=== PATIENT | female | born 1975 | race Caucasian/White ===

== ENCOUNTER 2016-05-13 03:44 | Emergency (ER) | payer OTHER ==
[~2016-05-13] VITALS: Ht 162.6 cm; Wt 148.0 kg
[~2016-05-13 03:44] MED LIST: ALBU18HF INHALATION; ATEN50TA PO; AZIT250T94 PO; CHLO473M4 MM; FLUT9.9S NASAL; HYDR-902 PO; HYDR12.58 PO; IBUP800T25 PO; PSEU120T11 PO
[2016-05-13 03:46] VITALS: Ht 162.6 cm; Wt 148.0 kg
[2016-05-13] MEDS ORDERED: KETOROLAC 30 MG INJ IV STA (04:34)
[2016-05-13] MEDS ORDERED: ONDANSETRON 4 MG INJ IV STA ×2 (04:34→06:11)
[2016-05-13 05:21] LABS: BASOPHIL # 0.1 10^3/ul (0.0-0.1); BASOPHILS % 0.5 % (0.0-2.0); EOSINOPHILS # 0.5 10^3/ul (0.0-0.5); EOSINOPHILS % 3.8 % (0.0-7.0); HEMATOCRIT 38.6 % (37.0-47.0); HEMOGLOBIN 12.1 g/dl (12.0-16.0); LYMPHOCYTES # 2.5 10^3/ul (0.8-2.9); LYMPHOCYTES % 20.7 % (15.0-51.0); MEAN CORPUSCULAR HEMOGLOBIN 24.6 pg (29.0-33.0); MEAN CORPUSCULAR HGB CONC 31.3 g/dl (32.0-37.0); MEAN CORPUSCULAR VOLUME 78.8 fl (82.0-101.0); MEAN PLATELET VOLUME 8.7 fl (7.4-10.4); MONOCYTE # 0.6 10^3/ul (0.3-0.9); MONOCYTES % 4.6 % (0.0-11.0); NEUTROPHIL # 8.4 10^3/ul (1.6-7.5); NEUTROPHILS % 70.4 % (39.0-77.0); PLATELET COUNT 377 10^3/UL (140-440); RED CELL DISTRIBUTION WIDTH 17.5 % (11.5-14.5); UNCORRECTED WBC 11.9 10^3/ul (4.8-10.8); WHITE BLOOD COUNT 11.9 10^3/ul (4.8-10.8)
[2016-05-13 05:25] LABS: ALBUMIN/GLOBULIN RATIO 0.76; CREATININE 0.74 mg/dl (0.44-1.00); TOTAL PROTEIN 9.2 g/dl (6.1-8.1)
[2016-05-13 05:26] LABS: CALCIUM 9.4 mg/dl (8.4-10.2)
[2016-05-13 05:51] LABS: CONDITION 1; LH ANALYZER COMMENTS 1
[2016-05-13] MEDS ORDERED: DICLOFENAC SODIUM 37.5 MG/ML VIAL IV STA (06:05)
[2016-05-13 06:16] LABS: ADD UMIC YES; URINE BILIRUBIN (Dip) NEGATIVE (NEGATIVE); URINE BLOOD (Dip) 1+ (NEGATIVE); URINE COLOR LT. YELLOW (YELLOW); URINE GLUCOSE (Dip) NEGATIVE (NEGATIVE); URINE KETONES (Dip) NEGATIVE (NEGATIVE); URINE LEUKOCYTE ESTERASE (Dip) NEGATIVE (NEGATIVE); URINE NITRITE (Dip) NEGATIVE (NEGATIVE); URINE TOTAL PROTEIN (Dip) TRACE (NEGATIVE); URINE UROBILINOGEN (Dip) 0.2 E.U./dL (0.1-1.0)
--- NOTE | 2016-05-13 06:18 | RADRPT ---
PROCEDURE: US pelvis complete and transvaginal CLINICAL INDICATION: Pelvic pain TECHNIQUE: Valente scale and color Doppler imaging of the pelvis was performed. Endovaginal scanning was performed for more detailed evaluation of the endometrium. The images were reviewed on a PACS workstation. COMPARISON: 01/24/2016 FINDINGS: The uterus measures 10.4 x 4.9 x 5.4 centimeters. The right ovary is again not visualized and the l eft ovary measures 5 x 4.1 x 4.3 centimeters. The endometrial stripe measures 7 millimeters in thic kness and is unremarkable in appearance. A possible 2.9 x 2.2 x 2.6 cm fibroid was seen in the anter ior uterus. The uterus was slightly lobulated in contour. The left ovary contains a 3 x 4.3 x 3.1 c m septated cystic lesion, similar in appearance to prior. No free fluid is seen. Cervical Nabothian cysts. No gross arterial flow was seen in the periphery of the left ovary. IMPRESSION: No definite interval change. Possible fibroid. Stable septated cystic lesion of the left ovary. T his has been seen on studies dating back to 04/19/2015. At that time, the abnormality measured 3.9 x 2.3 centimeters. MRI of the pelvis with without contrast may be helpful for further evaluation. Slowly enlarging cystic ovarian neoplasm cannot be excluded. RPTAT: HLBE Physician [place] Date Time Electronically viewed and signed by Yokasta Quan Physician on 05/13/2016 06:18 KAIDEN/
[2016-05-13] MEDS ORDERED: ONDA4TAB14 PO (06:25)
[2016-05-13 06:41] LABS: BACTERIA,URINE FEW; URINE RBCS 0-2 /HPF (0)
--- NOTE | 2016-05-13 06:47 | ERD ---
ER Documentation Chief Complaint Date/Time DATE: 05/13/16 TIME: 06:32 Chief Complaint BENNY PEVIC PAIN THIS AM; LMP 05/05/16. HPI 41-year-old female complaining of pelvic pain 4 hours. Patient stated that the pain is sharp and constant, feels like "contractions". Patient has history of dermoid cysts in the left ovary. States that this feels like previous pain from the cyst. Patient stated that she has [place] prescribed by her PCP, and was told that when pain gets worse and [place] does not help that she should come to the ED. she has not been able seen a RAIL EQUIPMENT OPERATOR due to her insurance. She feels nauseous, but no vomiting. Denies fever or chills. Denies vaginal bleeding. ROS All systems reviewed and are negative except as per history of present illness. Medications Home Meds Active Scripts Ondansetron (Ondansetron Odt) 4 Mg Tab.rapdis, 4 MG PO Q6H Y for NAUSEA AND/OR VOMITING, #10 TAB Prov:KIARA JAMESON NP 05/13/16 Ibuprofen* (Motrin*) 800 Mg Tab, 800 MG PO Q8 Y for PAIN AND OR ELEVATED TEMP, # 30 TAB Prov:KIARA JAMESON CANAL LOCK TENDER CHIEF OPERATOR 03/29/16 Fluticasone Propionate (Flonase Allergy Relief) 9.9 Ml [place].susp, 1 SPRAY NASAL DAILY, #1 BOTTLE TO EACH NOSTRIL Prov:KIARA JAMESON NP 03/29/16 Pseudoephedrine Hcl (Sudafe 12-Hour) 120 Mg Tablet.er, 120 MG PO BID Y for CONGESTION, #10 TAB.SA Prov:KIARA JAMESON NP 03/29/16 Chlorhexidine Gluconate (Peridex) 473 Ml Mouthwash, 15 ML MM 3-4 times a day, # 250 ML Prov:KAJAL PADRONSTSARABJITS ALyudmila DO 02/28/16 Hydrocodone/Acetaminophen ([place] 10-325 Tablet) 1 Each Tablet, 1 TAB PO Q6H Y for PAIN, #20 TAB Prov:KAJAL PADRONSTSARABJITS ALyudmila DO 02/28/16 Azithromycin* (Zithromax*) 250 Mg Tablet, 250 MG PO .KOURTNEY DIRECTED, #6 TAB TAKE 500 MG (2 TABS) THE FIRST DAY THEN 250 MG (1 TAB) DAYS 2-5 Prov:YISSEL PADRON DO 02/28/16 Reported Medications Albuterol Sulfate* (Ventolin HFA*) 18 Gm Hfa.aer.ad, 2 PUFF INHALATION Q4H Y for PRN, #1 INHALER 02/28/16 Hydrochlorothiazide* (Hydrochlorothiazide*) 12.5 Mg Tablet, 12.5 MG PO DAILY, # 30 TAB 10/29/15 Atenolol* (Atenolol*) 50 Mg Tablet, 50 MG PO DAILY, #30 04/19/15 Allergies Allergies: Coded Allergies: No Known Drug Allergy (Verified Allergy, Mild, 02/28/16) PMhx/Soc History of Surgery: Yes (C-SECX3, TUBAL LIGATION, CHEST ABCESS DRAINAGE) Anesthesia Reaction: No Hx Neurological Disorder: No Hx Respiratory Disorders: Yes (SLEEP APNEA, ASTHMA) Hx Cardiac Disorders: Yes (HTN) Hx Psychiatric Problems: Yes (ANXIETY) Hx Miscellaneous Medical Probl: Yes (SCIATICA, ovarian cysts) Hx Alcohol Use: No Hx Substance Use: No Hx Tobacco Use: Yes (1/2 PK PER DAY) Smoking Status: Current every day smoker Physical Exam Vitals Vital Signs Date Time Temp Pulse Resp B/P Pulse Ox O2 Delivery O2 Flow Rate FiO2 05/13/16 03:46 99.4 96 22 185/96 98 Physical Exam General impression: Well-developed, well-nourished, morbidly obese 41-year-old female, alert, oriented, in no acute distress Head: Normocephalic, atraumatic. Respiration: Normal respiratory effort. Lungs clear to auscultate bilaterally. No wheezes, rales or rhonchi. Cardiovascular: Regular rate and rhythm. No murmurs or extra heart sounds. Abdomen: Abdomen normal to inspection. Diffusely tender. No masses or organomegaly. Bowel sounds normal. Back: Normal to inspection. No midline spine tenderness. No CVA tenderness. Neuro: Mental status normal, speech normal. Skin: Normal turgor. No rash or lesions. Psych: Normal mood and affect. Result Diagram: 05/13/16 0450 05/13/16 0450 Results 24 hrs Laboratory Tests Test 05/13/16 04:50 05/13/16 05:30 Alanine Aminotransferase (ALT/SGPT) 14IU/L Albumin 4.0g/dl Albumin/Globulin Ratio 0.76 Alkaline Phosphatase 95IU/L Anion Gap 19 Aspartate Amino Transf (AST/SGOT) 16IU/L Basophils # 0.110^3/ul Basophils % 0.5% Blood Morphology Comment Blood Urea Nitrogen 15mg/dl Calcium Level 9.4mg/dl Carbon Dioxide Level 30mmol/L Chloride Level 102mmol/L Creatinine 0.74mg/dl Direct Bilirubin 0.00mg/dl Eosinophils # 0.510^3/ul Eosinophils % 3.8% Globulin 5.20g/dl Glucose Level 106mg/dl Hematocrit 38.6% Hemoglobin 12.1g/dl Indirect Bilirubin 0.0mg/dl Lipase 84U/L Lymphocytes # 2.510^3/ul Lymphocytes % 20.7% Mean Corpuscular Hemoglobin 24.6pg Mean Corpuscular Hemoglobin Concent 31.3g/dl Mean Corpuscular Volume 78.8fl Mean Platelet Volume 8.7fl Monocytes # 0.610^3/ul Monocytes % 4.6% Neutrophils # 8.410^3/ul Neutrophils % 70.4% Nucleated Red Blood Cells # 0.010^3/ul Nucleated Red Blood Cells % 0.0/100WBC Platelet Count 11241^3/UL Potassium Level 4.0mmol/L Red Blood Count 4.9010^6/ul Red Cell Distribution Width 17.5% Sodium Level 147mmol/L Total Bilirubin 0.0mg/dl Total Protein 9.2g/dl White Blood Count 11.910^3/ul Urine Bilirubin NEGATIVE Urine Clarity CLEAR Urine Color LT. YELLOW Urine Glucose NEGATIVE% Urine Hemoglobin 1+ Urine Ketones NEGATIVE Urine Leukocyte Esterase NEGATIVE Urine Microscopic RBC Pending Urine Microscopic WBC Pending Urine Nitrite NEGATIVE Urine Specific Prosperity 1.025 Urine Total Protein TRACE Urine Urobilinogen 0.2 E.U./dL Urine pH 6.0 Current Medications Medications (Trade) Dose Ordered Sig/Clarita Route PRN Reason Start Time Stop Time Status Last Admin Dose Admin Ketorolac Tromethamine (Toradol) 30 mg ONCE STAT IV 05/13/16 04:34 05/13/16 04:35 DC 05/13/16 04:57 Ondansetron HCl (Zofran Inj) 4 mg ONCE STAT IV 05/13/16 04:34 05/13/16 04:35 DC 05/13/16 04:57 Diclofenac Sodium (Dyloject) 37.5 mg ONCE STAT IV 05/13/16 06:05 05/13/16 06:06 DC 05/13/16 06:09 Ondansetron HCl (Zofran Inj) 4 mg ONCE STAT IV 05/13/16 06:11 05/13/16 06:12 DC 05/13/16 06:17 Procedures/MDM Morbidly obese 41-year-old female with history of dermoid cyst of the left ovary is complaining of pelvic pain times several hours. Patient requests Dilaudid for pain relief and initially refused pelvic ultrasound. I explained to the patient that it is important for me to obtain a pelvic ultrasound in order to rule out ruptured cyst with hemorrhaging. Patient agreed. Ultrasound showed no free fluids. Cyst on left ovary is noted to be larger than previous study dated about 1 year ago, concerning for neoplasm. CBC, CMP, lipase, and UA are unremarkable. Patient was given Toradol 30 mg IV and Zofran 4 mg IV initially. After medication, patient appeared to be comfortable. However, whenever patient sees a provider or nurse walking by, she was started to groan and complain of in pain. In addition, patient also requests medication for sleeping. Review of patient's medical record indicated that patient had been seen in this ED several times for similar complaints, and each time she received 1 mg of Dilaudid IV. Patient's behavior is suspicious for drug-seeking activity. Instead of Dilaudid, I gave her Dylojet IV. Patient again complained of feeling nauseous and wanting to vomit. Additional 4 mg Zofran IV given to the patient. Shortly after, patient requests food and drink, stating that she is able to eat a sandwich. Patient did not have any vomiting in the ED. I explained the ultrasound results to the patient. RAIL EQUIPMENT OPERATOR referral information provided. Patient advised to follow-up with her PCP and make appointment with RAIL EQUIPMENT OPERATOR. Smoking cessation counseling also provided for the patient. Total time of counseling 5 minutes. Patient appears well, stable for discharge and outpatient management. Medical decision making shared with patient and family. Education provided to patient and family. Patient and family expressed understanding of the plan. Medications on discharge: Zofran. Follow-up: Primary care provider in 2-3 days or return to ED if worse. Departure Diagnosis: Primary Impression: Dermoid cyst of left ovary Condition: Stable Patient Instructions: Ovarian Cyst Referrals: BHASKAR PETER (PCP) RAIL EQUIPMENT [place]PER[place] [address] [facility] [address] [place] [address] OFFICE FAX , [facility] [address] [place] [address] [address] CA[facility] [facility] [address] [place] [address] [address] DEMP[address], [facility] [address] [facility], [facility] [address] [address] [facility] [address] [place] [address] [facility] [address] [place] [address] [address] [facility] [address] [address] [facility] [address] [facility] [facility] [address] [address], [facility] [address] [facility], [facility] [address] [address] [facility] [address] [place], [place] [id number] Additional Instructions: Call your primary care doctor TOMORROW for an appointment during the next 2-3 days.See the doctor sooner or return here if your condition worsens before your appointment time. KIARA JAMESON NP May 13, 2016 06:47
== END 2016-05-13 06:38 | disposition home or self-care (01) ==
LOC: FTE 03:44
DX: D27.1 Benign neoplasm of left ovary (principal); I10 Essential (primary) hypertension; J45.909 Unspecified asthma, uncomplicated; F17.210 Nicotine dependence, cigarettes, uncomplicated; R11.0 Nausea
CPT/HCPCS: 36415; 76830; 76856; 80053; 81001; 83690; 85025; 96374; 96375; 96376; J1885; J2405; Z7502; Z7610; 81003

== ENCOUNTER 2016-07-16 01:41 | Emergency (ER) | payer OTHER ==
[~2016-07-16] VITALS: Ht 162.6 cm; Wt 145.0 kg
[~2016-07-16 01:41] MED LIST changes: +ONDA4TAB14 PO
[2016-07-16 01:46] VITALS: Ht 162.6 cm; Wt 145.0 kg
[2016-07-16] MEDS ORDERED: ASPIRIN 81 MG TAB PO STA (02:20)
--- NOTE | 2016-07-16 02:53 | RADRPT ---
PROCEDURE: XR Chest. CLINICAL INDICATION: Chest Pain. TECHNIQUE: Portable single view of the chest COMPARISON: 12/15/2015 FINDINGS: The heart size is top normal with left ventricular prominence. No acute infiltrate, pleural effusio n, or overt congestive heart failure is seen. No bony abnormality is seen. IMPRESSION: No definite acute pulmonary disease. RPTAT: HLBE Yokasta Quan Physician Date Time Electronically viewed and signed by Yokasta Quan, Physician on 07/16/2016 02:53 LE/
[2016-07-16 03:15] LABS: ADD SCAN DIFF NO
[2016-07-16 03:29] LABS: BASOPHIL # 0.1 10^3/ul (0.0-0.1); BASOPHILS % 0.5 % (0.0-2.0); EOSINOPHILS # 0.5 10^3/ul (0.0-0.5); EOSINOPHILS % 4.6 % (0.0-7.0); HEMATOCRIT 41.2 % (37.0-47.0); HEMOGLOBIN 12.1 g/dl (12.0-16.0); LYMPHOCYTES # 3.1 10^3/ul (0.8-2.9); LYMPHOCYTES % 27.4 % (15.0-51.0); MEAN CORPUSCULAR HEMOGLOBIN 24.8 pg (29.0-33.0); MEAN CORPUSCULAR HGB CONC 29.4 g/dl (32.0-37.0); MEAN CORPUSCULAR VOLUME 84.6 fl (82.0-101.0); MEAN PLATELET VOLUME 11.2 fl (7.4-10.4); MONOCYTE # 0.9 10^3/ul (0.3-0.9); MONOCYTES % 7.5 % (0.0-11.0); NEUTROPHIL # 6.8 10^3/ul (1.6-7.5); NEUTROPHILS % 59.6 % (39.0-77.0); PLATELET COUNT 383 10^3/UL (140-415); RED BLOOD COUNT 4.87 10^6/ul (4.20-5.40); RED CELL DISTRIBUTION WIDTH 16.7 % (11.5-14.5); WHITE BLOOD COUNT 11.3 10^3/ul (4.8-10.8)
[2016-07-16 03:30] LABS: INR 0.9; PARTIAL THROMBOPLASTIN TIME 27.8 Sec (25.0-35.0); PROTIME 12.1 Sec (12.2-14.2); PT RATIO 0.9
[2016-07-16] MEDS ORDERED: LORAZEPAM 2 MG INJ IV ONE (03:30)
[2016-07-16 03:37] LABS: CHLORIDE 104 mmol/L (97-110); SODIUM 145 mmol/L (135-144)
[2016-07-16 03:38] LABS: POTASSIUM 4.1 mmol/L (3.5-5.1)
[2016-07-16 03:40] LABS: ANION GAP 16 (8-16); BLOOD UREA NITROGEN 13 mg/dl (7-20); CARBON DIOXIDE 29 mmol/L (21-31); CREATINE KINASE 37 IU/L (23-200); CREATININE 0.79 mg/dl (0.44-1.00)
[2016-07-16 03:41] LABS: GLUCOSE 97 mg/dl (70-220)
[2016-07-16 03:54] LABS: TROPONIN-I < 0.012 ng/ml (0.00-0.12)
[2016-07-16] MEDS ORDERED: LIDOCAINE/MYLANTA 40 ML BTL PO STA (04:50)
[2016-07-16] MEDS ORDERED: LORA-441 PO (04:52)
--- NOTE | 2016-07-16 05:01 | ERD ---
ER Documentation Chief Complaint Date/Time DATE: 07/16/16 TIME: 04:55 Chief Complaint CP RADIATING TO LT ARM, NUMBNESS IN FINGERS, SOB X 10 MIN. CARDIAC HX HPI 41-year-old female with a history of hypertension and anxiety presenting with symptoms of chest pain, shortness of breath, tingling in her arms, and a sense of doom that started while she was watching a movie. She states that she has been very stressed lately as she has an open case with CPS regarding her autistic child and her mother is dying. She states that when she was in the ambulance she started feeling much better. She thinks that this was an anxiety attack because this is happened before in the past. Currently she feels much better other than mild anxiety. ROS All systems reviewed and are negative except as per history of present illness. Medications Home Meds Active Scripts Lorazepam* (Ativan*) 0.5 Mg Tablet, 0.5 MG PO Q8H Y for ANXIETY, #10 TAB Prov:KARRIE RAYGOZA MD 07/16/16 Ondansetron (Ondansetron Odt) 4 Mg Tab.rapdis, 4 MG PO Q6H Y for NAUSEA AND/OR VOMITING, #10 TAB Prov:KIARA JAMESON NP 05/13/16 Ibuprofen* (Motrin*) 800 Mg Tab, 800 MG PO Q8 Y for PAIN AND OR ELEVATED TEMP, # 30 TAB Prov:KIARA JAMESON. HOMERO 03/29/16 Fluticasone Propionate (Flonase Allergy Relief) 9.9 Ml [place].susp, 1 SPRAY NASAL DAILY, #1 BOTTLE TO EACH NOSTRIL Prov:KIARA JAMESON NP 03/29/16 Pseudoephedrine Hcl (Sudafe 12-Hour) 120 Mg Tablet.er, 120 MG PO BID Y for CONGESTION, #10 TAB.SA Prov:KIARA JAMESON NP 03/29/16 Chlorhexidine Gluconate (Peridex) 473 Ml Mouthwash, 15 ML MM 3-4 times a day, # 250 ML Prov:YISSEL PADRON DO 02/28/16 Hydrocodone/Acetaminophen ([place] 10-325 Tablet) 1 Each Tablet, 1 TAB PO Q6H Y for PAIN, #20 TAB Prov:YISSEL PADRON DO 02/28/16 Azithromycin* (Zithromax*) 250 Mg Tablet, 250 MG PO .ZPACK DIRECTED, #6 TAB TAKE 500 MG (2 TABS) THE FIRST DAY THEN 250 MG (1 TAB) DAYS 2-5 Prov:YISSEL PADRON DO 02/28/16 Reported Medications Albuterol Sulfate* (Ventolin HFA*) 18 Gm Hfa.aer.ad, 2 PUFF INHALATION Q4H Y for PRN, #1 INHALER 02/28/16 Hydrochlorothiazide* (Hydrochlorothiazide*) 12.5 Mg Tablet, 12.5 MG PO DAILY, # 30 TAB 10/29/15 Atenolol* (Atenolol*) 50 Mg Tablet, 50 MG PO DAILY, #30 04/19/15 Allergies Allergies: Coded Allergies: No Known Drug Allergy (Verified Allergy, Mild, 02/28/16) PMhx/Soc History of Surgery: Yes (C-SECX3, TUBAL LIGATION, CHEST ABCESS DRAINAGE) Anesthesia Reaction: No Hx Neurological Disorder: No Hx Respiratory Disorders: Yes (SLEEP APNEA, ASTHMA) Hx Cardiac Disorders: Yes (HTN) Hx Psychiatric Problems: Yes (ANXIETY) Hx Miscellaneous Medical Probl: Yes (SCIATICA, ovarian cysts) Hx Alcohol Use: No Hx Substance Use: No Hx Tobacco Use: Yes (1/2 PK PER DAY) Smoking Status: Current every day smoker FmHx Family History: No diabetes Physical Exam Vitals Vital Signs Date Time Temp Pulse Resp B/P Pulse Ox O2 Delivery O2 Flow Rate FiO2 07/16/16 02:20 98.8 90 24 199/95 99 Room Air 07/16/16 01:46 98.8 83 24 192/111 99 Physical Exam Const: Well-appearing, no distress, nontoxic Head: Atraumatic Eyes: Normal Conjunctiva ENT: Normal External Ears, Nose and Mouth. Neck: Full range of motion. No meningismus. Resp: Clear to auscultation bilaterally Cardio: Regular rate and rhythm, no murmurs. 2+ distal pulses, equal in all 4 extremities Abd: Soft, non tender, non distended. Normal bowel sounds Skin: No petechiae or rashes Back: No midline or flank tenderness Ext: No cyanosis, or edema Neur: Awake and alert Psych: Somewhat anxious, no suicidal or homicidal ideations Result Diagram: 07/16/16 0250 07/16/16 0250 Results 24 hrs Laboratory Tests Test 07/16/16 02:50 White Blood Count 11.310^3/ul Red Blood Count 4.8710^6/ul Hemoglobin 12.1g/dl Hematocrit 41.2% Mean Corpuscular Volume 84.6fl Mean Corpuscular Hemoglobin 24.8pg Mean Corpuscular Hemoglobin Concent 29.4g/dl Red Cell Distribution Width 16.7% Platelet Count 54559^3/UL Mean Platelet Volume 11.2fl Neutrophils % 59.6% Lymphocytes % 27.4% Monocytes % 7.5% Eosinophils % 4.6% Basophils % 0.5% Nucleated Red Blood Cells % 0.0/100WBC Neutrophils # 6.810^3/ul Lymphocytes # 3.110^3/ul Monocytes # 0.910^3/ul Eosinophils # 0.510^3/ul Basophils # 0.110^3/ul Nucleated Red Blood Cells # 0.010^3/ul Prothrombin Time 12.1Sec Prothrombin Time Ratio 0.9 INR International Normalized Ratio 0.90 Activated Partial Thromboplast Time 27.8Sec Sodium Level 145mmol/L Potassium Level 4.1mmol/L Chloride Level 104mmol/L Carbon Dioxide Level 29mmol/L Anion Gap 16 Blood Urea Nitrogen 13mg/dl Creatinine 0.79mg/dl Glucose Level 97mg/dl Calcium Level 9.0mg/dl Creatine Kinase 37IU/L Creatine Kinase Index 1.6 Creatinine Kinase MB (Mass) 0.60ng/ml Troponin I < 0.012ng/ml Current Medications Medications (Trade) Dose Ordered Sig/Clarita Route PRN Reason Start Time Stop Time Status Last Admin Dose Admin Aspirin (Aspirin) 162 mg ONCE STAT PO 07/16/16 02:20 07/16/16 02:21 DC 07/16/16 02:59 Lorazepam (Ativan) 1 mg ONCE ONCE IV 07/16/16 03:30 07/16/16 03:31 DC 07/16/16 03:15 Miscellaneous Medication (Gi Cocktail (2)) 40 ml ONCE STAT PO 07/16/16 04:50 07/16/16 04:51 DC Procedures/MDM EKG #1: Rate/Rhythm: Normal Sinus Rhythm with PAC QRS, ST, T-waves: Rightward axis, QTC 488, no changes consistent w/ acute ischemia Impression: No evidence of ischemia or arrhythmia EKG #2: Rate/Rhythm: Normal Sinus Rhythm with PAC QRS, ST, T-waves: Rightward axis, QTC 497, no changes consistent w/ acute ischemia Impression: No evidence of ischemia or arrhythmia Chest x-ray: No acute disease Labs were unremarkable The patient presents with chest pain. Vitals are stable. I considered pulmonary embolism, aortic dissection, pneumothorax among other diagnoses. Evaluation for acute coronary syndrome was performed. I have a low suspicion for acute coronary syndrome or pulmonary embolism. Initial troponin was negative. EKG does not show acute ischemia 2. Based on my evaluation, I have a low suspicion for serious etiology for her symptoms. Shared decision making occurred with patient and the decision has been made to discharge the patient for outpatient evaluation and functional study within 72 hours. She believes her symptoms were most likely to a panic attack, and I agree with this. However I told her I cannot completely rule out a cardiac etiology with the limited workup done here in the ED today. Patient instructed to arrange follow up with PCP in the next 2 days and return to the ED for any new or worsening symptoms. She was discharged with a prescription for Ativan and strict return precautions. Patient's blood pressure was elevated (>120/80) but appears stable without evidence of hypertension emergency or urgency. The patient was counseled about the risks of hypertension and urged to pursue outpatient monitoring and therapy within a week with their primary care physician. Smoking Cessation Therapy: Pt. was lectured for greater than 3 minutes on the health risks of continued smoking and the benefits of cessation. Departure Diagnosis: Primary Impression: Anxiety attack Additional Impressions: Chest pain Chest pain type: unspecified Qualified Code: R07.9 - Chest pain, unspecified type Tobacco abuse counseling Tobacco abuse Condition: Stable Patient Instructions: Chest Pain, Uncertain Cause, Panic Attack Additional Instructions: See your doctor in 1-2 days. Return for any worsening symptoms. KARRIE RAYGOZA MD Jul 16, 2016 05:01
[2016-07-16 05:05] VITALS: BP 164/93; PULSE 101; RESP 24; TEMP 98.8
== END 2016-07-16 05:00 | disposition home or self-care (01) ==
LOC: E/R 01:41
DX: F41.9 Anxiety disorder, unspecified (principal); I10 Essential (primary) hypertension; F17.210 Nicotine dependence, cigarettes, uncomplicated; J45.909 Unspecified asthma, uncomplicated; Z71.6 Tobacco abuse counseling
CPT/HCPCS: 36415; 71010; 80048; 82550; 82553; 84484; 85025; 85610; 85730; 93005; 96374; J2060; Z7502; Z7610

== ENCOUNTER 2016-08-24 02:43 | Emergency (ER) | payer OTHER ==
[~2016-08-24] VITALS: Ht 162.6 cm; Wt 152.0 kg
[~2016-08-24 02:43] MED LIST changes: +LORA-441 PO
[2016-08-24 02:46] VITALS: Ht 162.6 cm; Wt 152.0 kg
[2016-08-24] MEDS ORDERED: HYDROmorphONE 1 MG/ML SYG IV STA ×3 (03:04→05:15)
[2016-08-24] MEDS ORDERED: ONDANSETRON 4 MG INJ IV STA ×3 (03:04→05:15)
--- NOTE | 2016-08-24 03:22 | ERD ---
ER Documentation Chief Complaint Date/Time DATE: 08/24/16 TIME: 03:20 Chief Complaint Upper abd pain at 2230, hx of gallstones HPI This is a 41-year-old female who has a history of gallstones and is scheduled to have her gallbladder removed tomorrow. The patient states that she knew she ate the wrong food which she could not resist her mother's cooking tonight. She said about 30 minutes after eating she developed the typical right upper quadrant crampy pain without radiation. She is nauseated and no vomiting no back pain. She says this feels exactly like her gallstone attacks that she has had in the past. Her gallbladder will be removed in a hospital in [place]. No chest pain or shortness of breath ROS All systems reviewed and are negative except as per history of present illness. Medications Home Meds Active Scripts Ciprofloxacin Hcl* (Ciprofloxacin Hcl*) 500 Mg Tablet, 500 MG PO BID for 3 Days , TAB Prov:YISSEL PADRON DO 08/24/16 Dicyclomine Hcl* (Bentyl*) 10 Mg Capsule, 20 MG PO QID, #30 CAP Prov:KAJAL PADRONSTSARABJITS ALyudmila DO 08/24/16 Hydrocodone/Acetaminophen ([place] 10-325 Tablet) 1 Each Tablet, 1 TAB PO Q6H Y for PAIN, #20 TAB Prov:YISSEL PADRON DO 08/24/16 Lorazepam* (Ativan*) 0.5 Mg Tablet, 0.5 MG PO Q8H Y for ANXIETY, #10 TAB Prov:KARRIE RAYGOZA MD 07/16/16 Ondansetron (Ondansetron Odt) 4 Mg Tab.rapdis, 4 MG PO Q6H Y for NAUSEA AND/OR VOMITING, #10 TAB Prov:KIARA JAMESON NP 05/13/16 Ibuprofen* (Motrin*) 800 Mg Tab, 800 MG PO Q8 Y for PAIN AND OR ELEVATED TEMP, # 30 TAB Prov:KIARA JAMESON NP 03/29/16 Fluticasone Propionate (Flonase Allergy Relief) 9.9 Ml [place].susp, 1 SPRAY NASAL DAILY, #1 BOTTLE TO EACH NOSTRIL Prov:KIARA JAMESON NP 03/29/16 Pseudoephedrine Hcl (Sudafe 12-Hour) 120 Mg Tablet.er, 120 MG PO BID Y for CONGESTION, #10 TAB.SA Prov:KIARA JAMESON BRAZER INDUCTION 03/29/16 Chlorhexidine Gluconate (Peridex) 473 Ml Mouthwash, 15 ML MM 3-4 times a day, # 250 ML Prov:YISSEL PADRON DO 02/28/16 Hydrocodone/Acetaminophen ([place] 10-325 Tablet) 1 Each Tablet, 1 TAB PO Q6H Y for PAIN, #20 TAB Prov:YISSEL PADRON DO 02/28/16 Azithromycin* (Zithromax*) 250 Mg Tablet, 250 MG PO .ZPACK DIRECTED, #6 TAB TAKE 500 MG (2 TABS) THE FIRST DAY THEN 250 MG (1 TAB) DAYS 2-5 Prov:YISSEL PADRON DO 02/28/16 Reported Medications Albuterol Sulfate* (Ventolin HFA*) 18 Gm Hfa.aer.ad, 2 PUFF INHALATION Q4H Y for PRN, #1 INHALER 02/28/16 Hydrochlorothiazide* (Hydrochlorothiazide*) 12.5 Mg Tablet, 12.5 MG PO DAILY, # 30 TAB 10/29/15 Atenolol* (Atenolol*) 50 Mg Tablet, 50 MG PO DAILY, #30 04/19/15 Allergies Allergies: Coded Allergies: No Known Drug Allergy (Verified Allergy, Mild, 02/28/16) PMhx/Soc History of Surgery: Yes (C-SECX3, TUBAL LIGATION, CHEST ABCESS DRAINAGE) Anesthesia Reaction: No Hx Neurological Disorder: No Hx Respiratory Disorders: Yes (SLEEP APNEA, ASTHMA) Hx Cardiac Disorders: Yes (HTN) Hx Psychiatric Problems: Yes (ANXIETY) Hx Miscellaneous Medical Probl: Yes (SCIATICA, ovarian cysts) Hx Alcohol Use: No Hx Substance Use: No Hx Tobacco Use: Yes (1/2 PK PER DAY) Smoking Status: Current every day smoker FmHx Family History: No coronary disease Physical Exam Vitals Vital Signs Date Time Temp Pulse Resp B/P Pulse Ox O2 Delivery O2 Flow Rate FiO2 08/24/16 04:15 88 16 114/69 100 Room Air 08/24/16 02:46 98.3 88 24 189/111 97 Physical Exam Const: Well-developed, well-nourished, obese Head: Atraumatic, normocephalic Eyes: Normal Conjunctiva, PERRLA, EOMI, normal sclera, no nystagmus ENT: Normal External Ears, Nose and Mouth, moist mucus membranes. Neck: Full range of motion. No meningismus, no lymphadenopathy. Resp: Clear to auscultation bilaterally, no wheezing, rhonchi, rales Cardio: Regular rate and rhythm, no murmurs, S1 S2 present Abd: Soft, mild to moderate epigastric and right upper quadrant tenderness, non distended. Normal bowel sounds, no guarding or rebound, no pulsitile abdominal masses or bruits Skin: No petechiae or rashes, no ecchymosis , no maculopapular rash Back: No midline or flank tenderness Ext: No cyanosis, or edema, FROM x 4, normal inspection, neurovascularly intact x 4 Neur: Awake and alert, STR 5/5 x 4, sensation intact x 4, no focal findings, cerebellum intact Psych: Normal Mood and Affect Result Diagram: 08/24/165 08/24/16 0315 Results 24 hrs Laboratory Tests Test 08/24/16 03:15 White Blood Count 11.410^3/ul Red Blood Count 4.2110^6/ul Hemoglobin 10.7g/dl Hematocrit 35.9% Mean Corpuscular Volume 85.3fl Mean Corpuscular Hemoglobin 25.4pg Mean Corpuscular Hemoglobin Concent 29.8g/dl Red Cell Distribution Width 16.9% Platelet Count 03970^3/UL Mean Platelet Volume 10.4fl Neutrophils % 65.9% Lymphocytes % 24.0% Monocytes % 4.5% Eosinophils % 4.9% Basophils % 0.4% Nucleated Red Blood Cells % 0.0/100WBC Neutrophils # 7.510^3/ul Lymphocytes # 2.810^3/ul Monocytes # 0.510^3/ul Eosinophils # 0.610^3/ul Basophils # 0.110^3/ul Nucleated Red Blood Cells # 0.010^3/ul Sodium Level 141mmol/L Potassium Level 3.7mmol/L Chloride Level 101mmol/L Carbon Dioxide Level 28mmol/L Anion Gap 16 Blood Urea Nitrogen 19mg/dl Creatinine 0.77mg/dl Glucose Level 125mg/dl Calcium Level 8.3mg/dl Total Bilirubin 0.1mg/dl Direct Bilirubin 0.00mg/dl Indirect Bilirubin 0.1mg/dl Aspartate Amino Transf (AST/SGOT) 14IU/L Alanine Aminotransferase (ALT/SGPT) 16IU/L Alkaline Phosphatase 71IU/L Total Protein 7.8g/dl Albumin 3.3g/dl Globulin 4.50g/dl Albumin/Globulin Ratio 0.73 Lipase 68U/L Current Medications Medications (Trade) Dose Ordered Sig/Clarita Route PRN Reason Start Time Stop Time Status Last Admin Dose Admin Hydromorphone HCl (Dilaudid) 1 mg ONCE STAT IV 08/24/16 03:04 08/24/16 03:06 DC 08/24/16 03:12 Ondansetron HCl (Zofran Inj) 4 mg ONCE STAT IV 08/24/16 03:04 08/24/16 03:06 DC 08/24/16 03:12 Hydromorphone HCl (Dilaudid) 1 mg ONCE STAT IV 08/24/16 03:54 08/24/16 03:55 DC 08/24/16 03:59 Ondansetron HCl (Zofran Inj) 4 mg ONCE STAT IV 08/24/16 03:54 08/24/16 03:55 DC 08/24/16 03:59 Lorazepam (Ativan) 1 mg ONCE ONCE IV 08/24/16 04:00 08/24/16 04:01 DC 08/24/16 04:00 Hydromorphone HCl (Dilaudid) 1 mg ONCE STAT IV 08/24/16 05:15 08/24/16 05:16 DC Ondansetron HCl (Zofran Inj) 4 mg ONCE STAT IV 08/24/16 05:15 08/24/16 05:16 DC Procedures/MDM PROCEDURE: US abdomen limited right upper quadrant. CLINICAL INDICATION: Abdominal pain TECHNIQUE: Multiple real-time images were acquired of the patient's right upper quadrant of the abdomen utilizing a high resolution transducer. COMPARISON: CT abdomen and pelvis with contrast of 02/28/2016 FINDINGS: Multiple gallstones are seen in the gallbladder. There is mild diffuse gallbladder wall thickening with thickness approximately 3.9 mm. No pericholecystic fluid is seen. The common bile duct measures 5.3 mm in maximal dimension. No free fluid is identified. Pancreas is not seen due to bowel gas. There is the appearance of hepatomegaly with the length of the liver equals 23.3 cm. The right kidney measures 13 cm in length and is unremarkable. IMPRESSION: Cholelithiasis. Mild diffuse gallbladder wall thickening. Consistent with hepatomegaly. Pancreas not seen. Please see above. RPTAT: HJES .Nhan Mcmillan MD, MD Date Time Electronically viewed and signed by .Nhan Mcmillan MD, on 08/24/2016 04:58 .S/ CC: YISSEL PADRON DO Patient's pain is 0 out of 10. There is gallstones no dilated common bile duct liver function tests are normal the wall of the gallbladder is slightly thickened. The patient because she is pain-free and is scheduled to have her gallbladder removed tomorrow morning we will discharge her home on pain control and Cipro. Departure Diagnosis: Primary Impression: Gallstones Condition: Stable YISSEL PADRON DO August 24, 2016 03:22
[2016-08-24 03:53] LABS: ADD SCAN DIFF NO
[2016-08-24 04:00] LABS: BASOPHIL # 0.1 10^3/ul (0.0-0.1); BASOPHILS % 0.4 % (0.0-2.0); EOSINOPHILS # 0.6 10^3/ul (0.0-0.5); EOSINOPHILS % 4.9 % (0.0-7.0); HEMATOCRIT 35.9 % (37.0-47.0); HEMOGLOBIN 10.7 g/dl (12.0-16.0); LYMPHOCYTES # 2.8 10^3/ul (0.8-2.9); MEAN CORPUSCULAR HEMOGLOBIN 25.4 pg (29.0-33.0); MEAN CORPUSCULAR HGB CONC 29.8 g/dl (32.0-37.0); MEAN CORPUSCULAR VOLUME 85.3 fl (82.0-101.0); MEAN PLATELET VOLUME 10.4 fl (7.4-10.4); MONOCYTE # 0.5 10^3/ul (0.3-0.9); MONOCYTES % 4.5 % (0.0-11.0); NEUTROPHIL # 7.5 10^3/ul (1.6-7.5); NEUTROPHILS % 65.9 % (39.0-77.0); PLATELET COUNT 347 10^3/UL (140-415); RED BLOOD COUNT 4.21 10^6/ul (4.20-5.40); RED CELL DISTRIBUTION WIDTH 16.9 % (11.5-14.5); WHITE BLOOD COUNT 11.4 10^3/ul (4.8-10.8)
[2016-08-24] MEDS ORDERED: LORAZEPAM 2 MG INJ IV ONE (04:00)
[2016-08-24 04:04] LABS: ALBUMIN 3.3 g/dl (3.3-4.9)
[2016-08-24 04:05] LABS: POTASSIUM 3.7 mmol/L (3.5-5.1)
[2016-08-24 04:06] LABS: CREATININE 0.77 mg/dl (0.44-1.00)
[2016-08-24 04:07] LABS: ALBUMIN/GLOBULIN RATIO 0.73; BILIRUBIN,INDIRECT 0.1 mg/dl (0-1.1); BILIRUBIN,TOTAL 0.1 mg/dl (0.2-1.3); TOTAL PROTEIN 7.8 g/dl (6.1-8.1)
[2016-08-24 04:08] LABS: CALCIUM 8.3 mg/dl (8.4-10.2)
--- NOTE | 2016-08-24 04:58 | RADRPT ---
PROCEDURE: US abdomen limited right upper quadrant. CLINICAL INDICATION: Abdominal pain TECHNIQUE: Multiple real-time images were acquired of the patient's right [facility] resolution transducer. COMPARISON: CT abdomen and pelvis with contrast of 02/28/2016 FINDINGS: Multiple gallstones are seen in the gallbladder. There is mild diffuse gallbladder wall thickening with thickness approximately 3.9 mm. No perichole cystic fluid is seen. The common bile duct measures 5.3 mm in maximal dimension. No free fluid is identified. Pancreas is not seen due to bowel gas. There is the appearance of hepa tomegaly with the length of the liver equals 23.3 cm. The right kidney measures 13 cm in length and is unremarkable. IMPRESSION: Cholelithiasis. Mild diffuse gallbladder wall thickening. Consistent with hepatomegaly. Pancreas no t seen. Please see above. RPTAT: HJES .Nhan Mcmillan MD, Date Time Electronically viewed and signed by .Nhan Mcmillan MD, on 08/24/2016 04:58 .S/
[2016-08-24] MEDS ORDERED: DICY10CA60 PO (05:14)
[2016-08-24] MEDS ORDERED: HYDR-902 PO (05:14)
[2016-08-24] MEDS ORDERED: CIPR500T4 PO (05:14)
[2016-08-24 05:29] VITALS: BP 113/85; PULSE 78; RESP 16; TEMP 98.6
== END 2016-08-24 05:30 | disposition home or self-care (01) ==
LOC: E/R 02:43
DX: K80.20 Calculus of gallbladder without cholecystitis without obstruction (principal); I10 Essential (primary) hypertension; R11.0 Nausea; J45.909 Unspecified asthma, uncomplicated; F17.210 Nicotine dependence, cigarettes, uncomplicated
CPT/HCPCS: 36415; 76705; 80053; 83690; 85025; 96374; 96375; 96376; J1170; J2060; J2405; Z7502

== ENCOUNTER 2016-08-27 02:02 | Emergency (ER) | payer OTHER ==
[~2016-08-27] VITALS: Ht 162.6 cm; Wt 150.0 kg
[~2016-08-27 02:02] MED LIST changes: +CIPR500T4 PO; +DICY10CA60 PO
[2016-08-27 02:09] VITALS: Ht 162.6 cm; Wt 150.0 kg
[2016-08-27] MEDS ORDERED: IBUP-1542 PO (02:49)
[2016-08-27] MEDS ORDERED: ONDA4TAB8 PO (02:49)
[2016-08-27] MEDS ORDERED: HYDROmorphONE 1 MG/ML SYG IM ONE (02:53)
[2016-08-27] MEDS ORDERED: ONDANSETRON 4 MG INJ IM ONE (02:53)
--- NOTE | 2016-08-27 03:00 | ERD ---
ER Documentation Chief Complaint Date/Time DATE: 08/27/16 TIME: 02:51 Chief Complaint sp cholecystctomy, c/o post op pain, did not fill up prescribed pain meds HPI 41-year-old woman here for evaluation of postoperative abdominal pain, she is requesting opioid prescription which the pharmacy near [facility] refused to fill because she has a history of opioid abuse and issues regarding previous prescriptions. She is status post cholecystectomy a few days ago and had to be escorted out of the hospital by [employer] officers at least partly due to the fact that she refused to leave after being officially discharged. She states she was given opioid prescriptions by her surgeon although the pharmacy refused to fill them because of her history. She denies postop fever or chills , no dysuria, no vomiting or diarrhea, no blood per rectum. ROS All systems reviewed and are negative except as per history of present illness. Medications Home Meds Active Scripts Ibuprofen* (Motrin*) 600 Mg Tab, 600 MG PO Q8 for PAIN AND/OR INFLAMMATION, #30 TAB Prov:ELMER ANTON MD 08/27/16 Ondansetron Hcl* (Zofran*) 4 Mg Tablet, 4 MG PO Q8H Y for NAUSEA AND/OR VOMITING , #15 TAB Prov:ELMER ANTON MD 08/27/16 Ciprofloxacin Hcl* (Ciprofloxacin Hcl*) 500 Mg Tablet, 500 MG PO BID for 3 Days , TAB Prov:YISSEL PADRON DO 08/24/16 Dicyclomine Hcl* (Bentyl*) 10 Mg Capsule, 20 MG PO QID, #30 CAP Prov:YISSEL PADRON DO 08/24/16 Hydrocodone/Acetaminophen ([place] 10-325 Tablet) 1 Each Tablet, 1 TAB PO Q6H Y for PAIN, #20 TAB Prov:YISSEL PADRON DO 08/24/16 Lorazepam* (Ativan*) 0.5 Mg Tablet, 0.5 MG PO Q8H Y for ANXIETY, #10 TAB Prov:KARRIE RAYGOZA MD 07/16/16 Ondansetron (Ondansetron Odt) 4 Mg Tab.rapdis, 4 MG PO Q6H Y for NAUSEA AND/OR VOMITING, #10 TAB Prov:KIARA JAMESON NP 05/13/16 Ibuprofen* (Motrin*) 800 Mg Tab, 800 MG PO Q8 Y for PAIN AND OR ELEVATED TEMP, # 30 TAB Prov:KIARA JAMESON NP 03/29/16 Fluticasone Propionate (Flonase Allergy Relief) 9.9 Ml [place].susp, 1 SPRAY NASAL DAILY, #1 BOTTLE TO EACH NOSTRIL Prov:KIARA JAMESON NP 03/29/16 Pseudoephedrine Hcl (Sudafe 12-Hour) 120 Mg Tablet.er, 120 MG PO BID Y for CONGESTION, #10 TAB.SA Prov:KIARA JAMESON NP 03/29/16 Chlorhexidine Gluconate (Peridex) 473 Ml Mouthwash, 15 ML MM 3-4 times a day, # 250 ML Prov:YISSEL PADRON DO 02/28/16 Hydrocodone/Acetaminophen ([place] 10-325 Tablet) 1 Each Tablet, 1 TAB PO Q6H Y for PAIN, #20 TAB Prov:YISSEL PADRON DO 02/28/16 Azithromycin* (Zithromax*) 250 Mg Tablet, 250 MG PO .ZPACK DIRECTED, #6 TAB TAKE 500 MG (2 TABS) THE FIRST DAY THEN 250 MG (1 TAB) DAYS 2-5 Prov:YISSEL PADRON DO 02/28/16 Reported Medications Albuterol Sulfate* (Ventolin HFA*) 18 Gm Hfa.aer.ad, 2 PUFF INHALATION Q4H Y for PRN, #1 INHALER 02/28/16 Hydrochlorothiazide* (Hydrochlorothiazide*) 12.5 Mg Tablet, 12.5 MG PO DAILY, # 30 TAB 10/29/15 Atenolol* (Atenolol*) 50 Mg Tablet, 50 MG PO DAILY, #30 04/19/15 Allergies Allergies: Coded Allergies: No Known Drug Allergy (Verified Allergy, Mild, 02/28/16) PMhx/Soc Morbid obesity, obstructive sleep apnea, hypertension, chronic pain syndrome, opioid and benzodiazepine dependence, status post laparoscopic cholecystectomy a few days ago, coronary artery disease, fibroid uterus. History of Surgery: Yes (C-SECX3, TUBAL LIGATION, CHEST ABCESS DRAINAGE) Anesthesia Reaction: No Hx Neurological Disorder: No Hx Respiratory Disorders: Yes (SLEEP APNEA, ASTHMA) Hx Cardiac Disorders: Yes (HTN) Hx Psychiatric Problems: Yes (ANXIETY) Hx Miscellaneous Medical Probl: Yes (SCIATICA, ovarian cysts) Hx Alcohol Use: No Hx Substance Use: No Hx Tobacco Use: Yes (1/2 PK PER DAY) Physical Exam Vitals Vital Signs Date Time Temp Pulse Resp B/P Pulse Ox O2 Delivery O2 Flow Rate FiO2 08/27/16 02:09 98.5 79 20 155/80 98 Physical Exam GENERAL: Well-developed, well-nourished, well-hydrated, mild discomfort HEENT: Moist mucous membranes, pink conjunctiva, no cervical spine tenderness or step-off deformities, no goiter, no jaundice or icterus, extraocular movements intact without pain. No submandibular induration, and no pharyngeal erythema NEURO: Alert and oriented 3, cranial nerves II through XII intact bilaterally, pupils equal round reactive to light, no focal deficits or facial asymmetry, sensation intact distally Strength 5/5 in upper and lower extremities bilaterally CARDIAC: Regular rate and rhythm, no murmurs rubs or gallops LUNGS: Clear bilaterally no wheezing crackles or stridor ABDOMEN: Soft nontender, no guarding, no rigidity, no rebound, no psoas sign no obturator sign. Normoactive bowel sounds SKIN: Warm and dry to touch, no abrasions, contusions, or hematomas, no lacerations, no ecchymosis, no target lesions, and without ulcers EXTREMITIES: No clubbing cyanosis or edema, calves are bilaterally symmetrical, no Homans sign, no popliteal cord sign. Distal pulses equal and bilateral PSYCH: Normal affect without agitation or irritability Results 24 hrs Current Medications Medications (Trade) Dose Ordered Sig/Clarita Route PRN Reason Start Time Stop Time Status Last Admin Dose Admin Hydromorphone HCl (Dilaudid) 0.5 mg ONCE STAT IM 08/27/16 02:47 08/27/16 02:48 UNV Ondansetron HCl (Zofran Inj) 4 mg ONCE STAT IM 08/27/16 02:47 08/27/16 02:48 UNV Procedures/[facility] I administered hydromorphone 0.5 mg intramuscular injection and Zofran 4 mg IM for her symptoms. EKG performed, read by me: 80 bpm, normal sinus rhythm, normal axis, no acute ST segment changes, narrow QRS complex, with good R-wave progression in precordial leads. Patient's pain was controlled here in the emergency department and I recommended she follow-up with her PMD and surgeon for any further issues regarding postoperative pain or other related symptomatology. I will defer any opioid or benzodiazepine prescription as she has a history of prescription abuse and other pharmacies have refused to fill controlled substances for her. While here the patient did request an opioid and benzodiazepine prescription prior to discharge, which I had to kindly refused. Differential diagnoses considered, included but not limited to acute coronary syndrome, pulmonary embolism, aortic dissection, abdominal aortic aneurysm, sepsis, stroke, meningitis, encephalitis, pneumonia, appendicitis, cholecystitis , bowel obstruction, pyelonephritis, nephrolithiasis, cystitis, as well as metabolic, hematologic, and electrolyte abnormalities. As well as abscess, cellulitis, fractures, and dislocations. Patient feels much better at this time, and vital signs are normal, symptoms have improved. I did give strict instructions to return to the ED if symptoms continue or worsen, patient will otherwise follow-up with primary care physician. Patient understood instructions and agreed to plan. Departure Diagnosis: Primary Impression: Postoperative pain Additional Impressions: Opioid dependence Substance use status: uncomplicated Qualified Code: F11.20 - Uncomplicated opioid dependence Benzodiazepine dependence Chronic pain syndrome Condition: Good Patient Instructions: Post Op Wound Check, Pain ELMER ANTON MD August 27, 2016 03:00
[2016-08-27 03:30] VITALS: BP 137/91; PULSE 92; RESP 18
== END 2016-08-27 03:30 | disposition home or self-care (01) ==
LOC: E/R 02:02
DX: G89.18 Other acute postprocedural pain (principal); F11.20 Opioid dependence, uncomplicated; F13.20 Sedative, hypnotic or anxiolytic dependence, uncomplicated; G89.4 Chronic pain syndrome; I10 Essential (primary) hypertension; J45.909 Unspecified asthma, uncomplicated; I25.10 Atherosclerotic heart disease of native coronary artery without angina pectoris; E66.01 Morbid (severe) obesity due to excess calories; F17.210 Nicotine dependence, cigarettes, uncomplicated; R10.9 Unspecified abdominal pain; Z68.43 Body mass index [BMI] 50.0-59.9, adult
CPT/HCPCS: 93005; 96372; J1170; J2405; Z7502

== ENCOUNTER 2016-09-01 02:48 | Emergency (ER) | payer OTHER ==
[~2016-09-01] VITALS: Ht 162.6 cm; Wt 161.0 kg
[~2016-09-01 02:48] MED LIST changes: +IBUP-1542 PO; +ONDA4TAB8 PO
[2016-09-01 02:51] VITALS: Ht 162.6 cm; Wt 161.0 kg
[2016-09-01 04:10] VITALS: BP 148/91; PULSE 86; RESP 24; TEMP 97.8
[2016-09-01] MEDS ORDERED: morphine 4 MG/ML VIAL IV STA (04:19)
[2016-09-01] MEDS ORDERED: ONDANSETRON 4 MG INJ IV STA (04:19)
[2016-09-01 04:31] LABS: ADD SCAN DIFF NO
[2016-09-01 04:58] LABS: BASOPHILS % 0.3 % (0.0-2.0); EOSINOPHILS # 0.4 10^3/ul (0.0-0.5); EOSINOPHILS % 3.7 % (0.0-7.0); HEMATOCRIT 37.9 % (37.0-47.0); HEMOGLOBIN 11.1 g/dl (12.0-16.0); LYMPHOCYTES # 2.5 10^3/ul (0.8-2.9); LYMPHOCYTES % 21.1 % (15.0-51.0); MEAN CORPUSCULAR HEMOGLOBIN 24.7 pg (29.0-33.0); MEAN CORPUSCULAR HGB CONC 29.3 g/dl (32.0-37.0); MEAN CORPUSCULAR VOLUME 84.2 fl (82.0-101.0); MEAN PLATELET VOLUME 10.7 fl (7.4-10.4); MONOCYTE # 0.7 10^3/ul (0.3-0.9); MONOCYTES % 5.8 % (0.0-11.0); NEUTROPHIL # 8.1 10^3/ul (1.6-7.5); NEUTROPHILS % 68.8 % (39.0-77.0); PLATELET COUNT 407 10^3/UL (140-415); RED CELL DISTRIBUTION WIDTH 17.2 % (11.5-14.5); WHITE BLOOD COUNT 11.8 10^3/ul (4.8-10.8)
[2016-09-01 05:01] LABS: INR 0.91; PARTIAL THROMBOPLASTIN TIME 27.6 Sec (25.0-35.0); PROTIME 12.3 Sec (12.2-14.2)
[2016-09-01] MEDS ORDERED: HYDROmorphONE 1 MG/ML SYG IV STA (05:01)
[2016-09-01 05:26] LABS: ALBUMIN 3.3 g/dl (3.3-4.9)
[2016-09-01 05:27] LABS: POTASSIUM 4.2 mmol/L (3.5-5.1)
[2016-09-01 05:29] LABS: BILIRUBIN,INDIRECT 0.1 mg/dl (0-1.1); BILIRUBIN,TOTAL 0.1 mg/dl (0.2-1.3); CREATININE 0.77 mg/dl (0.44-1.00)
[2016-09-01 05:30] LABS: ALBUMIN/GLOBULIN RATIO 0.76; CALCIUM 9.2 mg/dl (8.4-10.2); TOTAL PROTEIN 7.6 g/dl (6.1-8.1)
--- NOTE | 2016-09-01 05:49 | RADRPT ---
PROCEDURE: ULTRASOUND LIMITED ABDOMEN CLINICAL INDICATION: 41-year-old female with abdominal pain. TECHNIQUE: Multiple sonographic of the right upper quadrant of the abdomen were obtained. The imag es were reviewed on a PACS workstation. COMPARISON: Right upper quadrant ultrasound August 24, 2016. FINDINGS: The pancreas is not visualized secondary to overlying bowel gas. The liver displays diffuse increase echogenicity consistent with fatty infiltration The liver measur es 21 point a cm in length. No evidence of intrahepatic biliary ductal dilatation is seen. The port al and hepatic veins are unremarkable. The gallbladder is not visualized consistent with prior cholecystectomy. No pericholecystic fluid is seen. The common bile duct measures 5.5 mm and is not dilated. The right kidney displays normal echogenicity. The right kidney measures 12.0 cm in maximal length. No caliectasis or hydronephrosis is seen. No free fluid is seen. IMPRESSION: 1. Hepatomegaly with diffuse fatty infiltration. 2. Status post cholecystectomy. .Balbir Ramirez MD, MD Date Time Electronically viewed and signed by .Balbir Ramirez MD, on 09/01/2016 05:49 .M/
--- NOTE | 2016-09-01 05:53 | ERD ---
ER Documentation Chief Complaint Date/Time DATE: 09/01/16 TIME: 05:51 Chief Complaint S/P GB SX 08/25, C/O INCREASING ABD PAIN. +NAUSEA NO VOMITING. HPI This is a 41-year-old female status post gallbladder surgery on August 25 comes in with complaints of surgical site pain. She has had mild nausea but no vomiting. No fevers no chills. No other current complaints. Pain is mild to moderate intensity no exacerbating or alleviating factors. ROS All systems reviewed and are negative except as per history of present illness. Medications Home Meds Active Scripts Ibuprofen* (Motrin*) 600 Mg Tab, 600 MG PO Q8 for PAIN AND/OR INFLAMMATION, #30 TAB Prov:ELMER ANTON MD 08/27/16 Ondansetron Hcl* (Zofran*) 4 Mg Tablet, 4 MG PO Q8H Y for NAUSEA AND/OR VOMITING , #15 TAB Prov:ELMER ANTON MD 08/27/16 Ciprofloxacin Hcl* (Ciprofloxacin Hcl*) 500 Mg Tablet, 500 MG PO BID for 3 Days , TAB Prov:YISSEL PADRON DO 08/24/16 Dicyclomine Hcl* (Bentyl*) 10 Mg Capsule, 20 MG PO QID, #30 CAP Prov:YISSEL PDARON DO 08/24/16 Lorazepam* (Ativan*) 0.5 Mg Tablet, 0.5 MG PO Q8H Y for ANXIETY, #10 TAB Prov:KARRIE RAYGOZA MD 07/16/16 Ibuprofen* (Motrin*) 800 Mg Tab, 800 MG PO Q8 Y for PAIN AND OR ELEVATED TEMP, # 30 TAB Prov:KIARA JAMESON NP 03/29/16 Fluticasone Propionate (Flonase Allergy Relief) 9.9 Ml [place].susp, 1 SPRAY NASAL DAILY, #1 BOTTLE TO EACH NOSTRIL Prov:KIARA JAMESON NP 03/29/16 Chlorhexidine Gluconate (Peridex) 473 Ml Mouthwash, 15 ML MM 3-4 times a day, # 250 ML Prov:YISSEL PADRON DO 02/28/16 Hydrocodone/Acetaminophen ([place] 10-325 Tablet) 1 Each Tablet, 1 TAB PO Q6H Y for PAIN, #20 TAB Prov:YISSEL PADRON DO 02/28/16 Reported Medications Albuterol Sulfate* (Ventolin HFA*) 18 Gm Hfa.aer.ad, 2 PUFF INHALATION Q4H Y for PRN, #1 INHALER 02/28/16 Hydrochlorothiazide* (Hydrochlorothiazide*) 12.5 Mg Tablet, 12.5 MG PO DAILY, # 30 TAB 10/29/15 Atenolol* (Atenolol*) 50 Mg Tablet, 50 MG PO DAILY, #30 04/19/15 Discontinued Scripts Hydrocodone/Acetaminophen ([place] 10-325 Tablet) 1 Each Tablet, 1 TAB PO Q6H Y for PAIN, #20 TAB Prov:YISSEL PADRON DO 08/24/16 Ondansetron (Ondansetron Odt) 4 Mg Tab.rapdis, 4 MG PO Q6H Y for NAUSEA AND/OR VOMITING, #10 TAB Prov:KIARA JAMESON. HAND UMBRELLA TIPPER 05/13/16 Pseudoephedrine Hcl (Sudafe 12-Hour) 120 Mg Tablet.er, 120 MG PO BID Y for CONGESTION, #10 TAB.SA Prov:KIARA JAMESON. HAND UMBRELLA TIPPER 03/29/16 Azithromycin* (Zithromax*) 250 Mg Tablet, 250 MG PO .ZPACK DIRECTED, #6 TAB TAKE 500 MG (2 TABS) THE FIRST DAY THEN 250 MG (1 TAB) DAYS 2-5 Prov:YISSEL PADRON DO 02/28/16 Allergies Allergies: Coded Allergies: No Known Drug Allergy (Verified Allergy, Mild, 09/01/16) PMhx/Soc History of Surgery: Yes (c/s x 3, tubal ligation, chest abscess drained, lap marlon 08/25/16) Anesthesia Reaction: No Hx Neurological Disorder: No Hx Respiratory Disorders: Yes (SLEEP APNEA, ASTHMA) Hx Cardiac Disorders: Yes (HTN) Hx Psychiatric Problems: Yes (ANXIETY) Hx Miscellaneous Medical Probl: Yes (SCIATICA, ovarian cysts) Hx Alcohol Use: No Hx Substance Use: No Hx Tobacco Use: Yes (1/2 PK PER DAY) Smoking Status: Current every day smoker Physical Exam Vitals Vital Signs Date Time Temp Pulse Resp B/P Pulse Ox O2 Delivery O2 Flow Rate FiO2 09/01/16 04:10 97.8 86 24 148/91 95 Room Air 09/01/16 02:51 98.3 83 26 158/95 99 Physical Exam Const: [] Head: Atraumatic Eyes: Normal Conjunctiva ENT: Normal External Ears, Nose and Mouth. Neck: Full range of motion..~ No meningismus. Resp: Clear to auscultation bilaterally Cardio: Regular rate and rhythm, no murmurs Abd: Soft, non tender, non distended. Normal bowel sounds Skin: No petechiae or rashes Back: No midline or flank tenderness Ext: No cyanosis, or edema Neur: Awake and alert Psych: Normal Mood and Affect Result Diagram: 09/01/1640909/01/16409 Results 24 hrs Laboratory Tests Test 09/01/16 04:10 White Blood Count 11.810^3/ul Red Blood Count 4.5010^6/ul Hemoglobin 11.1g/dl Hematocrit 37.9% Mean Corpuscular Volume 84.2fl Mean Corpuscular Hemoglobin 24.7pg Mean Corpuscular Hemoglobin Concent 29.3g/dl Red Cell Distribution Width 17.2% Platelet Count 33867^3/UL Mean Platelet Volume 10.7fl Neutrophils % 68.8% Lymphocytes % 21.1% Monocytes % 5.8% Eosinophils % 3.7% Basophils % 0.3% Nucleated Red Blood Cells % 0.0/100WBC Neutrophils # 8.110^3/ul Lymphocytes # 2.510^3/ul Monocytes # 0.710^3/ul Eosinophils # 0.410^3/ul Basophils # 0.010^3/ul Nucleated Red Blood Cells # 0.010^3/ul Prothrombin Time 12.3Sec Prothrombin Time Ratio 1.0 INR International Normalized Ratio 0.91 Activated Partial Thromboplast Time 27.6Sec Sodium Level 141mmol/L Potassium Level 4.2mmol/L Chloride Level 101mmol/L Carbon Dioxide Level 28mmol/L Anion Gap 16 Blood Urea Nitrogen 19mg/dl Creatinine 0.77mg/dl Glucose Level 116mg/dl Calcium Level 9.2mg/dl Total Bilirubin 0.1mg/dl Direct Bilirubin 0.00mg/dl Indirect Bilirubin 0.1mg/dl Aspartate Amino Transf (AST/SGOT) 16IU/L Alanine Aminotransferase (ALT/SGPT) 23IU/L Alkaline Phosphatase 78IU/L Total Protein 7.6g/dl Albumin 3.3g/dl Globulin 4.30g/dl Albumin/Globulin Ratio 0.76 Lipase 58U/L Current Medications Medications (Trade) Dose Ordered Sig/Clarita Route PRN Reason Start Time Stop Time Status Last Admin Dose Admin Morphine Sulfate (morphine) 4 mg ONCE STAT IV 09/01/16 04:19 09/01/16 04:20 DC 09/01/16 04:23 Ondansetron HCl (Zofran Inj) 4 mg ONCE STAT IV 09/01/16 04:19 09/01/16 04:20 DC 09/01/16 04:22 Hydromorphone HCl (Dilaudid) 1 mg ONCE STAT IV 09/01/16 05:01 09/01/16 05:12 DC 09/01/16 05:26 Procedures/MDM Medical decision-makin-year-old female postop pain. No evidence of infection. No other current complaints. Departure Diagnosis: Primary Impression: Postoperative complication Surgical complication system/body Area: skin Surgical complication type: unspecified Procedure type: non-dermatologic Qualified Code: L76.82 - Postoperative surgical complication involving skin associated with non- dermatologic procedure, unspecified complication Condition: Stable MADHURI DAWKINS September 01, 2016 05:52
[2016-09-01] MEDS ORDERED: HYDR-902 PO (05:55)
[2016-09-01] MEDS ORDERED: ONDA4TAB14 PO (05:55)
[2016-09-01] MEDS ORDERED: LORAZEPAM 1 MG TAB PO ONE (06:30)
== END 2016-09-01 06:35 | disposition home or self-care (01) ==
LOC: E/R 02:48
DX: R10.9 Unspecified abdominal pain (principal); L76.82 Other postprocedural complications of skin and subcutaneous tissue; R11.0 Nausea; I10 Essential (primary) hypertension; J45.909 Unspecified asthma, uncomplicated; F17.210 Nicotine dependence, cigarettes, uncomplicated
CPT/HCPCS: 36415; 76705; 80053; 83690; 85025; 85610; 85730; 96374; 96375; J1170; J2270; J2405; Z7502; Z7610

== ENCOUNTER 2017-03-14 02:26 | Emergency (ER) | payer OTHER ==
[~2017-03-14] VITALS: Ht 162.6 cm; Wt 162.3 kg
[~2017-03-14 02:26] MED LIST changes: -AZIT250T94 PO; -PSEU120T11 PO
[2017-03-14 02:28] VITALS: Ht 162.6 cm; Wt 162.3 kg
[2017-03-14] MEDS ORDERED: KETOROLAC 30 MG INJ IV STA (02:45)
[2017-03-14] MEDS ORDERED: ALBUTEROL 0.083% (NEB) 2.5 MG/3 ML AMP HHN STA ×2 (03:28→07:52)
[2017-03-14] MEDS ORDERED: METHYLPREDNISOLONE 125 MG INJ IV ONE (03:30)
[2017-03-14] MEDS ORDERED: IPRATROPIUM (NEB) 0.5 MG/2.5 ML AMP HHN ONE (03:30)
--- NOTE | 2017-03-14 03:49 | RADRPT ---
PROCEDURE: CHEST - 1 VIEW CLINICAL INDICATION: 42-year-old female with chest/abdominal pain. TECHNIQUE: A single frontal AP semi-erect portable view of the chest was performed. The images we re reviewed on a PACS workstation. COMPARISON: CR CHEST 07/16/2016; CR CHEST 12/15/2015; CR CHEST 10/29/2015 FINDINGS: The cardiomediastinal silhouette is mildly enlarged. There is mild pulmonary vascular congestion. Th ere is a questionable right perihilar infiltrate. There is no evidence for pneumothorax. The osseous structures are intact. IMPRESSION: 1. Mild cardiomegaly. 2. Pulmonary vascular congestion. 3. Questionable right perihilar infiltrate. .Balbir Ramirez MD, MD Date Time Electronically viewed and signed by .Balbir Ramirez MD, on 03/14/2017 03:48 .M/
[2017-03-14 03:54] LABS: ADD UMIC YES; UR ASCORBIC ACID NEGATIVE (NEGATIVE); UR BACTERIA FEW /HPF (NONE SEEN); UR BILIRUBIN (Dip) NEGATIVE (NEGATIVE); UR BLOOD (Dip) 1+ mg/dL (NEGATIVE); UR CLARITY CLEAR (CLEAR); UR COLOR YELLOW (YELLOW); UR GLUCOSE (Dip) NEGATIVE (NEGATIVE); UR KETONES (Dip) NEGATIVE (NEGATIVE); UR LEUKOCYTE ESTERASE (Dip) NEGATIVE Leu/ul (NEGATIVE); UR NITRITE (Dip) NEGATIVE (NEGATIVE); UR RBC 1 /HPF (0-5); UR SPECIFIC GRAVITY (Dip) 1.023 (1.003-1.030); UR SQUAMOUS EPITHELIAL CELL FEW /HPF (FEW); UR TOTAL PROTEIN (Dip) 2+ mg/dl (NEGATIVE); UR UROBILINOGEN (Dip) 1+ mg/dL (NEGATIVE)
[2017-03-14] MEDS ORDERED: LORAZEPAM 2 MG INJ IV ONE (04:00)
[2017-03-14 04:33] LABS: BASOPHILS % 0.4 % (0.0-2.0); EOSINOPHILS # 0.3 10^3/ul (0.0-0.5); EOSINOPHILS % 2.9 % (0.0-7.0); HEMATOCRIT 37.8 % (37.0-47.0); HEMOGLOBIN 11.3 g/dl (12.0-16.0); LYMPHOCYTES # 2.7 10^3/ul (0.8-2.9); LYMPHOCYTES % 26.9 % (15.0-51.0); MEAN CORPUSCULAR HEMOGLOBIN 24.6 pg (29.0-33.0); MEAN CORPUSCULAR HGB CONC 29.9 g/dl (32.0-37.0); MEAN CORPUSCULAR VOLUME 82.4 fl (82.0-101.0); MEAN PLATELET VOLUME 10.2 fl (7.4-10.4); MONOCYTE # 0.4 10^3/ul (0.3-0.9); MONOCYTES % 4.3 % (0.0-11.0); NEUTROPHIL # 6.5 10^3/ul (1.6-7.5); NEUTROPHILS % 65.2 % (39.0-77.0); PLATELET COUNT 289 10^3/UL (140-415); RED BLOOD COUNT 4.59 10^6/ul (4.20-5.40); RED CELL DISTRIBUTION WIDTH 16.9 % (11.5-14.5)
[2017-03-14 05:01] LABS: ANION GAP 17 (8-16); BLOOD UREA NITROGEN 16 mg/dl (7-20); CALCIUM 8.4 mg/dl (8.4-10.2); CARBON DIOXIDE 26 mmol/L (21-31); CHLORIDE 104 mmol/L (97-110); CREATININE 0.77 mg/dl (0.44-1.00); GLUCOSE 113 mg/dl (70-220); POTASSIUM 3.9 mmol/L (3.5-5.1); SODIUM 143 mmol/L (135-144)
[2017-03-14] MEDS ORDERED: morphine 4 MG/ML VIAL IV STA (05:13)
[2017-03-14 05:27] LABS: TROPONIN-I < 0.012 ng/ml (0.00-0.12)
[2017-03-14] MEDS ORDERED: DIPHENHYDRAMINE 25 MG CAP PO ONE (05:30)
[2017-03-14] MEDS ORDERED: FUROSEMIDE 40 MG INJ IV ONE (06:00)
[2017-03-14] MEDS ORDERED: ASPIRIN 81 MG TAB PO ONE (06:00)
--- NOTE | 2017-03-14 06:58 | ERD ---
ER Documentation Chief Complaint Chief Complaint bib self, cc: sob, cough, congestion x 5 days, difficulty breathing, HPI Is 42-year-old female presents with shortness of breath cough and congestion for the last 5 days. No fevers or chills. States that she has this about once a year. Chest pain is mostly only with cough. Where it hurts along her lower rib areas. ROS All systems reviewed and are negative except as per history of present illness. Medications Home Meds Active Scripts Ondansetron (Ondansetron Odt) 4 Mg Tab.rapdis, 4 MG PO Q6H Y for NAUSEA AND/OR VOMITING, #10 TAB Prov:MADHUIR DAWKINS 09/01/16 Hydrocodone/Acetaminophen ([place] 10-325 Tablet) 1 Each Tablet, 1 TAB PO Q6H Y for PAIN, #20 TAB Prov:MADHURI DAWKINS 09/01/16 Ibuprofen* (Motrin*) 600 Mg Tab, 600 MG PO Q8 for PAIN AND/OR INFLAMMATION, #30 TAB Prov:ELMER ANTON MD 08/27/16 Ondansetron Hcl* (Zofran*) 4 Mg Tablet, 4 MG PO Q8H Y for NAUSEA AND/OR VOMITING , #15 TAB Prov:ELMER ANTON MD 08/27/16 Ciprofloxacin Hcl* (Ciprofloxacin Hcl*) 500 Mg Tablet, 500 MG PO BID for 3 Days , TAB Prov:YISSEL PADRON DO 08/24/16 Dicyclomine Hcl* (Bentyl*) 10 Mg Capsule, 20 MG PO QID, #30 CAP Prov:YISSEL PADRON DO 08/24/16 Lorazepam* (Ativan*) 0.5 Mg Tablet, 0.5 MG PO Q8H Y for ANXIETY, #10 TAB Prov:KARRIE RAYGOZA MD 07/16/16 Ibuprofen* (Motrin*) 800 Mg Tab, 800 MG PO Q8 Y for PAIN AND OR ELEVATED TEMP, # 30 TAB Prov:KIARA JAMESON NP 03/29/16 Fluticasone Propionate (Flonase Allergy Relief) 9.9 Ml [place].susp, 1 SPRAY NASAL DAILY, #1 BOTTLE TO EACH NOSTRIL Prov:KIARA JAMESON NP 03/29/16 Chlorhexidine Gluconate (Peridex) 473 Ml Mouthwash, 15 ML MM 3-4 times a day, # 250 ML Prov:YISSEL PADRON. DO 02/28/16 Hydrocodone/Acetaminophen ([place] 10-325 Tablet) 1 Each Tablet, 1 TAB PO Q6H Y for PAIN, #20 TAB Prov:YISSEL PADRON. DO 02/28/16 Reported Medications Albuterol Sulfate* (Ventolin HFA*) 18 Gm Hfa.aer.ad, 2 PUFF INHALATION Q4H Y for PRN, #1 INHALER 02/28/16 Hydrochlorothiazide* (Hydrochlorothiazide*) 12.5 Mg Tablet, 12.5 MG PO DAILY, # 30 TAB 10/29/15 Atenolol* (Atenolol*) 50 Mg Tablet, 50 MG PO DAILY, #30 04/19/15 Allergies Allergies: Coded Allergies: No Known Drug Allergy (Verified Allergy, Mild, 09/01/16) PMhx/Soc History of Surgery: Yes (GB 11/2016. CSection- 1997,[id number], fibroid cyst 2003, finger surgery) Anesthesia Reaction: No Hx Neurological Disorder: No Hx Respiratory Disorders: Yes (Sleep apnea, Asthma ) Hx Psychiatric Problems: Yes (Anxiety) Hx Alcohol Use: No Hx Substance Use: No Hx Tobacco Use: Yes (Smoke 1ppd since age 18) Smoking Status: Current every day smoker Physical Exam Vitals Vital Signs Date Time Temp Pulse Resp B/P Pulse Ox O2 Delivery O2 Flow Rate FiO2 03/14/17 05:30 20 155/96 95 Room Air 03/14/17 05:00 20 157/86 95 Room Air 03/14/17 04:30 98.3 18 161/95 99 Room Air 03/14/17 03:36 93 24 99 21 03/14/17 03:30 19 185/113 95 Room Air 03/14/17 03:00 21 166/103 97 Room Air 03/14/17 02:40 98.3 93 19 154/102 98 Room Air 03/14/17 02:28 98.5 89 30 180/106 96 Physical Exam Const: [] Moderate distress, increased work of breathing Head: Atraumatic Eyes: Normal Conjunctiva ENT: Normal External Ears, Nose and Mouth. Neck: Full range of motion..~ No no visual JVD however is difficult to assess secondary to habitus.. Resp: Bilateral anterior expiratory wheezes with mild decreased bibasilar breath sounds, increased work of breathing. Cardio: Regular tachycardia, no murmurs Abd: Soft, morbidly obese, non tender, non distended. Normal bowel sounds Skin: No petechiae or rashes Ext: No cyanosis, or edema Neur: Awake and alert and oriented 3, no focal deficits. Psych: Normal Mood and Affect Result Diagram: 03/14/17 0401 03/14/17 0401 Results 24 hrs Laboratory Tests Test 03/14/17 03:00 03/14/17 04:01 Urine Color YELLOW Urine Clarity CLEAR Urine pH 5.0 Urine Specific [place] 1.023 Urine Ketones NEGATIVEmg/dL Urine Nitrite NEGATIVEmg/dL Urine Bilirubin NEGATIVEmg/dL Urine Urobilinogen 1+mg/dL Urine Leukocyte Esterase NEGATIVELeu/ul Urine Microscopic RBC 1/HPF Urine Microscopic WBC 2/HPF Urine Squamous Epithelial Cells FEW/HPF Urine Bacteria FEW/HPF Urine Hemoglobin 1+mg/dL Urine Glucose NEGATIVEmg/dL Urine Total Protein 2+mg/dl White Blood Count 10.010^3/ul Red Blood Count 4.5910^6/ul Hemoglobin 11.3g/dl Hematocrit 37.8% Mean Corpuscular Volume 82.4fl Mean Corpuscular Hemoglobin 24.6pg Mean Corpuscular Hemoglobin Concent 29.9g/dl Red Cell Distribution Width 16.9% Platelet Count 46085^3/UL Mean Platelet Volume 10.2fl Neutrophils % 65.2% Lymphocytes % 26.9% Monocytes % 4.3% Eosinophils % 2.9% Basophils % 0.4% Nucleated Red Blood Cells % 0.0/100WBC Neutrophils # 6.510^3/ul Lymphocytes # 2.710^3/ul Monocytes # 0.410^3/ul Eosinophils # 0.310^3/ul Basophils # 0.010^3/ul Nucleated Red Blood Cells # 0.010^3/ul Sodium Level 143mmol/L Potassium Level 3.9mmol/L Chloride Level 104mmol/L Carbon Dioxide Level 26mmol/L Anion Gap 17 Blood Urea Nitrogen 16mg/dl Creatinine 0.77mg/dl Glucose Level 113mg/dl Calcium Level 8.4mg/dl Troponin I < 0.012ng/ml B-Type Natriuretic Peptide 1140PG/ML Current Medications Medications (Trade) Dose Ordered Sig/Clarita Route PRN Reason Start Time Stop Time Status Last Admin Dose Admin Ketorolac Tromethamine (Toradol) 30 mg ONCE STAT IV 03/14/17 02:45 03/14/17 02:47 DC 03/14/17 04:00 Albuterol (Proventil 0.083% (Neb)) 10 mg ONCE STAT N 03/14/17 03:28 03/14/17 03:29 DC 03/14/17 03:36 Ipratropium [place] (Atrovent 0.02% (Neb)) 1 mg ONCE ONCE HHN 03/14/17 03:30 03/14/17 03:31 DC 03/14/17 03:36 Methylprednisolone Sodium Succinate (Solu-Medrol) 125 mg ONCE ONCE IV 03/14/17 03:30 03/14/17 03:31 DC 03/14/17 04:00 Lorazepam (Ativan) 1 mg ONCE ONCE IV 03/14/17 04:00 03/14/17 04:01 DC 03/14/17 04:06 Morphine Sulfate (morphine) 4 mg ONCE STAT IV 03/14/17 05:13 03/14/17 05:14 DC 03/14/17 05:22 Diphenhydramine HCl (Benadryl) 25 mg ONCE ONCE PO 03/14/17 05:30 03/14/17 05:32 DC 03/14/17 05:50 Furosemide (Lasix) 40 mg ONCE ONCE IV 03/14/17 06:00 03/14/17 06:01 DC 03/14/17 06:16 Aspirin (Aspirin) 324 mg ONCE ONCE PO 03/14/17 06:00 03/14/17 06:01 DC 03/14/17 06:16 Procedures/MDM CHF with wheezing and 42-year-old female significant respiratory distress. BiPAP was considered but after the breathing treatment the patient had considerable improvement of her breathing. Does have an elevated BNP consistent with CHF. She is very young to have this. No signs of cardiac ischemia currently. Still feels short of breath. She was given Ativan at her request for anxiety. She then stated she had pain on coughing. She was given 4 mg of morphine. She had been given 40 mill grams of Lasix and had good urinary output. He was given 325 mg of aspirin as well. The radiologist mentions a possible small right lower lobe infiltrate think this is less likely pneumonia as the patient has a normal white count no fever or chills. Also likely a contribution from sleep apnea and given the patient's habitus. Spoke with Dr. Munoz will be admitting the patient to telemetry EKG interpretation: Normal sinus rhythm rate of 86, normal axis, no ST or T- wave changes concerning for acute ischemia, QT of 504, abnormal EKG environmental monitoring technician interpretation: Alternating mild sinus tachycardia normal sinus rhythm. No other arrhythmias Chest x-ray interpretation: Following vascular congestion condition with CHF. Radiologist mentions a possible right lower lobe infiltrate. Departure Diagnosis: Primary Impression: Acute exacerbation of CHF (congestive heart failure) Additional Impressions: Respiratory distress Morbid obesity with BMI of 60.0-69.9, adult Condition: Serious JARRETFRANKY Mar 14, 2017 06:58
[2017-03-14] MEDS ORDERED: HYDROCODONE/APAP (5/325) TAB PO ONE (07:00)
[2017-03-14] MEDS ORDERED: ACETAMINOPHEN 325 MG TAB PO PRN (07:00)
[2017-03-14] MEDS ORDERED: ONDANSETRON 4 MG INJ IV PRN (07:00)
[2017-03-14] MEDS ORDERED: hydrALAzine 20 MG INJ IV ONE (08:30)
[2017-03-14 10:58] VITALS: BP 155/85; PULSE 104; RESP 20; TEMP 98.3
== END 2017-03-14 11:08 | disposition short-term general hospital (02) ==
LOC: E/R 02:26
DX: I50.9 Heart failure, unspecified (principal); R06.03 Acute respiratory distress; E66.01 Morbid (severe) obesity due to excess calories; J45.909 Unspecified asthma, uncomplicated; F17.210 Nicotine dependence, cigarettes, uncomplicated; R40.2142 Coma scale, eyes open, spontaneous, at arrival to emergency department; R40.2252 Coma scale, best verbal response, oriented, at arrival to emergency department; R40.2362 Coma scale, best motor response, obeys commands, at arrival to emergency department; Z68.44 Body mass index [BMI] 60.0-69.9, adult
CPT/HCPCS: 71010; 80048; 81001; 83880; 84484; 85025; 93005; 94644; 94664; 96374; 96375; J0360; J1885; J1940; J2060; J2270; J2930; Z7502; Z7610

== ENCOUNTER 2017-04-21 20:02 | Emergency (ER) | payer OTHER ==
[~2017-04-21] VITALS: Ht 167.6 cm; Wt 152.2 kg
[2017-04-21 20:45] VITALS: Ht 167.6 cm; Wt 152.2 kg
[2017-04-21] MEDS ORDERED: ALBUTEROL 0.083% (NEB) 2.5 MG/3 ML AMP NEB STA (23:27)
[2017-04-21] MEDS ORDERED: IPRATROPIUM (NEB) 0.5 MG/2.5 ML AMP NEB STA (23:27)
[2017-04-21] MEDS ORDERED: HYDROCODONE/APAP (10/325) TAB PO ONE (23:30)
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
[2017-04-22] MEDS ORDERED: LORAZEPAM 1 MG TAB PO ONE
[2017-04-22 00:10] LABS: BASOPHIL # 0.1 10^3/ul (0.0-0.1); BASOPHILS % 0.3 % (0.0-2.0); EOSINOPHILS # 0.1 10^3/ul (0.0-0.5); EOSINOPHILS % 0.9 % (0.0-7.0); HEMATOCRIT 46.1 % (37.0-47.0); HEMOGLOBIN 13.7 g/dl (12.0-16.0); LYMPHOCYTES # 2.4 10^3/ul (0.8-2.9); LYMPHOCYTES % 16.2 % (15.0-51.0); MEAN CORPUSCULAR HEMOGLOBIN 24.7 pg (29.0-33.0); MEAN CORPUSCULAR HGB CONC 29.7 g/dl (32.0-37.0); MEAN CORPUSCULAR VOLUME 83.1 fl (82.0-101.0); MEAN PLATELET VOLUME 10.3 fl (7.4-10.4); MONOCYTE # 0.8 10^3/ul (0.3-0.9); MONOCYTES % 5.1 % (0.0-11.0); NEUTROPHIL # 11.5 10^3/ul (1.6-7.5); PLATELET COUNT 303 10^3/UL (140-415); RED BLOOD COUNT 5.55 10^6/ul (4.20-5.40); RED CELL DISTRIBUTION WIDTH 18.1 % (11.5-14.5)
[2017-04-22 00:28] LABS: CALCIUM 9.1 mg/dl (8.4-10.2); CREATININE 0.83 mg/dl (0.44-1.00); POTASSIUM 4.3 mmol/L (3.5-5.1)
[2017-04-22 00:39] LABS: TROPONIN-I 0.013 ng/ml (0.00-0.12)
[2017-04-22] MEDS ORDERED: ALBU18HF INHALATION (00:55)
[2017-04-22] MEDS ORDERED: HYDROCODONE/APAP (10/325) TAB PO ONE (01:00)
[2017-04-22 01:50] VITALS: BP 120/76; PULSE 70; RESP 17; TEMP 98.1
--- NOTE | 2017-04-22 02:02 | RADRPT ---
PROCEDURE: CHEST - 1 VIEW CLINICAL INDICATION: 42-year-old female with shortness of breath. TECHNIQUE: A single frontal AP upright portable view of the chest was performed. The images were reviewed on a PACS workstation. COMPARISON: CR CHEST 07/16/2016; CR CHEST 12/15/2015; CR CHEST 10/29/2015 FINDINGS: The cardiomediastinal silhouette is prominent but within normal limits without significant interval change. There is no evidence for an infiltrate. There is no evidence for congestive heart failure. There is no evidence for pneumothorax. The osseous structures are intact. IMPRESSION: No evidence for active cardiopulmonary disease. .Balbir Ramirez MD, MD Date Time Electronically viewed and signed by .Balbir Ramirez MD, MD on 04/22/2017 02:02 .Yogesh
== END 2017-04-22 01:45 | disposition home or self-care (01) ==
LOC: E/R 20:02
DX: F43.0 Acute stress reaction (principal); M54.5 Low back pain; F17.210 Nicotine dependence, cigarettes, uncomplicated; D72.829 Elevated white blood cell count, unspecified; J45.909 Unspecified asthma, uncomplicated
CPT/HCPCS: 71010; 80048; 83880; 84484; 85025; 93005; 94664; Z7502; Z7610

== ENCOUNTER 2017-07-27 08:33 | Inpatient (IN) | END 2017-07-28 14:50 | disposition home or self-care (01) | DRG 313 ==

== ENCOUNTER 2017-07-30 22:15 | Emergency (ER) | END 2017-07-31 02:05 | disposition home or self-care (01) ==

== ENCOUNTER 2017-08-31 00:03 | Emergency (ER) | END 2017-08-31 09:20 | disposition home or self-care (01) ==

== ENCOUNTER 2017-09-26 19:42 | Emergency (ER) | END 2017-09-26 22:05 | disposition home or self-care (01) ==

== ENCOUNTER 2017-10-03 16:57 | Emergency (ER) | END 2017-10-03 21:30 | disposition home or self-care (01) ==

== ENCOUNTER 2017-11-13 23:12 | Emergency (ER) | END 2017-11-14 08:46 | disposition home or self-care (01) ==

== ENCOUNTER 2017-12-19 09:25 | Observation (INO) | END 2017-12-20 16:03 | disposition home or self-care (01) ==

== ENCOUNTER 2018-01-04 03:29 | Inpatient (IN) | END 2018-01-05 16:05 | disposition home or self-care (01) | DRG 292 ==

== ENCOUNTER 2018-01-10 09:29 | Inpatient (IN) | END 2018-01-11 14:00 | disposition home or self-care (01) | DRG 292 ==

== ENCOUNTER 2018-02-22 03:00 | Emergency (ER) | END 2018-02-22 13:22 | disposition home or self-care (01) ==

== ENCOUNTER 2018-02-28 05:51 | Observation (INO) | END 2018-02-28 13:00 | disposition left against medical advice (07) ==

== ENCOUNTER 2018-03-03 23:59 | Emergency (ER) | END 2018-03-04 15:04 | disposition left against medical advice (07) ==

== ENCOUNTER 2018-04-02 04:40 | Inpatient (IN) | END 2018-04-03 19:46 | disposition home or self-care (01) | DRG 292 ==

== ENCOUNTER 2018-07-01 17:38 | Inpatient (IN) | payer OTHER ==
[~2018-07-01] VITALS: Ht 162.6 cm; Wt 150.0 kg
[~2018-07-01 17:38] MED LIST changes: +ALBU2.5V3 NEB; +ALPR1TAB7 PO; +ASC500 PO; +ASPI-817 PO; -CHLO473M4 MM; -CIPR500T4 PO; -DICY10CA60 PO; +FER325 PO; +FLUT1AER INHALATION; -FLUT9.9S NASAL; +FURO20TA3 PO; -HYDR-902 PO; -HYDR12.58 PO; -IBUP-1542 PO; -IBUP800T25 PO; +ISOS30TA67 PO; -LORA-441 PO; +METF-849 PO; -ONDA4TAB14 PO; -ONDA4TAB8 PO; +PANT40TA4 PO
--- NOTE | 2018-07-01 19:01 | ERD ---
ER Documentation Chief Complaint Chief Complaint CHEST PAIN, NECK PAIN, SOB, COUGH, WEAKNESS X 1 DAY HPI 83-year-old woman complaining of substernal chest pain pressure-like nonradiating nonexertional. She states last time she felt like this she had a heart attack and states her EKGs are "always normal" she also has diffuse body a ches and abdominal pain is requesting opioid analgesics. She also states she has had increasing edema to the legs bilaterally. She denies fevers or chills, no headache or blurry vision, no vomiting or diarrhea. ROS All systems reviewed and are negative except as per history of present illness. Medications Home Meds Active Scripts Furosemide* (Furosemide*) 20 Mg Tablet, 20 MG PO BID, #60 TAB 1 Refill Prov:ELMER DIANE 04/03/18 Ascorbic Acid (Vitamin C) 500 Mg Tab, 500 MG PO DAILY for 30 Days, #30 TAB 2 Refills Prov:MEGHA GARCIA. 01/05/18 Ferrous Sulfate* (Ferrous Sulfate*) 325 Mg Tabec, 325 MG PO BID for 30 Days, #60 TAB 2 Refills Prov:MEGHA GARCIA. 01/05/18 Fluticasone-Vilanterol (Breo Ellipta Inhaler) 100-25 Mcg/Actuation Aer.pow.ba, 1 PUFF INHALATION DAILY, #1 INHALER Prov:LIOR MCMAHON 12/20/17 Isosorbide Mononitrate* (Isosorbide Mononitrate*) 30 Mg Tab.er.24h, 30 MG PO DAILY, #30 TAB Prov:LIOR MCMAHON 12/20/17 Atenolol* (Atenolol*) 50 Mg Tablet, 50 MG PO DAILY, #30 TAB Prov:REGLIOR MANCILLA 12/20/17 Albuterol Sulfate* (Ventolin HFA*) 18 Gm Hfa.aer.ad, 2 PUFF INHALATION Q4H, #1 INHALER Prov:VAIBHAV ADAM MD 04/22/17 Reported Medications Alprazolam* (Alprazolam*) 1 Mg Tablet, 1 MG PO Q8H PRN for ANXIETY, TAB 03/04/18 Ferrous Sulfate* (Ferrous Sulfate*) 325 Mg Tabec, 325 MG PO BID, TAB 03/04/18 Pantoprazole* (Pantoprazole*) 40 Mg Tablet.dr, 40 MG PO AC BREAKFAST, TAB 08/31/17 Aspirin* (Aspirin* EC) 81 Mg Tablet.dr, 81 MG PO DAILY, TAB 08/31/17 Metformin* (Glucophage*) 500 Mg Tab, 500 MG PO WITH BREAKFAST DINNE, #30 TAB 08/31/17 Albuterol Sulfate* (Albuterol Sulfate* Neb) 0.083%-3 Ml Neb, 1.25 MG NEB Q4H, #30 VIAL 08/31/17 Allergies Allergies: Coded Allergies: Penicillins (Unverified Allergy, Unknown, 07/01/18) blueberry (Unverified Allergy, Unknown, 07/01/18) PMhx/Soc Diastolic CHF, hypertension, diabetes mellitus, anxiety, chronic opioid use, obstructive sleep apnea, peripheral edema, lung nodules, morbid obesity History of Surgery: Yes (gallstone, 3 c-sections, chest sx removal of cyst, finger sx) Anesthesia Reaction: No Hx Neurological Disorder: Yes Hx Respiratory Disorders: Yes (asthma, breathing tx) Hx Cardiac Disorders: Yes (HTN, NSTEMI x2) Hx Psychiatric Problems: No Hx Miscellaneous Medical Probl: Yes Hx Alcohol Use: No Hx Substance Use: No Hx Tobacco Use: Yes FmHx Family History: No diabetes Physical Exam Vitals Vital Signs Date Temp Pulse Resp B/P (MAP) Pulse Ox O2 O2 Flow FiO2 Time Delivery Rate 07/01/18 97.0 79 22 185/120 96 17:42 (141) Physical Exam Const: Anxious, afebrile Head: Atraumatic Eyes: Normal Conjunctiva ENT: Normal External Ears, Nose and Mouth. Neck: Full range of motion. No meningismus. Resp: Clear to auscultation bilaterally Cardio: Regular rate and rhythm, no murmurs Abd: Soft, non tender, non distended. Normal bowel sounds Skin: No petechiae or rashes Back: No midline or flank tenderness Ext: No cyanosis, 3+ pitting edema in the lower extremities bilaterally Neur: Awake and alert x3, no focal deficits or facial asymmetry Psych: Appears anxious Result Diagram: 07/01/18191407/01/181914 Results 24 hrs Laboratory Tests Test 07/01/18 19:15 07/01/18 19:50 White Blood Count 9.3 10^3/ul Red Blood Count 4.70 10^6/ul Hemoglobin 13.2 g/dl Hematocrit 42.8 % Mean Corpuscular Volume 91.1 fl Mean Corpuscular Hemoglobin 28.1 pg Mean Corpuscular Hemoglobin Concent 30.8 g/dl Red Cell Distribution Width 16.8 % Platelet Count 252 10^3/UL Mean Platelet Volume 10.4 fl Immature Granulocytes % 0.400 % Neutrophils % 71.6 % Lymphocytes % 17.7 % Monocytes % 7.2 % Eosinophils % 2.5 % Basophils % 0.6 % Nucleated Red Blood Cells % 0.0 /100WBC Immature Granulocytes # 0.040 10^3/ul Neutrophils # 6.6 10^3/ul Lymphocytes # 1.6 10^3/ul Monocytes # 0.7 10^3/ul Eosinophils # 0.2 10^3/ul Basophils # 0.1 10^3/ul Nucleated Red Blood Cells # 0.0 10^3/ul Sodium Level 143 mmol/L Potassium Level 4.1 mmol/L Chloride Level 106 mmol/L Carbon Dioxide Level 28 mmol/L Anion Gap 9 Blood Urea Nitrogen 18 mg/dl Creatinine 0.85 mg/dl Est Glomerular Filtrat Rate mL/min > 60 mL/min Glucose Level 97 mg/dl Calcium Level 8.8 mg/dl Total Bilirubin 0.7 mg/dl Direct Bilirubin 0.00 mg/dl Indirect Bilirubin 0.7 mg/dl Aspartate Amino Transf (AST/SGOT) 32 IU/L Alanine Aminotransferase (ALT/SGPT) 30 IU/L Alkaline Phosphatase 96 IU/L Creatine Kinase 35 IU/L Creatinine Kinase MB (Mass) 1.13 ng/ml Troponin I < 0.012 ng/ml Total Protein 7.5 g/dl Albumin 3.7 g/dl Globulin 3.80 g/dl Albumin/Globulin Ratio 0.97 Lipase 52 U/L Urine Color YELLOW Urine Clarity SLIGHTLY CLOUDY Urine pH 7.0 Urine Specific [place] 1.013 Urine Ketones NEGATIVE mg/dL Urine Nitrite NEGATIVE mg/dL Urine Bilirubin NEGATIVE mg/dL Urine Urobilinogen 2+ mg/dL Urine Leukocyte Esterase NEGATIVE Eddie/ul Urine Microscopic RBC 2 /HPF Urine Microscopic WBC 4 /HPF Urine Squamous Epithelial Cells FEW /HPF Urine Hemoglobin 3+ mg/dL Urine Glucose NEGATIVE mg/dL Urine Total Protein 1+ mg/dl Current Medications Medications Dose Sig/Clarita Start Time Status Last (Trade) Ordered Route PRN Stop Time Admin Dose Reason Admin Ketorolac 15 mg ONCE STAT 07/01/18 DC 07/01/18 Tromethamine IV 19:07 07/01/18 19:22 (Toradol) 19:08 Aspirin 324 mg ONCE ONCE 07/01/18 DC 07/01/18 (Aspirin) PO 19:30 07/01/18 19:22 19:31 Furosemide 40 mg ONCE ONCE 07/01/18 DC 07/01/18 (Lasix) IV 19:30 07/01/18 19:22 19:31 Lorazepam 0.5 mg ONCE ONCE 07/01/18 DC 07/01/18 (Ativan) PO 20:00 07/01/18 19:59 20:01 IV Flush 3 ml PER 07/01/18 (NS 3 ml) PROTOCOL IV 20:30 Lorazepam 0.5 mg Q6H PRN 07/01/18 (Ativan) IV .ANXIETY 20:30 Ondansetron 4 mg Q6H PRN 07/01/18 HCl (Zofran PO 20:30 Tab) NAUSEA/VOMITI NG 1 tab Q5M PRN 07/01/18 Nitroglycerin SL .CHEST 20:30 PAIN (Nitroglyceri n (Sl Tab) 0.4 Mg) 650 mg Q6H PRN 07/01/18 Acetaminophen PO .PAIN 1-3 20:30 (Tylenol OR TEMP Tab) Docusate 100 mg Q12H PRN 07/01/18 Sodium PO 20:30 (Colace) .CONSTIPATION Bisacodyl 5 mg DAILY PRN 07/01/18 (Dulcolax) PO 20:30 .CONSTIPATION Enoxaparin 40 mg DAILY SC 07/01/18 Sodium 20:30 (Lovenox) Albuterol 1.25 mg Q4H NEB 07/01/18 DC (Proventil 20:30 07/01/18 0.083% (Neb)) 21:15 Alprazolam 1 mg Q8H PRN 07/01/18 (Xanax) PO ANXIETY 20:30 Hydralazine 10 mg Q4H PRN 07/01/18 HCl IV ELEVATED 20:30 (Apresoline) BLOOD PRESSURE Procedures/MDM IV line was established patient was placed on library monitor rhythm strip revealed a sinus rhythm at about 90 bpm with upright P and T waves. Patient was afebrile EKG performed, read by me revealed a normal sinus rhythm at 90 bpm, normal axis, narrow QRS complex, no concerning ST elevations or depressions noted 1 view chest x-ray performed, read by me revealed atelectatic changes bilaterally, no acute infiltrates, no pneumothorax, cardiomegaly. I administered lorazepam 0.5 mg p.o. x1 for complaints of anxiety, she also received aspirin 324 mg p.o. for cardioprotective measures, Toradol 15 mg IV x1 for pain, furosemide 40 mg IV x1 for edema Patient's initial hypertension did improve CBC and electrolytes were normal, liver function tests were normal, troponin was negative, urinalysis negative for infection. Patient will be admitted to telemetry setting for continued medical management and cardiology consultation. Departure Diagnosis: Primary Impression: Chest pain Chest pain type: unspecified Qualified Codes: R07.9 - Chest pain, unspecified Additional Impressions: Hypertension Hypertension type: essential hypertension Qualified Codes: I10 - Essential (primary) hypertension Peripheral edema Chronic pain Chronic pain type: chronic pain syndrome Qualified Codes: G89.4 - Chronic pain syndrome Anxiety Condition: ELMER Beltran MD Jul 01, 2018 19:01
[2018-07-01] MEDS ORDERED: KETOROLAC 15 MG INJ IV STA (19:07)
[2018-07-01] MEDS ORDERED: FUROSEMIDE 40 MG INJ IV ONE (19:30)
[2018-07-01] MEDS ORDERED: ASPIRIN 81 MG TAB PO ONE (19:30)
[2018-07-01] MEDS ORDERED: LORAZEPAM 0.5 MG TAB PO ONE (20:00)
[2018-07-01] MEDS ORDERED: BISACODYL (EC) 5 MG TAB PO PRN (20:30)
[2018-07-01] MEDS ORDERED: ONDANSETRON 4 MG TAB PO PRN (20:30)
[2018-07-01] MEDS ORDERED: NACL 0.9% 3 ML SYG IV SCH (20:30)
[2018-07-01] MEDS ORDERED: ALBUTEROL 0.083% (NEB) 2.5 MG/3 ML AMP NEB SCH (20:30)
[2018-07-01] MEDS ORDERED: ENOXAPARIN 40 MG/0.4 ML SYG SC SCH (20:30)
[2018-07-01] MEDS ORDERED: ALPRAZOLAM 1 MG TAB PO PRN (20:30)
[2018-07-01] MEDS ORDERED: DOCUSATE SODIUM 100 MG CAP PO PRN (20:30)
[2018-07-01] MEDS ORDERED: hydrALAzine 20 MG INJ IV PRN (20:30)
[2018-07-01] MEDS ORDERED: NITROGLYCERIN (SL) 0.4 MG TAB SL PRN (20:30)
[2018-07-01] MEDS: ALBUTEROL 0.083% (NEB) 2.5 MG/3 ML AMP NEB SCH (21:00)
[2018-07-01] MEDS ORDERED: FERROUS SULFATE (EC) 325 MG TAB PO SCH (21:00)
[2018-07-01] MEDS ORDERED: FUROSEMIDE 20 MG TAB PO SCH (21:00)
[2018-07-01 22:29] VITALS: PULSE 89
[2018-07-01] MEDS ORDERED: morphine 2 MG INJ IV STA (22:30)
[2018-07-01] MEDS: FERROUS SULFATE (EC) 325 MG TAB PO SCH (22:43)
[2018-07-01 22:56] VITALS: Ht 162.6 cm; Wt 150.0 kg
[2018-07-01 23:42] VITALS: BP 175/121; PULSE 95; RESP 18
[2018-07-02] VITALS (8 sets, daily range): BP systolic 114–135; BP diastolic 65–98; PULSE 80–104; RESP 20–24
[2018-07-02] MEDS: ALBUTEROL 0.083% (NEB) 2.5 MG/3 ML AMP NEB SCH ×6 (00:07→19:44)
[2018-07-02] MEDS: morphine 4 MG/ML VIAL IV PRN ×2 (00:13→08:55)
[2018-07-02] MEDS ORDERED: ALBUTEROL 0.083% (NEB) 2.5 MG/3 ML AMP NEB SCH (01:00)
[2018-07-02] MEDS: LORAZEPAM 2 MG INJ IV PRN ×3 (02:30→22:36)
--- NOTE | 2018-07-02 04:22 | HP ---
Date/Time of Note Date/Time of Note DATE: 07/02/18 TIME: 04:22 Assessment/Plan VTE Prophylaxis SCD applied (from Nsg): Yes Pharmacological prophylaxis: NA/contraindicated Pharm contraindication: low risk/ambulating Lines/Catheters IV Catheter Type (from Nrsg): Saline Lock Assessment/Plan Hospital Course Assessment and plan 1.Chest pain -Rule out ACS versus anxiety versus CHF. Patient has mild crackles on examination. Does have bilateral lower extremity edema. Will trend cardiac enzymes x3, will check an echocardiogram. We will put the patient on Lasix 40 IV twice daily. PRN Ativan. 2.CHF exacerbation -Secondary likely to medication noncompliance. -Lasix 40 mg IV twice daily -Echocardiogram 3. Chronic abdominal and lower extremity pain -Patient apparently has a history of chronic pain however she is also known to have drug-seeking behavior. She left the hospital multiple times AGAINST ME DICAL ADVICE. Her pain at the current time is likely secondary to her lower extremity edema. We will give her diuresis and provide her with morphine x4 doses. -Her abdominal pain appears to be chronic. 4.Hypertension -Continue home meds 5.Diabetes mellitus -Check a hemoglobin A1c, she is only on metformin at home per the EMR. 6.Anxiety -Resume home meds 7.Obstructive sleep apnea -BiPAP as needed 8. Immune: -Resume ferrous sulfate 9.Medical noncompliance -I did reiterate to the patient that it is in her benefit to take her medications as instructed and to have regular follow-up with her primary care doctor as an outpatient. #9 DVT GI prophylaxis: Lovenox, no GI prophylaxis indicated Further treatment strategy will be implemented as per the clinical course. Result Diagram: 07/01/18191407/01/181914 Results 24hrs Laboratory Tests Test 07/01/18 19:15 07/01/18 19:50 07/02/18 01:55 White Blood Count 9.3 Red Blood Count 4.70 Hemoglobin 13.2 Hematocrit 42.8 Mean Corpuscular Volume 91.1 Mean Corpuscular Hemoglobin 28.1 L Mean Corpuscular 30.8 L Hemoglobin Concent Red Cell Distribution Width 16.8 H Platelet Count 252 Mean Platelet Volume 10.4 Immature Granulocytes % 0.400 Neutrophils % 71.6 Lymphocytes % 17.7 Monocytes % 7.2 Eosinophils % 2.5 Basophils % 0.6 Nucleated Red Blood Cells % 0.0 Immature Granulocytes # 0.040 H Neutrophils # 6.6 Lymphocytes # 1.6 Monocytes # 0.7 Eosinophils # 0.2 Basophils # 0.1 Nucleated Red Blood Cells # 0.0 Sodium Level 143 Potassium Level 4.1 Chloride Level 106 Carbon Dioxide Level 28 Anion Gap 9 Blood Urea Nitrogen 18 Creatinine 0.85 Est Glomerular Filtrat > 60 Rate mL/min Glucose Level 97 Calcium Level 8.8 Total Bilirubin 0.7 Direct Bilirubin 0.00 Indirect Bilirubin 0.7 Aspartate Amino 32 Transf (AST/SGOT) Alanine 30 Aminotransferase (ALT/SGPT) Alkaline Phosphatase 96 Creatine Kinase 35 37 Creatinine Kinase MB (Mass) 1.13 1.04 Troponin I < 0.012 < 0.012 Total Protein 7.5 Albumin 3.7 Globulin 3.80 H Albumin/Globulin Ratio 0.97 Lipase 52 Urine Color YELLOW Urine Clarity SLIGHTLY CLOUDY A Urine pH 7.0 Urine Specific [place] 1.013 Urine Ketones NEGATIVE Urine Nitrite NEGATIVE Urine Bilirubin NEGATIVE Urine Urobilinogen 2+ H Urine Leukocyte Esterase NEGATIVE Urine Microscopic RBC 2 Urine Microscopic WBC 4 Urine Squamous Epithelial Cells FEW Urine Hemoglobin 3+ H Urine Glucose NEGATIVE Urine Total Protein 1+ H Creatine Kinase Index 2.8 HPI/ROS Admit Date/Time Admit Date/Time Jul 01, 2018 at 20:41 Hx of Present Illness Chief complaint: This is a 43-year-old female with a past medical history of diastolic CHF, hypertension, diabetes mellitus, tobacco use, anxiety, chronic opiate use, obstructive sleep apnea, obesity and medical noncompliance who presented to the ED complaining of chest pain. Patient reported that she had pressure-like sensation that was nonradiating and nonexertional. She reports the ED physician that she felt like that she had a heart attack. She was complaining of diffuse body aches abdominal pain and she was also requesting opioids. She does report that it is difficult for her to ambulate as she gets dyspneic on exertion and she has noticed increased swelling in her legs. She does report a lot of stress in her life at the current time. She states that her mom is currently on life support and she would states that "one of her daughters just came out as a lesbian and her /partner came out as agudelo". She reports that she at times take her medication and sometimes she does not. Allergies: Penicillin, be very Medications: See FLORY BRANCH Const: As per HPI Eyes : No pain discharge or redness or change in visual acuity ENT: No pain, sore throat, congestion, congestion, dysphagia or discharge Respiratory: As per HPI Cardiovascular: As per HPI GI : no change in appetite, abdominal pain, nausea, vomiting, diarrhea, constipation, or change in the color his stool Genitourinary: No dysuria, hematuria, flank pain , discharge or CVA tenderness Musculoskeletal: No joint pain, back pain, neck pain, restricted range of motion in neck or joints Skin: No rash, bruising or hives Neuro: No headache, dizziness, syncope, seizure, focal weakness Endocrine: No polyuria, polydipsia, temperature intolerance Psych: No hallucination, depression, anxiety or suicidal ideation PMH/Family/Social Past Medical History as per HPI Medications Current Medications IV Flush (NS 3 ml) 3 ml PER PROTOCOL IV ; Start 07/01/18 at 20:30 Lorazepam (Ativan) 0.5 mg Q6H PRN IV .ANXIETY Last administered on 07/02/18at 02:30; Admin Dose 0.5 MG; Start 07/01/18 at 20:30 Ondansetron HCl (Zofran Tab) 4 mg Q6H PRN PO NAUSEA/VOMITING; Start 07/01/18 at 20:30 Nitroglycerin (Nitroglycerin (Sl Tab) 0.4 Mg) 1 tab Q5M PRN SL .CHEST PAIN; Start 07/01/18 at 20:30 Acetaminophen (Tylenol Tab) 650 mg Q6H PRN PO .PAIN 1-3 OR TEMP; Start 07/01/18 at 20:30 Docusate Sodium (Colace) 100 mg Q12H PRN PO .CONSTIPATION; Start 07/01/18 at 20:30 Bisacodyl (Dulcolax) 5 mg DAILY PRN PO .CONSTIPATION; Start 07/01/18 at 20:30 Enoxaparin Sodium (Lovenox) 40 mg DAILY SC ; Start 07/01/18 at 20:30 Alprazolam (Xanax) 1 mg Q8H PRN PO ANXIETY; Start 07/01/18 at 20:30 Ascorbic Acid (Vitamin C) 500 mg DAILY PO ; Start 07/02/18 at 09:00 Aspirin (Halfprin) 81 mg DAILY PO ; Start 07/02/18 at 09:00 Atenolol (Tenormin) 50 mg DAILY PO ; Start 07/02/18 at 09:00 Ferrous Sulfate (Ferrous Sulfate (Ec)) 325 mg BID PO Last administered on 07/01/18at 22:43; Admin Dose 325 MG; Start 07/01/18 at 21:00 Fluticasone/ Vilanterol (Breo Ellipta 100-25 Mcg Inh) 100 inh DAILY INH ; Start 07/02/18 at 09:00 Furosemide (Lasix) 20 mg BID DIURETICS PO ; Start 07/01/18 at 21:00 Isosorbide Mononitrate (Imdur) 30 mg DAILY PO ; Start 07/02/18 at 09:00 Pantoprazole (Protonix Tab) 40 mg AC BREAKFAST PO ; Start 07/02/18 at 07:00 Hydralazine HCl (Apresoline) 10 mg Q4H PRN IV ELEVATED BLOOD PRESSURE Last administered on 07/02/18at 00:12; Admin Dose 10 MG; Start 07/01/18 at 20:30 Albuterol (Proventil 0.083% (Neb)) 1.25 mg Q4H RESP THERAPY NEB Last administered on 07/02/18at 04:06; Admin Dose 1.25 MG; Start 07/01/18 at 21:00 Simethicone (Mylicon) 80 mg Q6H PRN PO DISTENSION/GAS/BLOATING Last administered on 07/02/18at 00:12; Admin Dose 80 MG; Start 07/02/18 at 00:00 Morphine Sulfate (morphine) 4 mg Q4H PRN IV SEVERE PAIN LEVEL 7-10 Last admi nistered on 07/02/18at 00:13; Admin Dose 4 MG; Start 07/02/18 at 00:00; Stop 07/02/18 at 23:59 Coded Allergies: Penicillins (Unverified Allergy, Unknown, 07/01/18) blueberry (Unverified Allergy, Unknown, 07/01/18) Past Surgical History Past Surgical Hx: cholecystectomy, other Family History Significant Family History: no pertinent family hx, other Social History Alcohol Use: none Smoking Status: Current every day smoker Drug Use: none Exam/Review of Systems Vital Signs Vitals Vital Signs Date Temp Pulse Resp B/P (MAP) Pulse Ox O2 O2 Flow FiO2 Time Delivery Rate 3/9/19 106 24 93 Nasal 2.0 04:06 Cannula 07/01/18 98.0 175/121 23:42 (139) Exam Exam General: She is currently lying in bed in no acute respiratory distress, HEENT: Atraumatic, normocephalic. The pupils are equal, round and reactive. Extraocular motor are intact Neck: Supple with full range of motion. No rigidity or meningismus Chest: Nontender Lungs: Mild rales at the bases Heart: Normal S1-S2, Regular rhythm and rate. Abdomen: Morbidly obese, nontender, nondistended , bowel sounds are present. No guarding no rebound tenderness , No masses or organomegaly. No costovertebral temporal angle mass Extremities: 2+ pitting edema of the bilateral lower extremities Neurologic: Normal mental status, speech normal, cranial nerves II through XII are intact, motor and sensory are intact, Psych: Patient is anxious. Additional Comments PROCEDURE: XR Chest. CLINICAL INDICATION: Shortness of breath TECHNIQUE: Frontal view of the chest was obtained COMPARISON: CR CHEST 07/16/2016 FINDINGS: Heart is magnified. Mediastinum is unremarkable. Right basilar patchy opacity. No pleural effusion or pneumothorax. No acute osseous abnormality. IMPRESSION: Right basilar atelectasis or pneumonia. RPTAT: [facility] Physician Riki Date Time Electronically viewed and signed by Physician Riki on 07/01/2018 20:14 ME/ CC: ELMER ANTON MD [id number] EKG normal sinus rhythm at 90 bpm, normal axis, narrow QRS complex, no concerning ST elevations or depressions noted REJI ANTONIO Jul 02, 2018 04:22
[2018-07-02] MEDS: PANTOPRAZOLE (EC) 40 MG TAB PO SCH (07:00)
[2018-07-02] MEDS: ASCORBIC ACID 500 MG TAB PO SCH (08:40)
[2018-07-02] MEDS: ATENOLOL 50 MG TAB PO SCH (08:40)
[2018-07-02] MEDS: FERROUS SULFATE (EC) 325 MG TAB PO SCH ×2 (08:40→21:37)
[2018-07-02] MEDS: ISOSORBIDE MONONITRATE(SR)30 MG TAB PO SCH (08:40)
[2018-07-02] MEDS: ASPIRIN (EC) 81 MG TAB PO SCH (08:40)
[2018-07-02] MEDS: ENOXAPARIN 40 MG/0.4 ML SYG SC SCH (08:44)
[2018-07-02] MEDS: FUROSEMIDE 40 MG INJ IV SCH ×2 (08:45→17:36)
[2018-07-02] MEDS: FLUTICASONE/VILANTEROL 100-25 INH SCH ×2 (09:00→16:16)
--- NOTE | 2018-07-02 14:05 | PN ---
Date/Time of Note Date/Time of Note DATE: 07/02/18 TIME: 14:05 Assessment/Plan VTE Prophylaxis Risk score (from Nsg)>0 risk: 3 SCD applied (from Ns): No SCD contraindicated: other Pharmacological prophylaxis: LMWH Lines/Catheters IV Catheter [facility] (from [facility]): Saline Lock Assessment/Plan Hospital Course SUBJECTIVE: Continues to complain of some chest pain OBJECTIVE: Physical Exam General: Morbidly obese, 43 year-old female lying in bed in no apparent distress. HEENT: Normocephalic, atraumatic. Eyes: Anicteric sclerae, conjunctivae clear. ENT: Nasal septum midline, oral mucosa moist. Neck: Short and obese. Unable to visualize any neck veins. Respiratory: Bilaterally diminished breath sounds. No use of accessory muscles of respiration. Minimal basilar Rales. Cardiovascular: S1, S2 heard. Regular rate and rhythm. Abdomen: Soft, nontender, and obese. Bowel sounds positive in all 4 quadrants. Genitourinary: Deferred. Extremities: No cyanosis, no clubbing. Bilateral upper extremity 2-3+ pitting pedal edema. Peripheral pulses palpable. Neurologic: Cranial nerves II through XII grossly intact. The patient is awake, alert, and oriented. Skin: Normal skin turgor. No skin rashes. Labs & Vitals per chart ASSESSMENT & PLAN 43-year-old female with past medical history of diastolic heart failure (noncompliant with Lasix), obstructive sleep apnea on CPAP, hypertension, type 2 diabetes mellitus, tobacco use, morbid obesity, anxiety disorder, and opioid seeking behavior who came to the emergency room with chief complaint of chest pain. Therefore, the patient was admitted to inpatient setting for further treatment and evaluation. 1. Atypical chest pain. -Pain is atypical in nature. -Troponins negative so far. -Pending 2D echocardiogram. 2. Acute on chronic congestive heart failure exacerbation, diastolic dysfunction triggered by noncompliance with medication. -Continue diuretic therapy. 3. Chronic right lung base infiltrate/atelectasis. -No clinical evidence of any pneumonia. 4. Essential hypertension. -Continue antihypertensives. 5. Type 2 diabetes mellitus. -Continue biguanides. -Latest hemoglobin A1c 6.2. 6. Tobacco use. -Cessation advised. 7. Opioid seeking behavior. -Will avoid using any strong opioids. 8. Anxiety disorder. -Continue PRN anxiolytics. 9. Obstructive sleep apnea. -Nocturnal CPAP. 10. Morbid obesity. -BMI greater than 56 kg/m. -Patient was advised on weight reduction. 11. Fluids, electrolytes, and nutrition. -Low-cholesterol diet. 12. DVT prophylaxis. -Subcutaneous Lovenox. 13. Plan. -Continue diuresis. -Stop opioids. -Discharge the patient home once clinically stable. The patient was seen in collaboration with Dr. Lee. Result Diagram: 07/02/18 0517 07/02/18 0517 Results 24hrs Laboratory Tests Test 07/01/18 19:15 07/01/18 19:50 07/02/18 01:55 07/02/18 05:17 White Blood Count 9.3 9.5 Red Blood Count 4.70 4.67 Hemoglobin 13.2 13.1 Hematocrit 42.8 43.6 Mean Corpuscular 91.1 93.4 Volume Mean Corpuscular 28.1 L 28.1 L Hemoglobin Mean Corpuscular 30.8 L 30.0 L Hemoglobin Concent Red Cell 16.8 H 17.2 H Distribution Width Platelet Count 252 223 Mean Platelet 10.4 10.8 H Volume Immature 0.400 0.200 Granulocytes % Neutrophils % 71.6 66.8 Lymphocytes % 17.7 22.0 Monocytes % 7.2 7.2 Eosinophils % 2.5 3.1 Basophils % 0.6 0.7 Nucleated Red 0.0 0.0 Blood Cells % Immature 0.040 H 0.020 Granulocytes # Neutrophils # 6.6 6.4 Lymphocytes # 1.6 2.1 Monocytes # 0.7 0.7 Eosinophils # 0.2 0.3 Basophils # 0.1 0.1 Nucleated Red 0.0 0.0 Blood Cells # Sodium Level 143 142 Potassium Level 4.1 3.9 Chloride Level 106 105 Carbon Dioxide 28 25 Level Anion Gap 9 12 Blood Urea 18 22 H Nitrogen Creatinine 0.85 0.86 Est Glomerular > 60 > 60 Filtrat Rate mL/min Glucose Level 97 124 Calcium Level 8.8 8.8 Total Bilirubin 0.7 0.4 Direct Bilirubin 0.00 0.00 Indirect Bilirubin 0.7 0.4 Aspartate Amino 32 28 Transf (AST/SGOT) Alanine 30 30 Aminotransferase ( ALT/SGPT) Alkaline 96 91 Phosphatase Creatine Kinase 35 37 34 Creatinine Kinase 1.13 1.04 1.14 MB (Mass) Troponin I < 0.012 < 0.012 < 0.012 Total Protein 7.5 7.2 Albumin 3.7 3.4 Globulin 3.80 H 3.80 H Albumin/Globulin 0.97 0.89 Ratio Lipase 52 Urine Color YELLOW Urine Clarity SLIGHTLY CLOUDY A Urine pH 7.0 Urine Specific 1.013 [place] Urine Ketones NEGATIVE Urine Nitrite NEGATIVE Urine Bilirubin NEGATIVE Urine Urobilinogen 2+ H Urine Leukocyte NEGATIVE Esterase Urine Microscopic 2 RBC Urine Microscopic 4 WBC Urine Squamous FEW Epithelial Cells Urine Hemoglobin 3+ H Urine Glucose NEGATIVE Urine Total 1+ H Protein Creatine Kinase 2.8 3.4 Index Hemoglobin A1c 6.2 H Magnesium Level 1.9 Thyroid 1.930 Stimulating Hormone (TSH) Serum HCG, NEGATIVE Qualitative Exam/Review of Systems Exam Vitals Vital Signs Date Temp Pulse Resp B/P (MAP) Pulse Ox O2 O2 Flow FiO2 Time Delivery Rate 07/02/18 80 12:01 07/02/18 Nasal 2.0 08:00 Cannula 07/02/18 98.2 24 135/98 100 07:56 (110) Intake and Output 07/01/18 07/01/18 07/02/18 1515:00 23:00 07:00 IntakeIntake Total 550 ml BalanceBalance 550 ml Results Results 24hrs Laboratory Tests Test 07/01/18 19:15 07/01/18 19:50 07/02/18 01:55 07/02/18 05:17 White Blood Count 9.3 9.5 Red Blood Count 4.70 4.67 Hemoglobin 13.2 13.1 Hematocrit 42.8 43.6 Mean Corpuscular 91.1 93.4 Volume Mean Corpuscular 28.1 L 28.1 L Hemoglobin Mean Corpuscular 30.8 L 30.0 L Hemoglobin Concent Red Cell 16.8 H 17.2 H Distribution Width Platelet Count 252 223 Mean Platelet 10.4 10.8 H Volume Immature 0.400 0.200 Granulocytes % Neutrophils % 71.6 66.8 Lymphocytes % 17.7 22.0 Monocytes % 7.2 7.2 Eosinophils % 2.5 3.1 Basophils % 0.6 0.7 Nucleated Red 0.0 0.0 Blood Cells % Immature 0.040 H 0.020 Granulocytes # Neutrophils # 6.6 6.4 Lymphocytes # 1.6 2.1 Monocytes # 0.7 0.7 Eosinophils # 0.2 0.3 Basophils # 0.1 0.1 Nucleated Red 0.0 0.0 Blood Cells # Sodium Level 143 142 Potassium Level 4.1 3.9 Chloride Level 106 105 Carbon Dioxide 28 25 Level Anion Gap 9 12 Blood Urea 18 22 H Nitrogen Creatinine 0.85 0.86 Est Glomerular > 60 > 60 Filtrat Rate mL/min Glucose Level 97 124 Calcium Level 8.8 8.8 Total Bilirubin 0.7 0.4 Direct Bilirubin 0.00 0.00 Indirect Bilirubin 0.7 0.4 Aspartate Amino 32 28 Transf (AST/SGOT) Alanine 30 30 Aminotransferase ( ALT/SGPT) Alkaline 96 91 Phosphatase Creatine Kinase 35 37 34 Creatinine Kinase 1.13 1.04 1.14 MB (Mass) Troponin I < 0.012 < 0.012 < 0.012 Total Protein 7.5 7.2 Albumin 3.7 3.4 Globulin 3.80 H 3.80 H Albumin/Globulin 0.97 0.89 Ratio Lipase 52 Urine Color YELLOW Urine Clarity SLIGHTLY CLOUDY A Urine pH 7.0 Urine Specific 1.013 [place] Urine Ketones NEGATIVE Urine Nitrite NEGATIVE Urine Bilirubin NEGATIVE Urine Urobilinogen 2+ H Urine Leukocyte NEGATIVE Esterase Urine Microscopic 2 RBC Urine Microscopic 4 WBC Urine Squamous FEW Epithelial Cells Urine Hemoglobin 3+ H Urine Glucose NEGATIVE Urine Total 1+ H Protein Creatine Kinase 2.8 3.4 Index Hemoglobin A1c 6.2 H Magnesium Level 1.9 Thyroid 1.930 Stimulating Hormone (TSH) Serum HCG, NEGATIVE Qualitative Medications Medication Current Medications IV Flush (NS 3 ml) 3 ml PER PROTOCOL IV ; Start 07/01/18 at 20:30 Lorazepam (Ativan) 0.5 mg Q6H PRN IV .ANXIETY Last administered on 07/02/18at 02:30; Admin Dose 0.5 MG; Start 07/01/18 at 20:30 Ondansetron HCl (Zofran Tab) 4 mg Q6H PRN PO NAUSEA/VOMITING; Start 07/01/18 at 20:30 Nitroglycerin (Nitroglycerin (Sl Tab) 0.4 Mg) 1 tab Q5M PRN SL .CHEST PAIN; Start 07/01/18 at 20:30 Acetaminophen (Tylenol Tab) 650 mg Q6H PRN PO .PAIN 1-3 OR TEMP; Start 07/01/18 at 20:30 Docusate Sodium (Colace) 100 mg Q12H PRN PO .CONSTIPATION; Start 07/01/18 at 20:30 Bisacodyl (Dulcolax) 5 mg DAILY PRN PO .CONSTIPATION; Start 07/01/18 at 20:30 Alprazolam (Xanax) 1 mg Q8H PRN PO ANXIETY; Start 07/01/18 at 20:30 Ascorbic Acid (Vitamin C) 500 mg DAILY PO Last administered on 07/02/18 08:40; Admin Dose 500 MG; Start 07/02/18 at 09:00 Aspirin (Halfprin) 81 mg DAILY PO Last administered on 07/02/18 08:40; Admin Dose 81 MG; Start 07/02/18 at 09:00 Atenolol (Tenormin) 50 mg DAILY PO Last administered on 07/02/18 08:40; Admin Dose 50 MG; Start 07/02/18 at 09:00 Ferrous Sulfate (Ferrous Sulfate (Ec)) 325 mg BID PO Last administered on 07/02/18 08:40; Admin Dose 325 MG; Start 07/01/18 at 21:00 Fluticasone/ Vilanterol (Breo Ellipta 100-25 Mcg Inh) 100 inh DAILY INH ; Start 07/02/18 at 09:00 Isosorbide Mononitrate (Imdur) 30 mg DAILY PO Last administered on 07/02/18 08:40; Admin Dose 30 MG; Start 07/02/18 at 09:00 Pantoprazole (Protonix Tab) 40 mg AC BREAKFAST PO ; Start 07/02/18 at 07:00 Hydralazine HCl (Apresoline) 10 mg Q4H PRN IV ELEVATED BLOOD PRESSURE Last administered on 07/02/18 00:12; Admin Dose 10 MG; Start 07/01/18 at 20:30 Albuterol (Proventil 0.083% (Neb)) 1.25 mg Q4H RESP THERAPY NEB Last admi nistered on 07/02/18 07:47; Admin Dose 1.25 MG; Start 07/01/18 at 21:00 Simethicone (Mylicon) 80 mg Q6H PRN PO DISTENSION/GAS/BLOATING Last administered on 07/02/18 00:12; Admin Dose 80 MG; Start 07/02/18 at 00:00 Morphine Sulfate (morphine) 4 mg Q4H PRN IV SEVERE PAIN LEVEL 7-10 Last administered on 07/02/18 08:55; Admin Dose 4 MG; Start 07/02/18 at 00:00; Stop 07/02/18 at 23:59 Furosemide (Lasix) 40 mg BID DIURETICS IV Last administered on 07/02/18 08:45; Admin Dose 40 MG; Start 07/02/18 at 09:00 Enoxaparin Sodium (Lovenox) 40 mg DAILY SC Last administered on 07/02/18 08:44; Admin Dose 40 MG; Start 07/02/18 at 09:00 ZUHAIR ROGERS NP Jul 02, 2018 14:05
--- NOTE | 2018-07-02 15:38 | RADRPT ---
Echocardiogram Report Patient Name: Rhys RAMIREZ ID: [id number] : 1975 (43y 5m)Study Date: 07/02/2018 9:46:14 AM Gender: FAccession #: [id number] Tech: LE Location: Ref.Physician: REJI ANTONIO Height(Cm): BSA: Weight(Kg): Quality: GoodAccount #: Procedures: Echocardiographic Report: Transthoracic echocardiogram with complete 2D, M-Mode, and doppler examination. Indications: Chest Pain. Measurements: 2D/M Mode Doppler Measurement Value Normal Range Measurement Value Normal Range LVIDd 2D 4.5 [ 3.8 - 5.2 ] cm JEREMY Vmax 2.1 [ 2.0 - 4.0 ] cm2 LVIDs 2D 3.2 [ 2.2 - 3.5 ] cm AV Mean Christian 1.1 [ 70.0 - 90.0 ] cm/sec LVPWd 2D 1.2 [ 0.6 - 0.9 ] cm AV Mean PG 5.0 [ 2.0 - 4.0 ] mmHg IVSd 2D 1.2 [ 0.6 - 0.9 ] cm AV Peak Christian 1.4 [ 100.0 - 170.0 ] cm/sec IVS/LVPW 2D 1.0 ratio AV Peak PG 8.0 [ 2.0 - 9.0 ] mmHg LVOT Diam 2.0 [ 2.1 - 2.5 ] cm AV VTI 26.1 cm LVOT Area 3.1 cm2 LVOT Peak Christian 0.9 [ 70.0 - 110.0 ] cm/sec LVOT Peak PG 3.0 [ 2.0 - 6.0 ] mmHg MV E Peak Christian 0.6 [ 60.0 - 130.0 ] cm/sec MV A Peak Christian 1.0 [ 100.0 - 120.0 ] cm/sec MV E/A 0.6 [ 0.8 - 1.5 ] ratio MV Decel Time 204 [ 104 - 258 ] msec Lat E` Christian 0.1 [ 10.0 - 15.0 ] cm/sec Med E` Christian 0.1 cm/sec MV E/A 0.6 [ 0.8 - 1.5 ] ratio TR Peak Christian 4.1 [ 100.0 - 280.0 ] cm/sec TR Peak PG 66.0 mmHg PV Peak Christian 0.6 [ 40.0 - 80.0 ] cm/sec PV Peak PG 1.0 mmHg RA Pressure 15.0 mmHg Findings: Left Ventricle: Normal left ventricular systolic function. Normal left ventricular cavity size. Mild concentric left ventricular hypertrophy. Ejection fraction is visually estimated at 50-55 %. Tissue Doppler/Mitral Doppler indices are consistent with impaired relaxation (Stage I diastolic dysfunction). Right Ventricle: Normal right ventricular size. Mild right ventricular systolic dysfunction. Mild enlargement of right ventricle. Left Atrium: There is mild enlargement of left atrium. Right Atrium: There is mild enlargement of right atrium. Atrial Septum: Normal atrial septum. Mitral Valve: Normal appearance of the mitral valve. Trace mitral regurgitation. Aortic Valve: Normal appearance of the aortic valve. No significant aortic stenosis or insufficiency. Tricuspid Valve: Normal appearance of the tricuspid valve. Right ventricular systolic pressure is consistent with severe pulmonary hypertension. Estimated peak PA systolic pressure 81 mmHg. There is moderate tricuspid regurgitation. Pulmonic Valve: Pulmonic valve not well visualized. There is trace to mild pulmonic regurgitation. Pericardium: Normal pericardium with no significant pericardial effusion. No pleural effusion noted. Aorta: Normal aortic root. IVC: Dilated IVC without respiratory collapse consistent with elevated right atrial pressure. Conclusions: Mild concentric left ventricular hypertrophy with normal systolic function. Grade 1 diastolic dysfunction. Dilated hypokinetic right ventricle. Mild biatrial enlargement. Trace mitral regurgitation. Moderate tricuspid regurgitation with severe pulmonary hypertension. Trace-mild pulmonic regurgitation. Dilated noncollapsing IVC consistent with elevated right atrial pressures. Electronically Signed By: Lakesha Nguyen 2018-07-02 15:37:52 PST
[2018-07-02] MEDS: NICOTINE (14 MG/24 HR) PATCH TRANSDERM SCH (16:15)
[2018-07-02] MEDS: metFORMIN 500 MG TAB PO SCH (17:36)
[2018-07-02] MEDS ORDERED: morphine 4 MG/ML VIAL IV ONE (21:19)
[2018-07-02] MEDS ORDERED: traMADol 50 MG TAB PO PRN (21:30)
[2018-07-02] MEDS ORDERED: LIDOCAINE/MYLANTA 40 ML BTL PO ONE (21:30)
[2018-07-03] VITALS (7 sets, daily range): BP systolic 133–159; BP diastolic 85–104; PULSE 78–95; RESP 20–21
[2018-07-03] MEDS: ALBUTEROL 0.083% (NEB) 2.5 MG/3 ML AMP NEB SCH ×6 (00:28→21:37)
[2018-07-03] MEDS ORDERED: NICOTINE (14 MG/24 HR) PATCH TRANSDERM ONE (00:30)
[2018-07-03] MEDS ORDERED: DIPHENHYDRAMINE 50 MG CAP PO ONE (01:00)
[2018-07-03] MEDS: FUROSEMIDE 40 MG INJ IV SCH ×2 (05:45→17:47)
[2018-07-03] MEDS: LORAZEPAM 2 MG INJ IV PRN ×3 (05:46→20:28)
[2018-07-03] MEDS: PANTOPRAZOLE (EC) 40 MG TAB PO SCH (06:05)
[2018-07-03] MEDS ORDERED: HYDROmorphONE 0.5 MG/0.5 ML SYG IV ONE (06:30)
[2018-07-03] MEDS: ISOSORBIDE MONONITRATE(SR)30 MG TAB PO SCH (09:44)
[2018-07-03] MEDS: metFORMIN 500 MG TAB PO SCH ×2 (09:44→17:47)
[2018-07-03] MEDS: ASPIRIN (EC) 81 MG TAB PO SCH (09:44)
[2018-07-03] MEDS: ASCORBIC ACID 500 MG TAB PO SCH (09:44)
[2018-07-03] MEDS: FERROUS SULFATE (EC) 325 MG TAB PO SCH ×2 (09:44→20:28)
[2018-07-03] MEDS: ATENOLOL 50 MG TAB PO SCH (09:45)
[2018-07-03] MEDS: NICOTINE (14 MG/24 HR) PATCH TRANSDERM SCH (09:45)
[2018-07-03] MEDS: ENOXAPARIN 40 MG/0.4 ML SYG SC SCH (09:53)
--- NOTE | 2018-07-03 13:22 | PN ---
Date/Time of Note Date/Time of Note DATE: 07/03/18 TIME: 13:20 Assessment/Plan VTE Prophylaxis Risk score (from Ns)>0 risk: 2 SCD applied (from Ns): No SCD contraindicated: other Pharmacological prophylaxis: LMWH Lines/Catheters IV Catheter Type (from [facility]): Saline Lock Assessment/Plan Hospital Course SUBJECTIVE: Complains of lower abdominal pain. OBJECTIVE: Physical Exam General: Morbidly obese, 43 year-old female lying in bed in no apparent distress. HEENT: Normocephalic, atraumatic. Eyes: Anicteric sclerae, conjunctivae clear. ENT: Nasal septum midline, oral mucosa moist. Neck: Short and obese. Unable to visualize any neck veins. Respiratory: Bilaterally diminished breath sounds. No use of accessory muscles of respiration. Minimal basilar Rales. Cardiovascular: S1, S2 heard. Regular rate and rhythm. Abdomen: Soft, nontender, and obese. Bowel sounds positive in all 4 quadrants. Genitourinary: Deferred. Extremities: No cyanosis, no clubbing. Bilateral upper extremity 2-3+ pitting pedal edema. Peripheral pulses palpable. Neurologic: Cranial nerves II through XII grossly intact. The patient is awake, alert, and oriented. Skin: Normal skin turgor. No skin rashes. Labs & Vitals per chart ASSESSMENT & PLAN 43-year-old female with past medical history of diastolic heart failure (noncompliant with Lasix), obstructive sleep apnea on CPAP, hypertension, type 2 diabetes mellitus, tobacco use, morbid obesity, anxiety disorder, and opioid seeking behavior who came to the emergency room with chief complaint of chest pain. Therefore, the patient was admitted to inpatient setting for further treatment and evaluation. 1. Atypical chest pain. -Pain is atypical in nature. -Troponins negative so far. - 2D echocardiogram showing preserved LVEF. 2. Acute on chronic congestive heart failure exacerbation, diastolic dy sfunction triggered by noncompliance with medication. -Continue diuretic therapy. 3. Chronic right lung base infiltrate/atelectasis. -No clinical evidence of any pneumonia. 4. Essential hypertension. -Continue antihypertensives. 5. Severe pulmonary hypertension. -PA systolic pressure of 81 mm Hg per 2D echo. -Etiology could be multifactorial including chronic hypoxia secondary to obesity hypoventilation. 6. Type 2 diabetes mellitus. -Continue biguanides. -Latest hemoglobin A1c 6.2. 7. Tobacco use. -Cessation advised. -Nicotine use. 8. Opioid seeking behavior. -Will avoid using any strong opioids. 9. Anxiety disorder. -Continue PRN anxiolytics. 10. Obstructive sleep apnea. -Nocturnal CPAP. 11. Morbid obesity. -BMI greater than 56 kg/m. -Patient was advised on weight reduction. 12. Lower abdominal pain. -Etiology unclear. -Patient insisting on abdominal imaging. -No nausea vomiting. Patient able to tolerate a regular consistency diet. -CT abdomen and pelvis ordered. 12. Fluids, electrolytes, and nutrition. -Low-cholesterol diet. 13. DVT prophylaxis. -Subcutaneous Lovenox. 14. Plan. -Continue diuresis. --Discharge the patient home if CT abdomen and pelvis is negative. -Transfer to Med/Surg. The patient was seen in collaboration with Dr. Lee. Result Diagram: 07/03/1853207/03/[id number] Results 24hrs Laboratory Tests Test 07/02/18 14:45 07/03/18 05:04 07/03/18 05:33 Urine Opiates Screen Positive Urine Barbiturates Negative Urine Amphetamines Screen Negative Urine Benzodiazepines Screen Positive Urine Cocaine Screen Negative Urine Cannabinoids Positive Bedside Glucose 126 White Blood Count 10.2 Red Blood Count 4.44 Hemoglobin 12.4 Hematocrit 41.0 Mean Corpuscular Volume 92.3 Mean Corpuscular Hemoglobin 27.9 L Mean Corpuscular Hemoglobin Concent 30.2 L Red Cell Distribution Width 17.1 H Platelet Count 271 # Mean Platelet Volume 10.7 H Immature Granulocytes % 0.400 Neutrophils % 61.7 Lymphocytes % 26.1 Monocytes % 8.1 Eosinophils % 3.0 Basophils % 0.7 Nucleated Red Blood Cells % 0.0 Immature Granulocytes # 0.040 H Neutrophils # 6.3 Lymphocytes # 2.7 Monocytes # 0.8 Eosinophils # 0.3 Basophils # 0.1 Nucleated Red Blood Cells # 0.0 Sodium Level 142 Potassium Level 3.9 Chloride Level 107 Carbon Dioxide Level 25 Anion Gap 10 Blood Urea Nitrogen 23 H Creatinine 0.77 Est Glomerular Filtrat Rate mL/min > 60 Glucose Level 121 Calcium Level 8.8 Phosphorus Level 4.8 Magnesium Level 2.1 Exam/Review of Systems Exam Vitals Vital Signs Date Temp Pulse Resp B/P (MAP) Pulse Ox O2 O2 Flow FiO2 Time Delivery Rate 07/03/18 75 18 89 12:45 07/03/18 98.4 155/86 11:41 (109) 07/03/18 Nasal 2.0 08:30 Cannula Intake and Output 07/02/18 07/02/18 07/03/18 1515:00 23:00 07:00 IntakeIntake Total 400 ml 1160 ml 550 ml OutputOutput Total 400 ml 300 ml BalanceBalance 0 ml 860 ml 550 ml Results Results 24hrs Laboratory Tests Test 07/02/18 14:45 07/03/18 05:04 07/03/18 05:33 Urine Opiates Screen Positive Urine Barbiturates Negative Urine Amphetamines Screen Negative Urine Benzodiazepines Screen Positive Urine Cocaine Screen Negative Urine Cannabinoids Positive Bedside Glucose 126 White Blood Count 10.2 Red Blood Count 4.44 Hemoglobin 12.4 Hematocrit 41.0 Mean Corpuscular Volume 92.3 Mean Corpuscular Hemoglobin 27.9 L Mean Corpuscular Hemoglobin Concent 30.2 L Red Cell Distribution Width 17.1 H Platelet Count 271 # Mean Platelet Volume 10.7 H Immature Granulocytes % 0.400 Neutrophils % 61.7 Lymphocytes % 26.1 Monocytes % 8.1 Eosinophils % 3.0 Basophils % 0.7 Nucleated Red Blood Cells % 0.0 Immature Granulocytes # 0.040 H Neutrophils # 6.3 Lymphocytes # 2.7 Monocytes # 0.8 Eosinophils # 0.3 Basophils # 0.1 Nucleated Red Blood Cells # 0.0 Sodium Level 142 Potassium Level 3.9 Chloride Level 107 Carbon Dioxide Level 25 Anion Gap 10 Blood Urea Nitrogen 23 H Creatinine 0.77 Est Glomerular Filtrat Rate mL/min > 60 Glucose Level 121 Calcium Level 8.8 Phosphorus Level 4.8 Magnesium Level 2.1 Medications Medication Current Medications IV Flush (NS 3 ml) 3 ml PER PROTOCOL IV ; Start 07/01/18 at 20:30 Lorazepam (Ativan) 0.5 mg Q6H PRN IV .ANXIETY Last administered on 07/03/18at 05:46; Admin Dose 0.5 MG; Start 07/01/18 at 20:30 Ondansetron HCl (Zofran Tab) 4 mg Q6H PRN PO NAUSEA/VOMITING; Start 07/01/18 at 20:30 Nitroglycerin (Nitroglycerin (Sl Tab) 0.4 Mg) 1 tab Q5M PRN SL .CHEST PAIN; Start 07/01/18 at 20:30 Acetaminophen (Tylenol Tab) 650 mg Q6H PRN PO .PAIN 1-3 OR TEMP; Start 07/01/18 at 20:30 Docusate Sodium (Colace) 100 mg Q12H PRN PO .CONSTIPATION; Start 07/01/18 at 20:30 Bisacodyl (Dulcolax) 5 mg DAILY PRN PO .CONSTIPATION; Start 07/01/18 at 20:30 Alprazolam (Xanax) 1 mg Q8H PRN PO ANXIETY; Start 07/01/18 at 20:30 Ascorbic Acid (Vitamin C) 500 mg DAILY PO Last administered on 07/03/18 09:44; Admin Dose 500 MG; Start 07/02/18 at 09:00 Aspirin (Halfprin) 81 mg DAILY PO Last administered on 07/03/18 09:44; Admin Dose 81 MG; Start 07/02/18 at 09:00 Atenolol (Tenormin) 50 mg DAILY PO Last administered on 07/03/18 09:45; Admin Dose 50 MG; Start 07/02/18 at 09:00 Ferrous Sulfate (Ferrous Sulfate (Ec)) 325 mg BID PO Last administered on 09:44; Admin Dose 325 MG; Start 07/01/18 at 21:00 Fluticasone/ Vilanterol (Breo Ellipta 100-25 Mcg Inh) 100 inh DAILY INH Last administered on 07/02/18 16:16; Admin Dose 100 INH; Start 07/02/18 at 09:00 Isosorbide Mononitrate (Imdur) 30 mg DAILY PO Last administered on 07/03/18 09:44; Admin Dose 30 MG; Start 07/02/18 at 09:00 Pantoprazole (Protonix Tab) 40 mg AC BREAKFAST PO Last administered on 07/03/18 06:05; Admin Dose 40 MG; Start 07/02/18 at 07:00 Hydralazine HCl (Apresoline) 10 mg Q4H PRN IV ELEVATED BLOOD PRESSURE Last administered on 07/02/18 00:12; Admin Dose 10 MG; Start 07/01/18 at 20:30 Albuterol (Proventil 0.083% (Neb)) 1.25 mg Q4H RESP THERAPY NEB Last administered on 07/03/18 12:46; Admin Dose 1.25 MG; Start 07/01/18 at 21:00 Simethicone (Mylicon) 80 mg Q6H PRN PO DISTENSION/GAS/BLOATING Last administered on 07/02/18at 00:12; Admin Dose 80 MG; Start 07/02/18 at 00:00 Furosemide (Lasix) 40 mg BID DIURETICS IV Last administered on 07/03/18 05:45; Admin Dose 40 MG; Start 07/02/18 at 09:00 Enoxaparin Sodium (Lovenox) 40 mg DAILY SC Last administered on 07/03/18 09:53; Admin Dose 40 MG; Start 07/02/18 at 09:00 Metformin HCl (Glucophage) 500 mg BID WITH MEALS PO Last administered on 07/03/18 09:44; Admin Dose 500 MG; Start 07/02/18 at 18:00 Nicotine (Nicoderm 14 Mg/ 24hr) 1 patch DAILY TRANSDERM Last administered on 07/03/18 09:45; Admin Dose 1 PATCH; Start 07/02/18 at 16:00 ZUHAIR ROGERS NP Jul 03, 2018 13:22
[2018-07-03] MEDS ORDERED: SOD CHLORIDE 0.9% 100 ML ONE (15:55)
[2018-07-03] MEDS ORDERED: IOHEXOL 300MG/ML 150 ML BTL ONE (15:55)
[2018-07-03] MEDS ORDERED: DIPHENHYDRAMINE 25 MG CAP PO PRN (19:00)
[2018-07-03] MEDS: ACETAMINOPHEN 325 MG TAB PO PRN (20:34)
[2018-07-04 00:45] VITALS: BP 146/90; PULSE 80; RESP 20
[2018-07-04] MEDS: ALBUTEROL 0.083% (NEB) 2.5 MG/3 ML AMP NEB SCH ×5 (01:35→17:02)
[2018-07-04] MEDS: ACETAMINOPHEN 325 MG TAB PO PRN ×2 (05:23→16:55)
[2018-07-04] MEDS: FUROSEMIDE 40 MG INJ IV SCH ×3 (05:23→18:00)
[2018-07-04 07:40] VITALS: BP 131/78; PULSE 82; RESP 19
[2018-07-04] MEDS: ENOXAPARIN 40 MG/0.4 ML SYG SC SCH (08:44)
[2018-07-04] MEDS: metFORMIN 500 MG TAB PO SCH ×2 (08:44→17:55)
[2018-07-04] MEDS: ASCORBIC ACID 500 MG TAB PO SCH (08:44)
[2018-07-04] MEDS: ATENOLOL 50 MG TAB PO SCH (08:46)
[2018-07-04] MEDS: FERROUS SULFATE (EC) 325 MG TAB PO SCH (08:46)
[2018-07-04] MEDS: ASPIRIN (EC) 81 MG TAB PO SCH (08:46)
[2018-07-04] MEDS: PANTOPRAZOLE (EC) 40 MG TAB PO SCH (08:46)
[2018-07-04] MEDS ORDERED: FLUTICASONE/VILANTEROL 100-25 INH SCH (09:24)
[2018-07-04] MEDS: ISOSORBIDE MONONITRATE(SR)30 MG TAB PO SCH (12:19)
[2018-07-04] MEDS: NICOTINE (14 MG/24 HR) PATCH TRANSDERM SCH (12:20)
[2018-07-04 15:51] VITALS: BP 142/68; PULSE 92; RESP 20
[2018-07-04] MEDS: LORAZEPAM 2 MG INJ IV PRN (16:55)
--- NOTE | 2018-07-04 18:13 | PDOCDIS ---
Discharge Instructions CONDITION [id number] Patient Condition: [id number] Stable HOME CARE INSTRUCTIONS: [id number] Diet Instructions: [id number] y Avoid heavy lifting Do not Drive FOLLOW UP/APPOINTMENTS Follow-up Plan Appt primary 1 week Appointment regular SUPERVISOR RECORDS CHANGE if she is to follow-up on her fibroids ZIA PERRIN MD Jul 04, 2018 18:13
[2018-07-04] MEDS ORDERED: Nicotine (14 Mg/24 Hr) TRANSDERM (18:15)
[2018-07-04] MEDS ORDERED: NIFE30TA23 PO (18:15)
[2018-07-04] MEDS ORDERED: ACET325T33 PO (18:15)
--- NOTE | 2018-07-04 18:21 | DS ---
Date/Time of Note Date/Time of Note DATE: 07/04/18 TIME: 18:17 Discharge Summary Admission/Discharge Info Admit Date/Time Jul 02, 2018 at 07:37 Discharge Date/Time Patient Condition: Stable Procedures Chest x-ray: No acute process CT abdomen pelvis IMPRESSION: 1. No acute intra-abdominal abnormality identified. No significant interval change. 2. Left adnexal septated cyst measuring 3.2 x 6.1 x 4.8 cm. This appears slightly increased in size when compared to the prior examination. Consider repeat pelvic ultrasound for further evaluation. 3. Status post cholecystectomy. Hx of Present Illness Atypical chest pain Hospital Course Hospitalist coverage/hospital course 43-year-old female admitted with atypical chest pain ruled out for ACS by enzymes EKG symptoms. Chest x-ray did not show any acute intra-thoracic process. Patient is not adherent to medical management and continues to smoke. Patient additionally had a stress test within the last 2 years which was negative. Patient is stable and fit for discharge. Pain is likely due to her stressors. Acute distress disorder multifactorial, continue supportive care consider outpatient [facility]. States her mom is on life support. States her recently declared he is a homosexual. Her daughter is now apparently a lesbian. She also states that she is in a new apartment without electricity. Patient is a poor historian and not sure what I believe. She is known to have nonadherence to medical therapy and instructions. She is left AMA multiple times. She also has pain seeking behavior. Patient states she requires medications for her fibroids. Not sure why she does not follow-up with [facility] if she indeed feels that this is an issue. Most fibroids do not cause significant pain. Tobacco abuse status post counseling offer patch Marijuana substance abuse status post counseling Chronic NEIDA, mild stable continue BiPAP of which she has at home Morbid obesity, recommend she change her diet a little bit Metabolic syndrome stable continue risk factor modification Essential hypertension, stable continue beta-vicenta. We will add calcium channel vicenta for chance of better control Chronic pain seeking behavior, continue to monitor I will not prescribe any new medications. Asthma vs obesity hypoventilation syndrome. Patient may request a pulmonary eval as an outpatient. Possible pulmonary hypertension. CTA negative for any acute process. Vitals are stable. Home Meds Active Scripts Nifedipine* (Nifedipine ER*) 30 Mg Tablet.sa, 30 MG PO DAILY for 14 Days, #15 TAB.SA Prov:CHIKYARAPPA,ZIA K MD 07/04/18 Furosemide* (Furosemide*) 20 Mg Tablet, 20 MG PO BID, #60 TAB 1 Refill Prov:ELMER DIANE 04/03/18 Ascorbic Acid (Vitamin C) 500 Mg Tab, 500 MG PO DAILY for 30 Days, #30 TAB 2 Refills Prov:MEGHA GARCIA M. 01/05/18 Ferrous Sulfate* (Ferrous Sulfate*) 325 Mg Tabec, 325 MG PO BID for 30 Days, #60 TAB 2 Refills Prov:MEGHA GARCIA M. 01/05/18 Fluticasone-Vilanterol (Breo Ellipta Inhaler) 100-25 Mcg/Actuation Aer.pow.ba, 1 PUFF INHALATION DAILY, #1 INHALER Prov:REGLIOR MANCILLA 12/20/17 Isosorbide Mononitrate* (Isosorbide Mononitrate*) 30 Mg Tab.er.24h, 30 MG PO DAILY, #30 TAB Prov:REGLIOR MANCILLA 12/20/17 Atenolol* (Atenolol*) 50 Mg Tablet, 50 MG PO DAILY, #30 TAB Prov:REGIDORLIOR 12/20/17 Albuterol Sulfate* (Ventolin HFA*) 18 Gm Hfa.aer.ad, 2 PUFF INHALATION Q4H, #1 INHALER Prov:VAIBHAV ADAM MD 04/22/17 Reported Medications Alprazolam* (Alprazolam*) 1 Mg Tablet, 1 MG PO Q8H PRN for ANXIETY, TAB 03/04/18 Ferrous Sulfate* (Ferrous Sulfate*) 325 Mg Tabec, 325 MG PO BID, TAB 03/04/18 Pantoprazole* (Pantoprazole*) 40 Mg Tablet.dr, 40 MG PO AC BREAKFAST, TAB 08/31/17 Aspirin* (Aspirin* EC) 81 Mg Tablet.dr, 81 MG PO DAILY, TAB 08/31/17 Metformin* (Glucophage*) 500 Mg Tab, 500 MG PO WITH BREAKFAST DINNE, #30 TAB 08/31/17 Albuterol Sulfate* (Albuterol Sulfate* Neb) 0.083%-3 Ml Neb, 1.25 MG NEB Q4H, #30 VIAL 5/8/18 Follow-up Plan Appt primary 1 week Appointment regular [facility] if she is to follow-up on her fibroids Primary Care Provider [facility] Time spent on discharge: > 30 minutes ZIA PERRIN MD Jul 04, 2018 18:21
[2018-07-04] MEDS ORDERED: FURO40TA4 PO (19:01)
[2018-07-04 19:21] VITALS: BP 150/96; PULSE 76; RESP 16
== END 2018-07-04 20:05 | disposition home or self-care (01) | DRG 292 ==
LOC: E/R 17:38 → 6WM 20:41 → OBSVTOIN 07-02 07:37 → MS1 07-03 23:39
PROVIDERS: ADMIT Family Medicine; ATTEND Internal Medicine
DX: I11.0 Hypertensive heart disease with heart failure (principal); Z68.43 Body mass index [BMI] 50.0-59.9, adult; J98.11 Atelectasis; E66.2 Morbid (severe) obesity with alveolar hypoventilation; R07.89 Other chest pain; I50.33 Acute on chronic diastolic (congestive) heart failure; E11.9 Type 2 diabetes mellitus without complications; J45.909 Unspecified asthma, uncomplicated; G89.29 Other chronic pain; I25.2 Old myocardial infarction; F17.200 Nicotine dependence, unspecified, uncomplicated; F41.9 Anxiety disorder, unspecified; Z76.5 Malingerer [conscious simulation]; I27.20 Pulmonary hypertension, unspecified; F12.10 Cannabis abuse, uncomplicated; E88.81 Metabolic syndrome and other insulin resistance; D25.9 Leiomyoma of uterus, unspecified; Z91.19 Patient's noncompliance with other medical treatment and regimen; Z79.82 Long term (current) use of aspirin; Z88.0 Allergy status to penicillin; Z91.14 Patient's other noncompliance with medication regimen
CPT/HCPCS: 36415; 71045; 74177; 80048; 80053; 80307; 81001; 82550; 82553; 82962; 83036; 83690; 83735; 84100; 84443; 84484; 84703; 85025; 93005; 93306; 94640; 94664; 96374; 96375; G0378; J0360; J1170; J1650; J1885; J1940; J2060; J2270; Q9967

== ENCOUNTER 2018-07-11 23:49 | Inpatient (IN) | payer OTHER ==
[~2018-07-11] VITALS: Ht 162.6 cm; Wt 153.6 kg
[~2018-07-11 23:49] MED LIST changes: +ACET325T33 PO; -ALPR1TAB7 PO; +FURO40TA4 PO; +NIFE30TA23 PO; +Nicotine (14 Mg/24 Hr) TRANSDERM
[2018-07-11 23:51] VITALS: Ht 162.6 cm; Wt 153.6 kg
[2018-07-12] MEDS ORDERED: ALBUTEROL 0.083% (NEB) 2.5 MG/3 ML AMP INH STA (01:37)
[2018-07-12] MEDS ORDERED: IPRATROPIUM (NEB) 0.5 MG/2.5 ML AMP INH STA (01:37)
[2018-07-12] MEDS ORDERED: HYDROmorphONE 1 MG/ML SYG IV STA (01:53)
[2018-07-12] MEDS ORDERED: ONDANSETRON 4 MG INJ IV STA (01:53)
[2018-07-12] MEDS ORDERED: KETOROLAC 30 MG INJ IV STA (02:45)
[2018-07-12] MEDS ORDERED: FUROSEMIDE 40 MG INJ IV ONE (04:30)
[2018-07-12] MEDS ORDERED: LORAZEPAM 2 MG INJ IV ONE ×2 (04:30→20:30)
--- NOTE | 2018-07-12 05:25 | ERD ---
ER Documentation Chief Complaint Chief Complaint shortness of breath/cp while playing at a bingo place x 2 hours HPI This is a 43-year-old female comes in because of shortness of breath chest pain while playing bingo. Chest pain was mild to moderate intensity no exacerbating relieving factors. Denies any fevers or chills. Denies any other current issues. ROS All systems reviewed and are negative except as per history of present illness. Medications Home Meds Active Scripts Furosemide* (Furosemide*) 40 Mg Tablet, 40 MG PO DAILY for 5 Days, #5 TAB Prov:ZIA PERRIN MD 07/04/18 Nifedipine* (Nifedipine ER*) 30 Mg Tablet.sa, 30 MG PO DAILY for 14 Days, #15 TAB.SA Prov:ZIA PERRIN MD 07/04/18 Acetaminophen* (Tylenol*) 325 Mg Tablet, 650 MG PO Q6H PRN for .PAIN 1-3 OR TEMP for 7 Days, TAB Prov:ZIA PERRIN MD 07/04/18 [Nicotine (14 Mg/24 Hr)] 1 PATCH PATCH No Conflict Check, 1 PATCH TRANSDERM DAILY for 10 Days Prov:ZIA PERRIN MD 07/04/18 Furosemide* (Furosemide*) 20 Mg Tablet, 20 MG PO BID, #60 TAB 1 Refill Prov:ELMER DIANE 04/03/18 Ascorbic Acid (Vitamin C) 500 Mg Tab, 500 MG PO DAILY for 30 Days, #30 TAB 2 Refills Prov:MEGHA GARCIA. 01/05/18 Ferrous Sulfate* (Ferrous Sulfate*) 325 Mg Tabec, 325 MG PO BID for 30 Days, #60 TAB 2 Refills Prov:MEGHA GARCIA. 01/05/18 Fluticasone-Vilanterol (Breo Ellipta Inhaler) 100-25 Mcg/Actuation Aer.pow.ba, 1 PUFF INHALATION DAILY, #1 INHALER Prov:LIOR MCMAHON 12/20/17 Isosorbide Mononitrate* (Isosorbide Mononitrate*) 30 Mg Tab.er.24h, 30 MG PO DAILY, #30 TAB Prov:LIOR MCMAHON 12/20/17 Atenolol* (Atenolol*) 50 Mg Tablet, 50 MG PO DAILY, #30 TAB Prov:LIOR MCMAHON 12/20/17 Albuterol Sulfate* (Ventolin HFA*) 18 Gm Hfa.aer.ad, 2 PUFF INHALATION Q4H, #1 INHALER Prov:VAIBHAV ADAM MD 04/22/17 Reported Medications Ferrous Sulfate* (Ferrous Sulfate*) 325 Mg Tabec, 325 MG PO BID, TAB 03/04/18 Pantoprazole* (Pantoprazole*) 40 Mg Tablet.dr, 40 MG PO AC BREAKFAST, TAB 08/31/17 Aspirin* (Aspirin* EC) 81 Mg Tablet.dr, 81 MG PO DAILY, TAB 08/31/17 Metformin* (Glucophage*) 500 Mg Tab, 500 MG PO WITH BREAKFAST DINNE, #30 TAB 08/31/17 Albuterol Sulfate* (Albuterol Sulfate* Neb) 0.083%-3 Ml Neb, 1.25 MG NEB Q4H, #30 VIAL 08/31/17 Allergies Allergies: Coded Allergies: Penicillins (Unverified Allergy, Unknown, 07/01/18) blueberry (Unverified Allergy, Unknown, 07/01/18) PMhx/Soc History of Surgery: Yes (Gallstone, 3 c-sections, finger sx, cyst removal) Anesthesia Reaction: No Hx Neurological Disorder: No Hx Respiratory Disorders: Yes (Asthma) Hx Cardiac Disorders: Yes (HTN, CHF) Hx Psychiatric Problems: Yes Hx Miscellaneous Medical Probl: No Hx Alcohol Use: No Hx Substance Use: Yes (Marijuana) Hx Tobacco Use: Yes Smoking Status: Current every day smoker Physical Exam Vitals Vital Signs Date Temp Pulse Resp B/P (MAP) Pulse Ox O2 O2 Flow FiO2 Time Delivery Rate 07/12/18 90 24 138/112 95 Room Air 02:23 (121) 07/12/18 87 22 96 21 02:17 07/12/18 89 33 153/123 97 Room Air 01:36 (133) 07/11/18 98.7 88 22 198/130 96 23:51 (152) Physical Exam Const: No acute distress Head: Atraumatic Eyes: Normal Conjunctiva ENT: Normal External Ears, Nose and Mouth. Neck: Full range of motion. No meningismus. Resp: Clear to auscultation bilaterally Cardio: Regular rate and rhythm, no murmurs Abd: Soft, non tender, non distended. Normal bowel sounds Skin: No petechiae or rashes Back: No midline or flank tenderness Ext: No cyanosis, or edema Neur: Awake and alert Psych: Normal Mood and Affect Result Diagram: 07/12/18 0241 07/12/18 0241 Results 24 hrs Laboratory Tests Test 07/12/18 02:41 07/12/18 02:44 White Blood Count 10.4 10^3/ul Red Blood Count 4.66 10^6/ul Hemoglobin 13.1 g/dl Hematocrit 42.5 % Mean Corpuscular Volume 91.2 fl Mean Corpuscular Hemoglobin 28.1 pg Mean Corpuscular Hemoglobin Concent 30.8 g/dl Red Cell Distribution Width 16.8 % Platelet Count 237 10^3/UL Mean Platelet Volume 10.9 fl Immature Granulocytes % 0.400 % Neutrophils % 68.5 % Lymphocytes % 22.0 % Monocytes % 6.2 % Eosinophils % 2.2 % Basophils % 0.7 % Nucleated Red Blood Cells % 0.0 /100WBC Immature Granulocytes # 0.040 10^3/ul Neutrophils # 7.1 10^3/ul Lymphocytes # 2.3 10^3/ul Monocytes # 0.6 10^3/ul Eosinophils # 0.2 10^3/ul Basophils # 0.1 10^3/ul Nucleated Red Blood Cells # 0.0 10^3/ul Prothrombin Time 13.9 Sec Prothrombin Time Ratio 1.1 INR International Normalized Ratio 1.06 Activated Partial Thromboplast Time 28.5 Sec Sodium Level 142 mmol/L Potassium Level 4.2 mmol/L Chloride Level 110 mmol/L Carbon Dioxide Level 23 mmol/L Anion Gap 9 Blood Urea Nitrogen 17 mg/dl Creatinine 0.66 mg/dl Est Glomerular Filtrat Rate mL/min > 60 mL/min Glucose Level 105 mg/dl Calcium Level 8.6 mg/dl Total Bilirubin 0.4 mg/dl Direct Bilirubin 0.00 mg/dl Indirect Bilirubin 0.4 mg/dl Aspartate Amino Transf (AST/SGOT) 22 IU/L Alanine Aminotransferase (ALT/SGPT) 23 IU/L Alkaline Phosphatase 106 IU/L Troponin I < 0.012 ng/ml B-Type Natriuretic Peptide 3240 PG/ML Total Protein 7.6 g/dl Albumin 3.7 g/dl Globulin 3.90 g/dl Albumin/Globulin Ratio 0.94 POC Venous Lactate 1.6 mmol/L Current Medications Medications Dose Sig/Clarita Start Time Status Last (Trade) Ordered Route PRN Stop Time Admin Dose Reason Admin Albuterol 5 mg ONCE STAT 07/12/18 DC 07/12/18 (Proventil INH 01:37 02:17 0.083% (Neb)) 07/12/18 01:39 Ipratropium 0.5 mg ONCE STAT 07/12/18 DC 07/12/18 Keyser INH 01:37 02:17 (Atrovent 07/12/18 01:39 0.02% (Neb)) 1 mg ONCE STAT 07/12/18 DC 07/12/18 Hydromorphone IV 01:53 02:20 HCl 07/12/18 01:54 (Dilaudid) Ondansetron 4 mg ONCE STAT 07/12/18 DC 07/12/18 HCl (Zofran IV 01:53 02:20 Inj) 07/12/18 01:54 Ketorolac 30 mg ONCE STAT 07/12/18 DC 07/12/18 Tromethamine IV 02:45 02:54 (Toradol) 07/12/18 02:46 Lorazepam 1 mg ONCE ONCE 07/12/18 DC 07/12/18 (Ativan) IV 04:30 04:34 07/12/18 04:31 Furosemide 40 mg ONCE ONCE 07/12/18 DC 07/12/18 (Lasix) IV 04:30 04:34 07/12/18 04:31 Procedures/MDM EKG: Rate/Rhythm: [Normal Sinus Rhythm] QRS, ST, T-waves: [No changes consistent w/ acute ischemia] Impression: [No evidence of ischemia or arrhythmia] Chest X-ray 1V Interpreted by me: Soft Tissue: No acute a bnormalities Bones: No acute abnormalities Mediastinum/Cardiac Silhouette/Lungs: Increased interstitial fluid markings. Cardiomegaly. Impression: CHF Patient's heart failure symptoms is concerning for acute decompensation and will require inpatient workup and monitoring. Further w/u for ischemia, arrhythmia, PE or dissection will be deferred to the inpatient team. Accepting Care Team: Current data and ongoing care discussed. Time: 5 AM Primary Provider: Hospitalist Consulting: [XOXOXO] Outstanding Data: none Departure Diagnosis: Primary Impression: CHF (congestive heart failure) Heart failure type: unspecified Heart failure chronicity: unspecified Qualified Codes: I50.9 - Heart failure, unspecified Condition: Serious MADHURI DAWKINS Jul 12, 2018 05:25
[2018-07-12] MEDS ORDERED: ALBUTEROL HFA 8 GM INHALER INH PRN (06:00)
--- NOTE | 2018-07-12 07:06 | HP ---
Date/Time of Note Date/Time of Note DATE: 07/12/18 TIME: 06:54 Assessment/Plan VTE Prophylaxis Pharmacological prophylaxis: LMWH Lines/Catheters IV Catheter Type (from Nrs): Saline Lock Assessment/Plan Hospital Course This is a 41-year-old female being admitted to the telemetry floor for: 1.acute on chronic diastolic CHF exacerbation -Secondary likely to medication noncompliance. -Lasix 40 mg IV twice daily -ECHO (07/12) EF of 55% with diastolic dysfunction and severe pulm htn. Consider cardiology consultation. 2. Chronic abdominal and lower extremity pain -Patient apparently has a history of chronic pain however she is also known to have drug-seeking behavior. She left the hospital multiple times AGAINST MEDICAL ADVICE. Her pain at the current time is likely secondary to her lower extremity edema abdomen. We will give her diuresis and provide her with morphine x3 doses. -Her abdominal pain appears to be chronic, though she does have signs of increased abdominal girth from volume overload. 3.Hypertension -Continue home meds 4.Diabetes mellitus -A1c 6.2 on last admit, she is only on metformin at home per the EMR. 5.Anxiety -Resume home meds 6.Obstructive sleep apnea -BiPAP as needed 7. Normocytic Anemia -Resume ferrous sulfate 8.Medical noncompliance -I did reiterate to the patient that it is in her benefit to take her medications as instructed and to have regular follow-up with her primary care doctor as an outpatient. #9 DVT GI prophylaxis: Lovenox, no GI prophylaxis indicated Further treatment strategy will be implemented as per the clinical course. Result Diagram: 07/12/18 0241 07/12/18 0241 Results 24hrs Laboratory Tests Test 07/12/18 02:41 07/12/18 02:44 07/12/18 05:13 White Blood Count 10.4 Red Blood Count 4.66 Hemoglobin 13.1 Hematocrit 42.5 Mean Corpuscular Volume 91.2 Mean Corpuscular Hemoglobin 28.1 L Mean Corpuscular Hemoglobin Concent 30.8 L Red Cell Distribution Width 16.8 H Platelet Count 237 Mean Platelet Volume 10.9 H Immature Granulocytes % 0.400 Neutrophils % 68.5 Lymphocytes % 22.0 Monocytes % 6.2 Eosinophils % 2.2 Basophils % 0.7 Nucleated Red Blood Cells % 0.0 Immature Granulocytes # 0.040 H Neutrophils # 7.1 Lymphocytes # 2.3 Monocytes # 0.6 Eosinophils # 0.2 Basophils # 0.1 Nucleated Red Blood Cells # 0.0 Prothrombin Time 13.9 Prothrombin Time Ratio 1.1 INR International Normalized Ratio 1.06 Activated Partial Thromboplast Time 28.5 Sodium Level 142 Potassium Level 4.2 Chloride Level 110 Carbon Dioxide Level 23 Anion Gap 9 Blood Urea Nitrogen 17 Creatinine 0.66 Est Glomerular Filtrat Rate mL/min > 60 Glucose Level 105 Calcium Level 8.6 Total Bilirubin 0.4 Direct Bilirubin 0.00 Indirect Bilirubin 0.4 Aspartate Amino Transf (AST/SGOT) 22 Alanine Aminotransferase (ALT/SGPT) 23 Alkaline Phosphatase 106 Troponin I < 0.012 B-Type Natriuretic Peptide 3240 H Total Protein 7.6 Albumin 3.7 Globulin 3.90 H Albumin/Globulin Ratio 0.94 POC Venous Lactate 1.6 Lactic Acid Level 1.0 HPI/ROS Admit Date/Time Admit Date/Time Hx of Present Illness Chief complaint: Shortness of breath, dizziness This is a 43-year-old female with a past medical history of diastolic CHF, hypertension, diabetes mellitus, tobacco use, anxiety, chronic opiate use, obstructive sleep apnea, obesity and medical noncompliance who presents to the ED with shortness of breath. Patient reports that she went to go [employer] after seeing her mother who is on hospice. She felt short of breath and slightly dizzy and then came to the ER. She does report that she did not take her Lasix yesterday. She denies any chest pain. She does report that around her abdomen she has not noticed increased girth and she does report some tenderness there as well. She is requesting morphine. Allergies: Penicillin, blueberry Medications: See JUN JOSE CARLOS Const: As per HPI Eyes : No pain discharge or redness or change in visual acuity ENT: No pain, sore throat, congestion, congestion, dysphagia or discharge Respiratory: As per HPI Cardiovascular: As per HPI GI : As per HPI Genitourinary: No dysuria, hematuria, flank pain , discharge or CVA tenderness Musculoskeletal: No joint pain, back pain, neck pain, restricted range of motion in neck or joints Skin: No rash, bruising or hives Neuro: No headache, dizziness, syncope, seizure, focal weakness Endocrine: No polyuria, polydipsia, temperature intolerance Psych: No hallucination, depression, anxiety or suicidal ideation PMH/Family/Social Past Medical History medical history of diastolic CHF, hypertension, diabetes mellitus, tobacco use, anxiety, chronic opiate use, obstructive sleep apnea, obesity and medical noncompliance Medications Current Medications Albuterol (Ventolin Hfa) 2 puff Q4H PRN INH SHORTNESS OF BREATH; Start 07/12/18 at 06:00 Ascorbic Acid (Vitamin C) 500 mg DAILY PO ; Start 07/12/18 at 09:00 Aspirin (Halfprin) 81 mg DAILY PO ; Start 07/12/18 at 09:00 Atenolol (Tenormin) 50 mg DAILY PO ; Start 07/12/18 at 09:00 Ferrous Sulfate (Ferrous Sulfate (Ec)) 325 mg BID PO ; Start 07/12/18 at 09:00 Fluticasone/ Vilanterol (Breo Ellipta 100-25 Mcg Inh) 100 inh DAILY INH ; Start 07/12/18 at 09:00 Isosorbide Mononitrate (Imdur) 30 mg DAILY PO ; Start 07/12/18 at 09:00 Nifedipine (Procardia Xl) 30 mg DAILY PO ; Start 07/12/18 at 09:00 Pantoprazole (Protonix Tab) 40 mg AC BREAKFAST PO ; Start 07/12/18 at 07:00 Nicotine (Nicoderm 14 Mg/ 24hr) 1 patch DAILY TRANSDERM ; Start 07/12/18 at 09:00 Furosemide (Lasix) 40 mg BID DIURETICS IV ; Start 07/12/18 at 12:00 Coded Allergies: Penicillins (Unverified Allergy, Unknown, 07/01/18) blueberry (Unverified Allergy, Unknown, 07/01/18) Past Surgical History Past Surgical Hx: cholecystectomy, other Family History Significant Family History: no pertinent family hx, other Social History Alcohol Use: none Smoking Status: Current every day smoker Drug Use: cocaine Exam/Review of Systems Vital Signs Vitals Vital Signs Date Temp Pulse Resp B/P (MAP) Pulse Ox O2 O2 Flow FiO2 Time Delivery Rate 07/12/18 97.9 105 21 132/99 95 Room Air 06:20 (110) 07/12/18 2.0 06:20 07/12/18 21 02:17 Exam Exam General: Patient is currently lying in bed in no acute distress, when I woke an RN and spoke to her she did request pain medication. HEENT: Atraumatic, normocephalic. The pupils are equal, round and reactive. Extraocular motor are intact Neck: Supple with full range of motion. No rigidity or meningismus Chest: Nontender Lungs: Crackles/rales at the bases bilaterally, nonlabored breathing Heart: Normal S1-S2, Regular rhythm and rate. No murmur, S3, or S4 Abdomen: Soft, morbidly obese, increased abdominal girth with signs of abdominal edema, mildly tender to palpation along the areas of edema. Extremities: Bilateral 1+ pitting edema Neurologic: Normal mental status, speech normal, cranial nerves II through XII are intact, motor and sensory are intact, no focal weakness Additional Comments EKG: Rate/Rhythm: [Normal Sinus Rhythm] QRS, ST, T-waves: [No changes consistent w/ acute ischemia] Impression: [No evidence of ischemia or arrhythmia] PROCEDURE: CHEST - 1 VIEW CLINICAL INDICATION: 43-year-old female with shortness of breath. TECHNIQUE: A single frontal AP upright portable view of the chest was performed. The images were reviewed on a PACS workstation. COMPARISON: Chest x-ray July 01, 2018. FINDINGS: The cardiomediastinal silhouette is enlarged. There is mild pulmonary vascular congestion. There is no evidence for focal consolidation. There is no evidence for pneumothorax. The osseous structures are intact. IMPRESSION: 1. Cardiomegaly. 2. Mild pulmonary vascular congestion. .Balbir Ramirez MD, Date Time Electronically viewed and signed by .Balbir Ramirez MD, on 07/12/2018 03:53 .M/ CC: MADHURI DAWKINS [id number] REJI ANTONIO Jul 12, 2018 07:05
[2018-07-12] MEDS ORDERED: ONDANSETRON 4 MG INJ IV PRN (07:30)
[2018-07-12] MEDS ORDERED: NACL 0.9% 3 ML SYG IV SCH (07:30)
[2018-07-12] MEDS ORDERED: ACETAMINOPHEN 325 MG TAB PO PRN (07:30)
[2018-07-12] MEDS ORDERED: BISACODYL (EC) 5 MG TAB PO PRN (07:30)
[2018-07-12] MEDS ORDERED: DOCUSATE SODIUM 100 MG CAP PO PRN (07:30)
[2018-07-12] MEDS: PANTOPRAZOLE (EC) 40 MG TAB PO SCH (08:27)
[2018-07-12] MEDS: FERROUS SULFATE (EC) 325 MG TAB PO SCH ×2 (08:56→20:26)
[2018-07-12] MEDS: ASCORBIC ACID 500 MG TAB PO SCH (08:56)
[2018-07-12] MEDS: NIFEdipine (XL) 30 MG TAB PO SCH (08:56)
[2018-07-12] MEDS: FLUTICASONE/VILANTEROL 100-25 INH SCH (08:56)
[2018-07-12] MEDS: ISOSORBIDE MONONITRATE(SR)30 MG TAB PO SCH (08:56)
[2018-07-12] MEDS: NICOTINE (14 MG/24 HR) PATCH TRANSDERM SCH (08:57)
[2018-07-12] MEDS: ENOXAPARIN 40 MG/0.4 ML SYG SC SCH (08:57)
[2018-07-12] MEDS: ASPIRIN (EC) 81 MG TAB PO SCH (08:57)
[2018-07-12] MEDS: ATENOLOL 50 MG TAB PO SCH (08:57)
[2018-07-12] MEDS ORDERED: FERROUS SULFATE (EC) 325 MG TAB PO SCH (09:00)
[2018-07-12] MEDS: FUROSEMIDE 40 MG INJ IV SCH ×2 (11:36→17:36)
[2018-07-12] MEDS: morphine 2 MG INJ IV PRN ×3 (11:36→20:26)
--- NOTE | 2018-07-12 11:49 | PN ---
Date/Time of Note Date/Time of Note DATE: 07/12/18 TIME: 11:44 Assessment/Plan VTE Prophylaxis Pharmacological prophylaxis: LMWH Lines/Catheters IV Catheter Type (from Nrsg): Saline Lock Assessment/Plan Hospital Course s: was sleeping, and was put on CPAP because she was still desaturating during sleep o: Constitutional: obese, sleeping comfortably with CPAP mask on Head: atraumatic, normocephalic Neck: non-tender, supple Respiratory: Diminished bilaterally, did not really appreciate any bibasilar crackles anymore Cardiovascular: regular rate and rhythm Gastrointestinal: S/ obses / NT / ND / +BS Extremities: Bilateral ankle fullness versus edema?, Nonpitting assessment and plan 41-year-old female admitted earlier today for after she had presented to the emergency room with complaints of shortness of breath currently managed as follows #1 1. Acute on chronic CHF exacerbation 2. Chronic abdominal pain 3. Hypertension with fair control 4. Prediabetes with last A1c of 6.2 5. Chronic anxiety 6. History of sleep apnea on CPAP currently 7. Chronic normocytic anemia secondary to iron deficiency 8. Concern for medication noncompliance as well as medication seeking behavior Plan continue CPAP for now as patient sleeps, continue gentle diuresis, continue all other medications and home meds, repeat imaging in the a.m., wean oxygen as tolerated, further interventions per clinical course. Result Diagram: 07/12/18 0241 07/12/18 0241 Results 24hrs Laboratory Tests Test 07/12/18 02:41 07/12/18 02:44 07/12/18 05:13 07/12/18 09:38 White Blood Count 10.4 Red Blood Count 4.66 Hemoglobin 13.1 Hematocrit 42.5 Mean Corpuscular 91.2 Volume Mean Corpuscular 28.1 L Hemoglobin Mean Corpuscular 30.8 L Hemoglobin Concent Red Cell 16.8 H Distribution Width Platelet Count 237 Mean Platelet Volume 10.9 H Immature 0.400 Granulocytes % Neutrophils % 68.5 Lymphocytes % 22.0 Monocytes % 6.2 Eosinophils % 2.2 Basophils % 0.7 Nucleated Red Blood 0.0 Cells % Immature 0.040 H Granulocytes # Neutrophils # 7.1 Lymphocytes # 2.3 Monocytes # 0.6 Eosinophils # 0.2 Basophils # 0.1 Nucleated Red Blood 0.0 Cells # Prothrombin Time 13.9 Prothrombin Time 1.1 Ratio INR International 1.06 Normalized Ratio Activated 28.5 Partial Thromboplast Time Sodium Level 142 Potassium Level 4.2 Chloride Level 110 Carbon Dioxide Level 23 Anion Gap 9 Blood Urea Nitrogen 17 Creatinine 0.66 Est Glomerular > 60 Filtrat Rate mL/min Glucose Level 105 Calcium Level 8.6 Total Bilirubin 0.4 Direct Bilirubin 0.00 Indirect Bilirubin 0.4 Aspartate Amino 22 Transf (AST/SGOT) Alanine 23 Aminotransferase (AL T/SGPT) Alkaline Phosphatase 106 Troponin I < 0.012 B-Type Natriuretic 3240 H Peptide Total Protein 7.6 Albumin 3.7 Globulin 3.90 H Albumin/Globulin 0.94 Ratio POC Venous Lactate 1.6 Lactic Acid Level 1.0 Lab Scanned Report LAB Exam/Review of Systems Exam Vitals Vital Signs Date Temp Pulse Resp B/P (MAP) Pulse Ox O2 O2 Flow FiO2 Time Delivery Rate 07/12/18 100 27 131/100 97 CPAP 10:00 (110) 07/12/18 30 09:24 07/12/18 97.9 06:20 07/12/18 2.0 06:20 Results Results 24hrs Laboratory Tests Test 07/12/18 02:41 07/12/18 02:44 07/12/18 05:13 07/12/18 09:38 White Blood Count 10.4 Red Blood Count 4.66 Hemoglobin 13.1 Hematocrit 42.5 Mean Corpuscular 91.2 Volume Mean Corpuscular 28.1 L Hemoglobin Mean Corpuscular 30.8 L Hemoglobin Concent Red Cell 16.8 H Distribution Width Platelet Count 237 Mean Platelet Volume 10.9 H Immature 0.400 Granulocytes % Neutrophils % 68.5 Lymphocytes % 22.0 Monocytes % 6.2 Eosinophils % 2.2 Basophils % 0.7 Nucleated Red Blood 0.0 Cells % Immature 0.040 H Granulocytes # Neutrophils # 7.1 Lymphocytes # 2.3 Monocytes # 0.6 Eosinophils # 0.2 Basophils # 0.1 Nucleated Red Blood 0.0 Cells # Prothrombin Time 13.9 Prothrombin Time 1.1 Ratio INR International 1.06 Normalized Ratio Activated 28.5 Partial Thromboplast Time Sodium Level 142 Potassium Level 4.2 Chloride Level 110 Carbon Dioxide Level 23 Anion Gap 9 Blood Urea Nitrogen 17 Creatinine 0.66 Est Glomerular > 60 Filtrat Rate mL/min Glucose Level 105 Calcium Level 8.6 Total Bilirubin 0.4 Direct Bilirubin 0.00 Indirect Bilirubin 0.4 Aspartate Amino 22 Transf (AST/SGOT) Alanine 23 Aminotransferase (AL T/SGPT) Alkaline Phosphatase 106 Troponin I < 0.012 B-Type Natriuretic 3240 H Peptide Total Protein 7.6 Albumin 3.7 Globulin 3.90 H Albumin/Globulin 0.94 Ratio POC Venous Lactate 1.6 Lactic Acid Level 1.0 Lab Scanned Report LAB Medications Medication Current Medications Albuterol (Ventolin Hfa) 2 puff Q4H PRN INH SHORTNESS OF BREATH; Start 07/12/18 at 06:00 Ascorbic Acid (Vitamin C) 500 mg DAILY PO Last administered on 07/12/18 08:56; Admin Dose 500 MG; Start 07/12/18 at 09:00 Aspirin (Halfprin) 81 mg DAILY PO Last administered on 07/12/18 08:57; Admin Dose 81 MG; Start 07/12/18 at 09:00 Atenolol (Tenormin) 50 mg DAILY PO Last administered on 07/12/18 08:57; Admin Dose 50 MG; Start 07/12/18 at 09:00 Ferrous Sulfate (Ferrous Sulfate (Ec)) 325 mg BID PO Last administered on 07/12/18 08:56; Admin Dose 325 MG; Start 07/12/18 at 09:00 Fluticasone/ Vilanterol (Breo Ellipta 100-25 Mcg Inh) 100 inh DAILY INH Last administered on 07/12/18 08:56; Admin Dose 100 INH; Start 07/12/18 at 09:00 Isosorbide Mononitrate (Imdur) 30 mg DAILY PO Last administered on 07/12/18 08:56; Admin Dose 30 MG; Start 07/12/18 at 09:00 Nifedipine (Procardia Xl) 30 mg DAILY PO Last administered on 07/12/18 08:56; Admin Dose 30 MG; Start 07/12/18 at 09:00 Pantoprazole (Protonix Tab) 40 mg AC BREAKFAST PO Last administered on 07/12/18 08:27; Admin Dose 40 MG; Start 07/12/18 at 07:00 Nicotine (Nicoderm 14 Mg/ 24hr) 1 patch DAILY TRANSDERM Last administered on 07/12/18 08:57; Admin Dose 1 PATCH; Start 07/12/18 at 09:00 Furosemide (Lasix) 40 mg BID DIURETICS IV Last administered on 07/12/18 11:36; Admin Dose 40 MG; Start 07/12/18 at 12:00 Morphine Sulfate (morphine) 1 mg Q4H PRN IV SEVERE PAIN LEVEL 7-10 Last administered on 07/12/18 11:36; Admin Dose 1 MG; Start 07/12/18 at 07:00 Enoxaparin Sodium (Lovenox) 40 mg DAILY SC Last administered on 07/12/18 08:57; Admin Dose 40 MG; Start 07/12/18 at 09:00 IV Flush (NS 3 ml) 3 ml PER PROTOCOL IV ; Start 07/12/18 at 07:30 Ondansetron HCl (Zofran Inj) 4 mg Q6H PRN IV NAUSEA/VOMITING; Start 07/12/18 at 07:30 Acetaminophen (Tylenol Tab) 650 mg Q6H PRN PO .PAIN 1-3 OR TEMP; Start 07/12/18 at 07:30 Acetaminophen/ Hydrocodone Bitart ([place] (5/325)) 1 tab Q6H PRN PO .PAIN 4-6; Start 07/12/18 at 07:30 Docusate Sodium (Colace) 100 mg Q12H PRN PO .CONSTIPATION; Start 07/12/18 at 07:30 Bisacodyl (Dulcolax) 5 mg DAILY PRN PO .CONSTIPATION; Start 07/12/18 at 07:30 MEGHA GARCIA Jul 12, 2018 11:49
[2018-07-12] MEDS ORDERED: hydrALAzine 20 MG INJ IV PRN (12:00)
[2018-07-12 16:36] VITALS: PULSE 78
[2018-07-12 16:38] VITALS: BP 131/78; PULSE 77; RESP 20
[2018-07-12] MEDS: HYDROCODONE/APAP (5/325) TAB PO PRN ×2 (16:52→22:40)
[2018-07-12 20:00] VITALS: BP 130/85; PULSE 81; RESP 20
[2018-07-12] MEDS: LEVALBUTEROL (NEB) 1.25 MG/0.5 ML AMP HHN PRN (21:40)
[2018-07-12] MEDS: AL HYDROX/MG HYDROX/SIMETH 30 ML CUP PO PRN (21:58)
[2018-07-13] VITALS (12 sets, daily range): BP systolic 112–138; BP diastolic 70–100; PULSE 68–92; RESP 18–22
[2018-07-13] MEDS ORDERED: morphine 2 MG INJ IV STA (01:08)
[2018-07-13] MEDS: LEVALBUTEROL (NEB) 1.25 MG/0.5 ML AMP HHN PRN ×2 (01:54→19:57)
[2018-07-13] MEDS: ASCORBIC ACID 500 MG TAB PO SCH (11:22)
[2018-07-13] MEDS: NICOTINE (14 MG/24 HR) PATCH TRANSDERM SCH (11:22)
[2018-07-13] MEDS: FERROUS SULFATE (EC) 325 MG TAB PO SCH ×2 (11:22→20:30)
[2018-07-13] MEDS: ASPIRIN (EC) 81 MG TAB PO SCH (11:22)
[2018-07-13] MEDS: ISOSORBIDE MONONITRATE(SR)30 MG TAB PO SCH (11:23)
[2018-07-13] MEDS: ATENOLOL 50 MG TAB PO SCH (11:23)
[2018-07-13] MEDS: NIFEdipine (XL) 30 MG TAB PO SCH (11:23)
[2018-07-13] MEDS: FLUTICASONE/VILANTEROL 100-25 INH SCH (11:25)
[2018-07-13] MEDS: ENOXAPARIN 40 MG/0.4 ML SYG SC SCH (11:32)
--- NOTE | 2018-07-13 12:58 | PN ---
Date/Time of Note Date/Time of Note DATE: 07/13/18 TIME: 12:57 Assessment/Plan VTE Prophylaxis Risk score (from Nsg)>0 risk: 2 Pharmacological prophylaxis: LMWH Lines/Catheters IV Catheter Type (from Nrsg): Saline Lock Assessment/Plan Hospital Course s: alert and improved o: Constitutional: obese, no distress, fast and tangential speech Head: atraumatic, normocephalic Neck: non-tender, supple Respiratory: Diminished bilaterally, did not really appreciate any bibasilar crackles anymore Cardiovascular: regular rate and rhythm Gastrointestinal: S/ obses / NT / ND / +BS Extremities: Bilateral LE edema better appreciated with feet on the floor, pitting assessment and plan 41-year-old female admitted earlier today for after she had presented to the emergency room with complaints of shortness of breath currently managed as follows #1 1. Acute on chronic CHF exacerbation 2. Chronic abdominal pain 3. Hypertension with fair control 4. Prediabetes with last A1c of 6.2 5. Chronic anxiety 6. History of sleep apnea on CPAP at bedtime 7. Chronic normocytic anemia secondary to iron deficiency 8. Concern for medication noncompliance as well as medication seeking behavior 9. Chronic resp failure on home O2 10. Morbid obesity 11. Monico LE arthritis causing chronic pain 12. Known Multiple pulm nodules: needs f/u CT to eval Plan: continue IV lasix for one more day and plan to transition to PO in am and possible d/c after that Psych consult , continue all other medications and home meds, Result Diagram: 07/13/1828 07/13/1828 Results 24hrs Laboratory Tests Test 07/13/18 05:28 White Blood Count 9.9 Red Blood Count 4.42 Hemoglobin 12.5 Hematocrit 42.1 Mean Corpuscular Volume 95.2 Mean Corpuscular Hemoglobin 28.3 L Mean Corpuscular Hemoglobin Concent 29.7 L Red Cell Distribution Width 16.8 H Platelet Count 259 Mean Platelet Volume 11.7 H Immature Granulocytes % 0.600 H Neutrophils % 64.6 Lymphocytes % 22.8 Monocytes % 8.0 Eosinophils % 3.4 Basophils % 0.6 Nucleated Red Blood Cells % 0.0 Immature Granulocytes # 0.060 H Neutrophils # 6.4 Lymphocytes # 2.3 Monocytes # 0.8 Eosinophils # 0.3 Basophils # 0.1 Nucleated Red Blood Cells # 0.0 Sodium Level 140 Potassium Level 4.4 Chloride Level 105 Carbon Dioxide Level 27 Anion Gap 8 Blood Urea Nitrogen 22 H Creatinine 0.78 Est Glomerular Filtrat Rate mL/min > 60 Glucose Level 112 Calcium Level 8.7 Magnesium Level 2.3 Total Bilirubin 0.4 Direct Bilirubin 0.00 Indirect Bilirubin 0.4 Aspartate Amino Transf (AST/SGOT) 20 Alanine Aminotransferase (ALT/SGPT) 23 Alkaline Phosphatase 88 Total Protein 7.1 Albumin 3.5 Globulin 3.60 H Albumin/Globulin Ratio 0.97 Exam/Review of Systems Exam Vitals Vital Signs Date Temp Pulse Resp B/P (MAP) Pulse Ox O2 O2 Flow FiO2 Time Delivery Rate 07/13/18 98.2 83 20 127/88 99 Room Air 11:40 (101) 07/13/18 3.0 03:06 07/13/18 21 01:54 Intake and Output 07/12/18 07/12/18 07/13/18 1515:00 23:00 07:00 IntakeIntake Total 250 ml OutputOutput Total 600 ml 700 ml BalanceBalance -600 ml -450 ml Results Results 24hrs Laboratory Tests Test 07/13/18 05:28 White Blood Count 9.9 Red Blood Count 4.42 Hemoglobin 12.5 Hematocrit 42.1 Mean Corpuscular Volume 95.2 Mean Corpuscular Hemoglobin 28.3 L Mean Corpuscular Hemoglobin Concent 29.7 L Red Cell Distribution Width 16.8 H Platelet Count 259 Mean Platelet Volume 11.7 H Immature Granulocytes % 0.600 H Neutrophils % 64.6 Lymphocytes % 22.8 Monocytes % 8.0 Eosinophils % 3.4 Basophils % 0.6 Nucleated Red Blood Cells % 0.0 Immature Granulocytes # 0.060 H Neutrophils # 6.4 Lymphocytes # 2.3 Monocytes # 0.8 Eosinophils # 0.3 Basophils # 0.1 Nucleated Red Blood Cells # 0.0 Sodium Level 140 Potassium Level 4.4 Chloride Level 105 Carbon Dioxide Level 27 Anion Gap 8 Blood Urea Nitrogen 22 H Creatinine 0.78 Est Glomerular Filtrat Rate mL/min > 60 Glucose Level 112 Calcium Level 8.7 Magnesium Level 2.3 Total Bilirubin 0.4 Direct Bilirubin 0.00 Indirect Bilirubin 0.4 Aspartate Amino Transf (AST/SGOT) 20 Alanine Aminotransferase (ALT/SGPT) 23 Alkaline Phosphatase 88 Total Protein 7.1 Albumin 3.5 Globulin 3.60 H Albumin/Globulin Ratio 0.97 Medications Medication Current Medications Albuterol (Ventolin Hfa) 2 puff Q4H PRN INH SHORTNESS OF BREATH; Start 07/12/18 at 06:00 Ascorbic Acid (Vitamin C) 500 mg DAILY PO Last administered on 07/13/18 11:22; Admin Dose 500 MG; Start 07/12/18 at 09:00 Aspirin (Halfprin) 81 mg DAILY PO Last administered on 07/13/18 11:22; Admin Dose 81 MG; Start 07/12/18 at 09:00 Atenolol (Tenormin) 50 mg DAILY PO Last administered on 07/13/18 11:23; Admin Dose 50 MG; Start 07/12/18 at 09:00 Ferrous Sulfate (Ferrous Sulfate (Ec)) 325 mg BID PO Last administered on 07/13/18 11:22; Admin Dose 325 MG; Start 07/12/18 at 09:00 Fluticasone/ Vilanterol (Breo Ellipta 100-25 Mcg Inh) 100 inh DAILY INH Last administered on 07/13/18 11:25; Admin Dose 1 INH; Start 07/12/18 at 09:00 Isosorbide Mononitrate (Imdur) 30 mg DAILY PO Last administered on 07/13/18 11:23; Admin Dose 30 MG; Start 07/12/18 at 09:00 Nifedipine (Procardia Xl) 30 mg DAILY PO Last administered on 07/13/18 11:23; Admin Dose 30 MG; Start 07/12/18 at 09:00 Pantoprazole (Protonix Tab) 40 mg AC BREAKFAST PO Last administered on 07/12/18 08:27; Admin Dose 40 MG; Start 07/12/18 at 07:00 Nicotine (Nicoderm 14 Mg/ 24hr) 1 patch DAILY TRANSDERM Last administered on 07/13/18 11:22; Admin Dose 1 PATCH; Start 07/12/18 at 09:00 Furosemide (Lasix) 40 mg BID DIURETICS IV Last administered on 07/12/18 17 :36; Admin Dose 40 MG; Start 07/12/18 at 12:00 Enoxaparin Sodium (Lovenox) 40 mg DAILY SC Last administered on 07/13/18 11:32; Admin Dose 40 MG; Start 07/12/18 at 09:00 IV Flush (NS 3 ml) 3 ml PER PROTOCOL IV ; Start 07/12/18 at 07:30 Ondansetron HCl (Zofran Inj) 4 mg Q6H PRN IV NAUSEA/VOMITING; Start 07/12/18 at 07:30 Acetaminophen (Tylenol Tab) 650 mg Q6H PRN PO .PAIN 1-3 OR TEMP; Start 07/12/18 at 07:30 Acetaminophen/ Hydrocodone Bitart ([place] (5/325)) 1 tab Q6H PRN PO .PAIN 4-6 Last administered on 07/12/18at 22:40; Admin Dose 1 TAB; Start 07/12/18 at 07:30 Docusate Sodium (Colace) 100 mg Q12H PRN PO .CONSTIPATION; Start 07/12/18 at 07:30 Bisacodyl (Dulcolax) 5 mg DAILY PRN PO .CONSTIPATION; Start 07/12/18 at 07:30 Hydralazine HCl (Apresoline) 10 mg Q6H PRN IV sbp>160mmhg; Start 07/12/18 at 12:00 Levalbuterol (Xopenex Neb) 1.25 mg Q4H RESP THERAPY PRN HHN SHORTNESS OF BREATH Last administered on 07/13/18at 01:54; Admin Dose 1.25 MG; Start 07/12/18 at 20:30 Al Hydrox/Mg Hydrox/Simethicone (Mag-Al Plus) 30 ml Q4H PRN PO GASTROINTESTINAL UPSET Last administered on 07/12/18at 21:58; Admin Dose 30 ML; Start 07/12/18 at 22:00 MEGHA GRACIA Jul 13, 2018 12:58
[2018-07-13] MEDS ORDERED: morphine 2 MG INJ IV PRN (13:00)
[2018-07-13] MEDS: HYDROCODONE/APAP (10/325) TAB PO PRN (13:35)
[2018-07-13] MEDS: FUROSEMIDE 40 MG INJ IV SCH ×2 (16:50→17:48)
[2018-07-13] MEDS: PANTOPRAZOLE (EC) 40 MG TAB PO SCH (17:19)
--- NOTE | 2018-07-13 17:39 | PSY ---
Date/Time of Note Date/Time of Note DATE: 07/13/18 TIME: 17:30 Psychiatric Subjective Eval Consent Pt consented to telemedicine: No Subjective Evaluation Patient location: inpatient Chief Complaint: shortness of breath/cp while playing at a [employer] x 2 hours Hospitalization: other Family History Patient's is a 43-year-old female with a medical history of CHF, hypertension, diabetes mellitus, obstructive sleep apnea, and obesity . Currently on the telemetry units for shortness of breath. On a [id number] evaluation, patient is very anxious, hyperverbal, goes off on tangents cannot process information. Patient states she is depressed because her ran off with the male lover, and that her daughter also ran off with her [id number] to become had a lesbian lover. 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 Patient denies suicidal ideation contracted for safety discussed risk and benefits of antidepressant but patient declined and was only preoccupied with anxiety meds. Medical history Problems Medical Problems: (1) Abdominal pain Status: Acute (2) Acute asthma exacerbation Status: Acute (3) Acute exacerbation of CHF (congestive heart failure) Status: Acute (4) Anxiety Status: Acute (5) Anxiety Status: Acute (6) Anxiety Status: Acute (7) Anxiety attack Status: Acute (8) Anxiety attack Status: Acute (9) Anxiety reaction Status: Acute (10) Asthma Status: Chronic (11) Benzodiazepine dependence Status: Acute (12) Bronchitis Status: Acute (13) Chest pain Status: Acute (14) Chest pain Status: Acute (15) Chest pain Status: Acute (16) CHF (congestive heart failure) Status: Acute (17) CHF (congestive heart failure) Status: Acute (18) Chronic abdominal pain Status: Acute (19) Chronic back pain Status: Acute (20) Chronic pain Status: Acute (21) Chronic pain Status: Acute (22) Chronic pain syndrome Status: Acute (23) Constipation Status: Chronic (24) Dehydration Status: Acute (25) Dermatitis Status: Acute (26) Dermoid cyst Status: Acute (27) Dyspnea Status: Acute (28) Essential hypertension Status: Acute (29) Gallstones Status: Acute (30) Glossitis Status: Acute (31) Hospital-acquired pneumonia Status: Acute (32) HTN (hypertension) Status: Chronic (33) Hyperlipidemia Status: Chronic (34) Hypertension Status: Acute (35) Left ovarian cyst Status: Acute (36) Leukocytosis Status: Acute (37) Morbid obesity Status: Chronic (38) Morbid obesity with BMI of 60.0-69.9, adult Status: Acute (39) Multiple complaints Status: Acute (40) Multiple complaints Status: Acute (41) Narcotic dependence Status: Acute (42) Narcotic dependence Status: Acute (43) Opioid dependence Status: Acute (44) Ovarian cyst, left Status: Acute (45) Peripheral edema Status: Acute (46) Postoperative complication Status: Acute (47) Postoperative pain Status: Acute (48) Pyelonephritis Status: Acute (49) Respiratory distress Status: Acute (50) Sciatica Status: Acute (51) Severe hypertension Status: Acute (52) Shortness of breath Status: Acute (53) Sinusitis Status: Acute (54) Sleep apnea Status: Acute (55) Sleep apnea Status: Chronic (56) Stress response Status: Acute (57) Tobacco abuse Status: Acute (58) Tobacco abuse counseling Status: Acute (59) Uncontrolled hypertension Status: Acute (60) UTI (urinary tract infection) Status: Acute Allergies: Coded Allergies: Penicillins (Unverified Allergy, Unknown, 07/01/18) blueberry (Unverified Allergy, Unknown, 07/01/18) Substance Abuse Substance abuse history: Yes Prior substance abuse treatmen: No Social History Marital status: DPA/Conservatorship: No Psychiatric Objective Eval Review of Systems: Review of Systems: Not Applicable Physical Examination: Physical Examination: Not Applicable Mental Status Examination: Appearance: Disheveled Eye Contact: Poor Psychomotor Activity: Slow Behavior: Cooperative, Other Speech: Loud AFFECT: Anxious Mood: Anxious Though Process: Linear, Tangential Thought Content: Normal Orientation: x4 Insight: Impared Judgement: Impared Attention Span: Distractible Laboratory Results Laboratory Tests Test 07/12/18 02:41 07/12/18 02:44 07/12/18 05:13 07/12/18 09:38 White Blood Count 10.4 10^3/ul Red Blood Count 4.66 10^6/ul Hemoglobin 13.1 g/dl Hematocrit 42.5 % Mean Corpuscular 91.2 fl Volume Mean Corpuscular 28.1 pg Hemoglobin Mean Corpuscular 30.8 g/dl Hemoglobin Concent Red Cell 16.8 % Distribution Width Platelet Count 237 10^3/UL Mean Platelet 10.9 fl Volume Immature 0.400 % Granulocytes % Neutrophils % 68.5 % Lymphocytes % 22.0 % Monocytes % 6.2 % Eosinophils % 2.2 % Basophils % 0.7 % Nucleated Red Blood 0.0 /100WBC Cells % Immature 0.040 10^3/ul Granulocytes # Neutrophils # 7.1 10^3/ul Lymphocytes # 2.3 10^3/ul Monocytes # 0.6 10^3/ul Eosinophils # 0.2 10^3/ul Basophils # 0.1 10^3/ul Nucleated Red Blood 0.0 10^3/ul Cells # Prothrombin Time 13.9 Sec Prothrombin Time 1.1 Ratio INR International 1.06 Normalized Ratio Activated 28.5 Sec Partial Thromboplas t Time Sodium Level 142 mmol/L Potassium Level 4.2 mmol/L Chloride Level 110 mmol/L Carbon Dioxide 23 mmol/L Level Anion Gap 9 Blood Urea Nitrogen 17 mg/dl Creatinine 0.66 mg/dl Est Glomerular > 60 mL/min Filtrat Rate mL/min Glucose Level 105 mg/dl Calcium Level 8.6 mg/dl Total Bilirubin 0.4 mg/dl Direct Bilirubin 0.00 mg/dl Indirect Bilirubin 0.4 mg/dl Aspartate Amino 22 IU/L Transf (AST/SGOT) Alanine 23 IU/L Aminotransferase (A LT/SGPT) Alkaline 106 IU/L Phosphatase Troponin I < 0.012 ng/ml B-Type Natriuretic 3240 PG/ML Peptide Total Protein 7.6 g/dl Albumin 3.7 g/dl Globulin 3.90 g/dl Albumin/Globulin 0.94 Ratio POC Venous Lactate 1.6 mmol/L Lactic Acid Level 1.0 mmol/L Lab Scanned Report LAB [id number] Test 07/13/18 05:28 White Blood Count 9.9 10^3/ul Red Blood Count 4.42 10^6/ul Hemoglobin 12.5 g/dl Hematocrit 42.1 % Mean Corpuscular 95.2 fl Volume Mean Corpuscular 28.3 pg Hemoglobin Mean Corpuscular 29.7 g/dl Hemoglobin Concent Red Cell 16.8 % Distribution Width Platelet Count 259 10^3/UL Mean Platelet 11.7 fl Volume Immature 0.600 % Granulocytes % Neutrophils % 64.6 % Lymphocytes % 22.8 % Monocytes % 8.0 % Eosinophils % 3.4 % Basophils % 0.6 % Nucleated Red Blood 0.0 /100WBC Cells % Immature 0.060 10^3/ul Granulocytes # Neutrophils # 6.4 10^3/ul Lymphocytes # 2.3 10^3/ul Monocytes # 0.8 10^3/ul Eosinophils # 0.3 10^3/ul Basophils # 0.1 10^3/ul Nucleated Red Blood 0.0 10^3/ul Cells # Sodium Level 140 mmol/L Potassium Level 4.4 mmol/L Chloride Level 105 mmol/L Carbon Dioxide 27 mmol/L Level Anion Gap 8 Blood Urea Nitrogen 22 mg/dl Creatinine 0.78 mg/dl Est Glomerular > 60 mL/min Filtrat Rate mL/min Glucose Level 112 mg/dl Calcium Level 8.7 mg/dl Magnesium Level 2.3 mg/dl Total Bilirubin 0.4 mg/dl Direct Bilirubin 0.00 mg/dl Indirect Bilirubin 0.4 mg/dl Aspartate Amino 20 IU/L Transf (AST/SGOT) Alanine 23 IU/L Aminotransferase (A LT/SGPT) Alkaline 88 IU/L Phosphatase Total Protein 7.1 g/dl Albumin 3.5 g/dl Globulin 3.60 g/dl Albumin/Globulin 0.97 Ratio Assessment and Plan Assessment/Diagnosis Diagnosis 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 Recommendation/Plan Medication Management Ativan 1 mg every 6 hours as needed for anxiety not to exceed 4 mg in 24 hours Discharge Disposition: Other Legal Status: Voluntary AARON CHU NP Jul 13, 2018 17:39
[2018-07-13] MEDS ORDERED: LORAZEPAM 1 MG TAB PO PRN (18:00)
[2018-07-13] MEDS ORDERED: clonAZEPAM 0.5 MG TAB PO PRN (18:30)
[2018-07-13] MEDS: morphine 2 MG INJ IV PRN (21:15)
[2018-07-13] MEDS: AL HYDROX/MG HYDROX/SIMETH 30 ML CUP PO PRN (21:15)
[2018-07-13] MEDS: LORAZEPAM 2 MG INJ IV PRN (22:58)
[2018-07-14] VITALS (11 sets, daily range): BP systolic 109–129; BP diastolic 78–93; PULSE 68–102; RESP 18–20
[2018-07-14] MEDS: morphine 2 MG INJ IV PRN ×2 (01:17→05:05)
[2018-07-14] MEDS: LORAZEPAM 2 MG INJ IV PRN ×2 (05:05→21:11)
[2018-07-14] MEDS: PANTOPRAZOLE (EC) 40 MG TAB PO SCH (06:02)
[2018-07-14] MEDS: FUROSEMIDE 40 MG INJ IV SCH ×2 (09:10→21:00)
[2018-07-14] MEDS: ASPIRIN (EC) 81 MG TAB PO SCH (09:11)
[2018-07-14] MEDS: ISOSORBIDE MONONITRATE(SR)30 MG TAB PO SCH (09:11)
[2018-07-14] MEDS: ATENOLOL 50 MG TAB PO SCH (09:11)
[2018-07-14] MEDS: NIFEdipine (XL) 30 MG TAB PO SCH (09:11)
[2018-07-14] MEDS: FERROUS SULFATE (EC) 325 MG TAB PO SCH ×2 (09:11→21:11)
[2018-07-14] MEDS: ASCORBIC ACID 500 MG TAB PO SCH (09:11)
[2018-07-14] MEDS: NICOTINE (14 MG/24 HR) PATCH TRANSDERM SCH (09:11)
[2018-07-14] MEDS: ESCITALOPRAM 10 MG TAB PO SCH (09:12)
[2018-07-14] MEDS ORDERED: FLUTICASONE/VILANTEROL 100-25 INH SCH (09:15)
[2018-07-14] MEDS: ENOXAPARIN 40 MG/0.4 ML SYG SC SCH (09:26)
[2018-07-14] MEDS: HYDROCODONE/APAP (10/325) TAB PO PRN ×2 (10:21→23:06)
[2018-07-14] MEDS ORDERED: NIFE30TA23 PO (12:59)
[2018-07-14] MEDS ORDERED: ESCI10TA48 PO (12:59)
[2018-07-14] MEDS ORDERED: ISOS30TA67 PO (12:59)
[2018-07-14] MEDS ORDERED: FLUT1AER INHALATION (12:59)
[2018-07-14] MEDS ORDERED: ATEN50TA PO (12:59)
--- NOTE | 2018-07-14 13:05 | PDOCDIS ---
Discharge Instructions CONDITION [id number] Patient Condition: [id number] Stable HOME CARE INSTRUCTIONS: [id number] Diet Instructions: [id number] Low Fat /Cholesterol ACTIVITY: [id number] Activity Restrictions: [id number] Slowly Increase Activity Rest between Activity FOLLOW UP/APPOINTMENTS Follow-up Plan You need to followup with the analysis tester. Please use the information below Name, Degree : Sam Doherty MD Specialty : Critical Care Medicine Office Address : [address] [place] [address] Office Office . MEGHA GARCIA Jul 14, 2018 13:05
--- NOTE | 2018-07-14 13:28 | DS ---
DATE OF ADMISSION: 07/14/2018 DATE OF DISCHARGE: 07/14/2018 PRESENTING COMPLAINTS: Shortness of breath and dizziness., FINAL DIAGNOSES: 1. Acute on chronic congestive heart failure exacerbation, improved. 2. Chronic abdominal pain versus medication seeking behavior. 3. Hypertension with good control. 4. Prediabetes. Last A1c of 6.2. 5. Chronic anxiety. 6. History of sleep apnea on CPAP at bedtime, noncompliance. 7. Chronic normocytic anemia secondary to iron deficiency. 8. Chronic respiratory failure on home O2. 9. Morbid obesity. 10. Chronic bilateral lower extremity arthritis, likely related to obesity. 11. Known multiple pulmonary nodules, status post abscess, resolved for which the patient is to get a CT of the chest to assess. On previous CT, they had requested that she get serial screening CT in 3 to 6 months and so we are doing a CT at this time to follow up. She can follow up with the results with pulmonology as outpatient. The patient also is very noncompliant with therapy and. She was al so seen by psychiatry and diagnosed with a major depressive disorder with psychosis and anxiety. 12. The patient also has chronic tobacco use, status post cessation counseling. CONSULTS ON THE CASE: . INTERVENTIONS: The patient diuresis with intravenous Lasix, and did well final diagnosis. HOSPITAL COURSE: Full details are available in chart for review. In summary, the patient came to [facility] with complaints of shortness of breath and dizziness. She stated that she has been off her medications and has been unable to use a CPAP or her home oxygen because for some reason that she had misplaced her oxygen tank and access to her machine. She was seen by telephonic nurse case manager and unfor ronniately patient did not meet requirements for home oxygen on this visit. She was provided with a fr ont-wheeled walker. At this time she has been assessed in stable condition. I did go ahead and orde r follow up CT for her lung nodules just because she was here and she can follow up on this as outpat ient. At this time, she has been assessed by myself. She is in stable condition and ready for disch arge. DISCHARGE MEDICATIONS: Per chart. DIET: Recommended diet is low cholesterol, low fat. ACTIVITIES: As tolerated. FOLLOWUP: Will be with primary care doctor and manager product as outpatient. Time spent on discharge coordination has been more than 70 minutes. Dictated By: MEGHA GARCIA MD BA/NTS Conf#: [id number] DID#: [id number] CC: REJI ANTONIO MD;*EndCC*
[2018-07-14] MEDS ORDERED: SOD CHLORIDE 0.9% 100 ML ONE (13:54)
[2018-07-14] MEDS ORDERED: IOHEXOL 300MG/ML 150 ML BTL ONE (13:54)
[2018-07-14] MEDS: LEVALBUTEROL (NEB) 1.25 MG/0.5 ML AMP HHN PRN (21:09)
[2018-07-14] MEDS ORDERED: CEPASTAT LOZENGE MT PRN (22:30)
[2018-07-14] MEDS: FLUTICASONE 0.05% 16 GM NAS SPRAY NASAL SCH (22:30)
[2018-07-14] MEDS ORDERED: traMADol 50 MG TAB PO PRN (22:30)
[2018-07-14] MEDS ORDERED: POLYETHYLENE GLYCOL 17 GM PACKET PO PRN (22:30)
[2018-07-14] MEDS ORDERED: NA PHOSPHATE/BIPHOS 133 ML ENEMA PR ONE (23:00)
[2018-07-15 00:36] VITALS: PULSE 88
[2018-07-15 02:00] VITALS: BP 119/83; PULSE 66; RESP 20
[2018-07-15 02:35] VITALS: PULSE 87
[2018-07-15] MEDS: LORAZEPAM 2 MG INJ IV PRN ×2 (04:32→13:41)
[2018-07-15] MEDS: PANTOPRAZOLE (EC) 40 MG TAB PO SCH (07:37)
[2018-07-15] MEDS: HYDROCODONE/APAP (10/325) TAB PO PRN ×2 (07:37→15:09)
[2018-07-15 08:00] VITALS: BP 101/81; PULSE 82; RESP 24
[2018-07-15] MEDS: ISOSORBIDE MONONITRATE(SR)30 MG TAB PO SCH (09:00)
[2018-07-15] MEDS: FUROSEMIDE 40 MG INJ IV SCH (09:00)
[2018-07-15] MEDS: NIFEdipine (XL) 30 MG TAB PO SCH (09:00)
[2018-07-15] MEDS: ESCITALOPRAM 10 MG TAB PO SCH (09:14)
[2018-07-15] MEDS: FERROUS SULFATE (EC) 325 MG TAB PO SCH (09:14)
[2018-07-15] MEDS: ASCORBIC ACID 500 MG TAB PO SCH (09:14)
[2018-07-15] MEDS: ASPIRIN (EC) 81 MG TAB PO SCH (09:14)
[2018-07-15] MEDS: ATENOLOL 50 MG TAB PO SCH (09:14)
[2018-07-15] MEDS: FLUTICASONE 0.05% 16 GM NAS SPRAY NASAL SCH (09:15)
[2018-07-15] MEDS: ENOXAPARIN 40 MG/0.4 ML SYG SC SCH (09:16)
[2018-07-15] MEDS: NICOTINE (14 MG/24 HR) PATCH TRANSDERM SCH (09:17)
--- NOTE | 2018-07-15 12:02 | DS ---
Date/Time of Note Date/Time of Note DATE: 07/15/18 TIME: 12:00 Discharge Summary Admission/Discharge Info Admit Date/Time July 12, 2018 Discharge Date/Time July 15, 2018 Discharge Diagnosis FINAL DIAGNOSES: 1. Acute on chronic congestive heart failure exacerbation, improved. 2. Chronic abdominal pain versus medication seeking behavior. 3. Hypertension with good control. 4. Prediabetes. Last A1c of 6.2. 5. Chronic anxiety. 6. History of sleep apnea on CPAP at bedtime, noncompliance. 7. Chronic normocytic anemia secondary to iron deficiency. 8. Chronic respiratory failure on home O2. 9. Morbid obesity. 10. Chronic bilateral lower extremity arthritis, likely related to obesity. 11. Known multiple pulmonary nodules, status post abscess, resolved for which the patient is to get a CT of the chest to assess. On previous CT, they had requested that she get serial screening CT in 3 to 6 months and so we are doing a CT at this time to follow up. She can follow up with the results with pulmonology as outpatient. The patient also is very noncompliant with therapy and. 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 12. The patient also has chronic tobacco use, status post cessation counseling. Hospital Course Full details are available in chart for review. In summary, the patient came to the Emergency Room with complaints of shortness of breath and dizziness. She stated that she has been off her medications and has been unable to use a CPAP or her home oxygen because for some reason that she had misplaced her oxygen tank and access to her machine. She was seen by case packer and sealer and unfortunately patient did not meet requirements for home oxygen on this visit. She was provided with a front-wheeled walker. At this time she has been assessed in stable condition. I did go ahead and order follow up CT for her lung nodules just because she was here and she can follow up on this as outpatient. At this time, she has been assessed by myself. She is in stable condition and ready for discharge. manager user interface did arrange for DME needs to provided at [facility] where she will be returning to. Home Meds Active Scripts Nifedipine* (Nifedipine ER*) 30 Mg Tablet.sa, 30 MG PO DAILY for 14 Days, #15 TAB.SA Prov:ZIA PERRIN MD 07/04/18 Acetaminophen* (Tylenol*) 325 Mg Tablet, 650 MG PO Q6H PRN for .PAIN 1-3 OR TEMP for 7 Days, TAB Prov:ZIA PERRIN MD 07/04/18 [Nicotine (14 Mg/24 Hr)] 1 PATCH PATCH No Conflict Check, 1 PATCH TRANSDERM DAILY for 10 Days Prov:ZIA PERRIN MD 07/04/18 Furosemide* (Furosemide*) 20 Mg Tablet, 20 MG PO BID, #60 TAB 1 Refill Prov:ELMER DIANE 04/03/18 Ascorbic Acid (Vitamin C) 500 Mg Tab, 500 MG PO DAILY for 30 Days, #30 TAB 2 Refills Prov:MEGHA GARCIA 01/05/18 Ferrous Sulfate* (Ferrous Sulfate*) 325 Mg Tabec, 325 MG PO BID for 30 Days, #60 TAB 2 Refills Prov:MEGHA GARCIA 01/05/18 Fluticasone-Vilanterol (Breo Ellipta Inhaler) 100-25 Mcg/Actuation Aer.pow.ba, 1 PUFF INHALATION DAILY, #1 INHALER Prov:LIOR MCMAHON 12/20/17 Isosorbide Mononitrate* (Isosorbide Mononitrate*) 30 Mg Tab.er.24h, 30 MG PO DAILY, #30 TAB Prov:LIOR MCMAHON 12/20/17 Atenolol* (Atenolol*) 50 Mg Tablet, 50 MG PO DAILY, #30 TAB Prov:LIOR MCMAHON 12/20/17 Albuterol Sulfate* (Ventolin HFA*) 18 Gm Hfa.aer.ad, 2 PUFF INHALATION Q4H, #1 INHALER Prov:VAIBHAV ADAM MD 04/22/17 Reported Medications Ferrous Sulfate* (Ferrous Sulfate*) 325 Mg Tabec, 325 MG PO BID, TAB 03/04/18 Pantoprazole* (Pantoprazole*) 40 Mg Tablet.dr, 40 MG PO AC BREAKFAST, TAB 08/31/17 Aspirin* (Aspirin* EC) 81 Mg Tablet.dr, 81 MG PO DAILY, TAB 08/31/17 Metformin* (Glucophage*) 500 Mg Tab, 500 MG PO WITH BREAKFAST DINNE, #30 TAB 08/31/17 Albuterol Sulfate* (Albuterol Sulfate* Neb) 0.083%-3 Ml Neb, 1.25 MG NEB Q4H, #30 VIAL 08/31/17 Discontinued Scripts Furosemide* (Furosemide*) 40 Mg Tablet, 40 MG PO DAILY for 5 Days, #5 TAB Prov:ZIA PERRIN MD 07/04/18 Follow-up Plan You need to followup with the toll test desk worker. Please use the information below Name, Degree : Sam Doherty MD Specialty : Critical Care Medicine Office Address : [address] [place] [address] Office Office . Primary Care Provider [facility] Time spent on discharge: > 30 minutes SHANIQUA CLINTON Jul 15, 2018 12:02
[2018-07-15 14:00] VITALS: BP 136/92; PULSE 75; RESP 20
== END 2018-07-15 17:30 | disposition home health service (06) | DRG 292 ==
LOC: E/R 23:49 → 6WM 07-12 04:54 → OBSVTOIN 07-14 07:25 → 5EC 07-14 12:07
PROVIDERS: ADMIT Family Medicine; ATTEND Family Medicine
DX: I11.0 Hypertensive heart disease with heart failure (principal); J96.10 Chronic respiratory failure, unspecified whether with hypoxia or hypercapnia; Z68.43 Body mass index [BMI] 50.0-59.9, adult; F33.3 Major depressive disorder, recurrent, severe with psychotic symptoms; I50.33 Acute on chronic diastolic (congestive) heart failure; R10.30 Lower abdominal pain, unspecified; F41.9 Anxiety disorder, unspecified; G47.33 Obstructive sleep apnea (adult) (pediatric); Z91.14 Patient's other noncompliance with medication regimen; D50.9 Iron deficiency anemia, unspecified; Z76.5 Malingerer [conscious simulation]; E66.01 Morbid (severe) obesity due to excess calories; M17.0 Bilateral primary osteoarthritis of knee; R91.1 Solitary pulmonary nodule; R73.03 Prediabetes; Z72.0 Tobacco use
CPT/HCPCS: 71045; 71260; 80048; 80053; 83605; 83735; 83880; 84484; 85025; 85610; 85730; 87081; 87400; 93005; 94640; 94660; 94664; 96374; 96375; G0378; J1170; J1650; J1885; J1940; J2060; J2270; J2405; Q9967

== ENCOUNTER 2018-09-02 18:34 | Observation (INO) | payer OTHER ==
[~2018-09-02] VITALS: Ht 157.5 cm; Wt 159.0 kg
[~2018-09-02 18:34] MED LIST changes: +ESCI10TA48 PO; -FURO40TA4 PO
[2018-09-02] MEDS ORDERED: FUROSEMIDE 20 MG INJ IV STA (19:06)
[2018-09-02] MEDS ORDERED: NITROGLYCERIN 2% 1 GM OINT PKT TD STA (19:06)
[2018-09-02] MEDS ORDERED: ASPIRIN 81 MG TAB PO STA (19:06)
[2018-09-02] MEDS ORDERED: ONDANSETRON 4 MG INJ IV STA (19:42)
[2018-09-02] MEDS ORDERED: HYDROmorphONE 1 MG/ML SYG IV STA (19:42)
--- NOTE | 2018-09-02 19:51 | ERD ---
ER Documentation Chief Complaint Chief Complaint SOB, SWOLLEN FEET X 3 DAYS; HEADACHE, NAUSEA, CHEST PRESSURE X LAST NOC. HPI 43-year-old female who has chronic pain issues, CHF who is noncompliant with her diuretic who presents to the emergency room with 3 days of symptoms that include shortness of breath, PND, orthopnea, lower extremity swelling, chest pressure. Patient without chest pain currently. She also states that she fell onto the ground in her left knee. She notes moderate throbbing pain to the left knee but has been ambulatory. Patient denies any fevers chills nausea or vomiting. ROS All systems reviewed and are negative except as per history of present illness. Medications Home Meds Active Scripts Escitalopram Oxalate* (Escitalopram Oxalate*) 10 Mg Tablet, 5 MG PO DAILY, #30 TAB Prov:MEGHA GARCIA . 07/14/18 Nifedipine* (Nifedipine ER*) 30 Mg Tablet.sa, 30 MG PO DAILY, #30 TAB.SA 2 Refills Prov:MEGHA GARCIA . 07/14/18 Fluticasone-Vilanterol (Breo Ellipta Inhaler) 100-25 Mcg/Actuation Aer.pow.ba, 1 PUFF INHALATION DAILY, #1 INHALER 2 Refills Prov:MEGHA GARCIA . 07/14/18 Isosorbide Mononitrate* (Isosorbide Mononitrate*) 30 Mg Tab.er.24h, 30 MG PO DAILY, #30 TAB 2 Refills Prov:MEGHA GARCIA. 07/14/18 Atenolol* (Atenolol*) 50 Mg Tablet, 50 MG PO DAILY, #30 TAB 2 Refills Prov:MEGHA GARCIA. 07/14/18 Acetaminophen* (Tylenol*) 325 Mg Tablet, 650 MG PO Q6H PRN for .PAIN 1-3 OR TEMP for 7 Days, TAB Prov:ZIA PERRIN MD 07/04/18 [Nicotine (14 Mg/24 Hr)] 1 PATCH PATCH No Conflict Check, 1 PATCH TRANSDERM DAILY for 10 Days Prov:ZIA PERRIN MD 07/04/18 Furosemide* (Furosemide*) 20 Mg Tablet, 20 MG PO BID, #60 TAB 1 Refill Prov:ELMER DIANE 04/03/18 Ascorbic Acid (Vitamin C) 500 Mg Tab, 500 MG PO DAILY for 30 Days, #30 TAB 2 Refills Prov:MEGHA GARCIA. 01/05/18 Ferrous Sulfate* (Ferrous Sulfate*) 325 Mg Tabec, 325 MG PO BID for 30 Days, #60 TAB 2 Refills Prov:MEGHA GARCIA. 01/05/18 Albuterol Sulfate* (Ventolin HFA*) 18 Gm Hfa.aer.ad, 2 PUFF INHALATION Q4H, #1 INHALER Prov:VAIBHAV ADAM MD 04/22/17 Reported Medications Ferrous Sulfate* (Ferrous Sulfate*) 325 Mg Tabec, 325 MG PO BID, TAB 03/04/18 Pantoprazole* (Pantoprazole*) 40 Mg Tablet.dr, 40 MG PO AC BREAKFAST, TAB 08/31/17 Aspirin* (Aspirin* EC) 81 Mg Tablet.dr, 81 MG PO DAILY, TAB 08/31/17 Metformin* (Glucophage*) 500 Mg Tab, 500 MG PO WITH BREAKFAST DINNE, #30 TAB 08/31/17 Albuterol Sulfate* (Albuterol Sulfate* Neb) 0.083%-3 Ml Neb, 1.25 MG NEB Q4H, #30 VIAL 08/31/17 Allergies Allergies: Coded Allergies: Penicillins (Unverified Allergy, Unknown, 07/01/18) blueberry (Unverified Allergy, Unknown, 07/01/18) PMhx/Soc History of Surgery: Yes Anesthesia Reaction: No Hx Neurological Disorder: No Hx Respiratory Disorders: Yes Hx Cardiac Disorders: Yes (HTN CHF ) Hx Psychiatric Problems: No (anxiety ) Hx Miscellaneous Medical Probl: Yes (chronic opiates use ) Hx Alcohol Use: No Hx Substance Use: No Hx Tobacco Use: Yes FmHx Family History: coronary disease; No diabetes Physical Exam Vitals Vital Signs Date Temp Pulse Resp B/P (MAP) Pulse Ox O2 O2 Flow FiO2 Time Delivery Rate 09/02/18 Nasal 4 20:08 Cannula 09/02/18 Nasal 4.0 19:57 Cannula 09/02/18 98.8 95 20 175/123 98 18:39 (140) Physical Exam General: Well developed, well nourished, no acute distress Head: Normocephalic, atraumatic. Eyes: Pupils equally reactive, EOM intact ENT: Moist mucous membranes Neck: Supple, no lymphadenopathy Respiratory: Rales at the bases bilaterally Cardiovascular: RRR, no murmurs, rubs, or gallops Abdominal: Soft, non-tender, non-distended, no peritoneal signs : Deferred MSK: Pitting edema bilateral lower extremities. Left knee with mild soft tissue tenderness but full active and passive range of motion. Limited exam given body habitus. Neurovascular intact distally. Neurologic: Alert and oriented, moving all extremities, normal speech, no focal weakness, no cerebellar signs Skin: No rash Psych: Normal mood Result Diagram: 09/02/18193809/02/181938 Results 24 hrs Laboratory Tests Test 09/02/18 19:38 09/02/18 19:39 Urine Test NEGATIVE White Blood Count 8.3 10^3/ul Red Blood Count 5.10 10^6/ul Hemoglobin 14.5 g/dl Hematocrit 46.5 % Mean Corpuscular Volume 91.2 fl Mean Corpuscular Hemoglobin 28.4 pg Mean Corpuscular Hemoglobin Concent 31.2 g/dl Red Cell Distribution Width 15.7 % Platelet Count 223 10^3/UL Mean Platelet Volume 10.8 fl Immature Granulocytes % 0.200 % Neutrophils % 68.8 % Lymphocytes % 21.7 % Monocytes % 6.2 % Eosinophils % 2.4 % Basophils % 0.7 % Nucleated Red Blood Cells % 0.0 /100WBC Immature Granulocytes # 0.020 10^3/ul Neutrophils # 5.7 10^3/ul Lymphocytes # 1.8 10^3/ul Monocytes # 0.5 10^3/ul Eosinophils # 0.2 10^3/ul Basophils # 0.1 10^3/ul Nucleated Red Blood Cells # 0.0 10^3/ul Sodium Level 143 mmol/L Potassium Level 3.8 mmol/L Chloride Level 107 mmol/L Carbon Dioxide Level 26 mmol/L Anion Gap 10 Blood Urea Nitrogen 21 mg/dl Creatinine 0.64 mg/dl Est Glomerular Filtrat Rate mL/min > 60 mL/min Glucose Level 113 mg/dl Calcium Level 9.2 mg/dl Troponin I < 0.012 ng/ml B-Type Natriuretic Peptide 2970 PG/ML Current Medications Medications Dose Sig/Clarita Start Time Status Last (Trade) Ordered Route PRN Stop Time Admin Dose Reason Admin Aspirin 162 mg ONCE STAT 09/02/18 DC 09/02/18 (Aspirin) PO 19:06 19:46 09/02/18 19:08 1 inch ONCE STAT 09/02/18 DC 09/02/18 Nitroglycerin TD 19:06 19:46 09/02/18 19:08 (Nitroglyceri n 2% Oint) Furosemide 60 mg ONCE STAT 09/02/18 DC 09/02/18 (Lasix) IV 19:06 19:46 09/02/18 19:08 1 mg ONCE STAT 09/02/18 DC 09/02/18 Hydromorphone IV 19:42 19:49 HCl 09/02/18 19:44 (Dilaudid) Ondansetron 4 mg ONCE STAT 09/02/18 DC 09/02/18 HCl (Zofran IV 19:42 19:49 Inj) 09/02/18 19:44 25 mg ONCE ONCE 09/02/18 DC 09/02/18 Diphenhydrami IV 20:00 19:49 ne HCl 09/02/18 20:01 (Benadryl) Ondansetron 4 mg ER BRIDGE 09/02/18 HCl (Zofran PRN IV 21:00 Inj) NAUSEA/VOMITI 09/03/18 20:59 NG 650 mg ER BRIDGE 09/02/18 Acetaminophen PRN PO 21:00 (Tylenol .MILD PAIN 09/03/18 20:59 Tab) 1-3 OR TEMP Procedures/MDM EKG, MONITORS, & DIAGNOSTIC IMAGING: EKG: I reviewed and interpreted a 12-lead EKG. Rhythm: Normal sinus rhythm ST Changes: No contiguous ST segment elevations T waves: No contiguous T wave inversions Impression: No evidence of acute cardiac ischemia Chest x-ray: I reviewed and interpreted a 1 view of the chest Mediastinum: No enlargement Cardiac silhouette: cardiomegaly Airspace: Mild interstitial process Bones: No evidence of fracture X-ray left knee: I reviewed and interpreted multiple views of the x-ray Bones: No evidence of acute fracture dislocation or subluxation Soft tissue: No evidence of foreign body LAB INTERPRETATION: I reviewed the laboratory testing and it shows no evidence of acute process MEDICAL DECISION MAKING: Signs and symptoms consistent with volume overload likely see exact exacerbation secondary to medication noncompliance. Patient also has a contusion to her left knee. Morbid obesity is likely contributing to her symptoms as well. Patient has chronic pain issues as well. However given the patient's chest pain, high risk profile inpatient hospitalization to rule out ACS, diuretic and preload and afterload reduction would be appropriate. ER COURSE: * Aspirin, nitro, Lasix provided. Pain control medication provided. * Pain improved. The patient requested a Van catheter. Van inserted. CONSULTATION: None DISPOSITION PLAN: Telemetry admission for management of chest pain to rule out acute coronary syndrome, serial enzymes, risk stratification and consideration of provocative testing CONSULTATION: Accepting care team and consultations: I discussed the current laboratory data, diagnostic imaging and emergency care provided. Admitting team: Dr. Mcdonald Admitting team indication: Insurance directed Departure Diagnosis: Primary Impression: Shortness of breath Additional Impressions: CHF (congestive heart failure) Heart failure type: diastolic Heart failure chronicity: acute on chronic Qualified Codes: I50.33 - Acute on chronic diastolic (congestive) heart failure Morbid obesity Chest pain Chest pain type: unspecified Qualified Codes: R07.9 - Chest pain, unspecified Condition: Stable VAIBHAV ADAM MD September 02, 2018 19:51
[2018-09-02] MEDS ORDERED: DIPHENHYDRAMINE 50 MG INJ IV ONE (20:00)
[2018-09-02] MEDS ORDERED: ACETAMINOPHEN 325 MG TAB PO PRN ×3 (21:00→23:30)
[2018-09-02] MEDS ORDERED: ONDANSETRON 4 MG INJ IV PRN ×2 (21:00→23:30)
--- NOTE | 2018-09-02 23:12 | HP ---
Date/Time of Note Date/Time of Note DATE: 09/02/18 TIME: 23:12 Assessment/Plan VTE Prophylaxis Pharmacological prophylaxis: heparin Lines/Catheters IV Catheter Type (from Nrs): Saline Lock Urinary Cath still in place: No Assessment/Plan Assessment/Plan 1. Shortness of breath: Multifactorial etiology, severe pulmonary hypertension, NEIDA, diastolic dysfunction -Continue telemetry monitoring -Supplemental oxygen, bronchodilators, Lasix, as needed PPV -Cardiology and pulmonary consult 2. Chest pain: Rule out ACS -Supplemental oxygen, aspirin, nitro, BB -Serial troponin -Patient recently had a 2D echo, so cardiology to decide if there is a need to repeat at this time 3. Severe pulmonary hypertension: See #1 4. Diastolic dysfunction: Again see #1 5. Morbid obesity with a BMI of 64 -Weight reduction advised 6. NEIDA -See #1 7. Left knee pain: Status post GLF -X-ray only shows mild degenerative change. Monitor closely. Pain management 8. Hypertension: Adjust antihypertensive as needed 9. Tobacco abuse: Nicotine patch -Importance of cessation especially given her multiple comorbidities will be reinforced throughout hospitalization Result Diagram: 09/02/18193809/02/181938 Results 24hrs Laboratory Tests Test 09/02/18 19:38 09/02/18 19:39 Urine Test NEGATIVE White Blood Count 8.3 Red Blood Count 5.10 Hemoglobin 14.5 Hematocrit 46.5 Mean Corpuscular Volume 91.2 Mean Corpuscular Hemoglobin 28.4 L Mean Corpuscular Hemoglobin Concent 31.2 L Red Cell Distribution Width 15.7 H Platelet Count 223 Mean Platelet Volume 10.8 H Immature Granulocytes % 0.200 Neutrophils % 68.8 Lymphocytes % 21.7 Monocytes % 6.2 Eosinophils % 2.4 Basophils % 0.7 Nucleated Red Blood Cells % 0.0 Immature Granulocytes # 0.020 Neutrophils # 5.7 Lymphocytes # 1.8 Monocytes # 0.5 Eosinophils # 0.2 Basophils # 0.1 Nucleated Red Blood Cells # 0.0 Sodium Level 143 Potassium Level 3.8 Chloride Level 107 Carbon Dioxide Level 26 Anion Gap 10 Blood Urea Nitrogen 21 H Creatinine 0.64 Est Glomerular Filtrat Rate mL/min > 60 Glucose Level 113 Calcium Level 9.2 Troponin I < 0.012 B-Type Natriuretic Peptide 2970 H HPI/ROS Admit Date/Time Admit Date/Time Hx of Present Illness This is a 43-year-old morbidly obese female with history of hypertension, severe pulmonary hypertension, MDD with psychosis, anxiety, diastolic CHF, NEIDA, active smoker who presented to ER complaining of worsening shortness of breath, lower extremity swelling and intermittent pressure-like chest pain and left knee pain status post GLF a few hours prior to arrival to the ER. Mom presents the ER, chest x-ray shows cardiomegaly. Left knee x-ray shows some mild degenerative changes. Initial blood pressure was 175/123. BNP 3000. PMH/Family/Social Past Medical History Medical History: other (See HPI) Medications Current Medications Ondansetron HCl (Zofran Inj) 4 mg ER BRIDGE PRN IV NAUSEA/VOMITING; Start 09/02/18 at 21:00; Stop 09/03/18 at 20:59 Acetaminophen (Tylenol Tab) 650 mg ER BRIDGE PRN PO .MILD PAIN 1-3 OR TEMP; Start 09/02/18 at 21:00; Stop 09/03/18 at 20:59 Coded Allergies: Penicillins (Unverified Allergy, Unknown, 09/03/18) blueberry (Unverified Allergy, Unknown, 09/03/18) Past Surgical History Past Surgical Hx: cholecystectomy, other Family History Significant Family History: no pertinent family hx, other Social History Alcohol Use: other Smoking Status: Current every day smoker Drug Use: other Exam/Review of Systems Vital Signs Vitals Vital Signs Date Temp Pulse Resp B/P (MAP) Pulse Ox O2 O2 Flow FiO2 Time Delivery Rate 09/02/18 94 22 144/110 98 Nasal 21:44 (121) Cannula 09/02/18 4 20:08 09/02/18 98.8 18:39 Exam Constitutional: other (No acute distress) Head: normocephalic, atraumatic Eyes: PERRL Respiratory: other (Decreased breath sounds at the bases bilaterally) Cardiovascular: other (Tachycardic regular rhythm) Gastrointestinal: soft, non-tender Extremities: edema MADHURI TRUONG MD September 02, 2018 23:12
[2018-09-02] MEDS ORDERED: ALBUTEROL/IPRATROPIUM (NEB) 3 ML AMP HHN PRN (23:30)
[2018-09-02] MEDS ORDERED: NITROGLYCERIN (SL) 0.4 MG TAB SL PRN (23:30)
[2018-09-02] MEDS: HYDROCODONE/APAP (5/325) TAB PO PRN (23:30)
[2018-09-02] MEDS: ALBUTEROL HFA 8 GM INHALER INH SCH (23:30)
[2018-09-02] MEDS ORDERED: NACL 0.9% 3 ML SYG IV SCH (23:30)
[2018-09-03] VITALS (11 sets, daily range): BP systolic 93–169; BP diastolic 56–103; PULSE 70–124; RESP 18–21; Ht 157.5 cm; Wt 159.0 kg
[2018-09-03] MEDS ORDERED: AMLO-147 PO (00:12)
[2018-09-03] MEDS ORDERED: HYDR12.58 PO (00:12)
[2018-09-03] MEDS ORDERED: BENA20TA4 PO (00:12)
[2018-09-03] MEDS: ALBUTEROL HFA 8 GM INHALER INH SCH ×6 (01:00→16:12)
[2018-09-03] MEDS ORDERED: morphine 4 MG/ML VIAL IV ONE (01:19)
[2018-09-03] MEDS ORDERED: LORAZEPAM 1 MG TAB PO ONE ×2 (01:30→10:00)
[2018-09-03] MEDS ORDERED: FLUTICASONE 0.05% 16 GM NAS SPRAY NASAL PRN (02:30)
[2018-09-03] MEDS: NICOTINE (21 MG/24 HR) PATCH TRANSDERM SCH ×2 (02:33→08:43)
[2018-09-03] MEDS ORDERED: LEVALBUTEROL (NEB) 1.25 MG/0.5 ML AMP HHN PRN (05:00)
[2018-09-03] MEDS: HYDROCODONE/APAP (5/325) TAB PO PRN ×2 (05:24→12:40)
[2018-09-03] MEDS ORDERED: PANTOPRAZOLE (EC) 40 MG TAB PO SCH (07:00)
[2018-09-03] MEDS: ACCU-CHEK XX SCH ×3 (07:25→17:25)
[2018-09-03] MEDS: metFORMIN 500 MG TAB PO SCH ×2 (08:37→17:41)
[2018-09-03] MEDS ORDERED: BENAZEPRIL 20 MG TAB PO SCH (09:00)
[2018-09-03] MEDS ORDERED: ISOSORBIDE MONONITRATE(SR)30 MG TAB PO SCH (09:00)
[2018-09-03] MEDS ORDERED: ATENOLOL 50 MG TAB PO SCH (09:00)
[2018-09-03] MEDS ORDERED: NICOTINE (21 MG/24 HR) PATCH TRANSDERM SCH (09:00)
[2018-09-03] MEDS ORDERED: FLUTICASONE/VILANTEROL 100-25 INH SCH (09:00)
[2018-09-03] MEDS ORDERED: HEPARIN 5,000 UNIT/1 ML VIAL SC SCH (09:00)
[2018-09-03] MEDS ORDERED: FERROUS SULFATE (EC) 325 MG TAB PO SCH ×2 (09:00)
[2018-09-03] MEDS ORDERED: FUROSEMIDE 20 MG TAB PO SCH (09:00)
[2018-09-03] MEDS ORDERED: ASPIRIN (EC) 81 MG TAB PO SCH (09:00)
[2018-09-03] MEDS ORDERED: ESCITALOPRAM 10 MG TAB PO SCH (09:00)
[2018-09-03] MEDS ORDERED: NIFEdipine (XL) 30 MG TAB PO SCH (09:00)
[2018-09-03] MEDS ORDERED: AMLODIPINE 10 MG TAB PO SCH (09:00)
--- NOTE | 2018-09-03 16:07 | PDOCDIS ---
Discharge Instructions CONDITION [id number] Patient Condition: [id number] Good HOME CARE INSTRUCTIONS: [id number] Diet Instructions: [id number] Reduced Calorie ACTIVITY: [id number] Activity Restrictions: [id number] No Restrictions FOLLOW UP/APPOINTMENTS Follow-up Plan FOLLOW UP WITH YOUR PCP IN 1-2 WEEKS SHANIQUA CLINTON September 03, 2018 16:07
--- NOTE | 2018-09-03 18:08 | DS ---
Date/Time of Note Date/Time of Note DATE: 09/03/18 TIME: 18:00 Discharge Summary Admission/Discharge Info Admit Date/Time September 02, 2018 at 20:33 Discharge Date/Time September 03, 2018 Discharge Diagnosis 1. Chronic respiratory distress secondary to severe pulmonary hypertension, NEIDA with OHS -Patient has been provided with CPAP and oxygen machines 2. Chronic chest pain -Patient does exhibit opiate seeking behavior and has had multiple hospitalizations with similar behavior -ACS ruled out -Patient recently had a 2D echo that showed preserved EF 3. Morbid obesity with a BMI of 64 -Weight reduction advised 4. Left knee pain: Status post GLF -X-ray only shows mild degenerative change 5. Hypertension -Continue home meds 6. Tobacco abuse -Importance of cessation advised especially given her multiple comorbidities Patient Condition: Good Hospital Course Patient is a 43-year-old female with multiple hospitalizations and a history of morbid obesity, chronic chest pain, chronic respiratory distress secondary to pulmonary hypertension, NEIDA and OHS. Patient presents with with shortness of breath and stated that she did not have a functioning CPAP machine. spd manager did evaluate and did confirm that a new CPAP and oxygen had been delivered. Patient had no acute issues, chest x-ray showed no pulmonary edema, patient had no evidence of reactive airway disease or sepsis, recent echo showed a preserved EF. Patient does have a history of opiate seeking behavior. Weight reduction and smoking cessation more once again advised, patient was stable for DC and on the day of discharge patient's vitals, labs and physical exam are stable. Home Meds Active Scripts Escitalopram Oxalate* (Escitalopram Oxalate*) 10 Mg Tablet, 5 MG PO DAILY, #30 TAB Prov:JOSE,BOLATITO M. 07/14/18 Nifedipine* (Nifedipine ER*) 30 Mg Tablet.sa, 30 MG PO DAILY, #30 TAB.SA 2 Refills Prov:JOSE,BULMAROATITO M. 07/14/18 Fluticasone-Vilanterol (Breo Ellipta Inhaler) 100-25 Mcg/Actuation Aer.pow.ba, 1 PUFF INHALATION DAILY, #1 INHALER 2 Refills Prov:JOSE,BOLATITO M. 07/14/18 Isosorbide Mononitrate* (Isosorbide Mononitrate*) 30 Mg Tab.er.24h, 30 MG PO DAILY, #30 TAB 2 Refills Prov:JOSE,BOLATITO M. 07/14/18 Atenolol* (Atenolol*) 50 Mg Tablet, 50 MG PO DAILY, #30 TAB 2 Refills Prov:MEGHA GARCIALyudmila 07/14/18 Acetaminophen* (Tylenol*) 325 Mg Tablet, 650 MG PO Q6H PRN for .PAIN 1-3 OR TEMP for 7 Days, TAB Prov:ZIA PERRIN MD 07/04/18 [Nicotine (14 Mg/24 Hr)] 1 PATCH PATCH No Conflict Check, 1 PATCH TRANSDERM DAILY for 10 Days Prov:ZIA PERRIN MD 07/04/18 Furosemide* (Furosemide*) 20 Mg Tablet, 20 MG PO BID, #60 TAB 1 Refill Prov:ELMER DIANE 04/03/18 Ferrous Sulfate* (Ferrous Sulfate*) 325 Mg Tabec, 325 MG PO BID for 30 Days, #60 TAB 2 Refills Prov:CHAPO GARCIAJaison Carrillo 01/05/18 Albuterol Sulfate* (Ventolin HFA*) 18 Gm Hfa.aer.ad, 2 PUFF INHALATION Q4H, #1 INHALER Prov:VAIBHAV ADAM MD 04/22/17 Reported Medications Hydrochlorothiazide* (Hydrochlorothiazide*) 12.5 Mg Tablet, 12.5 MG PO DAILY for 30 Days, #30 09/03/18 Amlodipine Besylate* (Amlodipine Besylate*) 10 Mg Tablet, 10 MG PO DAILY for 30 Days, #30 09/03/18 Benazepril Hcl* (Benazepril Hcl*) 20 Mg Tablet, 20 MG PO DAILY for 30 Days, #30 09/03/18 Pantoprazole* (Pantoprazole*) 40 Mg Tablet.dr, 40 MG PO AC BREAKFAST, TAB 08/31/17 Aspirin* (Aspirin* EC) 81 Mg Tablet.dr, 81 MG PO DAILY, TAB 08/31/17 Metformin* (Glucophage*) 500 Mg Tab, 500 MG PO WITH BREAKFAST DINNE, #30 TAB 08/31/17 Albuterol Sulfate* (Albuterol Sulfate* Neb) 0.083%-3 Ml Neb, 1.25 MG NEB Q4H, #30 VIAL 08/31/17 Discontinued Reported Medications Ferrous Sulfate* (Ferrous Sulfate*) 325 Mg Tabec, 325 MG PO BID, TAB 03/04/18 Discontinued Scripts Ascorbic Acid (Vitamin C) 500 Mg Tab, 500 MG PO DAILY for 30 Days, #30 TAB 2 Refills Prov:JOSEMEGHA 01/05/18 Follow-up Plan FOLLOW UP WITH YOUR PCP IN 1-[address] Care Provider [facility] Time spent on discharge: > 30 minutes SHANIQUA CLINTON September 03, 2018 18:08
== END 2018-09-03 18:14 | disposition home or self-care (01) ==
LOC: E/R 18:34 → TEL 20:33
PROVIDERS: ADMIT Internal Medicine; ATTEND Internal Medicine
DX: I27.20 Pulmonary hypertension, unspecified (principal); G47.33 Obstructive sleep apnea (adult) (pediatric); E66.2 Morbid (severe) obesity with alveolar hypoventilation; Z68.44 Body mass index [BMI] 60.0-69.9, adult; R07.9 Chest pain, unspecified; I11.0 Hypertensive heart disease with heart failure; I50.9 Heart failure, unspecified; Z79.82 Long term (current) use of aspirin; Z72.0 Tobacco use; M25.562 Pain in left knee
CPT/HCPCS: 71045; 73562; 80048; 80053; 82550; 82553; 82962; 83036; 83735; 83880; 84484; 84703; 85025; 94664; J1170; J1200; J1644; J1940; J2270; J2405; Z7500; Z7610; 93005; G0378

== ENCOUNTER 2018-09-04 00:12 | Emergency (ER) | payer OTHER ==
[~2018-09-04] VITALS: Wt 145.4 kg
[~2018-09-04 00:12] MED LIST changes: +AMLO-147 PO; -ASC500 PO; +BENA20TA4 PO; +HYDR12.58 PO
--- NOTE | 2018-09-04 00:30 | ERD ---
ER Documentation Chief Complaint Chief Complaint C/O SOB, CHEST PRESSURE. STATES SHE WAS DC'D YESTERDAY FOR SAME HPI This is a 43-year-old female with a history of pulmonary hypertension, history of CHF, who presents for evaluation of shortness of breath. Patient was discharged within the last 48 hours, stating that she is still having shortness of breath, and still having chest pain, she does have a history of chronic chest pain, and has been documented as having prior drug-seeking behavior, per the patient she has been compliant with her medications. She is on home oxygen at home. She has not had a fever ROS All systems reviewed and are negative except as per history of present illness. Medications Home Meds Active Scripts Escitalopram Oxalate* (Escitalopram Oxalate*) 10 Mg Tablet, 5 MG PO DAILY, #30 TAB Prov:CHAPO GARCIAJaison . 07/14/18 Nifedipine* (Nifedipine ER*) 30 Mg Tablet.sa, 30 MG PO DAILY, #30 TAB.SA 2 Refills Prov:CHAPO GARCIAJaison . 07/14/18 Fluticasone-Vilanterol (Breo Ellipta Inhaler) 100-25 Mcg/Actuation Aer.pow.ba, 1 PUFF INHALATION DAILY, #1 INHALER 2 Refills Prov:CHAPO GARCIAJaison . 07/14/18 Isosorbide Mononitrate* (Isosorbide Mononitrate*) 30 Mg Tab.er.24h, 30 MG PO DAILY, #30 TAB 2 Refills Prov:CHAPO GARCIAJaison . 07/14/18 Atenolol* (Atenolol*) 50 Mg Tablet, 50 MG PO DAILY, #30 TAB 2 Refills Prov:CHAPO GARCIAJaison . 07/14/18 Acetaminophen* (Tylenol*) 325 Mg Tablet, 650 MG PO Q6H PRN for .PAIN 1-3 OR TEMP for 7 Days, TAB Prov:ZIA PERRIN MD 07/04/18 [Nicotine (14 Mg/24 Hr)] 1 PATCH PATCH No Conflict Check, 1 PATCH TRANSDERM DAILY for 10 Days Prov:ZIA PERRIN MD 07/04/18 Furosemide* (Furosemide*) 20 Mg Tablet, 20 MG PO BID, #60 TAB 1 Refill Prov:ELMER DIANE 04/03/18 Ferrous Sulfate* (Ferrous Sulfate*) 325 Mg Tabec, 325 MG PO BID for 30 Days, #60 TAB 2 Refills Prov:MEGHA GARCIA. 01/05/18 Albuterol Sulfate* (Ventolin HFA*) 18 Gm Hfa.aer.ad, 2 PUFF INHALATION Q4H, #1 INHALER Prov:VAIBHAV ADAM MD 04/22/17 Reported Medications Hydrochlorothiazide* (Hydrochlorothiazide*) 12.5 Mg Tablet, 12.5 MG PO DAILY for 30 Days, #30 09/03/18 Amlodipine Besylate* (Amlodipine Besylate*) 10 Mg Tablet, 10 MG PO DAILY for 30 Days, #30 09/03/18 Benazepril Hcl* (Benazepril Hcl*) 20 Mg Tablet, 20 MG PO DAILY for 30 Days, #30 09/03/18 Pantoprazole* (Pantoprazole*) 40 Mg Tablet.dr, 40 MG PO AC BREAKFAST, TAB 08/31/17 Aspirin* (Aspirin* EC) 81 Mg Tablet.dr, 81 MG PO DAILY, TAB 08/31/17 Metformin* (Glucophage*) 500 Mg Tab, 500 MG PO WITH BREAKFAST DINNE, #30 TAB 08/31/17 Albuterol Sulfate* (Albuterol Sulfate* Neb) 0.083%-3 Ml Neb, 1.25 MG NEB Q4H, #30 VIAL 08/31/17 Discontinued Reported Medications Ferrous Sulfate* (Ferrous Sulfate*) 325 Mg Tabec, 325 MG PO BID, TAB 03/04/18 Discontinued Scripts Ascorbic Acid (Vitamin C) 500 Mg Tab, 500 MG PO DAILY for 30 Days, #30 TAB 2 Refills Prov:MEGHA GARCIA. 01/05/18 Allergies Allergies: Coded Allergies: Penicillins (Unverified Allergy, Unknown, 09/03/18) blueberry (Unverified Allergy, Unknown, 09/03/18) PMhx/Soc History of Surgery: Yes (, TUBAL LIGATION) Anesthesia Reaction: No Hx Neurological Disorder: No Hx Respiratory Disorders: Yes (COPD, ASTHMA) Hx Cardiac Disorders: Yes (MA, HTN, CHF) Hx Psychiatric Problems: Yes (ANXIETY) Hx Miscellaneous Medical Probl: No Hx Alcohol Use: Yes Hx Substance Use: Yes Hx Tobacco Use: Yes Physical Exam Vitals Vital Signs Date Temp Pulse Resp B/P (MAP) Pulse Ox O2 O2 Flow FiO2 Time Delivery Rate 09/04/18 72 23 115/77 97 Room Air 02:25 (90) 09/04/18 97.9 75 20 110/77 93 00:14 (88) Physical Exam Const: No acute distress, well-developed well-nourished, on nasal cannula in no acute respiratory distress Head: Atraumatic Eyes: Normal Conjunctiva ENT: Normal External Ears, Nose and Mouth. Neck: Full range of motion. No meningismus. Resp: Clear to auscultation bilaterally, no wheezes Cardio: Regular rate and rhythm, no murmurs Abd: Soft, obese, no rebound or guarding, non distended. Normal bowel sounds Skin: No petechiae or rashes Back: No midline or flank tenderness Ext: No cyanosis, or edema Neur: Awake and alert Psych: Normal Mood and Affect Result Diagram: 09/04/1810409/04/18104 Results 24 hrs Laboratory Tests Test 09/04/18 01:05 White Blood Count 9.7 10^3/ul Red Blood Count 4.70 10^6/ul Hemoglobin 13.4 g/dl Hematocrit 43.9 % Mean Corpuscular Volume 93.4 fl Mean Corpuscular Hemoglobin 28.5 pg Mean Corpuscular Hemoglobin Concent 30.5 g/dl Red Cell Distribution Width 15.8 % Platelet Count 223 10^3/UL Mean Platelet Volume 11.1 fl Immature Granulocytes % 0.400 % Neutrophils % 66.7 % Lymphocytes % 23.9 % Monocytes % 6.8 % Eosinophils % 1.5 % Basophils % 0.7 % Nucleated Red Blood Cells % 0.0 /100WBC Immature Granulocytes # 0.040 10^3/ul Neutrophils # 6.4 10^3/ul Lymphocytes # 2.3 10^3/ul Monocytes # 0.7 10^3/ul Eosinophils # 0.1 10^3/ul Basophils # 0.1 10^3/ul Nucleated Red Blood Cells # 0.0 10^3/ul D-Dimer 968.17 ng/ml D-Dimer Comment Sodium Level 141 mmol/L Potassium Level 4.7 mmol/L Chloride Level 106 mmol/L Carbon Dioxide Level 26 mmol/L Anion Gap 9 Blood Urea Nitrogen 34 mg/dl Creatinine 1.37 mg/dl Est Glomerular Filtrat Rate mL/min 42 mL/min Glucose Level 113 mg/dl Calcium Level 9.0 mg/dl Total Bilirubin 0.3 mg/dl Direct Bilirubin 0.00 mg/dl Indirect Bilirubin 0.3 mg/dl Aspartate Amino Transf (AST/SGOT) 35 IU/L Alanine Aminotransferase (ALT/SGPT) 28 IU/L Alkaline Phosphatase 92 IU/L Troponin I < 0.012 ng/ml B-Type Natriuretic Peptide 4010 PG/ML Total Protein 7.3 g/dl Albumin 3.5 g/dl Globulin 3.80 g/dl Albumin/Globulin Ratio 0.92 Serum HCG, Qualitative NEGATIVE Current Medications Medications Dose Sig/Clarita Start Time Status Last (Trade) Ordered Route PRN Stop Time Admin Dose Reason Admin 50 mg ONCE ONCE 09/04/18 DC 09/04/18 Diphenhydrami IM 01:30 01:24 ne HCl 09/04/18 01:31 (Benadryl) Ketorolac 15 mg ONCE STAT 09/04/18 DC 09/04/18 Tromethamine IV 01:12 01:24 (Toradol) 09/04/18 01:13 IV Flush 10 ml STK-MED 09/04/18 DC 09/04/18 (NS 10 ml) ONCE .ROUTE 02:24 02:24 09/04/18 02:25 Sodium 100 ml @ ud STK-MED 09/04/18 DC 09/04/18 Chloride ONCE .ROUTE 02:24 02:24 09/04/18 02:25 Iodixanol 100 ml STK-MED 09/04/18 DC 09/04/18 (Visipaque ONCE .ROUTE 02:24 02:24 Locm) 09/04/18 02:25 Furosemide 40 mg ONCE ONCE 09/04/18 DC 09/04/18 (Lasix) IV 06:30 06:38 09/04/18 06:31 Procedures/MDM This is a 43-year-old female who presents for evaluation of continued shortness of breath, in the setting of chronic CHF, as well as pulmonary hypertension. On exam the patient does not appear to be in any acute respiratory distress, she had a negative troponin and her EKG showed no signs of acute ischemia. I considered other causes for her shortness of breath and setting up on hypertension, a d-dimer was ordered which was positive, subsequently a CT angiogram was performed which showed no evidence of pulmonary embolism, and no acute findings. Reviewing her records she had a recent echo, that showed a preserved EF, and she did not appear floridly volume overloaded, thus at this point I do not feel that the patient would benefit from a readmission, and I discussed this in detail with the patient, I encouraged her to return to the ED, she had any changes in her symptoms, or she had fever, or any other acute conc erns, at discharge she was in no distress. EKG: Rate/Rhythm: Normal Sinus Rhythm QRS, ST, T-waves: No changes consistent w/ acute ischemia Impression: No evidence of ischemia or arrhythmia Departure Diagnosis: Primary Impression: Pulmonary hypertension Additional Impressions: CHF (congestive heart failure) Heart failure type: unspecified Heart failure chronicity: acute Qualified Codes: I50.9 - Heart failure, unspecified Shortness of breath Condition: Stable ELMER BOWMAN MD September 04, 2018 00:30
[2018-09-04] MEDS ORDERED: KETOROLAC 15 MG INJ IV STA (01:12)
[2018-09-04] MEDS ORDERED: DIPHENHYDRAMINE 50 MG INJ IM ONE (01:30)
[2018-09-04] MEDS ORDERED: IODIXANOL LOCM 100 ML BTL ONE (02:24)
[2018-09-04] MEDS ORDERED: SOD CHLORIDE 0.9% 100 ML ONE (02:24)
[2018-09-04 02:25] VITALS: BP 115/77; PULSE 72; RESP 23
[2018-09-04] MEDS ORDERED: FUROSEMIDE 40 MG INJ IV ONE (06:30)
== END 2018-09-04 10:14 | disposition home or self-care (01) ==
LOC: E/R 00:12
DX: I27.20 Pulmonary hypertension, unspecified (principal); I50.9 Heart failure, unspecified; J44.9 Chronic obstructive pulmonary disease, unspecified; I25.2 Old myocardial infarction; Z79.82 Long term (current) use of aspirin; Z79.84 Long term (current) use of oral hypoglycemic drugs; Z87.891 Personal history of nicotine dependence
CPT/HCPCS: 71045; 71275; 80053; 83880; 84484; 84703; 85025; 85378; 93005; 96372; 96374; 96375; J1200; J1885; J1940; Q9967; Z7502; Z7610

== ENCOUNTER 2018-09-08 18:24 | Emergency (ER) | payer OTHER ==
[~2018-09-08] VITALS: Wt 150.0 kg
--- NOTE | 2018-09-08 20:33 | ERD ---
ER Documentation Chief Complaint Chief Complaint CP X'S 2 DAYS, L ARM PAIN HPI Patient is a 43-year-old female with coronary disease, CHF, and diabetes who presents with bilateral leg swelling. The patient says that she was admitted a few days ago. She has bilateral feet swelling. She is taking Lasix. She is speaking in full sentences. Upon review of old medical records the patient has multiple visits to the ER for various complaints. Review of the emergency department information exchange system shows visits to 5 separate emergency departments for a total of 25 visits over the past 1 year. Her cures report shows multiple prescriptions for narcotic and benzodiazepines by multiple [facility] doctors. ROS All systems reviewed and are negative except as per history of present illness. Medications Home Meds Active Scripts Escitalopram Oxalate* (Escitalopram Oxalate*) 10 Mg Tablet, 5 MG PO DAILY, #30 TAB Prov:CHAPO GARCIAJaison Bonnie. 07/14/18 Nifedipine* (Nifedipine ER*) 30 Mg Tablet.sa, 30 MG PO DAILY, #30 TAB.SA 2 Refills Prov:CHAPO GARCIAJaison . 07/14/18 Fluticasone-Vilanterol (Breo Ellipta Inhaler) 100-25 Mcg/Actuation Aer.pow.ba, 1 PUFF INHALATION DAILY, #1 INHALER 2 Refills Prov:MEGHA GARCIA. 07/14/18 Isosorbide Mononitrate* (Isosorbide Mononitrate*) 30 Mg Tab.er.24h, 30 MG PO DAILY, #30 TAB 2 Refills Prov:CHAPO GARCIAJaison Bonnie. 07/14/18 Atenolol* (Atenolol*) 50 Mg Tablet, 50 MG PO DAILY, #30 TAB 2 Refills Prov:MEGHA GARCIA. 07/14/18 Acetaminophen* (Tylenol*) 325 Mg Tablet, 650 MG PO Q6H PRN for .PAIN 1-3 OR TEMP for 7 Days, TAB Prov:ZIA PERRIN MD 07/04/18 [Nicotine (14 Mg/24 Hr)] 1 PATCH PATCH No Conflict Check, 1 PATCH TRANSDERM D AILY for 10 Days Prov:ZIA PERRIN MD 07/04/18 Furosemide* (Furosemide*) 20 Mg Tablet, 20 MG PO BID, #60 TAB 1 Refill Prov:ELMER DIANE 04/03/18 Ferrous Sulfate* (Ferrous Sulfate*) 325 Mg Tabec, 325 MG PO BID for 30 Days, #60 TAB 2 Refills Prov:MEGHA GARCIA. 01/05/18 Albuterol Sulfate* (Ventolin HFA*) 18 Gm Hfa.aer.ad, 2 PUFF INHALATION Q4H, #1 INHALER Prov:VAIBHAV ADAM MD 04/22/17 Reported Medications Hydrochlorothiazide* (Hydrochlorothiazide*) 12.5 Mg Tablet, 12.5 MG PO DAILY for 30 Days, #30 09/03/18 Amlodipine Besylate* (Amlodipine Besylate*) 10 Mg Tablet, 10 MG PO DAILY for 30 Days, #30 09/03/18 Benazepril Hcl* (Benazepril Hcl*) 20 Mg Tablet, 20 MG PO DAILY for 30 Days, #30 09/03/18 Pantoprazole* (Pantoprazole*) 40 Mg Tablet.dr, 40 MG PO AC BREAKFAST, TAB 08/31/17 Aspirin* (Aspirin* EC) 81 Mg Tablet.dr, 81 MG PO DAILY, TAB 08/31/17 Metformin* (Glucophage*) 500 Mg Tab, 500 MG PO WITH BREAKFAST DINNE, #30 TAB 08/31/17 Albuterol Sulfate* (Albuterol Sulfate* Neb) 0.083%-3 Ml Neb, 1.25 MG NEB Q4H, #30 VIAL 08/31/17 Discontinued Reported Medications Ferrous Sulfate* (Ferrous Sulfate*) 325 Mg Tabec, 325 MG PO BID, TAB 03/04/18 Discontinued Scripts Ascorbic Acid (Vitamin C) 500 Mg Tab, 500 MG PO DAILY for 30 Days, #30 TAB 2 Refills Prov:MEGHA GARCIALyudmila 01/05/18 Allergies Allergies: Coded Allergies: Penicillins (Unverified Allergy, Unknown, 09/03/18) blueberry (Unverified Allergy, Unknown, 09/03/18) PMhx/Soc History of Surgery: Yes (, TUBAL LIGATION) Anesthesia Reaction: No Hx Neurological Disorder: No Hx Respiratory Disorders: Yes (COPD, ASTHMA) Hx Cardiac Disorders: Yes (CA, HTN, CHF) Hx Psychiatric Problems: Yes (ANXIETY) Hx Miscellaneous Medical Probl: No Hx Alcohol Use: Yes Hx Substance Use: Yes Hx Tobacco Use: Yes FmHx Family History: diabetes Physical Exam Vitals Vital Signs Date Temp Pulse Resp B/P (MAP) Pulse Ox O2 O2 Flow FiO2 Time Delivery Rate 09/08/18 98.2 88 18 172/105 97 Room Air 20:52 (127) 09/08/18 98.2 97 18 189/136 97 18:45 (153) Physical Exam Const: No acute distress Head: Atraumatic Eyes: Normal Conjunctiva ENT: Normal External Ears, Nose and Mouth. Neck: Full range of motion. No meningismus. Resp: Clear to auscultation bilaterally Cardio: Regular rate and rhythm, no murmurs Abd: Soft, non tender, non distended. Normal bowel sounds Skin: No petechiae or rashes Back: No midline or flank tenderness Ext: 2+ pitting edema bilateral lower extremities Neur: Awake and alert Psych: Normal Mood and Affect Results 24 hrs Current Medications Medications Dose Sig/Clarita Start Time Status Last (Trade) Ordered Route PRN Stop Time Admin Dose Reason Admin Furosemide 40 mg ONCE ONCE 09/08/18 DC 09/08/18 (Lasix) PO 21:00 20:46 09/08/18 21:01 Procedures/MDM EKG read by me: Rate/Rhythm: First-degree AV block at a rate of 96 Intervals: MO interval prolonged at 204 Impression: First-degree AV block without ST elevations Smoking Cessation Therapy: Pt. was lectured for greater than 3 minutes on the health risks of continued smoking and the benefits of cessation. Patient is a 43-year-old female who presents with bilateral lower extremity swelling. I believe this is most likely a mild CHF exacerbation with bilateral lower extremity edema and I will give the patient another dose of Lasix 40 mg by mouth. She is speaking full sentences and I do not believe she requires admission to the hospital at this time. I doubt acute coronary syndrome or pulmonary embolism. The patient will be discharged but will need to follow-up closely with her primary doctor within 24 to 48 hours. Departure Diagnosis: Primary Impression: Edema Edema type: unspecified Qualified Codes: R60.9 - Edema, unspecified Additional Impression: Chest pain Chest pain type: unspecified Qualified Codes: R07.9 - Chest pain, unspecified Condition: Fair Patient Instructions: Chest Pain, Uncertain Cause, Peripheral Edema, Bilateral Additional Instructions: FOLLOW UP WITH YOUR PRIMARY CARE PHYSICIAN TOMORROW.Return to this facility if you are not improving as expected. FRANCIS KINSEY MD September 08, 2018 20:33
[2018-09-08 20:52] VITALS: BP 172/105; PULSE 88; RESP 18
[2018-09-08] MEDS ORDERED: FUROSEMIDE 20 MG TAB PO ONE (21:00)
--- NOTE | 2018-09-09 14:34 | RADRPT ---
Vent Rate: 96 bpm RR Interval: 0 msec PA Interval: 204 msec QRS Duration: 90 msec QT Interval: 360 msec QTC Interval: 454 msec P-R-T [place]: 30 - 138 - -7 degrees Normal sinus rhythm Possible Left atrial enlargement Possible Right ventricular hypertrophy Cannot rule out Inferior infarct , age undetermined Abnormal ECG Electronically Signed By: [facility]
== END 2018-09-08 20:51 | disposition home or self-care (01) ==
LOC: E/R 18:24
DX: R60.9 Edema, unspecified (principal); E11.9 Type 2 diabetes mellitus without complications; I50.9 Heart failure, unspecified; I25.10 Atherosclerotic heart disease of native coronary artery without angina pectoris; I11.0 Hypertensive heart disease with heart failure; J44.9 Chronic obstructive pulmonary disease, unspecified; I25.2 Old myocardial infarction; Z87.891 Personal history of nicotine dependence; Z79.82 Long term (current) use of aspirin; Z79.84 Long term (current) use of oral hypoglycemic drugs
CPT/HCPCS: 93005; Z7502; Z7610

== ENCOUNTER 2018-10-19 03:38 | Inpatient (IN) | payer OTHER ==
[~2018-10-19] VITALS: Ht 162.6 cm; Wt 170.9 kg
[2018-10-19 12:13] VITALS: BP 125/64; PULSE 73; RESP 18
[2018-10-19 12:16] VITALS: Ht 162.6 cm; Wt 170.9 kg
[2018-10-19 12:36] VITALS: PULSE 72
[2018-10-19] MEDS ORDERED: MAGNESIUM HYDROXIDE 30ML CUP PO PRN (13:30)
[2018-10-19] MEDS ORDERED: NITROGLYCERIN (SL) 0.4 MG TAB SL PRN (13:30)
[2018-10-19] MEDS ORDERED: DOCUSATE SODIUM 100 MG CAP PO PRN (13:30)
[2018-10-19] MEDS ORDERED: ACETAMINOPHEN 325 MG TAB PO PRN (13:30)
[2018-10-19] MEDS ORDERED: ONDANSETRON 4 MG INJ IV PRN (13:30)
[2018-10-19] MEDS ORDERED: NACL 0.9% 3 ML SYG IV SCH (13:30)
--- NOTE | 2018-10-19 14:54 | HP ---
Date/Time of Note Date/Time of Note DATE: 10/19/18 TIME: 14:54 Assessment/Plan VTE Prophylaxis SCD applied (from Nsg): Yes Pharmacological prophylaxis: LMWH Lines/Catheters IV Catheter Type (from Nrsg): Saline Lock Urinary Cath still in place: No Assessment/Plan Assessment/Plan 1. Acute syncopal episode - CT head from OSH showed no acute ICH. questionable low density in right frontal lobe 1.9x1.9cm. unable to follow up with MRI given patients size - will work up for questionable seizure activity - Neurology consulted for further recommendations - Ativan PRN - EEG ordered 2. Acute on chronic diastolic HF - BNP elevated - will monitor I/O and daily weights - lasix BID - if no improvement, will consult Cardiology for assistance 3. COPD exacerbation - will start Nebs, IV antibiotics and steroids - monitor for improvement 4. DM - A1c from 08/2018 noted - ISS and accuchecks - holding Metformin 5. morbid obesity - lifestyle modifications advised 6. HTN - continue home medications and will adjust as needed 7. Right knee pain - pain control - will consult pain management if current regime not effective - PT/OT 8. Diet - carb controlled 9. Disposition - Admit to telemetry for treatment of COPD and CHF exacerbations Result Diagram: 10/19/18 1353 10/19/18 1353 Results 24hrs Laboratory Tests Test 10/19/18 13:53 White Blood Count 7.4 # Red Blood Count 4.67 Hemoglobin 13.3 Hematocrit 44.0 Mean Corpuscular Volume 94.2 Mean Corpuscular Hemoglobin 28.5 L Mean Corpuscular Hemoglobin Concent 30.2 L Red Cell Distribution Width 17.2 H Platelet Count 213 Mean Platelet Volume 11.0 H Immature Granulocytes % 0.300 Neutrophils % 62.7 Lymphocytes % 22.8 Monocytes % 11.6 H Eosinophils % 1.9 Basophils % 0.7 Nucleated Red Blood Cells % 0.0 Immature Granulocytes # 0.020 Neutrophils # 4.6 Lymphocytes # 1.7 Monocytes # 0.9 Eosinophils # 0.1 Basophils # 0.1 Nucleated Red Blood Cells # 0.0 Sodium Level 139 Potassium Level 4.6 Chloride Level 106 Carbon Dioxide Level 25 Anion Gap 8 Blood Urea Nitrogen 25 H Creatinine 0.98 Glucose Level 90 Calcium Level 8.4 Phosphorus Level 4.5 Magnesium Level 2.1 B-Type Natriuretic Peptide Pending Albumin 3.5 HPI/ROS Admit Date/Time Admit Date/Time Oct 19, 2018 at 11:45 Hx of Present Illness 43 yo F with PMH Diastolic HF, COPD, morbid obesity, leiomyoma, right knee pain, and diabetes mellitus presented to OSH with syncopal episode. Patient states she was at home with her children and was transferring from bed to commode. She was feeling "off" as if something was wrong and told her daughter to call 911. She lost consciousness and believes she was out for about 2-3 minutes. She states she woke up and remembers asking where her younger son was. She admits to nausea with vomiting following episode but no head trauma. Patient does admit to numbness of her tongue and blood in mouth but no loss of bladder and bowel. She also admits she was noted to be shaking but unsure if she had a seizure. She denies any history of seizures but does state her niece has seizure history. Patient also admits to nasal congestion and productive cough with green sputum for the past week with concerns for pneumonia. Denies any chest pain, dizziness, wheezing, palpitations, or abdominal pain. She admits to urinary discomfort with ann in place. Also complaining of issues with her right knee. ROS All 12 systems reviewed and pertinent positives as per HPI. All others negative. Constitutional: No chills, No fatigue, No nausea Eyes: No discharge ENT: congestion Respiratory: cough, shortness of breath, sputum; No wheezing Cardiovascular: No chest pain, No lightheadedness, No palpitations Gastrointestinal: No pain, No constipation, No diarrhea, No nausea, No vomiting Genitourinary: other (discomfort) Musculoskeletal: bone/joint pain (right knee) Skin: no complaints Neurologic: syncope Endocrine: no complaints Lymphatic: no complaints Psychological: nl mood/affect Immunologic: no complaints PMH/Family/Social Past Medical History Medical History: congestive heart failure, diabetes, high cholesterol, hypertension, other (obesity, COPD) Medications Current Medications Amlodipine Besylate (Norvasc) 10 mg DAILY PO ; Start 10/20/18 at 09:00 Aspirin (Halfprin) 81 mg DAILY PO ; Start 10/20/18 at 09:00 Atenolol (Tenormin) 50 mg DAILY PO ; Start 10/20/18 at 09:00 Benazepril HCl (Lotensin) 20 mg DAILY PO ; Start 10/20/18 at 09:00 Escitalopram Oxalate (Lexapro) 5 mg DAILY PO ; Start 10/20/18 at 09:00 Ferrous Sulfate (Ferrous Sulfate (Ec)) 325 mg BID PO ; Start 10/19/18 at 21:00 Fluticasone/ Vilanterol (Breo Ellipta 100-25 Mcg Inh) 1 inh DAILY INH ; Start 10/20/18 at 09:00 Hydrochlorothiazide (Hydrochlorothiazide) 12.5 mg DAILY PO ; Start 10/20/18 at 09:00 Nifedipine (Procardia Xl) 30 mg DAILY PO ; Start 10/20/18 at 09:00 Pantoprazole (Protonix Tab) 40 mg AC BREAKFAST PO ; Start 10/20/18 at 07:00 Furosemide (Lasix) 40 mg BID DIURETICS IV ; Start 10/19/18 at 18:00 IV Flush (NS 3 ml) 3 ml PER PROTOCOL IV ; Start 10/19/18 at 13:30 Ondansetron HCl (Zofran Inj) 4 mg Q6H PRN IV NAUSEA/VOMITING; Start 10/19/18 at 13:30 Nitroglycerin (Nitroglycerin (Sl Tab) 0.4 Mg) 1 tab Q5M PRN SL .CHEST PAIN; Start 10/19/18 at 13:30 Acetaminophen (Tylenol Tab) 650 mg Q6H PRN PO .PAIN 1-3 OR TEMP; Start 10/19/18 at 13:30 Docusate Sodium (Colace) 100 mg Q12H PRN PO .CONSTIPATION; Start 10/19/18 at 13:30 Magnesium Hydroxide (Milk Of Mag) 30 ml DAILY PRN PO .CONSTIPATION; Start 10/19/18 at 13:30 Enoxaparin Sodium (Lovenox) 40 mg DAILY SC ; Start 10/20/18 at 09:00 Coded Allergies: Penicillins (Unverified Allergy, Unknown, 09/03/18) blueberry (Unverified Allergy, Unknown, 09/03/18) Past Surgical History Past Surgical Hx: cholecystectomy, other Family History Significant Family History: no pertinent family hx, other Social History Alcohol Use: rarely Smoking Status: Current every day smoker Drug Use: none Exam/Review of Systems Vital Signs Vitals Vital Signs Date Temp Pulse Resp B/P (MAP) Pulse Ox O2 O2 Flow FiO2 Time Delivery Rate 10/19/18 Nasal 5.0 12:54 Cannula 10/19/18 72 12:36 10/19/18 95 12:23 10/19/18 97.8 18 125/64 12:13 (84) Exam Exam General: Patient is a pleasant female, morbidly obese, no acute distress HEENT: Atraumatic, normocephalic. The pupils are equal, round and reactive. Extraocular motor are intact Neck: Supple with full range of motion. No rigidity or meningismus Chest: Nontender Lungs: Coarse bilaterally, distant breath sounds, no wheezing Heart: Normal S1-S2, Regular rhythm and rate. No murmur, S3, or S4 Abdomen: Soft , nontender, nondistended , bowel sounds are present. No guarding no rebound tenderness , No masses or organomegaly. No costovertebral temporal angle mass Extremities: no edema, cyanosis, or clubbing. moving all extremities : ann in place with blood in tubing Neurologic: Normal mental status, speech normal, cranial nerves II through XII are intact, motor and sensory are intact, Additional Comments Home medications reviewed imaging from OSH reviewed GISELA CORBIN MD Oct 19, 2018 14:54
[2018-10-19] MEDS: ALBUTEROL 0.083% (NEB) 2.5 MG/3 ML AMP HHN SCH ×2 (15:00→20:20)
[2018-10-19] MEDS ORDERED: ALBUTEROL 0.083% (NEB) 2.5 MG/3 ML AMP HHN PRN (15:00)
[2018-10-19 15:15] VITALS: BP 115/80; PULSE 74; RESP 18
[2018-10-19] MEDS ORDERED: HYDROCODONE/APAP (10/325) TAB PO PRN (15:30)
[2018-10-19] MEDS ORDERED: HYDROCODONE/APAP (5/325) TAB PO PRN (15:30)
[2018-10-19] MEDS ORDERED: morphine 2 MG INJ IV PRN (15:30)
[2018-10-19] MEDS: LEVOFLOXACIN 750MG/D5W (PMX) 150 ML IVPB SCH (15:58)
[2018-10-19] MEDS ORDERED: HYDR-3980 PO (17:03)
[2018-10-19] MEDS: FUROSEMIDE 20 MG INJ IV SCH (17:10)
[2018-10-19] MEDS: METHYLPREDNISOLONE 40 MG INJ IV SCH (17:11)
[2018-10-19] MEDS ORDERED: DEXTROSE 50% 50 ML SYRINGE IV PRN ×2 (17:30)
[2018-10-19] MEDS ORDERED: LORAZEPAM 2 MG INJ IV PRN (17:30)
[2018-10-19] MEDS ORDERED: GLUCOSE GEL 15 GRAM TUBE BUCCAL PRN (17:30)
[2018-10-19] MEDS ORDERED: GLUCAGON 1 MG INJ IM PRN (17:30)
[2018-10-19] MEDS ORDERED: GLUCOSE GEL 15 GRAM TUBE PO PRN ×2 (17:30)
[2018-10-19] MEDS: LORAZEPAM 2 MG INJ IV PRN (17:55)
[2018-10-19] MEDS: INSULIN ASPART [NOVOLOG] 3 ML PEN SC SCH ×2 (17:59→20:50)
[2018-10-19] MEDS ORDERED: BUMETANIDE 1 MG INJ IV SCH (18:00)
[2018-10-19] MEDS ORDERED: FUROSEMIDE 40 MG INJ IV SCH (18:00)
[2018-10-19 20:14] VITALS: BP 117/86; PULSE 75; RESP 20
[2018-10-19 20:20] VITALS: PULSE 96
[2018-10-19] MEDS: FERROUS SULFATE (EC) 325 MG TAB PO SCH (20:51)
[2018-10-19] MEDS: morphine 4 MG/ML VIAL IV PRN (23:25)
[2018-10-20] VITALS (8 sets, daily range): BP systolic 114–140; BP diastolic 71–86; PULSE 18–96; RESP 20–21
[2018-10-20] MEDS: ALBUTEROL 0.083% (NEB) 2.5 MG/3 ML AMP HHN SCH ×4 (01:33→19:48)
[2018-10-20] MEDS: METHYLPREDNISOLONE 40 MG INJ IV SCH ×3 (01:50→20:39)
[2018-10-20] MEDS: ACCU-CHEK XX SCH (02:10)
[2018-10-20] MEDS: LORAZEPAM 2 MG INJ IV PRN ×3 (03:14→16:41)
[2018-10-20] MEDS: FUROSEMIDE 20 MG INJ IV SCH ×2 (05:03→17:37)
[2018-10-20] MEDS: morphine 4 MG/ML VIAL IV PRN ×4 (05:03→17:37)
[2018-10-20] MEDS: PANTOPRAZOLE (EC) 40 MG TAB PO SCH (06:05)
[2018-10-20] MEDS: INSULIN ASPART [NOVOLOG] 3 ML PEN SC SCH ×4 (07:40→20:40)
[2018-10-20] MEDS: FLUTICASONE/VILANTEROL 100-25 INH SCH (08:56)
[2018-10-20] MEDS: ISOSORBIDE MONONITRATE(SR)30 MG TAB PO SCH (08:58)
[2018-10-20] MEDS: ESCITALOPRAM 10 MG TAB PO SCH (08:58)
[2018-10-20] MEDS: FERROUS SULFATE (EC) 325 MG TAB PO SCH ×2 (08:58→20:39)
[2018-10-20] MEDS: NIFEdipine (XL) 30 MG TAB PO SCH (08:59)
[2018-10-20] MEDS: ASPIRIN (EC) 81 MG TAB PO SCH (08:59)
[2018-10-20] MEDS: ATENOLOL 50 MG TAB PO SCH (09:00)
[2018-10-20] MEDS ORDERED: BENAZEPRIL 20 MG TAB PO SCH (09:00)
[2018-10-20] MEDS ORDERED: AMLODIPINE 10 MG TAB PO SCH (09:00)
[2018-10-20] MEDS ORDERED: HYDROCHLOROTHIAZIDE 12.5 MG CAP PO SCH (09:00)
[2018-10-20] MEDS: ENOXAPARIN 40 MG/0.4 ML SYG SC SCH (09:05)
--- NOTE | 2018-10-20 11:34 | CONSI ---
Assessment/Plan Assessment/Plan Assessment/Plan (Recall) 43 yo morbidly obese female w/ CHF and other comorbidities, who presents for evaluation following reported recurrent transient LOC in the context of cardiopulmonary Sx.. The clinical picture suggests recurrent syncope...perhaps convulsive type.. Seizure is less likely.. [facility] CT Head was reportedly unrevealing. P: Await EEG to evaluate for epileptiform activity Add Orthostatics Other medical management and supportive care per primary Will follow clinically Consultation Date/Type/Reason Admit Date/Time Oct 19, 2018 at 11:45 Type of Consult Neurology Reason for Consultation ? recurrent LOC Requesting Provider: GISELA CORBIN MD Date/Time of Note DATE: 10/20/18 TIME: 11:26 Hx of Present Illness 43 yo F with PMH Diastolic HF, COPD, morbid obesity, leiomyoma, right knee pain, and diabetes mellitus presented to OSH with syncopal episode. Patient states she was at home with her children and was transferring from bed to commode. She was feeling "off" as if something was wrong and told her daughter to call 911. She lost consciousness and believes she was out for about 2-3 minutes. She states she woke up and remembers asking where her younger son was. She admits to nausea with vomiting following episode but no head trauma. Patient does admit to numbness of her tongue and blood in mouth but no loss of bladder and bowel. She also admits she was noted to be shaking but unsure if she had a seizure. She denies any history of seizures but does state her niece has seizure history. Patient also admits to nasal congestion and productive cough with green sputum for the past week with concerns for pneumonia. Denies any froilan st pain, dizziness, wheezing, palpitations, or abdominal pain. She admits to urinary discomfort with ann in place. Also complaining of issues with her right knee. notes URI Sx, increased peripheral edema Objective Exam Vitals Vital Signs Date Temp Pulse Resp B/P (MAP) Pulse Ox O2 O2 Flow FiO2 Time Delivery Rate 10/20/18 94 4.0 10:57 10/20/18 Nasal 09:00 Cannula 10/20/18 98.2 82 21 124/80 07:39 (95) 10/20/18 40 05:12 Intake and Output 10/19/18 10/19/18 10/20/18 1515:00 23:00 07:00 IntakeIntake Total 600 ml 960 ml OutputOutput Total 1200 ml BalanceBalance 600 ml -240 ml Exam PE: Gen Appearance: No Apparent Distress HEENT: Normocephalic Cardiovascular: Regular rate Abdomen: Obese Extremities: Dry NE: The patient was alert and oriented. Language was normal. Fund of knowledge was normal. Pupils were equal and reactive to light. There was no afferent pupillary defect. Visual carlisle were normal. Funduscopic examination was limited. Extra-ocular movements were full. Ptosis was absent. There was no nystagmus. Facial sensation was normal. Face was symmetric with normal strength. Hearing was intact. Palate movements were normal. Neck strength was normal. There was normal tongue bulk and speed of movement. Tone was normal. Muscle bulk was normal. I did not see fasciculations. Arms and legs were strong. Vibration sensation was normal. Temperature and pinprick sensation was normal. Rapid alternating movements were normal. There was no dysmetria. There was no intention tremor. Gait was deferred due to bedrest. Arm and leg reflexes were symmetric. Roach's sign was absent. Plantar responses were flexor. Results Result Diagram: 10/20/18 0506 10/20/18 0506 Results 24hrs Laboratory Tests Test 10/19/18 13:53 10/19/18 17:56 10/19/18 20:49 10/20/18 05:06 White Blood Count 7.4 # 6.3 Red Blood Count 4.67 4.42 Hemoglobin 13.3 12.8 Hematocrit 44.0 41.6 Mean Corpuscular 94.2 94.1 Volume Mean Corpuscular 28.5 L 29.0 Hemoglobin Mean Corpuscular 30.2 L 30.8 L Hemoglobin Concent Red Cell 17.2 H 16.8 H Distribution Width Platelet Count 213 192 Mean Platelet Volume 11.0 H 11.3 H Immature 0.300 0.500 H Granulocytes % Neutrophils % 62.7 Lymphocytes % 22.8 Monocytes % 11.6 H Eosinophils % 1.9 Basophils % 0.7 Nucleated Red Blood 0.0 0.0 Cells % Immature 0.020 0.030 Granulocytes # Neutrophils # 4.6 Lymphocytes # 1.7 Monocytes # 0.9 Eosinophils # 0.1 Basophils # 0.1 Nucleated Red Blood 0.0 Cells # Sodium Level 139 139 Potassium Level 4.6 4.7 Chloride Level 106 106 Carbon Dioxide Level 25 24 Anion Gap 8 9 Blood Urea Nitrogen 25 H 28 H Creatinine 0.98 0.89 Glucose Level 90 188 Calcium Level 8.4 8.5 Phosphorus Level 4.5 Magnesium Level 2.1 2.0 B-Type Natriuretic 3400 H Peptide Albumin 3.5 3.3 Bedside Glucose 138 112 Est Glomerular > 60 Filtrat Rate mL/min Hemoglobin A1c 6.0 H Total Bilirubin 0.4 Direct Bilirubin 0.00 Indirect Bilirubin 0.4 Aspartate Amino 26 Transf (AST/SGOT) Alanine 25 Aminotransferase (AL T/SGPT) Alkaline Phosphatase 112 Total Protein 7.2 Globulin 3.90 H Albumin/Globulin 0.84 Ratio Test 10/20/18 07:24 10/20/18 11:17 Bedside Glucose 164 173 Past Medical History Medical History: congestive heart failure, diabetes, high cholesterol, hypertension, other (obesity, COPD) Home Meds Active Scripts Escitalopram Oxalate* (Escitalopram Oxalate*) 10 Mg Tablet, 5 MG PO DAILY, #30 TAB Prov:MEGHA GARCIA . 07/14/18 Nifedipine* (Nifedipine ER*) 30 Mg Tablet.sa, 30 MG PO DAILY, #30 TAB.SA 2 [facility]18 Fluticasone-Vilanterol (Breo Ellipta Inhaler) 100-25 Mcg/Actuation Aer.pow.ba, 1 PUFF INHALATION DAILY, #1 INHALER 2 Refills Prov:MEGHA GARCIA . 07/14/18 Isosorbide Mononitrate* (Isosorbide Mononitrate*) 30 Mg Tab.er.24h, 30 MG PO DAILY, #30 TAB 2 Refills Prov:MEGHA GARCIA . 07/14/18 Atenolol* (Atenolol*) 50 Mg Tablet, 50 MG PO DAILY, #30 TAB 2 [facility] 07/14/18 Acetaminophen* (Tylenol*) 325 Mg Tablet, 650 MG PO Q6H PRN for .PAIN 1-3 OR TEMP for 7 Days, TAB Prov:ZIA PERRIN MD 07/04/18 [Nicotine (14 Mg/24 Hr)] 1 PATCH PATCH No Conflict Check, 1 PATCH TRANSDERM DAILY for 10 Days Prov:ZIA PERRIN MD 07/04/18 Furosemide* (Furosemide*) 20 Mg Tablet, 20 MG PO BID, #60 TAB 1 Refill Prov:ELMER DIANE 04/03/18 Ferrous Sulfate* (Ferrous Sulfate*) 325 Mg Tabec, 325 MG PO BID for 30 Days, #60 TAB 2 Refills Prov:MEGHA GARCIA 01/05/18 Albuterol Sulfate* (Ventolin HFA*) 18 Gm Hfa.aer.ad, 2 PUFF INHALATION Q4H, #1 INHALER Prov:VAIBHAV ADAM MD 04/22/17 Reported Medications Hydrocodone/Acetaminophen ([place] 10-325 Tablet) 1 Each Tablet, 1 EACH PO Q4, TAB 10/19/18 Hydrochlorothiazide* (Hydrochlorothiazide*) 12.5 Mg Tablet, 12.5 MG PO DAILY for 30 Days, #30 09/03/18 Amlodipine Besylate* (Amlodipine Besylate*) 10 Mg Tablet, 10 MG PO DAILY for 30 Days, #30 09/03/18 Benazepril Hcl* (Benazepril Hcl*) 20 Mg Tablet, 20 MG PO DAILY for 30 Days, #30 09/03/18 Pantoprazole* (Pantoprazole*) 40 Mg Tablet.dr, 40 MG PO AC BREAKFAST, TAB 08/31/17 Aspirin* (Aspirin* EC) 81 Mg Tablet.dr, 81 MG PO DAILY, TAB 08/31/17 Metformin* (Glucophage*) 500 Mg Tab, 500 MG PO WITH BREAKFAST DINNE, #30 TAB 08/31/17 Albuterol Sulfate* (Albuterol Sulfate* Neb) 0.083%-3 Ml Neb, 1.25 MG NEB Q4H, #30 VIAL 08/31/17 Medications Current Medications Aspirin (Halfprin) 81 mg DAILY PO Last administered on 10/20/18at 08:59; Admin D ose 81 MG; Start 10/20/18 at 09:00 Atenolol (Tenormin) 50 mg DAILY PO Last administered on 10/20/18at 09:00; Admin Dose 50 MG; Start 10/20/18 at 09:00 Escitalopram Oxalate (Lexapro) 5 mg DAILY PO Last administered on 10/20/18at 08:58; Admin Dose 5 MG; Start 10/20/18 at 09:00 Ferrous Sulfate (Ferrous Sulfate (Ec)) 325 mg BID PO Last administered on 10/20/18at 08:58; Admin Dose 325 MG; Start 10/19/18 at 21:00 Fluticasone/ Vilanterol (Breo Ellipta 100-25 Mcg Inh) 1 inh DAILY INH Last administered on 10/20/18at 08:56; Admin Dose 1 INH; Start 10/20/18 at 09:00 Nifedipine (Procardia Xl) 30 mg DAILY PO Last administered on 10/20/18at 08:59; Admin Dose 30 MG; Start 10/20/18 at 09:00 Pantoprazole (Protonix Tab) 40 mg AC BREAKFAST PO Last administered on 10/20/18at 06:05; Admin Dose 40 MG; Start 10/20/18 at 07:00 IV Flush (NS 3 ml) 3 ml PER PROTOCOL IV ; Start 10/19/18 at 13:30 Ondansetron HCl (Zofran Inj) 4 mg Q6H PRN IV NAUSEA/VOMITING; Start 10/19/18 at 13:30 Nitroglycerin (Nitroglycerin (Sl Tab) 0.4 Mg) 1 tab Q5M PRN SL .CHEST PAIN; Start 10/19/18 at 13:30 Acetaminophen (Tylenol Tab) 650 mg Q6H PRN PO .PAIN 1-3 OR TEMP; Start 10/19/18 at 13:30 Docusate Sodium (Colace) 100 mg Q12H PRN PO .CONSTIPATION; Start 10/19/18 at 13:30 Magnesium Hydroxide (Milk Of Mag) 30 ml DAILY PRN PO .CONSTIPATION; Start 10/19/18 at 13:30 Enoxaparin Sodium (Lovenox) 40 mg DAILY SC Last administered on 10/20/18at 09:05; Admin Dose 40 MG; Start 10/20/18 at 09:00 Albuterol (Proventil 0.083% (Neb)) 2.5 mg Q2H RESP THERAPY PRN HHN SHORTNESS OF BREATH; Start 10/19/18 at 15:00 Albuterol (Proventil 0.083% (Neb)) 2.5 mg Q6H RESP THERAPY HHN Last administered on 10/20/18at 10:45; Admin Dose 2.5 MG; Start 10/19/18 at 15:00 Isosorbide Mononitrate (Imdur) 30 mg DAILY PO Last administered on 10/20/18 08 :58; Admin Dose 30 MG; Start 10/20/18 at 09:00 Furosemide (Lasix) 20 mg BID DIURETICS IV Last administered on 10/20/18 05:03; Admin Dose 20 MG; Start 10/19/18 at 18:00 Lorazepam (Ativan) 1 mg Q6H PRN IV anxiety Last administered on 10/20/18 10:11; Admin Dose 1 MG; Start 10/19/18 at 15:30 Acetaminophen/ Hydrocodone Bitart ([place] (5/325)) 1 tab Q6H PRN PO MODERATE PAIN LEVEL 4-6; Start 10/19/18 at 15:30 Acetaminophen/ Hydrocodone Bitart ([place] (10/325)) 1 tab Q6H PRN PO MODERATE PAIN LEVEL 4-6 Last administered on 10/20/18 01:51; Admin Dose 1 TAB; Start 10/19/18 at 15:30 Methylprednisolone Sodium Succinate (Solu-Medrol) 40 mg Q12 IV Last administered on 10/20/18 08:56; Admin Dose 40 MG; Start 10/19/18 at 16:00 Levofloxacin/ Dextrose 150 ml @ 100 mls/hr Q24H IVPB Last administered on 10/19/18 15:58; Admin Dose 100 MLS/HR; Start 10/19/18 at 16:00 Morphine Sulfate (morphine) 3 mg Q4H PRN IV SEVERE PAIN LEVEL 7-10 Last administered on 10/20/18 08:57; Admin Dose 3 MG; Start 10/19/18 at 19:30 Diagnostic Test (Pha) (Accu-Chek) 1 ea 02 XX Last administered on 10/20/18 02:10; Admin Dose 1 EA; Start 10/20/18 at 02:00 Insulin Aspart (Novolog Insulin Pen) NOVOLOG *MILD* ALGORITHM WITH MEALS BEDTIME SC Last administered on 10/20/18 07:40; Admin Dose 1 UNIT; Start 10/19/18 at 18:30 Miscellaneous Information 1 ea NOTE XX ; Start 10/19/18 at 17:30 Glucose (Glutose) 15 gm Q15M PRN PO DECREASED GLUCOSE; Start 6/26/19 at 17:30 Glucose (Glutose) 22.5 gm Q15M PRN PO DECREASED GLUCOSE; Start 10/19/18 at 17:30 Dextrose (D50w Syringe) 25 ml Q15M PRN IV DECREASED GLUCOSE; Start 10/19/18 at 17:30 Dextrose (D50w Syringe) 50 ml Q15M PRN IV DECREASED GLUCOSE; Start 10/19/18 at 17:30 Glucagon (Glucagen) 1 mg Q15M PRN IM DECREASED GLUCOSE; Start 10/19/18 at 17:30 Glucose (Glutose) 15 gm Q15M PRN BUCCAL DECREASED GLUCOSE; Start 10/19/18 at 17:30 Lorazepam (Ativan) 1 mg Q10MIN PRN IV seizures; Start 10/19/18 at 17:30 Allergies: Coded Allergies: Penicillins (Unverified Allergy, Unknown, 09/03/18) blueberry (Unverified Allergy, Unknown, 09/03/18) Past Surgical History Past Surgical Hx: cholecystectomy, other Social History Alcohol Use: rarely Smoking Status: Current every day smoker Drug Use: none RUSLAN VILLASENOR Oct 20, 2018 11:34
[2018-10-20] MEDS: GUAIFENESIN/CODEINE 5ML CUP PO PRN ×2 (12:59→20:39)
[2018-10-20] MEDS: LEVOFLOXACIN 750MG/D5W (PMX) 150 ML IVPB SCH (15:29)
--- NOTE | 2018-10-20 16:25 | PN ---
Date/Time of Note Date/Time of Note DATE: 10/20/18 TIME: 16:14 Assessment/Plan VTE Prophylaxis Risk score (from Ns)>0 risk: 6 SCD applied (from Ns): No SCD contraindicated: other Pharmacological prophylaxis: LMWH Lines/Catheters IV Catheter Type (from Nrs): Saline Lock Urinary Cath still in place: Yes Reason Cath still needed: urinary retention Assessment/Plan Assessment/Plan 1. Acute syncopal episode - patient states shes feeling better - Neurology consultation appreciated and will wait EEG. check orthostatic vitals - CT head from OSH showed no acute ICH. questionable low density in right frontal lobe 1.9x1.9cm. unable to follow up with MRI given patients size - Ativan PRN 2. Acute on chronic diastolic HF - BNP elevated - will monitor I/O and daily weights - lasix BID 3. COPD exacerbation - will start Nebs, IV antibiotics and steroids - monitor for improvement 4. DM - A1c from 08/2018 noted - ISS and accuchecks - holding Metformin 5. morbid obesity - lifestyle modifications advised 6. HTN - continue home medications and will adjust as needed 7. Right knee pain - PT/OT - pain control 8. Disposition - awaiting EEG results - patient requesting electric scooter/wheelchair, CPAP machine, and glucometer. CM consulted Result Diagram: 10/20/18 0506 10/20/18 0506 Results 24hrs Laboratory Tests Test 10/19/18 17:56 10/19/18 20:49 10/20/18 05:06 10/20/18 07:24 Bedside Glucose 138 112 164 White Blood Count 6.3 Red Blood Count 4.42 Hemoglobin 12.8 Hematocrit 41.6 Mean Corpuscular 94.1 Volume Mean Corpuscular 29.0 Hemoglobin Mean Corpuscular 30.8 L Hemoglobin Concent Red Cell 16.8 H Distribution Width Platelet Count 192 Mean Platelet Volume 11.3 H Immature 0.500 H Granulocytes % Neutrophils % Segmented 82 H Neutrophils % (Manual) Band Neutrophils % 8 H (Manual) Lymphocytes % Lymphocytes % 7 L (Manual) Reactive Lymphocytes 1 H % (Manual) Monocytes % Monocytes % (Manual) 2 Eosinophils % Basophils % Nucleated Red Blood 0.0 Cells % Immature 0.030 Granulocytes # Neutrophils # Neutrophils # 5.2 (Manual) Band Neutrophils # 0.5 Lymphocytes (Manual) 0.4 L Lymphocytes # Reactive Lymphocytes 0.0 # Monocytes # Monocytes # (Manual) 0.1 L Eosinophils # Basophils # Nucleated Red Blood Cells # Platelet Estimate NORMAL Giant Platelets 5 H Polychromasia 1+ Poikilocytosis 3+ Anisocytosis 1+ Macrocytosis 1+ Target Cells 1+ Sodium Level 139 Potassium Level 4.7 Chloride Level 106 Carbon Dioxide Level 24 Anion Gap 9 Blood Urea Nitrogen 28 H Creatinine 0.89 Est Glomerular > 60 Filtrat Rate mL/min Glucose Level 188 Hemoglobin A1c 6.0 H Calcium Level 8.5 Magnesium Level 2.0 Total Bilirubin 0.4 Direct Bilirubin 0.00 Indirect Bilirubin 0.4 Aspartate Amino 26 Transf (AST/SGOT) Alanine 25 Aminotransferase (AL T/SGPT) Alkaline Phosphatase 112 Total Protein 7.2 Albumin 3.3 Globulin 3.90 H Albumin/Globulin 0.84 Ratio Test 10/20/18 11:17 Bedside Glucose 173 Subjective 24 Hr Interval Summary Free Text/Dictation Patient states shes feeling better and has multiple DME requests for outpatient. Did complain of feeling dizzy prior to standing up but admits to getting ativan or morphine prior to the episode. Exam/Review of Systems Exam Vitals Vital Signs Date Temp Pulse Resp B/P (MAP) Pulse Ox O2 O2 Flow FiO2 Time Delivery Rate 10/20/18 97.4 92 20 114/76 94 Nasal 15:25 (89) Cannula 10/20/18 4.0 10:57 10/20/18 40 05:12 Intake and Output 10/19/18 10/19/18 10/20/18 1414:59 22:59 06:59 IntakeIntake Total 600 ml 960 ml OutputOutput Total 1200 ml BalanceBalance 600 ml -240 ml Exam General: Patient is a pleasant female, morbidly obese, no acute distress Neck: Supple Chest: Nontender Lungs: distant breath sounds, no wheezing Heart: Normal S1-S2, Regular rhythm and rate. No murmur, S3, or S4 Abdomen: Soft , nontender, nondistended , bowel sounds are present. No guarding no rebound tenderness Extremities: no edema, cyanosis, or clubbing. moving all extremities Neurologic: Normal mental status, speech normal, cranial nerves II through XII are intact, motor and sensory are intact, Results Results 24hrs Laboratory Tests Test 10/19/18 17:56 10/19/18 20:49 10/20/18 05:06 10/20/18 07:24 Bedside Glucose 138 112 164 White Blood Count 6.3 Red Blood Count 4.42 Hemoglobin 12.8 Hematocrit 41.6 Mean Corpuscular 94.1 Volume Mean Corpuscular 29.0 Hemoglobin Mean Corpuscular 30.8 L Hemoglobin Concent Red Cell 16.8 H Distribution Width Platelet Count 192 Mean Platelet Volume 11.3 H Immature 0.500 H Granulocytes % Neutrophils % Segmented 82 H Neutrophils % (Manual) Band Neutrophils % 8 H (Manual) Lymphocytes % Lymphocytes % 7 L (Manual) Reactive Lymphocytes 1 H % (Manual) Monocytes % Monocytes % (Manual) 2 Eosinophils % Basophils % Nucleated Red Blood 0.0 Cells % Immature 0.030 Granulocytes # Neutrophils # Neutrophils # 5.2 (Manual) Band Neutrophils # 0.5 Lymphocytes (Manual) 0.4 L Lymphocytes # Reactive Lymphocytes 0.0 # Monocytes # Monocytes # (Manual) 0.1 L Eosinophils # Basophils # Nucleated Red Blood Cells # Platelet Estimate NORMAL Giant Platelets 5 H Polychromasia 1+ Poikilocytosis 3+ Anisocytosis 1+ Macrocytosis 1+ Target Cells 1+ Sodium Level 139 Potassium Level 4.7 Chloride Level 106 Carbon Dioxide Level 24 Anion Gap 9 Blood Urea Nitrogen 28 H Creatinine 0.89 Est Glomerular > 60 Filtrat Rate mL/min Glucose Level 188 Hemoglobin A1c 6.0 H Calcium Level 8.5 Magnesium Level 2.0 Total Bilirubin 0.4 Direct Bilirubin 0.00 Indirect Bilirubin 0.4 Aspartate Amino 26 Transf (AST/SGOT) Alanine 25 Aminotransferase (AL T/SGPT) Alkaline Phosphatase 112 Total Protein 7.2 Albumin 3.3 Globulin 3.90 H Albumin/Globulin 0.84 Ratio Test 10/20/18 11:17 Bedside Glucose 173 Medications Medication Current Medications Aspirin (Halfprin) 81 mg DAILY PO Last administered on 10/20/18at 08:59; Admin Dose 81 MG; Start 10/20/18 at 09:00 Atenolol (Tenormin) 50 mg DAILY PO Last administered on 10/20/18at 09:00; Admin Dose 50 MG; Start 10/20/18 at 09:00 Escitalopram Oxalate (Lexapro) 5 mg DAILY PO Last administered on 10/20/18at 08:58; Admin Dose 5 MG; Start 10/20/18 at 09:00 Ferrous Sulfate (Ferrous Sulfate (Ec)) 325 mg BID PO Last administered on at 08:58; Admin Dose 325 MG; Start 10/19/18 at 21:00 Fluticasone/ Vilanterol (Breo Ellipta 100-25 Mcg Inh) 1 inh DAILY INH Last administered on 10/20/18at 08:56; Admin Dose 1 INH; Start 10/20/18 at 09:00 Nifedipine (Procardia Xl) 30 mg DAILY PO Last administered on 10/20/18at 08:59; Admin Dose 30 MG; Start 10/20/18 at 09:00 Pantoprazole (Protonix Tab) 40 mg AC BREAKFAST PO Last administered on 10/20/18at 06:05; Admin Dose 40 MG; Start 10/20/18 at 07:00 IV Flush (NS 3 ml) 3 ml PER PROTOCOL IV ; Start 10/19/18 at 13:30 Ondansetron HCl (Zofran Inj) 4 mg Q6H PRN IV NAUSEA/VOMITING; Start 10/19/18 at 13:30 Nitroglycerin (Nitroglycerin (Sl Tab) 0.4 Mg) 1 tab Q5M PRN SL .CHEST PAIN; Start 10/19/18 at 13:30 Acetaminophen (Tylenol Tab) 650 mg Q6H PRN PO .PAIN 1-3 OR TEMP; Start 10/19/18 at 13:30 Docusate Sodium (Colace) 100 mg Q12H PRN PO .CONSTIPATION; Start 10/19/18 at 13:30 Magnesium Hydroxide (Milk Of Mag) 30 ml DAILY PRN PO .CONSTIPATION; Start 10/19/18 at 13:30 Enoxaparin Sodium (Lovenox) 40 mg DAILY SC Last administered on 10/20/18at 09:05; Admin Dose 40 MG; Start 10/20/18 at 09:00 Albuterol (Proventil 0.083% (Neb)) 2.5 mg Q2H RESP THERAPY PRN HHN SHORTNESS OF BREATH; Start 10/19/18 at 15:00 Albuterol (Proventil 0.083% (Neb)) 2.5 mg Q6H RESP THERAPY HHN Last administered on 10/20/18at 14:52; Admin Dose 2.5 MG; Start 10/19/18 at 15:00 Isosorbide Mononitrate (Imdur) 30 mg DAILY PO Last administered on 10/20/18 08:58; Admin Dose 30 MG; Start 10/20/18 at 09:00 Furosemide (Lasix) 20 mg BID DIURETICS IV Last administered on 10/20/18 05:03; Admin Dose 20 MG; Start 10/19/18 at 18:00 Lorazepam (Ativan) 1 mg Q6H PRN IV anxiety Last administered on 10/20/18 10:11; Admin Dose 1 MG; Start 10/19/18 at 15:30 Acetaminophen/ Hydrocodone Bitart ([place] (5/325)) 1 tab Q6H PRN PO MODERATE PAIN LEVEL 4-6; Start 10/19/18 at 15:30 Acetaminophen/ Hydrocodone Bitart ([place] (10/325)) 1 tab Q6H PRN PO MODERATE PAIN LEVEL 4-6 Last administered on 10/20/18 01:51; Admin Dose 1 TAB; Start 10/19/18 at 15:30 Methylprednisolone Sodium Succinate (Solu-Medrol) 40 mg Q12 IV Last adm inistered on 10/20/18 08:56; Admin Dose 40 MG; Start 10/19/18 at 16:00 Levofloxacin/ Dextrose 150 ml @ 100 mls/hr Q24H IVPB Last administered on 10/20/18 15:29; Admin Dose 100 MLS/HR; Start 10/19/18 at 16:00 Morphine Sulfate (morphine) 3 mg Q4H PRN IV SEVERE PAIN LEVEL 7-10 Last administered on 10/20/18 13:01; Admin Dose 3 MG; Start 10/19/18 at 19:30 Diagnostic Test (Pha) (Accu-Chek) 1 ea 02 XX Last administered on 10/20/18 02:10; Admin Dose 1 EA; Start 10/20/18 at 02:00 Insulin Aspart (Novolog Insulin Pen) NOVOLOG *MILD* ALGORITHM WITH MEALS BEDTIME SC Last administered on 10/20/18 16:13; Admin Dose 1 UNIT; Start 10/19/18 at 18:30 Miscellaneous Information 1 ea NOTE XX ; Start 10/19/18 at 17:30 Glucose (Glutose) 15 gm Q15M PRN PO DECREASED GLUCOSE; Start 10/19/18 at 17:30 Glucose (Glutose) 22.5 gm Q15M PRN PO DECREASED GLUCOSE; Start 10/19/18 at 17:30 Dextrose (D50w Syringe) 25 ml Q15M PRN IV DECREASED GLUCOSE; Start 10/19/18 at 17:30 Dextrose (D50w Syringe) 50 ml Q15M PRN IV DECREASED GLUCOSE; Start 10/19/18 at 17:30 Glucagon (Glucagen) 1 mg Q15M PRN IM DECREASED GLUCOSE; Start 10/19/18 at 17:30 Glucose (Glutose) 15 gm Q15M PRN BUCCAL DECREASED GLUCOSE; Start 10/19/18 at 17:30 Lorazepam (Ativan) 1 mg Q10MIN PRN IV seizures; Start 10/19/18 at 17:30 Guaifenesin/ Codeine Phosphate (Robitussin Ac Liquid Cup) 10 ml Q4H PRN PO cough Last administered on 10/20/18at 12:59; Admin Dose 10 ML; Start 10/20/18 at 12:30 GISELA CORBIN MD Oct 20, 2018 16:25
[2018-10-21 00:06] VITALS: BP 121/77; PULSE 82; RESP 20
[2018-10-21] MEDS: morphine 4 MG/ML VIAL IV PRN ×3 (00:09→08:46)
[2018-10-21] MEDS: ACCU-CHEK XX SCH (01:10)
[2018-10-21] MEDS: LORAZEPAM 2 MG INJ IV PRN ×2 (01:10→11:28)
[2018-10-21] MEDS: ALBUTEROL 0.083% (NEB) 2.5 MG/3 ML AMP HHN SCH ×3 (01:31→13:14)
[2018-10-21 04:26] VITALS: BP 116/76; PULSE 82; RESP 20
[2018-10-21] MEDS: FUROSEMIDE 20 MG INJ IV SCH (05:03)
[2018-10-21] MEDS: PANTOPRAZOLE (EC) 40 MG TAB PO SCH (05:03)
--- NOTE | 2018-10-21 06:40 | EEG ---
EEG NOTE Report Details DATE OF TEST: 10/19/2018 HISTORY: The patient is a 43-year-old F who presents following recurrent LOC. This EEG is requested to evaluate for an epileptic disorder. SEDATION: None. CONDITIONS OF RECORDING: This EEG was recorded digitally on the [employer] machine, using the International 10-20 System of electrodes plus anterior temporals and [place]. STATES SAMPLED: Lethargic. FINDINGS: The background is grossly symmetric and continuous...predominated by polymorphic slow activity. The normal [id number] frequency-amplitude gradient was absent. Photic stimulation does not elicit any definite driving responses or epileptiform discharges. Hyperventilation was not performed. The patient became drowsy but did not pass into sleep. No asymmetries, focal abnormalities or epileptiform discharges were seen. IMPRESSION: Abnormal electroencephalogram due to: diffuse slowing. COMMENT: The slowing of the background indicates diffuse cortical dysfunction of nonspecific etiology. RUSLAN VILLASENOR Oct 21, 2018 06:40
[2018-10-21 07:16] VITALS: BP 117/79; RESP 23
[2018-10-21] MEDS: INSULIN ASPART [NOVOLOG] 3 ML PEN SC SCH ×2 (08:00→12:00)
[2018-10-21] MEDS: METHYLPREDNISOLONE 40 MG INJ IV SCH (08:46)
[2018-10-21] MEDS: ESCITALOPRAM 10 MG TAB PO SCH (08:47)
[2018-10-21] MEDS: ISOSORBIDE MONONITRATE(SR)30 MG TAB PO SCH (08:48)
[2018-10-21] MEDS: FERROUS SULFATE (EC) 325 MG TAB PO SCH (08:48)
[2018-10-21] MEDS: ASPIRIN (EC) 81 MG TAB PO SCH (08:49)
[2018-10-21] MEDS: NIFEdipine (XL) 30 MG TAB PO SCH (08:49)
[2018-10-21] MEDS: ATENOLOL 50 MG TAB PO SCH (08:49)
[2018-10-21] MEDS: ENOXAPARIN 40 MG/0.4 ML SYG SC SCH (08:57)
[2018-10-21] MEDS ORDERED: NICOTINE (21 MG/24 HR) PATCH TRANSDERM SCH (09:00)
[2018-10-21] MEDS: FLUTICASONE/VILANTEROL 100-25 INH SCH (09:02)
--- NOTE | 2018-10-21 11:15 | CONS ---
Assessment/Plan Assessment/Plan Assessment/Plan (Recall) 43 yo morbidly obese female w/ CHF and other comorbidities, who presents for evaluation following reported recurrent transient LOC in the context of cardiopulmonary Sx.. The clinical picture suggests recurrent syncope...perhaps convulsive type.. Seizure is less likely.. [facility] CT Head was reportedly unrevealing. EEG is without epileptiform activity. P: [facility] Continued medical management and supportive care per primary Will follow clinically Consultation Date/Type/Reason Admit Date/Time Oct 19, 2018 at 11:45 Type of Consult Neurology Reason for Consultation ? recurrent LOC Requesting Provider: GISELA CORBIN MD Date/Time of Note DATE: 10/21/18 TIME: 11:14 24 HR Interval Summary Free Text/Dictation s/p EEG Exam/Review of Systems Exam Vitals Vital Signs Date Temp Pulse Resp B/P (MAP) Pulse Ox O2 O2 Flow FiO2 Time Delivery Rate 10/21/18 Nasal 3.0 08:00 Cannula 10/21/18 95 07:47 10/21/18 81 07:47 10/21/18 98.0 23 117/79 07:16 (92) 10/20/18 40 05:12 Intake and Output 10/20/18 10/20/18 10/21/18 1515:00 23:00 07:00 IntakeIntake Total 1300 ml 850 ml OutputOutput Total 1000 ml BalanceBalance 1300 ml -150 ml Results Result Diagram: 10/20/18 0506 10/20/18 0506 Results 24hrs Laboratory Tests Test 10/20/18 11:17 10/20/18 16:08 10/20/18 20:38 10/21/18 02:52 Bedside Glucose 173 152 146 127 Test 10/21/18 08:02 Bedside Glucose 142 Medications Medication Current Medications Aspirin (Halfprin) 81 mg DAILY PO Last administered on 10/21/18at 08:49; Admin Dose 81 MG; Start 10/20/18 at 09:00 Atenolol (Tenormin) 50 mg DAILY PO Last administered on 10/21/18at 08:49; Admin Dose 50 MG; Start 10/20/18 at 09:00 Escitalopram Oxalate (Lexapro) 5 mg DAILY PO Last administered on 10/21/18at 08:47; Admin Dose 5 MG; Start 10/20/18 at 09:00 Ferrous Sulfate (Ferrous Sulfate (Ec)) 325 mg BID PO Last administered on 10/21/18 08:48; Admin Dose 325 MG; Start 10/19/18 at 21:00 Fluticasone/ Vilanterol (Breo Ellipta 100-25 Mcg Inh) 1 inh DAILY INH Last administered on 10/21/18 09:02; Admin Dose 1 INH; Start 10/20/18 at 09:00 Nifedipine (Procardia Xl) 30 mg DAILY PO Last administered on 10/21/18at 08:49; Admin Dose 30 MG; Start 10/20/18 at 09:00 Pantoprazole (Protonix Tab) 40 mg AC BREAKFAST PO Last administered on 10/21/18at 05:03; Admin Dose 40 MG; Start 10/20/18 at 07:00 IV Flush (NS 3 ml) 3 ml PER PROTOCOL IV ; Start 10/19/18 at 13:30 Ondansetron HCl (Zofran Inj) 4 mg Q6H PRN IV NAUSEA/VOMITING; Start 10/19/18 at 13:30 Nitroglycerin (Nitroglycerin (Sl Tab) 0.4 Mg) 1 tab Q5M PRN SL .CHEST PAIN; Start 10/19/18 at 13:30 Acetaminophen (Tylenol Tab) 650 mg Q6H PRN PO .PAIN 1-3 OR TEMP; Start 10/19/18 at 13:30 Docusate Sodium (Colace) 100 mg Q12H PRN PO .CONSTIPATION; Start 10/19/18 at 13:30 Magnesium Hydroxide (Milk Of Mag) 30 ml DAILY PRN PO .CONSTIPATION; Start 10/19/18 at 13:30 Enoxaparin Sodium (Lovenox) 40 mg DAILY SC Last administered on 10/21/18at 08:57; Admin Dose 40 MG; Start 10/20/18 at 09:00 Albuterol (Proventil 0.083% (Neb)) 2.5 mg Q2H RESP THERAPY PRN HHN SHORTNESS OF BREATH; Start 10/19/18 at 15:00 Albuterol (Proventil 0.083% (Neb)) 2.5 mg Q6H RESP THERAPY HHN Last administered on 10/21/18at 07:46; Admin Dose 2.5 MG; Start 10/19/18 at 15:00 Isosorbide Mononitrate (Imdur) 30 mg DAILY PO Last administered on 10/21/18 08:48; Admin Dose 30 MG; Start 10/20/18 at 09:00 Furosemide (Lasix) 20 mg BID DIURETICS IV Last administered on 10/21/18 05:03; Admin Dose 20 MG; Start 10/19/18 at 18:00 Lorazepam (Ativan) 1 mg Q6H PRN IV anxiety Last administered on 10/21/18 01:10; Admin Dose 1 MG; Start 10/19/18 at 15:30 Acetaminophen/ Hydrocodone Bitart ([place] (5/325)) 1 tab Q6H PRN PO MODERATE PAIN LEVEL 4-6; Start 10/19/18 at 15:30 Acetaminophen/ Hydrocodone Bitart ([place] (10/325)) 1 tab Q6H PRN PO MODERATE PAIN LEVEL 4-6 Last administered on 10/20/18 01:51; Admin Dose 1 TAB; Start 10/19/18 at 15:30 Methylprednisolone Sodium Succinate (Solu-Medrol) 40 mg Q12 IV Last administered on 10/21/18 08:46; Admin Dose 40 MG; Start 10/19/18 at 16:00 Levofloxacin/ Dextrose 150 ml @ 100 mls/hr Q24H IVPB Last administered on 10/20/18 15:29; Admin Dose 100 MLS/HR; Start 10/19/18 at 16:00 Morphine Sulfate (morphine) 3 mg Q4H PRN IV SEVERE PAIN LEVEL 7-10 Last administered on 10/21/18 08:46; Admin Dose 3 MG; Start 10/19/18 at 19:30 Diagnostic Test (Pha) (Accu-Chek) 1 ea 02 XX Last administered on 10/20/18 02:10; Admin Dose 1 EA; Start 10/20/18 at 02:00 Insulin Aspart (Novolog Insulin Pen) NOVOLOG *MILD* ALGORITHM WITH MEALS BEDTIME SC Last administered on 10/20/18 16:13; Admin Dose 1 UNIT; Start 10/19/18 at 18:30 Miscellaneous Information 1 ea NOTE XX ; Start 10/19/18 at 17:30 Glucose (Glutose) 15 gm Q15M PRN PO DECREASED GLUCOSE; Start 10/19/18 at 17:30 Glucose (Glutose) 22.5 gm Q15M PRN PO DECREASED GLUCOSE; Start 10/19/18 at 17:30 Dextrose (D50w Syringe) 25 ml Q15M PRN IV DECREASED GLUCOSE; Start 10/19/18 at 17:30 Dextrose (D50w Syringe) 50 ml Q15M PRN IV DECREASED GLUCOSE; Start 10/19/18 at 17:30 Glucagon (Glucagen) 1 mg Q15M PRN IM DECREASED GLUCOSE; Start 10/19/18 at 17:30 Glucose (Glutose) 15 gm Q15M PRN BUCCAL DECREASED GLUCOSE; Start 10/19/18 at 17:30 Lorazepam (Ativan) 1 mg Q10MIN PRN IV seizures; Start 10/19/18 at 17:30 Guaifenesin/ Codeine Phosphate (Robitussin Ac Liquid Cup) 10 ml Q4H PRN PO cough Last administered on 10/20/18at 20:39; Admin Dose 10 ML; Start 10/20/18 at 12:30 Nicotine (Nicoderm 21 Mg/ 24hr) 1 patch DAILY TRANSDERM Last administered on 10/21/18at 08:50; Admin Dose 1 PATCH; Start 10/21/18 at 09:00 RUSLAN VILLASENOR Oct 21, 2018 11:15
[2018-10-21 11:25] VITALS: BP 131/81; PULSE 83; RESP 22
--- NOTE | 2018-10-21 14:26 | PN ---
Date/Time of Note Date/Time of Note DATE: 10/21/18 TIME: 14:21 Assessment/Plan VTE Prophylaxis Risk score (from Nsg)>0 risk: 4 SCD applied (from Nsg): Yes Pharmacological prophylaxis: LMWH Lines/Catheters IV Catheter Type (from Nrsg): Saline Lock Urinary Cath still in place: No Assessment/Plan Assessment/Plan 1. Acute syncopal episode- resolved - patient states shes feeling better - Neurology consultation appreciated and EEG negative for acute seizure activity - CT head from OSH showed no acute ICH. questionable low density in right frontal lobe 1.9x1.9cm. unable to follow up with MRI given patients size. will need to follow up as outpatient - Ativan PRN 2. Acute on chronic diastolic HF- stable - BNP elevated - will monitor I/O and daily weights - lasix BID 3. COPD exacerbation - will d/c on steroid taper and antibiotics - monitor for improvement 4. DM - A1c from 08/2018 noted - ISS and accuchecks - holding Metformin 5. morbid obesity - lifestyle modifications advised 6. HTN - continue home medications and will adjust as needed 7. Right knee pain - PT/OT - pain control 8. Disposition - Medically stable for discharge home Result Diagram: 10/20/18 0506 10/20/18 0506 Results 24hrs Laboratory Tests Test 10/20/18 16:08 10/20/18 20:38 10/21/18 02:52 10/21/18 08:02 Bedside Glucose 152 146 127 142 Test 10/21/18 11:56 Bedside Glucose 117 Subjective 24 Hr Interval Summary Free Text/Dictation Patient with no further syncopal episodes or seizure activity. Denies any new complaints. Exam/Review of Systems Exam Vitals Vital Signs Date Temp Pulse Resp B/P (MAP) Pulse Ox O2 O2 Flow FiO2 Time Delivery Rate 10/21/18 76 96 Nasal 2.0 13:14 Cannula 10/21/18 97.6 22 131/81 11:25 (98) 10/20/18 40 05:12 Intake and Output 10/20/18 10/20/18 10/21/18 1515:00 23:00 07:00 IntakeIntake Total 1300 ml 850 ml OutputOutput Total 1000 ml BalanceBalance 1300 ml -150 ml Exam General: Patient is a pleasant female, morbidly obese, no acute distress Neck: Supple Lungs: distant breath sounds, no wheezing Heart: Normal S1-S2, Regular rhythm and rate. No murmur, S3, or S4 Abdomen: Soft , nontender, nondistended , bowel sounds are present. No guarding no rebound tenderness Extremities: no edema, cyanosis, or clubbing. moving all extremities Neurologic: Normal mental status, speech normal, cranial nerves II through XII are intact, motor and sensory are intact, Results Results 24hrs Laboratory Tests Test 10/20/18 16:08 10/20/18 20:38 10/21/18 02:52 10/21/18 08:02 Bedside Glucose 152 146 127 142 Test 10/21/18 11:56 Bedside Glucose 117 Medications Medication Current Medications Aspirin (Halfprin) 81 mg DAILY PO Last administered on 10/21/18 08:49; Admin Dose 81 MG; Start 10/20/18 at 09:00 Atenolol (Tenormin) 50 mg DAILY PO Last administered on 10/21/18 08:49; Admin Dose 50 MG; Start 10/20/18 at 09:00 Escitalopram Oxalate (Lexapro) 5 mg DAILY PO Last administered on 10/21/18 08:47; Admin Dose 5 MG; Start 10/20/18 at 09:00 Ferrous Sulfate (Ferrous Sulfate (Ec)) 325 mg BID PO Last administered on 10/21/18 08:48; Admin Dose 325 MG; Start 10/19/18 at 21:00 Fluticasone/ Vilanterol (Breo Ellipta 100-25 Mcg Inh) 1 inh DAILY INH Last administered on 10/21/18 09:02; Admin Dose 1 INH; Start 10/20/18 at 09:00 Nifedipine (Procardia Xl) 30 mg DAILY PO Last administered on 10/21/18 08:49; Admin Dose 30 MG; Start 10/20/18 at 09:00 Pantoprazole (Protonix Tab) 40 mg AC BREAKFAST PO Last administered on 10/21/18 05:03; Admin Dose 40 MG; Start 10/20/18 at 07:00 IV Flush (NS 3 ml) 3 ml PER PROTOCOL IV ; Start 10/19/18 at 13:30 Ondansetron HCl (Zofran Inj) 4 mg Q6H PRN IV NAUSEA/VOMITING; Start 10/19/18 at 13:30 Nitroglycerin (Nitroglycerin (Sl Tab) 0.4 Mg) 1 tab Q5M PRN SL .CHEST PAIN; Start 10/19/18 at 13:30 Acetaminophen (Tylenol Tab) 650 mg Q6H PRN PO .PAIN 1-3 OR TEMP; Start 10/19/18 at 13:30 Docusate Sodium (Colace) 100 mg Q12H PRN PO .CONSTIPATION; Start 10/19/18 at 13:30 Magnesium Hydroxide (Milk Of Mag) 30 ml DAILY PRN PO .CONSTIPATION; Start 10/19/18 at 13:30 Enoxaparin Sodium (Lovenox) 40 mg DAILY SC Last administered on 10/21/18at 08:57; Admin Dose 40 MG; Start 10/20/18 at 09:00 Albuterol (Proventil 0.083% (Neb)) 2.5 mg Q2H RESP THERAPY PRN HHN SHORTNESS OF BREATH; Start 10/19/18 at 15:00 Albuterol (Proventil 0.083% (Neb)) 2.5 mg Q6H RESP THERAPY HHN Last administered on 10/21/18at 13:14; Admin Dose 2.5 MG; Start 10/19/18 at 15:00 Isosorbide Mononitrate (Imdur) 30 mg DAILY PO Last administered on 10/21/18at 08:48; Admin Dose 30 MG; Start 10/20/18 at 09:00 Furosemide (Lasix) 20 mg BID DIURETICS IV Last administered on 10/21/18at 05:03; Admin Dose 20 MG; Start 10/19/18 at 18:00 Lorazepam (Ativan) 1 mg Q6H PRN IV anxiety Last administered on 10/21/18at 11:28; Admin Dose 1 MG; Start 10/19/18 at 15:30 Acetaminophen/ Hydrocodone Bitart ([place] (5/325)) 1 tab Q6H PRN PO MODERATE PA IN LEVEL 4-6; Start 10/19/18 at 15:30 Acetaminophen/ Hydrocodone Bitart ([place] (10/325)) 1 tab Q6H PRN PO MODERATE PAIN LEVEL 4-6 Last administered on 10/20/18at 01:51; Admin Dose 1 TAB; Start 10/19/18 at 15:30 Methylprednisolone Sodium Succinate (Solu-Medrol) 40 mg Q12 IV Last administered on 10/21/18 08:46; Admin Dose 40 MG; Start 10/19/18 at 16:00 Levofloxacin/ Dextrose 150 ml @ 100 mls/hr Q24H IVPB Last administered on 10/20/18 15:29; Admin Dose 100 MLS/HR; Start 10/19/18 at 16:00 Morphine Sulfate (morphine) 3 mg Q4H PRN IV SEVERE PAIN LEVEL 7-10 Last administered on 10/21/18 08:46; Admin Dose 3 MG; Start 10/19/18 at 19:30 Diagnostic Test (Pha) (Accu-Chek) 1 ea 02 XX Last administered on 10/20/18 02:10; Admin Dose 1 EA; Start 10/20/18 at 02:00 Insulin Aspart (Novolog Insulin Pen) NOVOLOG *MILD* ALGORITHM WITH MEALS BEDTIME SC Last administered on 10/20/18 16:13; Admin Dose 1 UNIT; Start 10/19/18 at 18:30 Miscellaneous Information 1 ea NOTE XX ; Start 10/19/18 at 17:30 Glucose (Glutose) 15 gm Q15M PRN PO DECREASED GLUCOSE; Start 10/19/18 at 17:30 Glucose (Glutose) 22.5 gm Q15M PRN PO DECREASED GLUCOSE; Start 10/19/18 at 17:30 Dextrose (D50w Syringe) 25 ml Q15M PRN IV DECREASED GLUCOSE; Start 10/19/18 at 17:30 Dextrose (D50w Syringe) 50 ml Q15M PRN IV DECREASED GLUCOSE; Start 10/19/18 at 17:30 Glucagon (Glucagen) 1 mg Q15M PRN IM DECREASED GLUCOSE; Start 10/19/18 at 17:30 Glucose (Glutose) 15 gm Q15M PRN BUCCAL DECREASED GLUCOSE; Start 10/19/18 at 17:30 Lorazepam (Ativan) 1 mg Q10MIN PRN IV seizures; Start 10/19/18 at 17:30 Guaifenesin/ Codeine Phosphate (Robitussin Ac Liquid Cup) 10 ml Q4H PRN PO cough Last administered on 10/20/18 20:39; Admin Dose 10 ML; Start 10/20/18 at 12:30 Nicotine (Nicoderm 21 Mg/ 24hr) 1 patch DAILY TRANSDERM Last administered on 6/28/19at 08:50; Admin Dose 1 PATCH; Start 10/21/18 at 09:00 GISELA CORBIN MD Oct 21, 2018 14:26
[2018-10-21] MEDS ORDERED: LEVOFLOXACIN 750 MG TABLET PO SCH (14:30)
[2018-10-21] MEDS ORDERED: LEVO750T25 PO (14:34)
[2018-10-21] MEDS ORDERED: PRED20TA PO (14:34)
[2018-10-21] MEDS ORDERED: FURO40SO PO (14:34)
[2018-10-21] MEDS ORDERED: NYST15OI12 TOP (14:35)
--- NOTE | 2018-10-21 14:40 | PDOCDIS ---
Discharge Instructions DIAGNOSIS Discharge Diagnosis 1. Acute syncopal episode- resolved 2. Acute on chronic diastolic HF 3. COPD exacerbation 4. DM 5. morbid obesity 6. HTN 7. Right knee pain CONDITION [id number] Patient Condition: [id number] Stable HOME CARE INSTRUCTIONS: [id number] Diet Instructions: [id number] Low Fat /Cholesterol FOLLOW UP/APPOINTMENTS Follow-up Plan 1. Follow up with your primary care physician in 1-2 week 2. Continue on Levaquin for 3 days with your next dose tomorrow 3. continue steroids for 3 days as well 4. Your Lasix was increased to 40mg twice a day to help with better diuresis 5. You will need to follow up with your primary care physician to request an outpatient sleep study 6. Your insurance was made aware of your requests for new CPAP machine, scooter, and glucometer. Please follow up with them or your PCP 7. If experiencing any concerning symptoms, please go to the closest emergency department for evaluation 8. When taking pain medications, please be cautious when walking around or getting up too quickly from a seated position. Keep well hydrated GISELA CORBIN MD Oct 21, 2018 14:40
[2018-10-21 15:18] VITALS: BP 133/86; PULSE 77; RESP 22
--- NOTE | 2018-10-21 17:03 | DS ---
Date/Time of Note Date/Time of Note DATE: 10/21/18 TIME: 16:54 Discharge Summary Admission/Discharge Info Admit Date/Time Oct 19, 2018 at 11:45 Discharge Date/Time 10/21/18 Discharge Diagnosis 1. Acute syncopal episode- resolved 2. Acute on chronic diastolic HF 3. COPD exacerbation 4. DM 5. morbid obesity 6. HTN 7. Right knee pain Patient Condition: Stable Consults Neurology- Dr. Mesfin Vega of Present Illness 43 yo F with PMH Diastolic HF, COPD, morbid obesity, leiomyoma, right knee pain, and diabetes mellitus presented to OSH with syncopal episode. Patient states she was at home with her children and was transferring from bed to commode. She was feeling "off" as if something was wrong and told her daughter to call 911. She lost consciousness and believes she was out for about 2-3 minutes. She states she woke up and remembers asking where her younger son was. She admits to nausea with vomiting following episode but no head trauma. Patient does admit to numbness of her tongue and blood in mouth but no loss of bladder and bowel. She also admits she was noted to be shaking but unsure if she had a seizure. She denies any history of seizures but does state her niece has seizure history. Patient also admits to nasal congestion and productive cough with green sputum for the past week with concerns for pneumonia. Denies any chest pain, dizziness, wheezing, palpitations, or abdominal pain. She admits to urinary discomfort with ann in place. Also complaining of issues with her right knee. Hospital Course Patient was admitted for evaluation of syncopal episode and questionable seizure activity. Neurology was consulted and EEG was performed without any acute epileptic activity. Further imaging was unable to be performed given patients weight. Patient was also noted with elevated BNP and lasix dose was increased to 40mg BID with improvement in diuresis. During hospitalization, patient continuously asked for pain control for chronic right knee pain and additional food. She was noted with sleep apnea but refused to wear hospital BIPAP. She requested replacement CPAP for home, electric scooter/wheelchairs, and glucose m onitor device that attaches to her arm. Discussion was held regarding avoiding taking pain medication then ambulating around home given may have contributed to syncopal episode. Orthostatic were unable to be obtain as well due to patient being uncooperative. Patient states she was feeling better and cleared for discharge home. Patient was discharged in stable condition. Home Meds Active Scripts Nystatin* (Nystatin* Oint) 15 Gm Oint, 1 APPLIC TOP TID PRN for ITCHING for 7 Days, #1 TUB Prov:GISELA CORBIN MD 10/21/18 Prednisone (Prednisone) 20 Mg Tablet, 40 MG PO DAILY for 3 Days, #3 TAB Prov:GISELA CORBIN MD 10/21/18 Levofloxacin* (Levaquin*) 750 Mg Tablet, 750 MG PO DAILY for 4 Days, #4 TAB Prov:GISELA CORBIN MD 10/21/18 Furosemide* (Furosemide*) 40 Mg/5 Ml Solution, 40 MG PO BID for 30 Days, #60 ML Prov:GISELA CORBIN MD 10/21/18 Escitalopram Oxalate* (Escitalopram Oxalate*) 10 Mg Tablet, 5 MG PO DAILY, #30 TAB Prov:MEGHA GARCIA. 07/14/18 Nifedipine* (Nifedipine ER*) 30 Mg Tablet.sa, 30 MG PO DAILY, #30 TAB.SA 2 Refills Prov:MEGHA GARCIA. 07/14/18 Fluticasone-Vilanterol (Breo Ellipta Inhaler) 100-25 Mcg/Actuation Aer.pow.ba, 1 PUFF INHALATION DAILY, #1 INHALER 2 Refills Prov:MEGHA GARCIA 07/14/18 Isosorbide Mononitrate* (Isosorbide Mononitrate*) 30 Mg Tab.er.24h, 30 MG PO DAILY, #30 TAB 2 Refills Prov:MEGHA GARCIA 07/14/18 Atenolol* (Atenolol*) 50 Mg Tablet, 50 MG PO DAILY, #30 TAB 2 Refills Prov:MEGHA GARCIA. 07/14/18 Acetaminophen* (Tylenol*) 325 Mg Tablet, 650 MG PO Q6H PRN for .PAIN 1-3 OR TEMP for 7 Days, TAB Prov:ZIA PERRIN MD 07/04/18 Ferrous Sulfate* (Ferrous Sulfate*) 325 Mg Tabec, 325 MG PO BID for 30 Days, #60 TAB 2 Refills Prov:MEGHA GARCIA 01/05/18 Albuterol Sulfate* (Ventolin HFA*) 18 Gm Hfa.aer.ad, 2 PUFF INHALATION Q4H, #1 INHALER Prov:VAIBHAV ADAM MD 04/22/17 Reported Medications Hydrocodone/Acetaminophen ([place] 10-325 Tablet) 1 Each Tablet, 1 EACH PO Q4, TAB 10/19/18 Benazepril Hcl* (Benazepril Hcl*) 20 Mg Tablet, 20 MG PO DAILY for 30 Days, #30 09/03/18 Pantoprazole* (Pantoprazole*) 40 Mg Tablet.dr, 40 MG PO AC BREAKFAST, TAB 08/31/17 Aspirin* (Aspirin* EC) 81 Mg Tablet.dr, 81 MG PO DAILY, TAB 08/31/17 Metformin* (Glucophage*) 500 Mg Tab, 500 MG PO WITH BREAKFAST DINNE, #30 TAB 08/31/17 Albuterol Sulfate* (Albuterol Sulfate* Neb) 0.083%-3 Ml Neb, 1.25 MG NEB Q4H, #30 VIAL 08/31/17 Discontinued Reported Medications Hydrochlorothiazide* (Hydrochlorothiazide*) 12.5 Mg Tablet, 12.5 MG PO DAILY for 30 Days, #30 09/03/18 Amlodipine Besylate* (Amlodipine Besylate*) 10 Mg Tablet, 10 MG PO DAILY for 30 Days, #30 09/03/18 Discontinued Scripts [Nicotine (14 Mg/24 Hr)] 1 PATCH PATCH No Conflict Check, 1 PATCH TRANSDERM DAILY for 10 Days Prov:ZIA PERRIN MD 07/04/18 Furosemide* (Furosemide*) 20 Mg Tablet, 20 MG PO BID, #60 TAB 1 Refill Prov:ELMER DIANE 04/03/18 Follow-up Plan 1. Follow up with your primary care physician in 1-2 week 2. Continue on Levaquin for 3 days with your next dose tomorrow 3. continue steroids for 3 days as well 4. Your Lasix was increased to 40mg twice a day to help with better diuresis 5. You will need to follow up with your primary care physician to request an outpatient sleep study 6. Your insurance was made aware of your requests for new CPAP machine, scooter, and glucometer. Please follow up with them or your PCP 7. If experiencing any concerning symptoms, please go to the closest emergency department for evaluation 8. When taking pain medications, please be cautious when walking around or getting up too quickly from a seated position. Keep well hydrated Primary Care Provider [facility] Time spent on discharge: > 30 minutes Pending Labs Laboratory Tests Test 10/20/18 20:38 10/21/18 02:52 10/21/18 08:02 10/21/18 11:56 Bedside 146 127 142 117 Glucose mg/dL (70-220) mg/dL (70-220) mg/dL (70-220) mg/dL (70-220) GISELA CORBIN MD Oct 21, 2018 17:03
[2018-10-21] MEDS ORDERED: NYSTATIN 15 GM OINT TOP SCH (21:00)
== END 2018-10-21 16:20 | disposition home or self-care (01) | DRG 190 ==
LOC: 6WM 11:45
PROVIDERS: ADMIT Family Medicine; ATTEND Family Medicine
DX: J44.1 Chronic obstructive pulmonary disease with (acute) exacerbation (principal); I50.33 Acute on chronic diastolic (congestive) heart failure; Z68.44 Body mass index [BMI] 60.0-69.9, adult; I11.0 Hypertensive heart disease with heart failure; R55 Syncope and collapse; E66.01 Morbid (severe) obesity due to excess calories; E78.5 Hyperlipidemia, unspecified; F17.200 Nicotine dependence, unspecified, uncomplicated; E11.9 Type 2 diabetes mellitus without complications; Z79.01 Long term (current) use of anticoagulants; Z88.0 Allergy status to penicillin
CPT/HCPCS: 80053; 80069; 82962; 83036; 83735; 83880; 85025; 87081; 94640; 94660; 94664; 95819; 97161; 97165; J1650; J1815; J1940; J1956; J2060; J2270; J2920

== ENCOUNTER 2018-11-06 16:58 | Inpatient (IN) | payer OTHER ==
[~2018-11-06] VITALS: Ht 162.6 cm; Wt 166.0 kg
[~2018-11-06 16:58] MED LIST changes: -AMLO-147 PO; -FURO20TA3 PO; +FURO40SO PO; +HYDR-3980 PO; -HYDR12.58 PO; +LEVO750T25 PO; +NYST15OI12 TOP; -Nicotine (14 Mg/24 Hr) TRANSDERM; +PRED20TA PO
[2018-11-06] MEDS ORDERED: GLUCAGON 1 MG INJ IM PRN (19:00)
[2018-11-06] MEDS ORDERED: DOCUSATE SODIUM 100 MG CAP PO PRN (19:00)
[2018-11-06] MEDS ORDERED: MAGNESIUM HYDROXIDE 30ML CUP PO PRN (19:00)
[2018-11-06] MEDS ORDERED: ONDANSETRON 4 MG INJ IV PRN (19:00)
[2018-11-06] MEDS ORDERED: NACL 0.9% 3 ML SYG IV SCH (19:00)
[2018-11-06] MEDS ORDERED: DEXTROSE 50% 50 ML SYRINGE IV PRN ×2 (19:00)
[2018-11-06] MEDS ORDERED: GLUCOSE GEL 15 GRAM TUBE PO PRN ×2 (19:00)
[2018-11-06] MEDS ORDERED: GLUCOSE GEL 15 GRAM TUBE BUCCAL PRN (19:00)
[2018-11-06] MEDS ORDERED: BISACODYL (EC) 5 MG TAB PO PRN (19:00)
[2018-11-06] MEDS ORDERED: NITROGLYCERIN (SL) 0.4 MG TAB SL PRN (19:00)
[2018-11-06] MEDS ORDERED: ACETAMINOPHEN 325 MG TAB PO PRN (19:00)
[2018-11-06 19:05] VITALS: Ht 162.6 cm; Wt 166.0 kg
[2018-11-06 20:00] VITALS: BP 105/71; PULSE 86; RESP 20
[2018-11-06] MEDS: FERROUS SULFATE (EC) 325 MG TAB PO SCH ×2 (21:00→21:02)
[2018-11-06] MEDS: INSULIN ASPART [NOVOLOG] 3 ML PEN SC SCH (21:00)
[2018-11-07] VITALS (8 sets, daily range): BP systolic 97–112; BP diastolic 57–75; PULSE 67–83; RESP 17–20
[2018-11-07] MEDS: morphine 2 MG INJ IV PRN ×4 (00:07→18:28)
--- NOTE | 2018-11-07 01:54 | HP ---
Date/Time of Note Date/Time of Note DATE: 11/07/18 TIME: 01:54 Assessment/Plan VTE Prophylaxis Risk score (from Nsg)>0 risk: 5 Pharmacological prophylaxis: LMWH Lines/Catheters IV Catheter Type (from Nrsg): Saline Lock Urinary Cath still in place: Yes Reason Cath still needed: other (indicate) (clinical condition) Assessment/Plan Hospital Course This is a 43-year-old female being admitted to the telemetry floor for: 1.Chest pain -Rule out ACS versus anxiety versus CHF. Patient has mild crackles on examination. Does have bilateral lower extremity edema. Will trend cardiac enzymes x3, We will put the patient on Lasix 40 IV twice daily. PRN Ativan. Consider cardiology consultation. 2. Acute hypoxic respiratory failure: Secondary to underlying CHF, supplemenatal 02 2.acute on chronic diastolic CHF exacerbation -Secondary likely to medication noncompliance. -Lasix 40 mg IV twice daily --Echocardiogram showed ejection fraction of 50% with diastolic dysfunction in August 2018. 3. Chronic abdominal and lower extremity pain -Patient apparently has a history of chronic pain however she is also known to have drug-seeking behavior. She left the hospital multiple times AGAINST MEDICAL ADVICE. Her pain at the current time is likely secondary to her lower extremity edema. We will give her diuresis and provide her with morphine x4 doses. -Her abdominal pain appears to be chronic. 4.Hypertension -Continue home meds 5.Diabetes mellitus -Hemoglobin A1c on 10/20 was 6.0, she is only on metformin at home per the EMR. 6.Anxiety -Resume home meds 7.Obstructive sleep apnea -BiPAP as needed 8. Anemia: -Resume ferrous sulfate 9.Medical noncompliance -I did reiterate to the patient that it is in her benefit to take her medications as instructed and to have regular follow-up with her primary care obdulia sam as an outpatient. #9 DVT GI prophylaxis: Lovenox, no GI prophylaxis indicated Further treatment strategy will be implemented as per the clinical course Results 24hrs Laboratory Tests Test 11/06/18 23:51 Bedside Glucose 87 HPI/ROS Admit Date/Time Admit Date/Time Nov 06, 2018 at 17:40 Hx of Present Illness Chief complaint: Shortness of breath, chest pain, increased lower extremity edema This is a 43-year-old female diastolic CHF, hypertension, diabetes mellitus, tobacco use, anxiety, chronic opiate use, obstructive sleep apnea, obesity and medical noncompliance who presented from outside hospital secondary to symptoms of shortness of breath and chest pain. Patient was transferred to [facility] secondary to insurance purposes. Patient reports that for the last 2 to 3 days she has been having left-sided chest pain with shortness of breath along with increasing lower extremity edema. She states that she has been taking taking Lasix 20 mg p.o. daily, however on patient's med recon she has Lasix 40 mg twice daily. Patient does have a known history of noncompliance and drug-seeking behavior as well, I do feel that she is noncompliant at the current time as well. EKG showed normal sinus rhythm at approximately 82 bpm, no ST or T wave noise concerning for acute ischemia ABG: pH 7.4/CO2 40/PO2 47/bicarb 29 Allergies: Penicillin, blueberry Medications: Acetaminophen 650 mg p.o. every 6 as needed Aspirin 81 mg p.o. daily Atenolol 50 mg p.o. daily Benazepril 20 mg p.o. daily Escitalopram 10 mg 5 mg p.o. daily Ferrous sulfate 325 p.o. twice daily Brio Ellipta inhaler 100-25 inhalation daily Lasix 40 mg p.o. twice daily Melvin 103 25 p.o. every 4 hours as needed Isosorbide mononitrate 30 mg p.o. daily Nifedipine 30 mg p.o. daily Protonix 40 mg p.o. daily Metformin 500 twice daily ROS Const: As per HPI Eyes : No pain discharge or redness or change in visual acuity ENT: No pain, sore throat, congestion, congestion, dysphagia or discharge Respiratory: No shortness of breath, cough, sputum, wheezing, or pleuritic pain Cardiovascular: As per HPI GI : no change in appetite, abdominal pain, nausea, vomiting, diarrhea, constipation, or change in the color his stool Genitourinary: No dysuria, hematuria, flank pain , discharge or CVA tenderness Musculoskeletal: As per HPI Skin: No rash, bruising or hives Neuro: No headache, dizziness, syncope, seizure, focal weakness Endocrine: No polyuria, polydipsia, temperature intolerance Psych: No hallucination, depression, anxiety or suicidal ideation PMH/Family/Social Past Medical History diastolic CHF, hypertension, diabetes mellitus, tobacco use, anxiety, chronic opiate use, obstructive sleep apnea, obesity and medical noncompliance Medications Current Medications Acetaminophen (Tylenol Tab) 650 mg Q6H PRN PO .PAIN 1-3 OR TEMP; Start 11/06/18 at 19:00 Aspirin (Halfprin) 81 mg DAILY PO ; Start 11/07/18 at 09:00 Atenolol (Tenormin) 50 mg DAILY PO ; Start 11/07/18 at 09:00 Benazepril HCl (Lotensin) 20 mg DAILY PO ; Start 11/07/18 at 09:00 Escitalopram Oxalate (Lexapro) 5 mg DAILY PO ; Start 11/07/18 at 09:00 Ferrous Sulfate (Ferrous Sulfate (Ec)) 325 mg BID PO ; Start 11/06/18 at 21:00 Fluticasone/ Vilanterol (Breo Ellipta 100-25 Mcg Inh) 1 inh DAILY INH ; Start 11/07/18 at 09:00 Acetaminophen/ Hydrocodone Bitart ([place] (10/325)) 1 tab Q4 PRN PO PAIN LEVEL 4-6; Start 11/06/18 at 19:00 Isosorbide Mononitrate (Imdur) 30 mg DAILY PO ; Start 11/07/18 at 09:00 Nifedipine (Procardia Xl) 30 mg DAILY PO ; Start 11/07/18 at 09:00 Pantoprazole (Protonix Tab) 40 mg AC BREAKFAST PO ; Start 11/07/18 at 07:25 Furosemide (Lasix) 40 mg BID DIURETICS IV ; Start 11/07/18 at 06:00 IV Flush (NS 3 ml) 3 ml PER PROTOCOL IV ; Start 11/06/18 at 19:00 Ondansetron HCl (Zofran Inj) 4 mg Q6H PRN IV NAUSEA/VOMITING; Start 11/06/18 at 19:00 Nitroglycerin (Nitroglycerin (Sl Tab) 0.4 Mg) 1 tab Q5M PRN SL .CHEST PAIN; Start 11/06/18 at 19:00 Morphine Sulfate (morphine) 2 mg Q4H PRN IV .PAIN 7-10 Last administered on 11/07/18at 00:07; Admin Dose 2 MG; Start 11/06/18 at 19:00 Docusate Sodium (Colace) 100 mg Q12H PRN PO .CONSTIPATION; Start 11/06/18 at 19:00 Magnesium Hydroxide (Milk Of Mag) 30 ml DAILY PRN PO .CONSTIPATION; Start 11/06/18 at 19:00 Bisacodyl (Dulcolax) 5 mg DAILY PRN PO .CONSTIPATION; Start 11/06/18 at 19:00 Enoxaparin Sodium (Lovenox) 40 mg DAILY SC ; Start 11/07/18 at 09:00; Status UNV Insulin Aspart (Novolog Insulin Pen) NOVOLOG *MILD* ALGORITHM WITH MEALS B EDTIME SC ; Start 11/06/18 at 21:00 Miscellaneous Information 1 ea NOTE XX ; Start 11/06/18 at 19:00 Glucose (Glutose) 15 gm Q15M PRN PO DECREASED GLUCOSE; Start 11/06/18 at 19:00 Glucose (Glutose) 22.5 gm Q15M PRN PO DECREASED GLUCOSE; Start 11/06/18 at 19:00 Dextrose (D50w Syringe) 25 ml Q15M PRN IV DECREASED GLUCOSE; Start 11/06/18 at 19:00 Dextrose (D50w Syringe) 50 ml Q15M PRN IV DECREASED GLUCOSE; Start 11/06/18 at 19:00 Glucagon (Glucagen) 1 mg Q15M PRN IM DECREASED GLUCOSE; Start 11/06/18 at 19:00 Glucose (Glutose) 15 gm Q15M PRN BUCCAL DECREASED GLUCOSE; Start 11/06/18 at 19:00 Albuterol/ Ipratropium (Duoneb) 3 ml Q4H RESP THERAPY PRN HHN SHORTNESS OF BREATH; Start 11/07/18 at 01:30 Coded Allergies: Penicillins (Unverified Allergy, Unknown, 09/03/18) blueberry (Unverified Allergy, Unknown, 09/03/18) Past Surgical History Past Surgical Hx: cholecystectomy, other Family History Significant Family History: no pertinent family hx, other Social History Alcohol Use: none Smoking Status: Current every day smoker Drug Use: none Exam/Review of Systems Vital Signs Vitals Vital Signs Date Temp Pulse Resp B/P (MAP) Pulse Ox O2 O2 Flow FiO2 Time Delivery Rate 11/07/18 98.0 83 20 103/74 96 00:00 (84) 11/06/18 Nasal 2.0 20:15 Cannula Exam Exam General: Patient is currently lying in bed no acute distress HEENT: Atraumatic, normocephalic. The pupils are equal, round and reactive. Extraocular motor are intact Neck: Supple with full range of motion. No rigidity or meningismus Chest: Nontender Lungs: Mild crackles at the bases bilaterally Heart: Normal S1-S2, Regular rhythm and rate. No murmur, S3, or S4 Abdomen: Soft , subcutaneous edema, morbidly obese, nontender, nondistended , bowel sounds are present. No guarding no rebound tenderness , No masses or organomegaly. No costovertebral temporal angle mass Extremities: Bilateral 3+ pitting edema of the lower extremities Neurologic: Normal mental status, speech normal, cranial nerves II through XII are intact, motor and sensory are intact, Additional Comments EKG: REJI ANTONIO Nov 07, 2018 01:54
[2018-11-07] MEDS: ALBUTEROL/IPRATROPIUM (NEB) 3 ML AMP HHN PRN ×2 (01:55→16:12)
[2018-11-07] MEDS: HYDROCODONE/APAP (10/325) TAB PO PRN ×2 (03:34→17:25)
[2018-11-07] MEDS: PANTOPRAZOLE (EC) 40 MG TAB PO SCH (06:38)
[2018-11-07] MEDS: FUROSEMIDE 40 MG INJ IV SCH ×2 (06:38→17:27)
[2018-11-07] MEDS: INSULIN ASPART [NOVOLOG] 3 ML PEN SC SCH ×4 (07:55→21:00)
[2018-11-07] MEDS: FERROUS SULFATE (EC) 325 MG TAB PO SCH ×2 (08:30→21:34)
[2018-11-07] MEDS ORDERED: ISOSORBIDE MONONITRATE(SR)30 MG TAB PO SCH (09:00)
[2018-11-07] MEDS ORDERED: ASPIRIN (EC) 81 MG TAB PO SCH (09:00)
[2018-11-07] MEDS ORDERED: ESCITALOPRAM 10 MG TAB PO SCH (09:00)
[2018-11-07] MEDS ORDERED: ATENOLOL 50 MG TAB PO SCH (09:00)
[2018-11-07] MEDS ORDERED: NIFEdipine (XL) 30 MG TAB PO SCH (09:00)
[2018-11-07] MEDS ORDERED: FLUTICASONE/VILANTEROL 100-25 INH SCH (09:00)
[2018-11-07] MEDS ORDERED: ENOXAPARIN 40 MG/0.4 ML SYG SC SCH (09:00)
[2018-11-07] MEDS ORDERED: BENAZEPRIL 20 MG TAB PO SCH ×2 (09:00→21:00)
[2018-11-07] MEDS ORDERED: MAGNESIUM SULFATE 2 GM/50 ML 50 ML IVPB ONE (15:30)
--- NOTE | 2018-11-07 15:33 | PN ---
Date/Time of Note Date/Time of Note DATE: 11/07/18 TIME: 15:31 Assessment/Plan VTE Prophylaxis Risk score (from Nsg)>0 risk: 4 SCD applied (from Nsg): Yes Pharmacological prophylaxis: LMWH Lines/Catheters IV Catheter Type (from Nrsg): Saline Lock Urinary Cath still in place: No Assessment/Plan Assessment/Plan 1. Chest pain, negative troponin x2, cardiology consult with Dr. Montgomery 2. COPD exacerbation, neb, levaquin 3. CHF, diastolic with LVEF 50% in 08/2018, acute on chronic, on lasix 4. Acute hypoxic respiratory failure: Secondary to underlying CHF, supplement 02 5. Sleep apnea, CPAP at night 6. Obesity, advise weight loss 7. Hypertension, controlled, d/c nifedipine for leg swelling 8. Diabetes mellitus, on metformin, ISS 9. Hypomagnesemia, Mg 10. Anxiety, resume home meds 11. DVT GI prophylaxis: Lovenox, n Result Diagram: 11/07/18 0825 11/07/18 0825 Results 24hrs Laboratory Tests Test 11/06/18 23:51 11/07/18 08:04 11/07/18 08:25 11/07/18 11:59 Bedside Glucose 87 125 133 White Blood Count 8.7 # Red Blood Count 4.21 Hemoglobin 12.2 Hematocrit 38.4 Mean Corpuscular 91.2 Volume Mean Corpuscular 29.0 Hemoglobin Mean Corpuscular 31.8 L Hemoglobin Concent Red Cell 18.3 H Distribution Width Platelet Count 158 Mean Platelet Volume 11.2 H Immature 0.200 Granulocytes % Neutrophils % 71.4 Lymphocytes % 17.3 Monocytes % 7.9 Eosinophils % 2.9 Basophils % 0.3 Nucleated Red Blood 0.0 Cells % Immature 0.020 Granulocytes # Neutrophils # 6.2 Lymphocytes # 1.5 Monocytes # 0.7 Eosinophils # 0.3 Basophils # 0.0 Nucleated Red Blood 0.0 Cells # Sodium Level 140 Potassium Level 3.5 Chloride Level 104 Carbon Dioxide Level 28 Anion Gap 8 Blood Urea Nitrogen 18 Creatinine 0.64 Est Glomerular > 60 Filtrat Rate mL/min Glucose Level 117 Calcium Level 8.7 Magnesium Level 1.6 L Creatine Kinase 26 Creatine Kinase 3.4 Index Creatinine Kinase MB 0.89 (Mass) Troponin I < 0.012 B-Type Natriuretic 4360 H Peptide Serum HCG, NEGATIVE Qualitative Test 11/07/18 12:07 Creatine Kinase 24 Creatine Kinase 3.3 Index Creatinine Kinase MB 0.80 (Mass) Troponin I < 0.012 Subjective 24 Hr Interval Summary Free Text/Dictation cough with greenish sputum Exam/Review of Systems Exam Vitals Vital Signs Date Temp Pulse Resp B/P (MAP) Pulse Ox O2 O2 Flow FiO2 Time Delivery Rate 11/07/18 98.0 73 18 110/65 94 11:33 (80) 11/07/18 2.0 10:28 11/07/18 Nasal 08:00 Cannula Intake and Output 11/06/18 11/06/18 11/07/18 1515:00 23:00 07:00 IntakeIntake Total 480 ml OutputOutput Total 1200 ml BalanceBalance -720 ml Constitutional: alert, oriented, well developed, obese Head: normocephalic, atraumatic Eyes: nl conjunctiva, EOMI, nl lids ENMT: nl external ears & nose, nl lips & teeth, nl nasal mucosa & septum Neck: supple, non-tender Respiratory: clear to auscultation, normal air movement, congested cough Gastrointestinal: soft, nl liver, spleen, non-tender Musculoskeletal: nl extremities to inspection Extremities: normal pulses, edema Neurological: ARTIFICIAL INSEMINATOR II-XII intact, nl mental status, nl speech, nl strength Results Results 24hrs Laboratory Tests Test 11/06/18 23:51 11/07/18 08:04 11/07/18 08:25 11/07/18 11:59 Bedside Glucose 87 125 133 White Blood Count 8.7 # Red Blood Count 4.21 Hemoglobin 12.2 Hematocrit 38.4 Mean Corpuscular 91.2 Volume Mean Corpuscular 29.0 Hemoglobin Mean Corpuscular 31.8 L Hemoglobin Concent Red Cell 18.3 H Distribution Width Platelet Count 158 Mean Platelet Volume 11.2 H Immature 0.200 Granulocytes % Neutrophils % 71.4 Lymphocytes % 17.3 Monocytes % 7.9 Eosinophils % 2.9 Basophils % 0.3 Nucleated Red Blood 0.0 Cells % Immature 0.020 Granulocytes # Neutrophils # 6.2 Lymphocytes # 1.5 Monocytes # 0.7 Eosinophils # 0.3 Basophils # 0.0 Nucleated Red Blood 0.0 Cells # Sodium Level 140 Potassium Level 3.5 Chloride Level 104 Carbon Dioxide Level 28 Anion Gap 8 Blood Urea Nitrogen 18 Creatinine 0.64 Est Glomerular > 60 Filtrat Rate mL/min Glucose Level 117 Calcium Level 8.7 Magnesium Level 1.6 L Creatine Kinase 26 Creatine Kinase 3.4 Index Creatinine Kinase MB 0.89 (Mass) Troponin I < 0.012 B-Type Natriuretic 4360 H Peptide Serum HCG, NEGATIVE Qualitative Test 11/07/18 12:07 Creatine Kinase 24 Creatine Kinase 3.3 Index Creatinine Kinase MB 0.80 (Mass) Troponin I < 0.012 Medications Medication Current Medications Acetaminophen (Tylenol Tab) 650 mg Q6H PRN PO .PAIN 1-3 OR TEMP; Start 11/06/18 at 19:00 Aspirin (Halfprin) 81 mg DAILY PO Last administered on 11/07/18 08:30; Admin Dose 81 MG; Start 11/07/18 at 09:00 Atenolol (Tenormin) 50 mg DAILY PO Last administered on 11/07/18 08:32; Admin Dose 50 MG; Start 11/07/18 at 09:00 Benazepril HCl (Lotensin) 20 mg DAILY PO Last administered on 11/07/18 08:31; Admin Dose 20 MG; Start 11/07/18 at 09:00 Escitalopram Oxalate (Lexapro) 5 mg DAILY PO Last administered on 11/07/18 0 8:33; Admin Dose 5 MG; Start 11/07/18 at 09:00 Ferrous Sulfate (Ferrous Sulfate (Ec)) 325 mg BID PO Last administered on 11/07/18 08:30; Admin Dose 325 MG; Start 11/06/18 at 21:00 Fluticasone/ Vilanterol (Breo Ellipta 100-25 Mcg Inh) 1 inh DAILY INH Last administered on 11/07/18 08:33; Admin Dose 1 INH; Start 11/07/18 at 09:00 Acetaminophen/ Hydrocodone Bitart ([place] (10/325)) 1 tab Q4 PRN PO PAIN LEVEL 4-6 Last administered on 11/07/18 03:34; Admin Dose 1 TAB; Start 11/06/18 at 19:00 Isosorbide Mononitrate (Imdur) 30 mg DAILY PO Last administered on 11/07/18 08:32; Admin Dose 30 MG; Start 11/07/18 at 09:00 Nifedipine (Procardia Xl) 30 mg DAILY PO Last administered on 7/15/19at 08:32; Admin Dose 30 MG; Start 11/07/18 at 09:00 Pantoprazole (Protonix Tab) 40 mg AC BREAKFAST PO Last administered on 11/07/18at 06:38; Admin Dose 40 MG; Start 11/07/18 at 07:25 Furosemide (Lasix) 40 mg BID DIURETICS IV Last administered on 11/07/18at 06:38; Admin Dose 40 MG; Start 11/07/18 at 06:00 IV Flush (NS 3 ml) 3 ml PER PROTOCOL IV ; Start 11/06/18 at 19:00 Ondansetron HCl (Zofran Inj) 4 mg Q6H PRN IV NAUSEA/VOMITING; Start 11/06/18 at 19:00 Nitroglycerin (Nitroglycerin (Sl Tab) 0.4 Mg) 1 tab Q5M PRN SL .CHEST PAIN; Start 11/06/18 at 19:00 Morphine Sulfate (morphine) 2 mg Q4H PRN IV .PAIN 7-10 Last administered on 11/07/18at 14:35; Admin Dose 2 MG; Start 11/06/18 at 19:00 Docusate Sodium (Colace) 100 mg Q12H PRN PO .CONSTIPATION; Start 11/06/18 at 19:00 Magnesium Hydroxide (Milk Of Mag) 30 ml DAILY PRN PO .CONSTIPATION; Start 11/06/18 at 19:00 Bisacodyl (Dulcolax) 5 mg DAILY PRN PO .CONSTIPATION; Start 11/06/18 at 19:00 Enoxaparin Sodium (Lovenox) 40 mg DAILY SC Last administered on 11/07/18at 14:59; Admin Dose 40 MG; Start 11/07/18 at 09:00 Insulin Aspart (Novolog Insulin Pen) NOVOLOG *MILD* ALGORITHM WITH MEALS BEDTIME SC ; Start 11/06/18 at 21:00 Miscellaneous Information 1 ea NOTE XX ; Start 11/06/18 at 19:00 Glucose (Glutose) 15 gm Q15M PRN PO DECREASED GLUCOSE; Start 11/06/18 at 19:00 Glucose (Glutose) 22.5 gm Q15M PRN PO DECREASED GLUCOSE; Start 11/06/18 at 19:00 Dextrose (D50w Syringe) 25 ml Q15M PRN IV DECREASED GLUCOSE; Start 11/06/18 at 19:00 Dextrose (D50w Syringe) 50 ml Q15M PRN IV DECREASED GLUCOSE; Start 11/06/18 at 19:00 Glucagon (Glucagen) 1 mg Q15M PRN IM DECREASED GLUCOSE; Start 11/06/18 at 19:00 Glucose (Glutose) 15 gm Q15M PRN BUCCAL DECREASED GLUCOSE; Start 11/06/18 at 19:00 Albuterol/ Ipratropium (Duoneb) 3 ml Q4H RESP THERAPY PRN HHN SHORTNESS OF BREATH Last administered on 11/07/18at 01:55; Admin Dose 3 ML; Start 11/07/18 at 01:30 Magnesium Sulfate 50 ml @ 25 mls/hr ONCE ONCE IVPB ; Start 11/07/18 at 15:30; Stop 11/07/18 at 17:29 BRISSA SWAN MD Nov 07, 2018 15:33
[2018-11-07] MEDS: LEVOFLOXACIN 500 MG TAB PO SCH (17:30)
[2018-11-07] MEDS ORDERED: metFORMIN 500 MG TAB PO SCH (17:55)
[2018-11-07] MEDS ORDERED: LORAZEPAM 0.5 MG TAB PO PRN (18:00)
[2018-11-07] MEDS ORDERED: POTASSIUM CHLORIDE (SR) 20 MEQ TAB PO STA (18:25)
--- NOTE | 2018-11-07 18:27 | CONS ---
Assessment/Plan Assessment/Plan Hospital Course (Demo Recall) 1. Chest pain appears to be atypical 2. Congestive heart failure acute on chronic secondary to diastolic heart failure 3. Hypertension 4. Diabetes 5. Dyslipidemia 6. Morbid obesity 7. Obstructive sleep apnea currently not on CPAP at home 8. COPD questionable pneumonia Recommendation: We will try to get the old records from [facility] including coronary angiography. Echocardiogram will be checked Continue with diuretics and beta-vicenta and MARGY inhibitor. Diabetic management as per internal medicine CPAP as per internal medicine CHECK Procalcitonin level Thank you for his referral. We will continue to follow along with you MADHU DIGGS MD FAC Consultation Date/Type/Reason Admit Date/Time Nov 06, 2018 at 17:40 Date of Consultation: Nov 07, 2018 Type of Consult Cardiology Reason for Consultation chest pain CHF Requesting Provider: REJI ANTONIO Date/Time of Note DATE: 11/07/18 TIME: 18:20 Hx of Present Illness Interventional cardiology consultation note Chief complaint: Chest pain headache shortness of breath Reason for consult: Chest pain congestive heart failure lower extremity edema History of present illness: Thank you for this referral. History was obtained from the patient review of the old chart This is a 43-year-old female diastolic CHF, hypertension, diabetes mellitus, tobacco use, anxiety, chronic opiate use, obstructive sleep apnea, obesity and medical noncompliance who presented from outside hospital secondary to symptoms of shortness of breath and chest pain. Patient was transferred to [facility] secondary to insurance purposes. Patient has multiple complaints that she has shortness of breath. Has had edema of the legs legs and has had headache. Also complains of chest pain in the back which is worse with breathing. She reports that she had a "heart attack "in January 2018 at [facility]. Per her report coronary angiography done did not show any blocked ar laura and no stent was needed at that time Allergies: Penicillin, blueberry Medications: Acetaminophen 650 mg p.o. every 6 as needed Aspirin 81 mg p.o. daily Atenolol 50 mg p.o. daily Benazepril 20 mg p.o. daily Escitalopram 10 mg 5 mg p.o. daily Ferrous sulfate 325 p.o. twice daily Brio Ellipta inhaler 100-25 inhalation daily Lasix 40 mg p.o. twice daily [place] 103 25 p.o. every 4 hours as needed Isosorbide mononitrate 30 mg p.o. daily Nifedipine 30 mg p.o. daily Protonix 40 mg p.o. daily Metformin 500 twice daily \\ Family history: She reports that her parents have had heart attacks Social history: Actively smokes. Past medical history: diastolic CHF, hypertension, diabetes mellitus, tobacco use, anxiety, chronic opiate use, obstructive sleep apnea, obesity but not on CPAP over the past 3 months and medical noncompliance Review of system: Patient denies all others except for above-mentioned Past Medical History Home Meds Active Scripts Nystatin* (Nystatin* Oint) 15 Gm Oint, 1 APPLIC TOP TID PRN for ITCHING for 7 D ays, #1 TUB Prov:GISELA CORBIN MD 10/21/18 Prednisone (Prednisone) 20 Mg Tablet, 40 MG PO DAILY for 3 Days, #3 TAB Prov:GISELA CORBIN MD 10/21/18 Levofloxacin* (Levaquin*) 750 Mg Tablet, 750 MG PO DAILY for 4 Days, #4 TAB Prov:GISELA CORBIN MD 10/21/18 Furosemide* (Furosemide*) 40 Mg/5 Ml Solution, 40 MG PO BID for 30 Days, #60 ML Prov:GISELA CORBIN MD 10/21/18 Escitalopram Oxalate* (Escitalopram Oxalate*) 10 Mg Tablet, 5 MG PO DAILY, #30 TAB Prov:JOSEMEGHA . 07/14/18 Nifedipine* (Nifedipine ER*) 30 Mg Tablet.sa, 30 MG PO DAILY, #30 TAB.SA 2 Refills Prov:JOSEMEGHA Hudson . 07/14/18 Fluticasone-Vilanterol (Breo Ellipta Inhaler) 100-25 Mcg/Actuation Aer.pow.ba, 1 PUFF INHALATION DAILY, #1 INHALER 2 Refills Prov:JOSECHAPOJaison . 07/14/18 Isosorbide Mononitrate* (Isosorbide Mononitrate*) 30 Mg Tab.er.24h, 30 MG PO DAILY, #30 TAB 2 Refills Prov:CHAPO GARCIAJaison . 07/14/18 Atenolol* (Atenolol*) 50 Mg Tablet, 50 MG PO DAILY, #30 TAB 2 Refills Prov:JOSEMEGHA . 07/14/18 Acetaminophen* (Tylenol*) 325 Mg Tablet, 650 MG PO Q6H PRN for .PAIN 1-3 OR TEMP for 7 Days, TAB Prov:ZIA PERRIN MD 07/04/18 Ferrous Sulfate* (Ferrous Sulfate*) 325 Mg Tabec, 325 MG PO BID for 30 Days, #60 TAB 2 Refills Prov:JOSEMEGHA 01/05/18 Albuterol Sulfate* (Ventolin HFA*) 18 Gm Hfa.aer.ad, 2 PUFF INHALATION Q4H, #1 INHALER Prov:VAIBHAV ADAM MD 04/22/17 Reported Medications Hydrocodone/Acetaminophen ([place] 10-325 Tablet) 1 Each Tablet, 1 EACH PO Q4, TAB 10/19/18 Benazepril Hcl* (Benazepril Hcl*) 20 Mg Tablet, 20 MG PO DAILY for 30 Days, #30 09/03/18 Pantoprazole* (Pantoprazole*) 40 Mg Tablet.dr, 40 MG PO AC BREAKFAST, TAB 08/31/17 Aspirin* (Aspirin* EC) 81 Mg Tablet.dr, 81 MG PO DAILY, TAB 08/31/17 Metformin* (Glucophage*) 500 Mg Tab, 500 MG PO WITH BREAKFAST DINNE, #30 TAB 08/31/17 Albuterol Sulfate* (Albuterol Sulfate* Neb) 0.083%-3 Ml Neb, 1.25 MG NEB Q4H, #30 VIAL 08/31/17 Medications Current Medications Acetaminophen (Tylenol Tab) 650 mg Q6H PRN PO .PAIN 1-3 OR TEMP; Start 11/06/18 at 19:00 Aspirin (Halfprin) 81 mg DAILY PO Last administered on 11/07/18at 08:30; Admin Dose 81 MG; Start 11/07/18 at 09:00 Atenolol (Tenormin) 50 mg DAILY PO Last administered on 11/07/18at 08:32; Admin Dose 50 MG; Start 11/07/18 at 09:00 Escitalopram Oxalate (Lexapro) 5 mg DAILY PO Last administered on 11/07/18at 08:33; Admin Dose 5 MG; Start 11/07/18 at 09:00 Ferrous Sulfate (Ferrous Sulfate (Ec)) 325 mg BID PO Last administered on 11/07/18at 08:30; Admin Dose 325 MG; Start 11/06/18 at 21:00 Fluticasone/ Vilanterol (Breo Ellipta 100-25 Mcg Inh) 1 inh DAILY INH Last administered on 11/07/18 08:33; Admin Dose 1 INH; Start 11/07/18 at 09:00 Acetaminophen/ Hydrocodone Bitart ([place] (10/325)) 1 tab Q4 PRN PO PAIN LEVEL 4-6 Last administered on 11/07/18 17:25; Admin Dose 1 TAB; Start 11/06/18 at 19:00 Isosorbide Mononitrate (Imdur) 30 mg DAILY PO Last administered on 11/07/18 08:32; Admin Dose 30 MG; Start 11/07/18 at 09:00 Pantoprazole (Protonix Tab) 40 mg AC BREAKFAST PO Last administered on 11/07/18 06:38; Admin Dose 40 MG; Start 11/07/18 at 07:25 Furosemide (Lasix) 40 mg BID DIURETICS IV Last administered on 11/07/18 17:27; Admin Dose 40 MG; Start 11/07/18 at 06:00 IV Flush (NS 3 ml) 3 ml PER PROTOCOL IV ; Start 11/06/18 at 19:00 Ondansetron HCl (Zofran Inj) 4 mg Q6H PRN IV NAUSEA/VOMITING; Start 11/06/18 at 19:00 Nitroglycerin (Nitroglycerin (Sl Tab) 0.4 Mg) 1 tab Q5M PRN SL .CHEST PAIN; Start 11/06/18 at 19:00 Morphine Sulfate (morphine) 2 mg Q4H PRN IV .PAIN 7-10 Last administered on 11/07/18at 14:35; Admin Dose 2 MG; Start 11/06/18 at 19:00 Docusate Sodium (Colace) 100 mg Q12H PRN PO .CONSTIPATION; Start 11/06/18 at 19:00 Magnesium Hydroxide (Milk Of Mag) 30 ml DAILY PRN PO .CONSTIPATION; Start 11/06/18 at 19:00 Bisacodyl (Dulcolax) 5 mg DAILY PRN PO .CONSTIPATION; Start 11/06/18 at 19:00 Enoxaparin Sodium (Lovenox) 40 mg DAILY SC Last administered on 11/07/18at 14:59; Admin Dose 40 MG; Start 11/07/18 at 09:00 Insulin Aspart (Novolog Insulin Pen) NOVOLOG *MILD* ALGORITHM WITH MEALS BEDTIME SC ; Start 11/06/18 at 21:00 Miscellaneous Information 1 ea NOTE XX ; Start 11/06/18 at 19:00 Glucose (Glutose) 15 gm Q15M PRN PO DECREASED GLUCOSE; Start 11/06/18 at 19:00 Glucose (Glutose) 22.5 gm Q15M PRN PO DECREASED GLUCOSE; Start 11/06/18 at 19:00 Dextrose (D50w Syringe) 25 ml Q15M PRN IV DECREASED GLUCOSE; Start 11/06/18 at 19:00 Dextrose (D50w Syringe) 50 ml Q15M PRN IV DECREASED GLUCOSE; Start 11/06/18 at 19:00 Glucagon (Glucagen) 1 mg Q15M PRN IM DECREASED GLUCOSE; Start 11/06/18 at 19:00 Glucose (Glutose) 15 gm Q15M PRN BUCCAL DECREASED GLUCOSE; Start 11/06/18 at 19:00 Albuterol/ Ipratropium (Duoneb) 3 ml Q4H RESP THERAPY PRN HHN SHORTNESS OF BREATH Last administered on 11/07/18at 16:12; Admin Dose 3 ML; Start 11/07/18 at 01:30 Benazepril HCl (Lotensin) 20 mg BID PO ; Start 11/07/18 at 21:00 Metformin HCl (Glucophage) 500 mg BID WITH MEALS PO Last administered on 11/07/18at 17:26; Admin Dose 500 MG; Start 11/07/18 at 17:55 Levofloxacin (Levaquin) 500 mg DAILY@06 PO Last administered on 11/07/18at 17: 30; Admin Dose 500 MG; Start 11/07/18 at 16:00 Lorazepam (Ativan) 0.5 mg Q8H PRN PO ANXIETY; Start 11/07/18 at 18:00 Allergies: Coded Allergies: Penicillins (Unverified Allergy, Unknown, 09/03/18) blueberry (Unverified Allergy, Unknown, 09/03/18) Past Surgical History Past Surgical Hx: cholecystectomy, other Social History Alcohol Use: none Smoking Status: Current every day smoker Drug Use: none Exam/Review of Systems Vital Signs Vitals Vital Signs Date Temp Pulse Resp B/P (MAP) Pulse Ox O2 O2 Flow FiO2 Time Delivery Rate 11/07/18 65 19 92 Nasal 2.0 16:12 Cannula 11/07/18 98.2 107/70 15:40 (82) Intake and Output 11/06/18 11/06/18 11/07/18 1515:00 23:00 07:00 IntakeIntake Total 480 ml OutputOutput Total 1200 ml BalanceBalance -720 ml Exam Exam General: Morbidly obese female in no acute distress HEENT: NC/AT. pupils are equal. round. NECK: Unable to assess for JVD. no stridor. CV: RRR. systolic murmur; no gallop or rubs. PULM: no wheezing or rhonchi. GI: SOFT, obese NT, ND, no rebound or guarding Extremity: trace B/L LE edema. no clubbing. neuro: awake and alert, OX3. Psych: calm and pleasant rectal: deferred Labs Result Diagram: 11/07/18 0825 11/07/18 0825 Results 24hrs Laboratory Tests Test 11/06/18 23:51 11/07/18 08:04 11/07/18 08:25 11/07/18 11:59 Bedside Glucose 87 125 133 White Blood Count 8.7 # Red Blood Count 4.21 Hemoglobin 12.2 Hematocrit 38.4 Mean Corpuscular 91.2 Volume Mean Corpuscular 29.0 Hemoglobin Mean Corpuscular 31.8 L Hemoglobin Concent Red Cell 18.3 H Distribution Width Platelet Count 158 Mean Platelet Volume 11.2 H Immature 0.200 Granulocytes % Neutrophils % 71.4 Lymphocytes % 17.3 Monocytes % 7.9 Eosinophils % 2.9 Basophils % 0.3 Nucleated Red Blood 0.0 Cells % Immature 0.020 Granulocytes # Neutrophils # 6.2 Lymphocytes # 1.5 Monocytes # 0.7 Eosinophils # 0.3 Basophils # 0.0 Nucleated Red Blood 0.0 Cells # Sodium Level 140 Potassium Level 3.5 Chloride Level 104 Carbon Dioxide Level 28 Anion Gap 8 Blood Urea Nitrogen 18 Creatinine 0.64 Est Glomerular > 60 Filtrat Rate mL/min Glucose Level 117 Calcium Level 8.7 Magnesium Level 1.6 L Creatine Kinase 26 Creatine Kinase 3.4 Index Creatinine Kinase MB 0.89 (Mass) Troponin I < 0.012 B-Type Natriuretic 4360 H Peptide Serum HCG, NEGATIVE Qualitative Test 11/07/18 12:07 11/07/18 17:17 Creatine Kinase 24 Creatine Kinase 3.3 Index Creatinine Kinase MB 0.80 (Mass) Troponin I < 0.012 Bedside Glucose 103 Medications Medications Current Medications Acetaminophen (Tylenol Tab) 650 mg Q6H PRN PO .PAIN 1-3 OR TEMP; Start 11/06/18 at 19:00 Aspirin (Halfprin) 81 mg DAILY PO Last administered on 11/07/18 08:30; Admin Dose 81 MG; Start 11/07/18 at 09:00 Atenolol (Tenormin) 50 mg DAILY PO Last administered on 11/07/18 08:32; Admin Dose 50 MG; Start 11/07/18 at 09:00 Escitalopram Oxalate (Lexapro) 5 mg DAILY PO Last administered on 11/07/18 08 :33; Admin Dose 5 MG; Start 11/07/18 at 09:00 Ferrous Sulfate (Ferrous Sulfate (Ec)) 325 mg BID PO Last administered on 11/07/18 08:30; Admin Dose 325 MG; Start 11/06/18 at 21:00 Fluticasone/ Vilanterol (Breo Ellipta 100-25 Mcg Inh) 1 inh DAILY INH Last administered on 11/07/18 08:33; Admin Dose 1 INH; Start 11/07/18 at 09:00 Acetaminophen/ Hydrocodone Bitart ([place] (10/325)) 1 tab Q4 PRN PO PAIN LEVEL 4-6 Last administered on 11/07/18 17:25; Admin Dose 1 TAB; Start 11/06/18 at 19:00 Isosorbide Mononitrate (Imdur) 30 mg DAILY PO Last administered on 11/07/18 08:32; Admin Dose 30 MG; Start 11/07/18 at 09:00 Pantoprazole (Protonix Tab) 40 mg AC BREAKFAST PO Last administered on 06:38; Admin Dose 40 MG; Start 11/07/18 at 07:25 Furosemide (Lasix) 40 mg BID DIURETICS IV Last administered on 11/07/18 17:27; Admin Dose 40 MG; Start 11/07/18 at 06:00 IV Flush (NS 3 ml) 3 ml PER PROTOCOL IV ; Start 11/06/18 at 19:00 Ondansetron HCl (Zofran Inj) 4 mg Q6H PRN IV NAUSEA/VOMITING; Start 11/06/18 at 19:00 Nitroglycerin (Nitroglycerin (Sl Tab) 0.4 Mg) 1 tab Q5M PRN SL .CHEST PAIN; Start 11/06/18 at 19:00 Morphine Sulfate (morphine) 2 mg Q4H PRN IV .PAIN 7-10 Last administered on 11/07/18at 14:35; Admin Dose 2 MG; Start 11/06/18 at 19:00 Docusate Sodium (Colace) 100 mg Q12H PRN PO .CONSTIPATION; Start 11/06/18 at 19:00 Magnesium Hydroxide (Milk Of Mag) 30 ml DAILY PRN PO .CONSTIPATION; Start 11/06/18 at 19:00 Bisacodyl (Dulcolax) 5 mg DAILY PRN PO .CONSTIPATION; Start 11/06/18 at 19:00 Enoxaparin Sodium (Lovenox) 40 mg DAILY SC Last administered on 11/07/18at 14 :59; Admin Dose 40 MG; Start 11/07/18 at 09:00 Insulin Aspart (Novolog Insulin Pen) NOVOLOG *MILD* ALGORITHM WITH MEALS BEDTIME SC ; Start 11/06/18 at 21:00 Miscellaneous Information 1 ea NOTE XX ; Start 11/06/18 at 19:00 Glucose (Glutose) 15 gm Q15M PRN PO DECREASED GLUCOSE; Start 11/06/18 at 19:00 Glucose (Glutose) 22.5 gm Q15M PRN PO DECREASED GLUCOSE; Start 11/06/18 at 19:00 Dextrose (D50w Syringe) 25 ml Q15M PRN IV DECREASED GLUCOSE; Start 11/06/18 at 19:00 Dextrose (D50w Syringe) 50 ml Q15M PRN IV DECREASED GLUCOSE; Start 11/06/18 at 19:00 Glucagon (Glucagen) 1 mg Q15M PRN IM DECREASED GLUCOSE; Start 11/06/18 at 19:00 Glucose (Glutose) 15 gm Q15M PRN BUCCAL DECREASED GLUCOSE; Start 11/06/18 at 19:00 Albuterol/ Ipratropium (Duoneb) 3 ml Q4H RESP THERAPY PRN HHN SHORTNESS OF BR EATH Last administered on 11/07/18at 16:12; Admin Dose 3 ML; Start 11/07/18 at 01:30 Benazepril HCl (Lotensin) 20 mg BID PO ; Start 11/07/18 at 21:00 Metformin HCl (Glucophage) 500 mg BID WITH MEALS PO Last administered on 11/07/18at 17:26; Admin Dose 500 MG; Start 11/07/18 at 17:55 Levofloxacin (Levaquin) 500 mg DAILY@06 PO Last administered on 11/07/18at 17:30; Admin Dose 500 MG; Start 11/07/18 at 16:00 Lorazepam (Ativan) 0.5 mg Q8H PRN PO ANXIETY; Start 11/07/18 at 18:00 MADHU DIGGS MD Nov 07, 2018 18:27
[2018-11-08 01:11] VITALS: PULSE 70
[2018-11-08] MEDS: morphine 2 MG INJ IV PRN ×2 (01:36→05:12)
[2018-11-08 04:00] VITALS: BP 99/55; PULSE 70; RESP 22
[2018-11-08 05:12] VITALS: BP 104/68
[2018-11-08] MEDS: FUROSEMIDE 40 MG INJ IV SCH (06:00)
[2018-11-08] MEDS: LEVOFLOXACIN 500 MG TAB PO SCH (06:47)
[2018-11-08] MEDS: PANTOPRAZOLE (EC) 40 MG TAB PO SCH (06:47)
[2018-11-08 07:18] VITALS: BP 106/65; PULSE 76; RESP 18
--- NOTE | 2018-11-08 07:58 | CONS ---
Consult Date/Type/Reason Admit Date/Time Nov 06, 2018 at 17:40 Initial Consult Date 11/07/18 Type of Consultation: CV Requesting Provider: REJI ANTONIO Date/Time of Note DATE: 11/08/18 TIME: 07:56 Subjective Cardiology follow-up progress note Subjective: Case discussed with staff telemetry was reviewed patient has remained sinus rhythm Patient is refusing her IV Lasix now. Says she wants to go home no chest pain or pressure breathing has improved significantly Objective: General: Morbidly obese female in no acute distress HEENT: NC/AT. pupils are equal. round. NECK: Unable to assess for JVD. no stridor. CV: RRR. systolic murmur; no gallop or rubs. PULM: no wheezing or rhonchi. GI: SOFT, obese NT, ND, no rebound or guarding Extremity: trace B/L LE edema. no clubbing. neuro: awake and alert, OX3. Psych: calm and pleasant rectal: deferred Objective Vitals Vital Signs Date Temp Pulse Resp B/P (MAP) Pulse Ox O2 O2 Flow FiO2 Time Delivery Rate 11/08/18 98.5 76 18 106/65 93 07:18 (79) 11/08/18 4.0 01:42 11/08/18 45 01:11 11/07/18 Nasal 20:15 Cannula Intake and Output 11/07/18 11/07/18 11/08/18 1515:00 23:00 07:00 IntakeIntake Total 600 ml 800 ml 800 ml OutputOutput Total 1800 ml 250 ml 1000 ml BalanceBalance -1200 ml 550 ml -200 ml Results/Medications Result Diagram: 11/07/18 0825 11/07/18 0825 Results 24 hrs Laboratory Tests Test 11/07/18 08:04 11/07/18 08:25 11/07/18 11:59 11/07/18 12:07 Bedside Glucose 125 133 White Blood Count 8.7 # Red Blood Count 4.21 Hemoglobin 12.2 Hematocrit 38.4 Mean Corpuscular 91.2 Volume Mean Corpuscular 29.0 Hemoglobin Mean Corpuscular 31.8 L Hemoglobin Concent Red Cell 18.3 H Distribution Width Platelet Count 158 Mean Platelet Volume 11.2 H Immature 0.200 Granulocytes % Neutrophils % 71.4 Lymphocytes % 17.3 Monocytes % 7.9 Eosinophils % 2.9 Basophils % 0.3 Nucleated Red Blood 0.0 Cells % Immature 0.020 Granulocytes # Neutrophils # 6.2 Lymphocytes # 1.5 Monocytes # 0.7 Eosinophils # 0.3 Basophils # 0.0 Nucleated Red Blood 0.0 Cells # Sodium Level 140 Potassium Level 3.5 Chloride Level 104 Carbon Dioxide Level 28 Anion Gap 8 Blood Urea Nitrogen 18 Creatinine 0.64 Est Glomerular > 60 Filtrat Rate mL/min Glucose Level 117 Calcium Level 8.7 Magnesium Level 1.6 L Creatine Kinase 26 24 Creatine Kinase 3.4 3.3 Index Creatinine Kinase MB 0.89 0.80 (Mass) Troponin I < 0.012 < 0.012 B-Type Natriuretic 4360 H Peptide Serum HCG, NEGATIVE Qualitative Test 11/07/18 17:17 11/07/18 20:16 11/07/18 21:33 Bedside Glucose 103 135 Creatine Kinase 33 Creatine Kinase 3.6 Index Creatinine Kinase MB 1.19 (Mass) Troponin I < 0.012 Procalcitonin 0.54 H Home Meds Active Scripts Nystatin* (Nystatin* Oint) 15 Gm Oint, 1 APPLIC TOP TID PRN for ITCHING for 7 Days, #1 TUB Prov:GISELA CORBIN MD 10/21/18 Prednisone (Prednisone) 20 Mg Tablet, 40 MG PO DAILY for 3 Days, #3 TAB Prov:GISELA CORBIN MD 10/21/18 Levofloxacin* (Levaquin*) 750 Mg Tablet, 750 MG PO DAILY for 4 Days, #4 TAB Prov:GISELA CORBIN MD 10/21/18 Furosemide* (Furosemide*) 40 Mg/5 Ml Solution, 40 MG PO BID for 30 Days, #60 ML Prov:GISELA CORBIN MD 10/21/18 Escitalopram Oxalate* (Escitalopram Oxalate*) 10 Mg Tablet, 5 MG PO DAILY, #30 TAB Prov:MEGHA GARCIA. 07/14/18 Nifedipine* (Nifedipine ER*) 30 Mg Tablet.sa, 30 MG PO DAILY, #30 TAB.SA 2 Refills Prov:MEGHA GARCIA. 07/14/18 Fluticasone-Vilanterol (Breo Ellipta Inhaler) 100-25 Mcg/Actuation Aer.pow.ba, 1 PUFF INHALATION DAILY, #1 INHALER 2 Refills Prov:MEGHA GARCIA. 07/14/18 Isosorbide Mononitrate* (Isosorbide Mononitrate*) 30 Mg Tab.er.24h, 30 MG PO DAILY, #30 TAB 2 Refills Prov:MEGHA GARCIA. 07/14/18 Atenolol* (Atenolol*) 50 Mg Tablet, 50 MG PO DAILY, #30 TAB 2 Refills Prov:MEGHA GARCIA. 07/14/18 Acetaminophen* (Tylenol*) 325 Mg Tablet, 650 MG PO Q6H PRN for .PAIN 1-3 OR TEMP for 7 Days, TAB Prov:ZIA PERRIN MD 07/04/18 Ferrous Sulfate* (Ferrous Sulfate*) 325 Mg Tabec, 325 MG PO BID for 30 Days, #60 TAB 2 Refills Prov:MEGHA GARCIA. 01/05/18 Albuterol Sulfate* (Ventolin HFA*) 18 Gm Hfa.aer.ad, 2 PUFF INHALATION Q4H, #1 INHALER Prov:VAIBHAV ADAM MD 04/22/17 Reported Medications Hydrocodone/Acetaminophen ([place] 10-325 Tablet) 1 Each Tablet, 1 EACH PO Q4, TAB 10/19/18 Benazepril Hcl* (Benazepril Hcl*) 20 Mg Tablet, 20 MG PO DAILY for 30 Days, #30 09/03/18 Pantoprazole* (Pantoprazole*) 40 Mg Tablet.dr, 40 MG PO AC BREAKFAST, TAB 08/31/17 Aspirin* (Aspirin* EC) 81 Mg Tablet.dr, 81 MG PO DAILY, TAB 08/31/17 Metformin* (Glucophage*) 500 Mg Tab, 500 MG PO WITH BREAKFAST DINNE, #30 TAB 08/31/17 Albuterol Sulfate* (Albuterol Sulfate* Neb) 0.083%-3 Ml Neb, 1.25 MG NEB Q4H, #30 VIAL 08/31/17 Medications Current Medications Acetaminophen (Tylenol Tab) 650 mg Q6H PRN PO .PAIN 1-3 OR TEMP; Start 11/06/18 at 19:00 Aspirin (Halfprin) 81 mg DAILY PO Last administered on 11/07/18at 08:30; Admin D ose 81 MG; Start 11/07/18 at 09:00 Atenolol (Tenormin) 50 mg DAILY PO Last administered on 11/07/18 08:32; Admin Dose 50 MG; Start 11/07/18 at 09:00 Escitalopram Oxalate (Lexapro) 5 mg DAILY PO Last administered on 11/07/18 08:33; Admin Dose 5 MG; Start 11/07/18 at 09:00 Ferrous Sulfate (Ferrous Sulfate (Ec)) 325 mg BID PO Last administered on 11/07/18 21:34; Admin Dose 325 MG; Start 11/06/18 at 21:00 Fluticasone/ Vilanterol (Breo Ellipta 100-25 Mcg Inh) 1 inh DAILY INH Last administered on 11/07/18 08:33; Admin Dose 1 INH; Start 11/07/18 at 09:00 Acetaminophen/ Hydrocodone Bitart ([place] (10/325)) 1 tab Q4 PRN PO PAIN LEVEL 4-6 Last administered on 11/07/18 17:25; Admin Dose 1 TAB; Start 11/06/18 at 19:00 Isosorbide Mononitrate (Imdur) 30 mg DAILY PO Last administered on 11/07/18 08:32; Admin Dose 30 MG; Start 11/07/18 at 09:00 Pantoprazole (Protonix Tab) 40 mg AC BREAKFAST PO Last administered on 11/08/18 06:47; Admin Dose 40 MG; Start 11/07/18 at 07:25 Furosemide (Lasix) 40 mg BID DIURETICS IV Last administered on 11/07/18 17:27; Admin Dose 40 MG; Start 11/07/18 at 06:00 IV Flush (NS 3 ml) 3 ml PER PROTOCOL IV ; Start 11/06/18 at 19:00 Ondansetron HCl (Zofran Inj) 4 mg Q6H PRN IV NAUSEA/VOMITING; Start 11/06/18 at 19:00 Nitroglycerin (Nitroglycerin (Sl Tab) 0.4 Mg) 1 tab Q5M PRN SL .CHEST PAIN; Start 11/06/18 at 19:00 Morphine Sulfate (morphine) 2 mg Q4H PRN IV .PAIN 7-10 Last administered on 11/08/18 05:12; Admin Dose 2 MG; Start 11/06/18 at 19:00 Docusate Sodium (Colace) 100 mg Q12H PRN PO .CONSTIPATION; Start 11/06/18 at 19:00 Magnesium Hydroxide (Milk Of Mag) 30 ml DAILY PRN PO .CONSTIPATION; Start 11/06/18 at 19:00 Bisacodyl (Dulcolax) 5 mg DAILY PRN PO .CONSTIPATION; Start 11/06/18 at 19:00 Enoxaparin Sodium (Lovenox) 40 mg DAILY SC Last administered on 11/07/18at 14:59; Admin Dose 40 MG; Start 11/07/18 at 09:00 Insulin Aspart (Novolog Insulin Pen) NOVOLOG *MILD* ALGORITHM WITH MEALS BEDTIME SC ; Start 11/06/18 at 21:00 Miscellaneous Information 1 ea NOTE XX ; Start 11/06/18 at 19:00 Glucose (Glutose) 15 gm Q15M PRN PO DECREASED GLUCOSE; Start 11/06/18 at 19:00 Glucose (Glutose) 22.5 gm Q15M PRN PO DECREASED GLUCOSE; Start 11/06/18 at 19:00 Dextrose (D50w Syringe) 25 ml Q15M PRN IV DECREASED GLUCOSE; Start 11/06/18 at 19:00 Dextrose (D50w Syringe) 50 ml Q15M PRN IV DECREASED GLUCOSE; Start 11/06/18 at 19:00 Glucagon (Glucagen) 1 mg Q15M PRN IM DECREASED GLUCOSE; Start 11/06/18 at 19:00 Glucose (Glutose) 15 gm Q15M PRN BUCCAL DECREASED GLUCOSE; Start 11/06/18 at 19:00 Albuterol/ Ipratropium (Duoneb) 3 ml Q4H RESP THERAPY PRN HHN SHORTNESS OF BREATH Last administered on 11/07/18at 16:12; Admin Dose 3 ML; Start 11/07/18 at 01:30 Benazepril HCl (Lotensin) 20 mg BID PO ; Start 11/07/18 at 21:00 Metformin HCl (Glucophage) 500 mg BID WITH MEALS PO Last administered on 11/07/18at 17:26; Admin Dose 500 MG; Start 11/07/18 at 17:55 Levofloxacin (Levaquin) 500 mg DAILY@06 PO Last administered on 11/08/18at 06:47; Admin Dose 500 MG; Start 11/07/18 at 16:00 Lorazepam (Ativan) 0.5 mg Q8H PRN PO ANXIETY Last administered on 11/07/18at 22:34; Admin Dose 0.5 MG; Start 11/07/18 at 18:00 Assessment/Plan Hospital Course (Demo Recall) 1. Chest pain appears to be atypical 2. Congestive heart failure acute on chronic secondary to diastolic heart failure 3. Hypertension 4. Diabetes 5. Dyslipidemia 6. Morbid obesity 7. Obstructive sleep apnea currently not on CPAP at home 8. COPD questionable pneumonia Recommendation: We will try to get the old records from [facility] including coronary angiography. Echocardiogram has been ordered Continue with diuretics and beta-vicenta and MARGY inhibitor. Diabetic management as per internal medicine CPAP as per internal medicine Procalcitonin level is a slightly elevated. Will defer to internal medicine regarding antibiotic use Follow-up in a.m. labs and replace electrolytes as needed Thank you for his referral. We will continue to follow along with you MADHU DIGGS MD [facility] MADHU DIGGS MD Nov 08, 2018 07:58
--- NOTE | 2018-11-08 14:38 | DS ---
Date/Time of Note Date/Time of Note DATE: 11/08/18 TIME: 14:34 Discharge Summary Admission/Discharge Info Admit Date/Time Nov 06, 2018 at 17:40 Discharge Date/Time Nov 08, 2018 at 09:31 Discharge Diagnosis 1. Chest pain, resolved 2. COPD exacerbation, neb, levaquin 3. CHF, diastolic with LVEF 50% in 08/2018, acute on chronic, on lasix 4. Acute hypoxic respiratory failure: Secondary to underlying CHF, supplement 02 5. Sleep apnea, CPAP at night 6. Obesity, advise weight loss 7. Hypertension, controlled, d/c nifedipine for leg swelling 8. Diabetes mellitus, on metformin, ISS 9. Hypomagnesemia, Mg given 10. Anxiety, ativan prn Patient Condition: Fair Hospital Course This is a 43-year-old female diastolic CHF, hypertension, diabetes mellitus, tobacco use, anxiety, chronic opiate use, obstructive sleep apnea, obesity and medical noncompliance who presented from outside hospital secondary to symptoms of shortness of breath and chest pain. Patient was transferred to [facility] secondary to insurance purposes. Patient reports that for the last 2 to 3 days she has been having left-sided chest pain with shortness of breath along with increasing lower extremity edema. She states that she has been taking taking Lasix 20 mg p.o. daily, however on patient's med recon she has Lasix 40 mg twice daily. Patient does have a known history of noncompliance and drug-seeking behavior as well, I do feel that she is noncompliant at the current time as well. EKG showed normal sinus rhythm at approximately 82 bpm, troponin is negative. Patient is seen by production engineer Dr. Montgomery, patient signed AMA and left hospital today before production engineer's further decision. Chest pain resolved. Patient cough with greenish sputum with shortness of breath. ABG: pH 7.4/CO2 40/PO2 47/bicarb 29. Patient is getting neb with levaquin. Patient signed AMA. SHe should see her PCP as soon as possible for further treatment. Home Meds Active Scripts Nystatin* (Nystatin* Oint) 15 Gm Oint, 1 APPLIC TOP TID PRN for ITCHING for 7 Days, #1 TUB Prov:GISELA CORBIN MD 10/21/18 Prednisone (Prednisone) 20 Mg Tablet, 40 MG PO DAILY for 3 Days, #3 TAB Prov:GISELA CORBIN MD 10/21/18 Levofloxacin* (Levaquin*) 750 Mg Tablet, 750 MG PO DAILY for 4 Days, #4 TAB Prov:GISELA CORBIN MD 10/21/18 Furosemide* (Furosemide*) 40 Mg/5 Ml Solution, 40 MG PO BID for 30 Days, #60 ML Prov:GISELA CORBIN MD 10/21/18 Escitalopram Oxalate* (Escitalopram Oxalate*) 10 Mg Tablet, 5 MG PO DAILY, #30 TAB Prov:JOSEBULMAROFELICITYJaison Lyudmila 07/14/18 Nifedipine* (Nifedipine ER*) 30 Mg Tablet.sa, 30 MG PO DAILY, #30 TAB.SA 2 Refills Prov:CHAPO GARCIAJaison Lyudmila 07/14/18 Fluticasone-Vilanterol (Breo Ellipta Inhaler) 100-25 Mcg/Actuation Aer.pow.ba, 1 PUFF INHALATION DAILY, #1 INHALER 2 Refills Prov:CHAPO GARCIAJaison Lyudmila 07/14/18 Isosorbide Mononitrate* (Isosorbide Mononitrate*) 30 Mg Tab.er.24h, 30 MG PO DAILY, #30 TAB 2 Refills Prov:CHAPO GARCIAJaison Lyudmila 07/14/18 Atenolol* (Atenolol*) 50 Mg Tablet, 50 MG PO DAILY, #30 TAB 2 Refills Prov:MEGHA GARCIA . 07/14/18 Acetaminophen* (Tylenol*) 325 Mg Tablet, 650 MG PO Q6H PRN for .PAIN 1-3 OR TEMP for 7 Days, TAB Prov:ZIA PERRIN MD 07/04/18 Ferrous Sulfate* (Ferrous Sulfate*) 325 Mg Tabec, 325 MG PO BID for 30 Days, #60 TAB 2 Refills Prov:CHAPO GARCIAJaison Lyudmila 01/05/18 Albuterol Sulfate* (Ventolin HFA*) 18 Gm Hfa.aer.ad, 2 PUFF INHALATION Q4H, #1 INHALER Prov:VAIBHAV ADAM MD 04/22/17 Reported Medications Hydrocodone/Acetaminophen (Mchenry 10-325 Tablet) 1 Each Tablet, 1 EACH PO Q4, TAB 10/19/18 Benazepril Hcl* (Benazepril Hcl*) 20 Mg Tablet, 20 MG PO DAILY for 30 Days, #30 09/03/18 Pantoprazole* (Pantoprazole*) 40 Mg Tablet.dr, 40 MG PO AC BREAKFAST, TAB 08/31/17 Aspirin* (Aspirin* EC) 81 Mg Tablet.dr, 81 MG PO DAILY, TAB 08/31/17 Metformin* (Glucophage*) 500 Mg Tab, 500 MG PO WITH BREAKFAST DINNE, #30 TAB 08/31/17 Albuterol Sulfate* (Albuterol Sulfate* Neb) 0.083%-3 Ml Neb, 1.25 MG NEB Q4H, #30 VIAL 08/31/17 Follow-up Plan signed AMA PCP as soon as possible Primary Care Provider [facility] Pending Labs Laboratory Tests Test 11/07/18 17:17 11/07/18 20:16 11/07/18 21:33 11/08/18 08:00 Bedside 103 135 100 Glucose mg/dL (70-220) mg/dL (70-220) mg/dL (70-220) Creatine 33 Kinase IU/L (23-200) Creatine Kinase 3.6 Index Creatinine 1.19 Kinase MB ng/ml (0.0-2.4 (Mass) ) Troponin I < 0.012 ng/ml (0.000-0 .120) Procalcitonin 0.54 ng/mL (0.00-0. 10) BRISSA SWAN MD Nov 08, 2018 14:38
== END 2018-11-08 09:31 | disposition left against medical advice (07) | DRG 291 ==
LOC: TEL 17:40
PROVIDERS: ADMIT Internal Medicine; ATTEND Internal Medicine
PROC: 5A09357 Assistance with Respiratory Ventilation, Less than 24 Consecutive Hours, Continuous Positive Airway Pressure (ICD-10-PCS; principal; 2018-11-07)
DX: I11.0 Hypertensive heart disease with heart failure (principal); J96.01 Acute respiratory failure with hypoxia; J44.1 Chronic obstructive pulmonary disease with (acute) exacerbation; Z68.44 Body mass index [BMI] 60.0-69.9, adult; I50.33 Acute on chronic diastolic (congestive) heart failure; E83.42 Hypomagnesemia; E66.01 Morbid (severe) obesity due to excess calories; E11.9 Type 2 diabetes mellitus without complications; D64.9 Anemia, unspecified; F41.9 Anxiety disorder, unspecified; Z76.5 Malingerer [conscious simulation]; G47.33 Obstructive sleep apnea (adult) (pediatric); F17.200 Nicotine dependence, unspecified, uncomplicated; E66.9 Obesity, unspecified; R07.89 Other chest pain; Z91.14 Patient's other noncompliance with medication regimen; Z79.4 Long term (current) use of insulin; Z79.82 Long term (current) use of aspirin
CPT/HCPCS: 71045; 80048; 82550; 82553; 82962; 83735; 83880; 84145; 84484; 84703; 85025; 87081; 94640; 94660; 94664; J1650; J1815; J1940; J2270; J3475

== ENCOUNTER 2018-12-25 09:43 | Inpatient (IN) | payer OTHER ==
[~2018-12-25] VITALS: Ht 162.6 cm; Wt 170.4 kg
[~2018-12-25 09:43] MED LIST changes: +ACET-2343 PO; +AMLO-147 PO; +ASPI81TA52 PO; +BENA10TA6 PO; +BUME1TAB3 PO; +CIPR-193 PO; +DICL100G33 TP; +DOCU-144 PO; +FURO-110 PO; +FURO40TA4 PO; +GABA300C16 PO; +HYDR28.340 TOP; +LAS20 PO; +LORA1TAB PO; +METF500T24 PO; +METO-448 PO; +MONT10TA24 PO; +NICO-546 TRANSDERM; +PANT40TA3 PO; +POTA10TA37 PO; +SILD20TA13 PO; +SPIR25TA PO; +THIA100T56 PO; +TIOT18CA INH
[2018-12-25 09:59] VITALS: Ht 162.6 cm; Wt 170.4 kg
[2018-12-25] MEDS ORDERED: ONDANSETRON 4 MG INJ IV PRN (10:00)
[2018-12-25] MEDS ORDERED: ACETAMINOPHEN 325 MG TAB PO PRN (10:00)
[2018-12-25] MEDS ORDERED: FUROSEMIDE 40 MG INJ IV ONE (12:00)
[2018-12-25] MEDS ORDERED: NACL 0.9% 3 ML SYG IV SCH (12:00)
[2018-12-25] MEDS ORDERED: ZOLPIDEM 5 MG TAB PO PRN (12:00)
[2018-12-25] MEDS ORDERED: GLUCOSE GEL 15 GRAM TUBE BUCCAL PRN (12:30)
[2018-12-25] MEDS ORDERED: GLUCAGON 1 MG INJ IM PRN (12:30)
[2018-12-25] MEDS ORDERED: DEXTROSE 50% 50 ML SYRINGE IV PRN ×2 (12:30)
[2018-12-25] MEDS ORDERED: GLUCOSE GEL 15 GRAM TUBE PO PRN ×2 (12:30)
[2018-12-25] MEDS: LORAZEPAM 0.5 MG TAB PO PRN ×2 (12:31→21:49)
[2018-12-25] MEDS: TIOTROPIUM 18 MCG CAPSULE INHA DEV INH SCH (12:37)
[2018-12-25] MEDS: FLUTICASONE/VILANTEROL 200-25 INH DEVICE INH SCH (12:38)
[2018-12-25] MEDS ORDERED: VENLAFAXINE (XR) 37.5 MG CAP PO SCH (13:30)
[2018-12-25] MEDS: GABAPENTIN 300 MG CAP PO SCH ×2 (13:41→21:48)
[2018-12-25] MEDS ORDERED: SILDENAFIL 20 MG TAB PO SCH (14:00)
[2018-12-25] MEDS: ACCU-CHEK XX SCH ×3 (14:10→20:34)
[2018-12-25] MEDS: SILDENAFIL 20 MG TAB PO SCH ×2 (14:34→21:49)
[2018-12-25] MEDS: metFORMIN 500 MG TAB PO SCH (17:50)
[2018-12-25] MEDS: MONTELUKAST 10 MG TAB PO SCH (20:34)
[2018-12-25] MEDS: LOSARTAN 25 MG TAB PO SCH (20:35)
[2018-12-25] MEDS: HEPARIN 5,000 UNIT/1 ML VIAL SC SCH (20:43)
[2018-12-25 20:51] VITALS: BP 125/77; PULSE 95; RESP 20
[2018-12-25] MEDS: NICOTINE (21 MG/24 HR) PATCH TRANSDERM SCH (21:50)
[2018-12-25] MEDS: KETOROLAC 15 MG INJ IV PRN (23:46)
[2018-12-26] MEDS: DIPHENHYDRAMINE 50 MG INJ IV PRN ×3 (00:15→22:56)
[2018-12-26] MEDS: ALBUTEROL/IPRATROPIUM (NEB) 3 ML AMP HHN PRN ×3 (00:29→19:35)
[2018-12-26 00:33] VITALS: BP 135/82; PULSE 93; RESP 18
[2018-12-26] MEDS: PANTOPRAZOLE (EC) 40 MG TAB PO SCH (06:00)
[2018-12-26] MEDS: GABAPENTIN 300 MG CAP PO SCH ×3 (06:00→22:24)
[2018-12-26] MEDS: ACCU-CHEK XX SCH ×6 (07:00→20:00)
[2018-12-26 07:27] VITALS: BP 109/70; PULSE 81; RESP 20
[2018-12-26] MEDS: TIOTROPIUM 18 MCG CAPSULE INHA DEV INH SCH (08:55)
[2018-12-26] MEDS: FLUTICASONE/VILANTEROL 200-25 INH DEVICE INH SCH (08:55)
[2018-12-26] MEDS: NICOTINE (21 MG/24 HR) PATCH TRANSDERM SCH (08:56)
[2018-12-26] MEDS: BUPROPION (XL) 150 MG TAB PO SCH (08:57)
[2018-12-26] MEDS: SILDENAFIL 20 MG TAB PO SCH ×3 (08:57→22:40)
[2018-12-26] MEDS: SPIRONOLACTONE 25 MG TAB PO SCH (08:57)
[2018-12-26] MEDS: VENLAFAXINE (XR) 75 MG CAP PO SCH (08:57)
[2018-12-26] MEDS: LOSARTAN 25 MG TAB PO SCH ×2 (08:58→22:24)
[2018-12-26] MEDS: metFORMIN 500 MG TAB PO SCH ×2 (08:58→16:59)
[2018-12-26] MEDS: ASPIRIN (EC) 81 MG TAB PO SCH (08:58)
[2018-12-26] MEDS: KETOROLAC 15 MG INJ IV PRN ×3 (08:59→22:26)
[2018-12-26] MEDS ORDERED: FUROSEMIDE 40 MG INJ IV SCH (09:00)
[2018-12-26] MEDS: HEPARIN 5,000 UNIT/1 ML VIAL SC SCH ×2 (09:29→22:28)
[2018-12-26 11:50] VITALS: BP 121/76; PULSE 84; RESP 21
[2018-12-26 15:38] VITALS: BP 102/60; PULSE 98; RESP 20
[2018-12-26 19:49] VITALS: BP 122/82; PULSE 89; RESP 20
[2018-12-26] MEDS: FUROSEMIDE 40 MG INJ IV SCH (22:23)
[2018-12-26] MEDS: MONTELUKAST 10 MG TAB PO SCH (22:24)
[2018-12-26] MEDS: DOCUSATE SODIUM 100 MG CAP PO PRN (22:59)
[2018-12-27] VITALS (8 sets, daily range): BP systolic 106–125; BP diastolic 61–79; PULSE 89–101; RESP 18–20
[2018-12-27] MEDS: ALBUTEROL/IPRATROPIUM (NEB) 3 ML AMP HHN PRN ×2 (00:03→05:31)
[2018-12-27] MEDS: KETOROLAC 15 MG INJ IV PRN ×3 (05:47→22:59)
[2018-12-27] MEDS: PANTOPRAZOLE (EC) 40 MG TAB PO SCH (06:00)
[2018-12-27] MEDS: SILDENAFIL 20 MG TAB PO SCH ×3 (06:00→23:13)
[2018-12-27] MEDS: GABAPENTIN 300 MG CAP PO SCH ×3 (06:01→22:36)
[2018-12-27] MEDS: BUPROPION (XL) 150 MG TAB PO SCH (06:06)
[2018-12-27] MEDS: DIPHENHYDRAMINE 50 MG INJ IV PRN ×2 (06:06→22:59)
[2018-12-27] MEDS: metFORMIN 500 MG TAB PO SCH (06:06)
[2018-12-27] MEDS: ACCU-CHEK XX SCH ×5 (07:00→19:35)
[2018-12-27] MEDS: TIOTROPIUM 18 MCG CAPSULE INHA DEV INH SCH (08:16)
[2018-12-27] MEDS: FUROSEMIDE 40 MG INJ IV SCH ×2 (08:16→22:36)
[2018-12-27] MEDS: ASPIRIN (EC) 81 MG TAB PO SCH (08:16)
[2018-12-27] MEDS: LOSARTAN 25 MG TAB PO SCH (08:16)
[2018-12-27] MEDS: SPIRONOLACTONE 25 MG TAB PO SCH (08:16)
[2018-12-27] MEDS: VENLAFAXINE (XR) 75 MG CAP PO SCH (08:16)
[2018-12-27] MEDS: FLUTICASONE/VILANTEROL 200-25 INH DEVICE INH SCH (08:17)
[2018-12-27] MEDS: NICOTINE (21 MG/24 HR) PATCH TRANSDERM SCH (08:18)
[2018-12-27] MEDS: HEPARIN 5,000 UNIT/1 ML VIAL SC SCH ×2 (08:42→22:37)
[2018-12-27] MEDS: LORAZEPAM 0.5 MG TAB PO PRN (14:14)
[2018-12-27] MEDS: SALINE 0.65% 45 ML NAS SPRAY NASAL PRN (15:01)
[2018-12-27] MEDS ORDERED: morphine 2 MG INJ IV STA (20:00)
[2018-12-27] MEDS: MONTELUKAST 10 MG TAB PO SCH (22:36)
[2018-12-28] VITALS (7 sets, daily range): BP systolic 106–153; BP diastolic 63–72; PULSE 85–91; RESP 18–19
[2018-12-28] MEDS: DOCUSATE SODIUM 100 MG CAP PO PRN (00:06)
[2018-12-28] MEDS: BISACODYL (EC) 5 MG TAB PO SCH ×2 (00:30→08:44)
[2018-12-28] MEDS: KETOROLAC 15 MG INJ IV PRN (06:13)
[2018-12-28] MEDS: GABAPENTIN 300 MG CAP PO SCH ×3 (06:19→21:09)
[2018-12-28] MEDS: SILDENAFIL 20 MG TAB PO SCH ×3 (06:19→21:09)
[2018-12-28] MEDS: BUPROPION (XL) 150 MG TAB PO SCH (06:19)
[2018-12-28] MEDS: PANTOPRAZOLE (EC) 40 MG TAB PO SCH (06:19)
[2018-12-28] MEDS: metFORMIN 500 MG TAB PO SCH (06:24)
[2018-12-28] MEDS: ACCU-CHEK XX SCH ×6 (06:24→19:35)
[2018-12-28] MEDS: SPIRONOLACTONE 25 MG TAB PO SCH (08:44)
[2018-12-28] MEDS: NICOTINE (21 MG/24 HR) PATCH TRANSDERM SCH (08:45)
[2018-12-28] MEDS: VENLAFAXINE (XR) 75 MG CAP PO SCH (08:45)
[2018-12-28] MEDS: HEPARIN 5,000 UNIT/1 ML VIAL SC SCH ×2 (08:46→21:10)
[2018-12-28] MEDS ORDERED: LOSARTAN 25 MG TAB PO SCH (09:00)
[2018-12-28] MEDS: FUROSEMIDE 40 MG INJ IV SCH ×3 (09:06→21:09)
[2018-12-28] MEDS: TIOTROPIUM 18 MCG CAPSULE INHA DEV INH SCH (12:39)
[2018-12-28] MEDS: FLUTICASONE/VILANTEROL 200-25 INH DEVICE INH SCH (12:40)
[2018-12-28] MEDS: ALBUTEROL/IPRATROPIUM (NEB) 3 ML AMP HHN PRN (13:35)
[2018-12-28] MEDS: MONTELUKAST 10 MG TAB PO SCH (21:08)
[2018-12-28] MEDS: DIPHENHYDRAMINE 50 MG INJ IV PRN (21:25)
[2018-12-29] VITALS (7 sets, daily range): BP systolic 103–110; BP diastolic 57–81; PULSE 81–109; RESP 17–19
[2018-12-29] MEDS: SILDENAFIL 20 MG TAB PO SCH ×3 (05:42→21:57)
[2018-12-29] MEDS: PANTOPRAZOLE (EC) 40 MG TAB PO SCH (05:42)
[2018-12-29] MEDS: GABAPENTIN 300 MG CAP PO SCH ×4 (05:42→21:57)
[2018-12-29] MEDS: LORAZEPAM 0.5 MG TAB PO PRN (06:15)
[2018-12-29] MEDS: KETOROLAC 30 MG INJ IV PRN ×2 (06:19→22:19)
[2018-12-29] MEDS: ACCU-CHEK XX SCH ×6 (07:05→18:28)
[2018-12-29] MEDS: BUPROPION (XL) 150 MG TAB PO SCH (08:16)
[2018-12-29] MEDS: BISACODYL (EC) 5 MG TAB PO SCH (08:16)
[2018-12-29] MEDS: TIOTROPIUM 18 MCG CAPSULE INHA DEV INH SCH (08:16)
[2018-12-29] MEDS: NICOTINE (21 MG/24 HR) PATCH TRANSDERM SCH (08:16)
[2018-12-29] MEDS: VENLAFAXINE (XR) 75 MG CAP PO SCH (08:16)
[2018-12-29] MEDS: FLUTICASONE/VILANTEROL 200-25 INH DEVICE INH SCH (08:23)
[2018-12-29] MEDS: HEPARIN 5,000 UNIT/1 ML VIAL SC SCH ×2 (08:27→21:59)
[2018-12-29] MEDS: DICLOFENAC SODIUM 1% GEL 100 GM TUBE TP SCH (21:00)
[2018-12-29] MEDS: LACTOBACILLUS RHAMNOSUS CAP PO SCH (21:57)
[2018-12-29] MEDS: MONTELUKAST 10 MG TAB PO SCH (21:57)
[2018-12-29] MEDS: DIPHENHYDRAMINE 50 MG INJ IV PRN (23:38)
[2018-12-30] VITALS (7 sets, daily range): BP systolic 106–124; BP diastolic 65–76; PULSE 60–89; RESP 18–19
[2018-12-30] MEDS: PANTOPRAZOLE (EC) 40 MG TAB PO SCH (06:46)
[2018-12-30] MEDS: GABAPENTIN 300 MG CAP PO SCH ×3 (06:46→22:34)
[2018-12-30] MEDS: SILDENAFIL 20 MG TAB PO SCH ×3 (06:47→22:37)
[2018-12-30] MEDS: ACCU-CHEK XX SCH ×6 (07:05→19:35)
[2018-12-30] MEDS: ASPIRIN (EC) 81 MG TAB PO SCH (08:15)
[2018-12-30] MEDS: DICLOFENAC SODIUM 1% GEL 100 GM TUBE TP SCH ×2 (08:15→20:57)
[2018-12-30] MEDS: BISACODYL (EC) 5 MG TAB PO SCH (08:15)
[2018-12-30] MEDS: LACTOBACILLUS RHAMNOSUS CAP PO SCH ×2 (08:15→20:58)
[2018-12-30] MEDS: VENLAFAXINE (XR) 75 MG CAP PO SCH (08:15)
[2018-12-30] MEDS: FLUTICASONE/VILANTEROL 200-25 INH DEVICE INH SCH (08:16)
[2018-12-30] MEDS: TIOTROPIUM 18 MCG CAPSULE INHA DEV INH SCH (08:16)
[2018-12-30] MEDS: BUPROPION (XL) 150 MG TAB PO SCH (08:21)
[2018-12-30] MEDS: HEPARIN 5,000 UNIT/1 ML VIAL SC SCH (08:21)
[2018-12-30] MEDS ORDERED: BUMETANIDE 1 MG INJ IV SCH (13:30)
[2018-12-30] MEDS: THIAMINE 100 MG TAB PO SCH (13:38)
[2018-12-30] MEDS: KETOROLAC 30 MG INJ IV PRN ×2 (15:17→22:44)
[2018-12-30] MEDS: BUMETANIDE 2 MG in DEXTROSE 5% 17 ML IV SCH ×2 (16:24→20:58)
[2018-12-30] MEDS: MONTELUKAST 10 MG TAB PO SCH (20:58)
[2018-12-31 02:00] VITALS: BP 121/69; PULSE 65; RESP 19
[2018-12-31] MEDS: PANTOPRAZOLE (EC) 40 MG TAB PO SCH (06:27)
[2018-12-31] MEDS: GABAPENTIN 300 MG CAP PO SCH ×3 (06:27→22:00)
[2018-12-31] MEDS: SILDENAFIL 20 MG TAB PO SCH ×3 (06:30→22:00)
[2018-12-31] MEDS: ACCU-CHEK XX SCH ×6 (08:22→20:35)
[2018-12-31 08:33] VITALS: BP 106/65; PULSE 97; RESP 21
[2018-12-31] MEDS: LOSARTAN 25 MG TAB PO SCH (09:15)
[2018-12-31] MEDS: BUPROPION (XL) 150 MG TAB PO SCH (09:17)
[2018-12-31] MEDS: BISACODYL (EC) 5 MG TAB PO SCH (09:17)
[2018-12-31] MEDS: ASPIRIN (EC) 81 MG TAB PO SCH (09:17)
[2018-12-31] MEDS: LACTOBACILLUS RHAMNOSUS CAP PO SCH ×2 (09:17→20:35)
[2018-12-31] MEDS: VENLAFAXINE (XR) 75 MG CAP PO SCH (09:17)
[2018-12-31] MEDS: THIAMINE 100 MG TAB PO SCH (09:17)
[2018-12-31] MEDS: BUMETANIDE 2 MG in DEXTROSE 5% 17 ML IV SCH ×3 (09:19→20:35)
[2018-12-31] MEDS: TIOTROPIUM 18 MCG CAPSULE INHA DEV INH SCH (09:19)
[2018-12-31] MEDS: FLUTICASONE/VILANTEROL 200-25 INH DEVICE INH SCH (09:20)
[2018-12-31] MEDS: DICLOFENAC SODIUM 1% GEL 100 GM TUBE TP SCH ×2 (09:22→21:00)
[2018-12-31 09:36] VITALS: BP 93/51; PULSE 79; RESP 23
[2018-12-31 14:08] VITALS: BP 111/68; PULSE 103; RESP 24
[2018-12-31] MEDS: metFORMIN 500 MG TAB PO SCH (17:29)
[2018-12-31 19:49] VITALS: BP 116/69; PULSE 81; RESP 19
[2018-12-31] MEDS: MONTELUKAST 10 MG TAB PO SCH (20:35)
[2018-12-31] MEDS: LORAZEPAM 0.5 MG TAB PO PRN (22:19)
[2019-01-01] MEDS: traMADol 50 MG TAB PO PRN ×2 (01:30→22:18)
[2019-01-01 01:52] VITALS: BP 103/58; PULSE 99; RESP 18
[2019-01-01] MEDS: GABAPENTIN 300 MG CAP PO SCH ×3 (06:00→21:38)
[2019-01-01] MEDS: PANTOPRAZOLE (EC) 40 MG TAB PO SCH (06:25)
[2019-01-01] MEDS: SILDENAFIL 20 MG TAB PO SCH ×3 (06:25→21:38)
[2019-01-01 07:49] VITALS: BP 120/67; PULSE 92; RESP 23
[2019-01-01] MEDS: ACCU-CHEK XX SCH ×6 (08:49→19:35)
[2019-01-01] MEDS: TIOTROPIUM 18 MCG CAPSULE INHA DEV INH SCH (08:52)
[2019-01-01] MEDS: VENLAFAXINE (XR) 75 MG CAP PO SCH (08:54)
[2019-01-01] MEDS: THIAMINE 100 MG TAB PO SCH (08:57)
[2019-01-01] MEDS: LIDOCAINE 5% PATCH TD SCH (08:57)
[2019-01-01] MEDS: BISACODYL (EC) 5 MG TAB PO SCH (08:58)
[2019-01-01] MEDS: LACTOBACILLUS RHAMNOSUS CAP PO SCH ×2 (08:58→21:38)
[2019-01-01] MEDS: DICLOFENAC SODIUM 1% GEL 100 GM TUBE TP SCH ×2 (08:59→22:20)
[2019-01-01] MEDS: metFORMIN 500 MG TAB PO SCH ×2 (08:59→16:46)
[2019-01-01] MEDS: ASPIRIN (EC) 81 MG TAB PO SCH (08:59)
[2019-01-01] MEDS: LOSARTAN 25 MG TAB PO SCH (08:59)
[2019-01-01] MEDS: BUPROPION (XL) 150 MG TAB PO SCH (08:59)
[2019-01-01] MEDS: FLUTICASONE/VILANTEROL 200-25 INH DEVICE INH SCH (09:00)
[2019-01-01] MEDS: BUMETANIDE 2 MG in DEXTROSE 5% 17 ML IV SCH ×3 (09:13→21:42)
[2019-01-01 14:21] VITALS: BP 112/63; PULSE 74; RESP 22
[2019-01-01 21:27] VITALS: BP 116/70; PULSE 81; RESP 20
[2019-01-01] MEDS: MONTELUKAST 10 MG TAB PO SCH (21:38)
[2019-01-01] MEDS: HEPARIN 5,000 UNIT/1 ML VIAL SC SCH (21:42)
[2019-01-02 01:17] VITALS: BP 102/56; PULSE 83; RESP 20
[2019-01-02] MEDS: DIPHENHYDRAMINE 50 MG INJ IV PRN ×2 (02:06→23:06)
[2019-01-02] MEDS: GABAPENTIN 300 MG CAP PO SCH ×3 (06:45→21:05)
[2019-01-02] MEDS: PANTOPRAZOLE (EC) 40 MG TAB PO SCH (06:45)
[2019-01-02] MEDS: SILDENAFIL 20 MG TAB PO SCH ×3 (06:47→21:04)
[2019-01-02] MEDS: ACCU-CHEK XX SCH ×6 (07:05→19:39)
[2019-01-02] MEDS: BUPROPION (XL) 150 MG TAB PO SCH (07:05)
[2019-01-02] MEDS: metFORMIN 500 MG TAB PO SCH ×2 (08:17→17:16)
[2019-01-02 08:18] VITALS: BP 96/69; PULSE 79; RESP 18
[2019-01-02] MEDS: VENLAFAXINE (XR) 75 MG CAP PO SCH (09:00)
[2019-01-02] MEDS: LOSARTAN 25 MG TAB PO SCH (09:00)
[2019-01-02] MEDS: SPIRONOLACTONE 25 MG TAB PO SCH (09:00)
[2019-01-02] MEDS: traMADol 50 MG TAB PO PRN ×2 (09:18→22:02)
[2019-01-02] MEDS: BISACODYL (EC) 5 MG TAB PO SCH (09:19)
[2019-01-02] MEDS: BUMETANIDE 2 MG in DEXTROSE 5% 17 ML IV SCH ×3 (09:19→20:42)
[2019-01-02] MEDS: LACTOBACILLUS RHAMNOSUS CAP PO SCH ×2 (09:19→20:42)
[2019-01-02] MEDS: THIAMINE 100 MG TAB PO SCH (09:20)
[2019-01-02] MEDS: LIDOCAINE 5% PATCH TD SCH (09:20)
[2019-01-02] MEDS: ASPIRIN (EC) 81 MG TAB PO SCH (09:20)
[2019-01-02] MEDS: TIOTROPIUM 18 MCG CAPSULE INHA DEV INH SCH (09:20)
[2019-01-02] MEDS: FLUTICASONE/VILANTEROL 200-25 INH DEVICE INH SCH (09:21)
[2019-01-02] MEDS: DICLOFENAC SODIUM 1% GEL 100 GM TUBE TP SCH ×2 (09:22→20:53)
[2019-01-02] MEDS: HEPARIN 5,000 UNIT/1 ML VIAL SC SCH ×2 (09:37→21:00)
[2019-01-02 14:50] VITALS: BP 98/66; PULSE 98; RESP 16
[2019-01-02] MEDS ORDERED: BISACODYL (EC) 5 MG TAB PO PRN (19:30)
[2019-01-02] MEDS: ALBUTEROL/IPRATROPIUM (NEB) 3 ML AMP HHN PRN ×2 (19:34→22:45)
[2019-01-02 19:59] VITALS: BP 97/58; PULSE 83; RESP 18
[2019-01-02] MEDS: MONTELUKAST 10 MG TAB PO SCH (20:42)
[2019-01-02] MEDS: NICOTINE (21 MG/24 HR) PATCH TRANSDERM SCH (20:44)
[2019-01-03 00:37] VITALS: PULSE 84
[2019-01-03 01:47] VITALS: BP 90/54; PULSE 86; RESP 18
[2019-01-03] MEDS: LORAZEPAM 0.5 MG TAB PO PRN (03:02)
[2019-01-03 06:29] VITALS: BP 101/54; PULSE 96
[2019-01-03] MEDS: SILDENAFIL 20 MG TAB PO SCH ×3 (06:30→21:17)
[2019-01-03] MEDS: PANTOPRAZOLE (EC) 40 MG TAB PO SCH (06:30)
[2019-01-03] MEDS: GABAPENTIN 300 MG CAP PO SCH ×3 (06:30→21:17)
[2019-01-03] MEDS: ACCU-CHEK XX SCH ×6 (07:05→19:35)
[2019-01-03] MEDS: BUPROPION (XL) 150 MG TAB PO SCH (07:05)
[2019-01-03] MEDS: NICOTINE (21 MG/24 HR) PATCH TRANSDERM SCH (08:21)
[2019-01-03] MEDS: LOSARTAN 25 MG TAB PO SCH (08:22)
[2019-01-03] MEDS: LIDOCAINE 5% PATCH TD SCH (08:22)
[2019-01-03] MEDS: ASPIRIN (EC) 81 MG TAB PO SCH (08:23)
[2019-01-03] MEDS: VENLAFAXINE (XR) 75 MG CAP PO SCH (08:23)
[2019-01-03] MEDS: LACTOBACILLUS RHAMNOSUS CAP PO SCH ×2 (08:23→21:17)
[2019-01-03] MEDS: THIAMINE 100 MG TAB PO SCH (08:23)
[2019-01-03] MEDS: SPIRONOLACTONE 25 MG TAB PO SCH ×2 (08:23→18:34)
[2019-01-03] MEDS: metFORMIN 500 MG TAB PO SCH ×2 (08:23→17:51)
[2019-01-03] MEDS: FLUTICASONE/VILANTEROL 200-25 INH DEVICE INH SCH (08:24)
[2019-01-03] MEDS: DICLOFENAC SODIUM 1% GEL 100 GM TUBE TP SCH ×2 (08:25→21:26)
[2019-01-03] MEDS: HEPARIN 5,000 UNIT/1 ML VIAL SC SCH ×2 (08:28→21:18)
[2019-01-03] MEDS: TIOTROPIUM 18 MCG CAPSULE INHA DEV INH SCH (11:07)
[2019-01-03 11:25] VITALS: PULSE 88; RESP 18
[2019-01-03] MEDS: BUMETANIDE 1 MG TAB PO SCH ×2 (12:38→17:52)
[2019-01-03 14:48] VITALS: BP 116/77; PULSE 115; RESP 18
[2019-01-03] MEDS ORDERED: BUMETANIDE 2 MG in DEXTROSE 5% 17 ML IVPB SCH (18:30)
[2019-01-03] MEDS ORDERED: POTASSIUM CHLORIDE (SR) 20 MEQ TAB PO ONE (18:30)
[2019-01-03 20:00] VITALS: BP 123/76; PULSE 86; RESP 19
[2019-01-03] MEDS: MONTELUKAST 10 MG TAB PO SCH (21:17)
[2019-01-04] MEDS: traMADol 50 MG TAB PO PRN ×3 (00:09→20:37)
[2019-01-04] MEDS: ALBUTEROL/IPRATROPIUM (NEB) 3 ML AMP HHN PRN ×2 (00:31→22:46)
[2019-01-04 01:42] VITALS: BP 110/74; PULSE 89; RESP 17
[2019-01-04] MEDS: LORAZEPAM 0.5 MG TAB PO PRN ×2 (02:19→22:26)
[2019-01-04] MEDS ORDERED: BUMETANIDE 2 MG in DEXTROSE 5% 17 ML IVPB SCH (06:00)
[2019-01-04] MEDS: PANTOPRAZOLE (EC) 40 MG TAB PO SCH (06:36)
[2019-01-04] MEDS: GABAPENTIN 300 MG CAP PO SCH ×3 (06:37→20:39)
[2019-01-04] MEDS: SPIRONOLACTONE 25 MG TAB PO SCH ×2 (06:40→17:22)
[2019-01-04] MEDS: SILDENAFIL 20 MG TAB PO SCH ×3 (06:40→20:39)
[2019-01-04] MEDS: ACCU-CHEK XX SCH ×6 (07:05→19:35)
[2019-01-04 08:06] VITALS: BP 105/57; PULSE 105; RESP 21
[2019-01-04] MEDS: LIDOCAINE 5% PATCH TD SCH (08:18)
[2019-01-04] MEDS: NICOTINE (21 MG/24 HR) PATCH TRANSDERM SCH (08:18)
[2019-01-04] MEDS: HEPARIN 5,000 UNIT/1 ML VIAL SC SCH ×2 (08:19→20:43)
[2019-01-04] MEDS: LACTOBACILLUS RHAMNOSUS CAP PO SCH ×2 (08:19→20:40)
[2019-01-04] MEDS: ASPIRIN (EC) 81 MG TAB PO SCH (08:19)
[2019-01-04] MEDS: THIAMINE 100 MG TAB PO SCH (08:20)
[2019-01-04] MEDS: BUPROPION (XL) 150 MG TAB PO SCH (08:20)
[2019-01-04] MEDS: VENLAFAXINE (XR) 75 MG CAP PO SCH (08:20)
[2019-01-04] MEDS: metFORMIN 500 MG TAB PO SCH ×2 (08:20→17:19)
[2019-01-04] MEDS: LOSARTAN 25 MG TAB PO SCH (08:21)
[2019-01-04] MEDS: TIOTROPIUM 18 MCG CAPSULE INHA DEV INH SCH (08:26)
[2019-01-04] MEDS: FLUTICASONE/VILANTEROL 200-25 INH DEVICE INH SCH (08:31)
[2019-01-04] MEDS: DICLOFENAC SODIUM 1% GEL 100 GM TUBE TP SCH ×2 (08:32→20:46)
[2019-01-04 14:56] VITALS: BP 104/60; PULSE 104; RESP 21
[2019-01-04 16:02] VITALS: PULSE 88
[2019-01-04] MEDS: BUMETANIDE 2 MG in DEXTROSE 5% 17 ML IVPB SCH (18:20)
[2019-01-04 20:03] VITALS: BP 111/67; PULSE 71; RESP 19
[2019-01-04] MEDS: MONTELUKAST 10 MG TAB PO SCH (20:39)
[2019-01-05] MEDS: DIPHENHYDRAMINE 50 MG INJ IV PRN ×2 (01:34→23:19)
[2019-01-05 02:28] VITALS: BP 99/58; PULSE 81; RESP 17
[2019-01-05] MEDS: BUMETANIDE 2 MG in DEXTROSE 5% 17 ML IVPB SCH ×3 (06:28→17:32)
[2019-01-05] MEDS: PANTOPRAZOLE (EC) 40 MG TAB PO SCH (06:29)
[2019-01-05] MEDS: BUPROPION (XL) 150 MG TAB PO SCH (06:29)
[2019-01-05] MEDS: SPIRONOLACTONE 25 MG TAB PO SCH ×2 (06:29→17:25)
[2019-01-05] MEDS: GABAPENTIN 300 MG CAP PO SCH ×4 (06:30→20:43)
[2019-01-05] MEDS: metFORMIN 500 MG TAB PO SCH ×2 (06:30→17:25)
[2019-01-05] MEDS: ACCU-CHEK XX SCH ×6 (06:31→19:35)
[2019-01-05 08:00] VITALS: BP 112/68; PULSE 86; RESP 18
[2019-01-05] MEDS: VENLAFAXINE (XR) 75 MG CAP PO SCH ×2 (08:48→08:57)
[2019-01-05] MEDS: NICOTINE (21 MG/24 HR) PATCH TRANSDERM SCH (08:50)
[2019-01-05] MEDS: LIDOCAINE 5% PATCH TD SCH (08:50)
[2019-01-05] MEDS: SILDENAFIL 20 MG TAB PO SCH ×2 (08:52→20:47)
[2019-01-05] MEDS: TIOTROPIUM 18 MCG CAPSULE INHA DEV INH SCH (08:53)
[2019-01-05] MEDS: ASPIRIN (EC) 81 MG TAB PO SCH (08:58)
[2019-01-05] MEDS: LACTOBACILLUS RHAMNOSUS CAP PO SCH ×2 (08:58→20:46)
[2019-01-05] MEDS: DICLOFENAC SODIUM 1% GEL 100 GM TUBE TP SCH ×2 (08:58→20:46)
[2019-01-05] MEDS: THIAMINE 100 MG TAB PO SCH (08:58)
[2019-01-05] MEDS: FLUTICASONE/VILANTEROL 200-25 INH DEVICE INH SCH (08:58)
[2019-01-05] MEDS: HEPARIN 5,000 UNIT/1 ML VIAL SC SCH ×2 (09:00→20:45)
[2019-01-05] MEDS: traMADol 50 MG TAB PO PRN ×2 (10:05→20:43)
[2019-01-05] MEDS: SALINE 0.65% 45 ML NAS SPRAY NASAL PRN (13:47)
[2019-01-05 14:00] VITALS: BP 105/65; PULSE 78; RESP 18
[2019-01-05 19:47] VITALS: BP_SYST 11; BP_SYST 111; BP_DIAS 58; PULSE 101; RESP 20
[2019-01-05] MEDS: MONTELUKAST 10 MG TAB PO SCH (20:46)
[2019-01-06] MEDS ORDERED: DOCUSATE SODIUM 100 MG CAP PO SCH
[2019-01-06] MEDS: LORAZEPAM 0.5 MG TAB PO PRN ×2 (00:19→21:53)
[2019-01-06 02:28] VITALS: BP 106/74; PULSE 79; RESP 20
[2019-01-06] MEDS: BUMETANIDE 2 MG in DEXTROSE 5% 17 ML IVPB SCH ×2 (06:38→17:13)
[2019-01-06] MEDS: GABAPENTIN 300 MG CAP PO SCH ×3 (06:38→21:53)
[2019-01-06] MEDS: PANTOPRAZOLE (EC) 40 MG TAB PO SCH (06:38)
[2019-01-06] MEDS: SPIRONOLACTONE 25 MG TAB PO SCH ×2 (06:38→17:13)
[2019-01-06] MEDS: ACCU-CHEK XX SCH ×6 (07:05→19:35)
[2019-01-06 08:00] VITALS: BP 107/62; PULSE 68; RESP 19
[2019-01-06] MEDS: DICLOFENAC SODIUM 1% GEL 100 GM TUBE TP SCH ×2 (08:39→21:56)
[2019-01-06] MEDS: FLUTICASONE/VILANTEROL 200-25 INH DEVICE INH SCH (08:39)
[2019-01-06] MEDS: TIOTROPIUM 18 MCG CAPSULE INHA DEV INH SCH (08:43)
[2019-01-06] MEDS: LACTOBACILLUS RHAMNOSUS CAP PO SCH ×2 (08:44→21:54)
[2019-01-06] MEDS: DOCUSATE SODIUM 100 MG CAP PO SCH ×2 (08:44→21:53)
[2019-01-06] MEDS: THIAMINE 100 MG TAB PO SCH (08:44)
[2019-01-06] MEDS: ASPIRIN (EC) 81 MG TAB PO SCH (08:44)
[2019-01-06] MEDS: LIDOCAINE 5% PATCH TD SCH (08:45)
[2019-01-06] MEDS: SILDENAFIL 20 MG TAB PO SCH ×2 (08:45→21:54)
[2019-01-06] MEDS: metFORMIN 500 MG TAB PO SCH ×2 (08:45→17:13)
[2019-01-06] MEDS: NICOTINE (21 MG/24 HR) PATCH TRANSDERM SCH (08:45)
[2019-01-06] MEDS: ENOXAPARIN 40 MG/0.4 ML SYG SC SCH (08:48)
[2019-01-06 14:00] VITALS: BP 105/62; PULSE 72; RESP 19
[2019-01-06] MEDS: traMADol 50 MG TAB PO PRN (18:15)
[2019-01-06 20:12] VITALS: BP 127/77; PULSE 103; RESP 18
[2019-01-06] MEDS: ALBUTEROL/IPRATROPIUM (NEB) 3 ML AMP HHN PRN (21:17)
[2019-01-06] MEDS: MONTELUKAST 10 MG TAB PO SCH (21:53)
[2019-01-06] MEDS: DIPHENHYDRAMINE 50 MG INJ IV PRN (21:58)
[2019-01-07 01:26] VITALS: BP 104/62; PULSE 88; RESP 19
[2019-01-07] MEDS: DIPHENHYDRAMINE 50 MG INJ IV PRN ×3 (04:23→22:44)
[2019-01-07] MEDS: traMADol 50 MG TAB PO PRN ×3 (04:24→20:42)
[2019-01-07] MEDS: PANTOPRAZOLE (EC) 40 MG TAB PO SCH (06:37)
[2019-01-07] MEDS: BUMETANIDE 1 MG TAB PO SCH (06:37)
[2019-01-07] MEDS: GABAPENTIN 300 MG CAP PO SCH ×3 (06:37→21:58)
[2019-01-07] MEDS: metFORMIN 500 MG TAB PO SCH ×2 (06:38→17:28)
[2019-01-07] MEDS: ACCU-CHEK XX SCH ×6 (06:38→19:35)
[2019-01-07] MEDS: SPIRONOLACTONE 25 MG TAB PO SCH ×2 (06:38→17:28)
[2019-01-07 09:06] VITALS: BP 125/81; PULSE 101; RESP 22
[2019-01-07] MEDS: FLUTICASONE/VILANTEROL 200-25 INH DEVICE INH SCH (09:17)
[2019-01-07] MEDS: TIOTROPIUM 18 MCG CAPSULE INHA DEV INH SCH (09:17)
[2019-01-07] MEDS: ASPIRIN (EC) 81 MG TAB PO SCH (09:19)
[2019-01-07] MEDS: LACTOBACILLUS RHAMNOSUS CAP PO SCH ×2 (09:19→20:41)
[2019-01-07] MEDS: THIAMINE 100 MG TAB PO SCH (09:20)
[2019-01-07] MEDS: SILDENAFIL 20 MG TAB PO SCH ×2 (09:20→20:42)
[2019-01-07] MEDS: DOCUSATE SODIUM 100 MG CAP PO SCH ×2 (09:20→20:41)
[2019-01-07] MEDS: NICOTINE (21 MG/24 HR) PATCH TRANSDERM SCH (09:23)
[2019-01-07] MEDS: DICLOFENAC SODIUM 1% GEL 100 GM TUBE TP SCH ×2 (09:30→20:43)
[2019-01-07] MEDS: ENOXAPARIN 40 MG/0.4 ML SYG SC SCH (09:31)
[2019-01-07] MEDS: LIDOCAINE 5% PATCH TD SCH (09:32)
[2019-01-07 13:55] VITALS: BP_SYST 109; BP_SYST 115; BP_DIAS 71; BP_DIAS 79; PULSE 105; PULSE 87; RESP 16; RESP 17
[2019-01-07 20:24] VITALS: BP 109/66; PULSE 88; RESP 18
[2019-01-07] MEDS: MONTELUKAST 10 MG TAB PO SCH (20:41)
[2019-01-08] MEDS: ALBUTEROL/IPRATROPIUM (NEB) 3 ML AMP HHN PRN ×2 (00:07→23:05)
[2019-01-08] MEDS ORDERED: KETOROLAC 30 MG INJ IV ONE (00:20)
[2019-01-08] MEDS: LORAZEPAM 0.5 MG TAB PO PRN ×2 (00:58→22:47)
[2019-01-08 02:00] VITALS: BP 109/68; PULSE 98; RESP 18
[2019-01-08] MEDS ORDERED: HYDROCORTISONE 0.5% 28.35 GM CR TOP ONE ×2 (03:00)
[2019-01-08] MEDS: DIPHENHYDRAMINE 50 MG INJ IV PRN ×3 (04:48→18:12)
[2019-01-08 05:06] VITALS: BP 103/64
[2019-01-08] MEDS: GABAPENTIN 300 MG CAP PO SCH ×3 (05:20→21:12)
[2019-01-08] MEDS: PANTOPRAZOLE (EC) 40 MG TAB PO SCH (05:20)
[2019-01-08] MEDS: BUMETANIDE 1 MG TAB PO SCH (05:27)
[2019-01-08] MEDS: SPIRONOLACTONE 25 MG TAB PO SCH ×2 (05:27→18:08)
[2019-01-08] MEDS: ACCU-CHEK XX SCH ×3 (07:05→17:05)
[2019-01-08 07:49] VITALS: BP 98/67; PULSE 72; RESP 18
[2019-01-08] MEDS: SILDENAFIL 20 MG TAB PO SCH ×2 (09:00→21:16)
[2019-01-08] MEDS: LIDOCAINE 5% PATCH TD SCH (09:00)
[2019-01-08] MEDS: TIOTROPIUM 18 MCG CAPSULE INHA DEV INH SCH (09:44)
[2019-01-08] MEDS: ENOXAPARIN 40 MG/0.4 ML SYG SC SCH (09:45)
[2019-01-08] MEDS: NICOTINE (21 MG/24 HR) PATCH TRANSDERM SCH (09:46)
[2019-01-08] MEDS: THIAMINE 100 MG TAB PO SCH (09:47)
[2019-01-08] MEDS: LACTOBACILLUS RHAMNOSUS CAP PO SCH ×2 (09:47→21:11)
[2019-01-08] MEDS: ASPIRIN (EC) 81 MG TAB PO SCH (09:47)
[2019-01-08] MEDS: DICLOFENAC SODIUM 1% GEL 100 GM TUBE TP SCH ×2 (09:47→21:12)
[2019-01-08] MEDS: metFORMIN 500 MG TAB PO SCH ×2 (09:48→18:08)
[2019-01-08] MEDS: DOCUSATE SODIUM 100 MG CAP PO SCH ×2 (09:49→21:11)
[2019-01-08] MEDS: FLUTICASONE/VILANTEROL 200-25 INH DEVICE INH SCH (09:54)
[2019-01-08] MEDS: traMADol 50 MG TAB PO PRN ×2 (10:40→18:12)
[2019-01-08 14:55] VITALS: BP 109/69; PULSE 73; RESP 18
[2019-01-08 18:17] VITALS: BP 120/67; PULSE 90; RESP 20
[2019-01-08 20:59] VITALS: BP 107/69; PULSE 80; RESP 20
[2019-01-08] MEDS: MONTELUKAST 10 MG TAB PO SCH (21:11)
[2019-01-09] MEDS: DIPHENHYDRAMINE 50 MG INJ IV PRN ×3 (00:16→22:28)
[2019-01-09 03:13] VITALS: BP 115/86; PULSE 73; RESP 20
[2019-01-09] MEDS: GABAPENTIN 300 MG CAP PO SCH ×3 (06:29→21:15)
[2019-01-09] MEDS: SPIRONOLACTONE 25 MG TAB PO SCH ×2 (06:29→17:20)
[2019-01-09] MEDS: PANTOPRAZOLE (EC) 40 MG TAB PO SCH (06:29)
[2019-01-09] MEDS: BUMETANIDE 1 MG TAB PO SCH (06:30)
[2019-01-09] MEDS: traMADol 50 MG TAB PO PRN ×2 (06:33→22:28)
[2019-01-09 07:53] VITALS: BP_SYST 106; BP_SYST 146; BP_DIAS 72; BP_DIAS 85; PULSE 66; RESP 15; RESP 17
[2019-01-09] MEDS: DOCUSATE SODIUM 100 MG CAP PO SCH (08:10)
[2019-01-09] MEDS: metFORMIN 500 MG TAB PO SCH ×2 (08:10→17:21)
[2019-01-09] MEDS: ACCU-CHEK XX SCH ×3 (08:10→17:05)
[2019-01-09] MEDS: ASPIRIN (EC) 81 MG TAB PO SCH (08:10)
[2019-01-09] MEDS: SILDENAFIL 20 MG TAB PO SCH ×2 (08:11→21:15)
[2019-01-09] MEDS: THIAMINE 100 MG TAB PO SCH (08:11)
[2019-01-09] MEDS: NICOTINE (21 MG/24 HR) PATCH TRANSDERM SCH (08:11)
[2019-01-09] MEDS: LACTOBACILLUS RHAMNOSUS CAP PO SCH ×3 (08:11→21:14)
[2019-01-09] MEDS: LIDOCAINE 5% PATCH TD SCH (08:12)
[2019-01-09] MEDS: DICLOFENAC SODIUM 1% GEL 100 GM TUBE TP SCH ×2 (08:13→21:16)
[2019-01-09] MEDS: FLUTICASONE/VILANTEROL 200-25 INH DEVICE INH SCH (08:13)
[2019-01-09] MEDS: ENOXAPARIN 40 MG/0.4 ML SYG SC SCH (08:19)
[2019-01-09] MEDS: TIOTROPIUM 18 MCG CAPSULE INHA DEV INH SCH (09:00)
[2019-01-09] MEDS: LORAZEPAM 0.5 MG TAB PO PRN (11:06)
[2019-01-09] MEDS: ALBUTEROL/IPRATROPIUM (NEB) 3 ML AMP HHN PRN (11:41)
[2019-01-09 15:01] VITALS: BP 110/65; PULSE 68; RESP 18
[2019-01-09 19:00] VITALS: BP 117/73; PULSE 99; RESP 18
[2019-01-09 19:35] VITALS: RESP 17
[2019-01-09] MEDS: MONTELUKAST 10 MG TAB PO SCH (21:15)
[2019-01-10] MEDS: ALBUTEROL/IPRATROPIUM (NEB) 3 ML AMP HHN PRN ×2 (01:40→19:52)
[2019-01-10] MEDS: LORAZEPAM 0.5 MG TAB PO PRN (02:04)
[2019-01-10 02:33] VITALS: BP 110/63; PULSE 97; RESP 18
[2019-01-10] MEDS: HYDROCORTISONE 0.5% 28.35 GM CR TOP PRN ×2 (03:21→21:12)
[2019-01-10 05:00] VITALS: BP 107/64; PULSE 79; RESP 18
[2019-01-10 05:07] VITALS: BP 107/64
[2019-01-10] MEDS: SPIRONOLACTONE 25 MG TAB PO SCH ×2 (05:08→17:36)
[2019-01-10] MEDS: BUMETANIDE 1 MG TAB PO SCH (05:08)
[2019-01-10] MEDS: traMADol 50 MG TAB PO PRN ×3 (05:08→21:05)
[2019-01-10] MEDS: GABAPENTIN 300 MG CAP PO SCH ×3 (05:10→21:03)
[2019-01-10] MEDS: DIPHENHYDRAMINE 50 MG INJ IV PRN ×3 (05:14→21:00)
[2019-01-10] MEDS ORDERED: morphine 2 MG INJ IV STA (06:52)
[2019-01-10] MEDS: ACCU-CHEK XX SCH ×3 (07:05→17:05)
[2019-01-10 07:31] VITALS: BP 103/63; PULSE 78; RESP 18
[2019-01-10] MEDS: ENOXAPARIN 40 MG/0.4 ML SYG SC SCH (09:00)
[2019-01-10] MEDS: LACTOBACILLUS RHAMNOSUS CAP PO SCH ×3 (09:00→20:57)
[2019-01-10] MEDS: SILDENAFIL 20 MG TAB PO SCH ×2 (09:32→21:03)
[2019-01-10] MEDS: THIAMINE 100 MG TAB PO SCH (09:32)
[2019-01-10] MEDS: ASPIRIN (EC) 81 MG TAB PO SCH (09:32)
[2019-01-10] MEDS: metFORMIN 500 MG TAB PO SCH ×2 (09:32→17:05)
[2019-01-10] MEDS: DOCUSATE SODIUM 100 MG CAP PO SCH (09:32)
[2019-01-10] MEDS: FLUTICASONE/VILANTEROL 200-25 INH DEVICE INH SCH (09:32)
[2019-01-10] MEDS: LIDOCAINE 5% PATCH TD SCH (09:33)
[2019-01-10] MEDS: NICOTINE (21 MG/24 HR) PATCH TRANSDERM SCH (09:33)
[2019-01-10] MEDS: TIOTROPIUM 18 MCG CAPSULE INHA DEV INH SCH (09:33)
[2019-01-10] MEDS: DICLOFENAC SODIUM 1% GEL 100 GM TUBE TP SCH ×2 (09:34→20:59)
[2019-01-10 14:40] VITALS: BP 119/77; PULSE 104; RESP 18
[2019-01-10] MEDS: CIPROFLOXACIN 250 MG TAB PO SCH (17:36)
[2019-01-10 19:00] VITALS: BP 108/72; PULSE 109; RESP 18
[2019-01-10] MEDS: MONTELUKAST 10 MG TAB PO SCH (20:57)
[2019-01-11 01:28] VITALS: BP 113/92; PULSE 105; RESP 18
[2019-01-11] MEDS: LORAZEPAM 0.5 MG TAB PO PRN (01:46)
[2019-01-11] MEDS: GABAPENTIN 300 MG CAP PO SCH ×2 (05:46→13:22)
[2019-01-11] MEDS: DIPHENHYDRAMINE 50 MG INJ IV PRN ×2 (05:46→12:35)
[2019-01-11] MEDS: CIPROFLOXACIN 250 MG TAB PO SCH (05:46)
[2019-01-11] MEDS: traMADol 50 MG TAB PO PRN ×2 (05:47→13:23)
[2019-01-11 05:48] VITALS: BP 127/91
[2019-01-11] MEDS: BUMETANIDE 1 MG TAB PO SCH (05:50)
[2019-01-11] MEDS: SPIRONOLACTONE 25 MG TAB PO SCH (05:50)
[2019-01-11 08:00] VITALS: BP 123/74; PULSE 102; RESP 20
[2019-01-11] MEDS: ACCU-CHEK XX SCH ×2 (08:42→12:38)
[2019-01-11] MEDS: THIAMINE 100 MG TAB PO SCH (08:43)
[2019-01-11] MEDS: ASPIRIN (EC) 81 MG TAB PO SCH (08:43)
[2019-01-11] MEDS: DOCUSATE SODIUM 100 MG CAP PO SCH (08:43)
[2019-01-11] MEDS: metFORMIN 500 MG TAB PO SCH (08:44)
[2019-01-11] MEDS: SILDENAFIL 20 MG TAB PO SCH (08:44)
[2019-01-11] MEDS: ENOXAPARIN 40 MG/0.4 ML SYG SC SCH ×2 (08:45→08:59)
[2019-01-11] MEDS: LIDOCAINE 5% PATCH TD SCH (08:46)
[2019-01-11] MEDS: NICOTINE (21 MG/24 HR) PATCH TRANSDERM SCH (08:46)
[2019-01-11] MEDS: LACTOBACILLUS RHAMNOSUS CAP PO SCH (08:46)
[2019-01-11] MEDS: FLUTICASONE/VILANTEROL 200-25 INH DEVICE INH SCH (08:47)
[2019-01-11] MEDS: TIOTROPIUM 18 MCG CAPSULE INHA DEV INH SCH (08:47)
[2019-01-11] MEDS: DICLOFENAC SODIUM 1% GEL 100 GM TUBE TP SCH (08:48)
[2019-01-11 14:00] VITALS: BP 121/90; PULSE 90; RESP 18
== END 2019-01-11 14:50 | disposition home health service (06) | DRG 291 ==
LOC: E/R 09:43 → TEL 09:47 → 6WM 18:56 → MS3 12-27 17:09
PROVIDERS: ADMIT Hospitalist; ATTEND Internal Medicine
DX: I11.0 Hypertensive heart disease with heart failure (principal); J96.91 Respiratory failure, unspecified with hypoxia; Z68.44 Body mass index [BMI] 60.0-69.9, adult; N30.00 Acute cystitis without hematuria; J45.51 Severe persistent asthma with (acute) exacerbation; F33.2 Major depressive disorder, recurrent severe without psychotic features; E66.2 Morbid (severe) obesity with alveolar hypoventilation; I27.20 Pulmonary hypertension, unspecified; E11.8 Type 2 diabetes mellitus with unspecified complications; G47.33 Obstructive sleep apnea (adult) (pediatric); Z72.0 Tobacco use; I50.33 Acute on chronic diastolic (congestive) heart failure; E88.81 Metabolic syndrome and other insulin resistance; Z87.891 Personal history of nicotine dependence; F43.10 Post-traumatic stress disorder, unspecified; R25.1 Tremor, unspecified; Z76.5 Malingerer [conscious simulation]; F41.9 Anxiety disorder, unspecified; M25.562 Pain in left knee
CPT/HCPCS: 36600; 71045; 73560; 80048; 80053; 81001; 82550; 82553; 82803; 82962; 83036; 83735; 83880; 84100; 84443; 84484; 85025; 85610; 86038; 86430; 87070; 87086; 93306; 94640; 94660; 94664; 97110; 97116; 97162; 97167; 97530; 97535; J1200; J1644; J1650; J1885; J1940; J2270